=== PATIENT | male | born 1960 | race African-American/Black ===

== ENCOUNTER 2019-09-13 09:21 | Observation (INO) | payer OTHER ==
[2019-09-13] MEDS ORDERED: ASPIRIN 81 MG CHEWABLE TABLET ONE (11:00)
[2019-09-13 11:07] LABS: Absolute Lymphocytes (CBC) 1.9 K/uL (0.7-4.9); Basophils % 1.2 % (0-1.3); Hematocrit 37.6 % (39.6-49.0); Lymphocytes % 23.5 % (15.3-44.8); MPV 8.4 fL (7.6-11.3); RBC Red Blood Cell Count 4.11 M/uL (4.33-5.43)
--- NOTE | 2019-09-13 11:09 | RAD REPORT ---
EXAM DESCRIPTION: RAD - Chest Single View - 09/13/2019 10:58 am CLINICAL HISTORY: Chest pain;Dyspnea Chest pain. COMPARISON: Chest Single View dated 10/06/2017; CHEST SINGLE VIEW dated 07/09/2014; CHEST SINGLE VIEW d ated 07/08/2014; CHEST SINGLE VIEW dated 09/15/2012 FINDINGS: Portable technique limits examination quality. The lungs are grossly clear. The heart is normal in size. No displaced fractures. IMPRESSION: No acute intrathoracic process suspected.
[2019-09-13 11:15] LABS: Protime INR 1.11
[2019-09-13 11:24] LABS: ALT/SGPT 29 U/L (12-78); AST/SGOT 12 U/L (15-37); Albumin 3.2 g/dL (3.4-5.0); Alkaline Phosphatase 55 U/L (45-117); BUN Blood Urea Nitrogen 12 mg/dL (7-18); Bicarbonate 29 mmol/L (21-32); Bilirubin Direct < 0.1 mg/dL (0-0.2); Bilirubin Total 0.3 mg/dL (0.2-1.0); Glucose Level 138 mg/dL (74-106); Lipase 95 U/L (73-393); Magnesium 1.8 mg/dL (1.8-2.4); NT PRO-BNP 389 pg/mL (<125); Potassium 3.1 mmol/L (3.5-5.1); Protein, Total 7.4 g/dL (6.4-8.2); Sodium Level 142 mmol/L (136-145); Troponin (Emerg Dept Use Only) 0.02 ng/mL (0.0-0.045)
--- NOTE | 2019-09-13 11:24 | EDPHYS ---
Physician Documentation [facility] Name: Karson Giordano Age: 59 yrs Sex: Male : 1960 Arrival Date: 09/13/2019 Time: 09:22 Bed 20 Private MD: AXEL Physician Mo Luciano HPI: 09/13 10:30 This 59 yrs old Black Male presents to ER via Ambulatory with complaints of Breathing sathya Difficulty. 10:30 The patient has shortness of breath at rest, with light activity. Onset: The sathya symptoms/episode began/occurred this morning. Duration: The symptoms are continuous, but are steadily getting better. The patient's shortness of breath has no apparent modifying factors. Associated signs and symptoms: Pertinent positives: chest pain. Severity of symptoms: At their worst the symptoms were mild in the emergency department the symptoms have improved mildly. The patient has not experienced similar symptoms in the past. Historical: - Allergies: 09:45 No Known Allergies; iw - Home Meds: 09:45 lisinopril 10 mg Oral tab 1 tab once daily [Active]; iw - PMHx: 09:45 Crohn's; Kidney stones; iw - PSHx: 09:45 Colostomy; iw - Immunization history:: Adult Immunizations not up to date. - Social history:: Smoking status: Patient uses tobacco products, smokes one pack cigarettes per day. - Ebola Screening: : Patient negative for fever greater than or equal to 101.5 degrees Fahrenheit, and additional compatible Ebola Virus Disease symptoms Patient denies exposure to infectious person Patient denies travel to an Ebola-affected area in the 21 days before illness onset No symptoms or risks identified at this time. - Family history:: not pertinent. ROS: 10:30 Constitutional: Negative for fever, chills, and weight loss, Eyes: Negative for injury, sathya pain, redness, and discharge, ENT: Negative for injury, pain, and discharge, Neck: Negative for injury, pain, and swelling, Respiratory: Negative for shortness of breath, cough, wheezing, and pleuritic chest pain, Abdomen/GI: Negative for abdominal pain, nausea, vomiting, diarrhea, and constipation, Back: Negative for injury and pain, : Negative for injury, bleeding, discharge, and swelling, MS/Extremity: Negative for injury and deformity, Skin: Negative for injury, rash, and discoloration, Neuro: Negative for headache, weakness, numbness, tingling, and seizure, Psych: Negative for depression, anxiety, suicide ideation, homicidal ideation, and hallucinations, Allergy/Immunology: Negative for hives, rash, and allergies, Endocrine: Negative for neck swelling, polydipsia, polyuria, polyphagia, and marked weight changes, Hematologic/Lymphatic: Negative for swollen nodes, abnormal bleeding, and unusual bruising. 10:30 Cardiovascular: Positive for chest pain. 10:30 Respiratory: Positive for shortness of breath. Exam: 10:30 Constitutional: This is a well developed, well nourished patient who is awake, alert, sathya and in no acute distress. Head/Face: Normocephalic, atraumatic. Eyes: Pupils equal round and reactive to light, extra-ocular motions intact. Lids and lashes normal. Conjunctiva and sclera are non-icteric and not injected. Cornea within normal limits. Periorbital areas with no swelling, redness, or edema. ENT: Nares patent. No nasal discharge, no septal abnormalities noted. Tympanic membranes are normal and external auditory canals are clear. Oropharynx with no redness, swelling, or masses, exudates, or evidence of obstruction, uvula midline. Mucous membranes moist. Neck: Trachea midline, no thyromegaly or masses palpated, and no cervical lymphadenopathy. Supple, full range of motion without nuchal rigidity, or vertebral point tenderness. No Meningismus. Chest/axilla: Normal chest wall appearance and motion. Nontender with no deformity. No lesions are appreciated. Cardiovascular: Regular rate and rhythm with a normal S1 and S2. No gallops, murmurs, or rubs. Normal PMI, no JVD. No pulse deficits. Respiratory: Lungs have equal breath sounds bilaterally, clear to auscultation and percussion. No rales, rhonchi or wheezes noted. No increased work of breathing, no retractions or nasal flaring. Abdomen/GI: Soft, non-tender, with normal bowel sounds. No distension or tympany. No guarding or rebound. No evidence of tenderness throughout. Back: No spinal tenderness. No costovertebral tenderness. Full range of motion. Skin: Warm, dry with normal turgor. Normal color with no rashes, no lesions, and no evidence of cellulitis. MS/ Extremity: Pulses equal, no cyanosis. Neurovascular intact. Full, normal range of motion. Neuro: Awake and alert, GCS 15, oriented to person, place, time, and situation. Cranial nerves II-XII grossly intact. Motor strength 5/5 in all extremities. Sensory grossly intact. Cerebellar exam normal. Normal gait. Psych: Awake, alert, with orientation to person, place and time. Behavior, mood, and affect are within normal limits. 10:30 Musculoskeletal/extremity: Extremities: all appear grossly normal, with no appreciated pain with palpation, ROM: no acute changes, intact in all extremities, Circulation is intact in all extremities. Sensation intact. Compartment Syndrome exam of affected extremity: is normal. no pain, no numbness, no tingling, no sensation deficit, no palor, no weak pulses, DVT Exam: No signs of deep vein thrombosis. no pain, no swelling, no tenderness, negative Homans' sign noted on exam, no appreciated bluish discoloration, no erythema, no increased warmth. Vital Signs: 09:45 BP 174 / 99; Pulse 72; Resp 16; Temp 97.7; Pulse Ox 98% on R/A; Weight 85.28 kg; Height iw 5 ft. 10 in. (177.80 cm); Pain 8/10; 11:00 BP 169 / 102; Pulse 95; Resp 21 S; Pulse Ox 100% on R/A; ca1 11:49 BP 158 / 98; Pulse 65; Resp 18; Temp 97.9(O); Pulse Ox 99% on R/A; mh5 12:48 BP 146 / 73; Pulse 76; Resp 17 S; Pulse Ox 99% on R/A; ca1 13:49 BP 146 / 99; Pulse 66; Resp 19 S; Temp 98.2(O); Pulse Ox 100% on R/A; ca1 09:45 Body Mass Index 26.97 (85.28 kg, 177.80 cm) MDM: 10:11 Patient medically screened. [facility] 10:33 Data reviewed: vital signs, nurses notes, lab test result(s), EKG, radiologic studies, [facility] CT scan, plain films. 09/13 10:30 Order name: Basic Metabolic Panel; Complete Time: 11:38 [facility] 09/13 10:30 Order name: CBC with Diff; Complete Time: 11:20 [facility] 09/13 10:30 Order name: LFT's; Complete Time: 11:38 sathya 09/13 10:30 Order name: Magnesium; Complete Time: 11:38 [facility] 09/13 10:30 Order name: NT PRO-BNP; Complete Time: 11:38 sathya 09/13 10:30 Order name: PT-INR; Complete Time: 11:20 [facility] 09/13 10:30 Order name: Troponin (emerg Dept Use Only); Complete Time: 11:38 09/13 10:30 Order name: XRAY Chest (1 view); Complete Time: 11:20 [facility] 09/13 10:30 Order name: EKG; Complete Time: 10:30 [facility] 09/13 10:30 Order name: Lipase; Complete Time: 11:38 [facility] 09/13 10:30 Order name: Cardiac monitoring; Complete Time: 10:39 [facility] 09/13 10:30 Order name: EKG - Nurse/Tech; Complete Time: 10:39 [facility] 09/13 10:30 Order name: IV Saline Lock; Complete Time: 10:58 [facility] 09/13 10:30 Order name: Labs collected and sent; Complete Time: 10:58 [facility] 09/13 10:30 Order name: O2 Per Protocol; Complete Time: 10:39 [facility] 09/13 10:30 Order name: O2 Sat Monitoring; Complete Time: 10:39 [facility] Administered Medications: 10:58 Drug: Aspirin Chewable Tablet 324 mg Route: PO; ca1 11:39 Follow up: Response: No adverse reaction; Pain is decreased ca1 11:41 Drug: Lopressor (metoprolol TARTRATE) 50 mg Route: PO; ca1 12:15 Follow up: Response: No adverse reaction ca1 11:42 Drug: Potassium Effervescent Tablet 50 mEq Route: PO; ca1 12:15 Follow up: Response: No adverse reaction ca1 11:47 Drug: Lovenox 1 mg/kg Route: Sub-Q; Site: left lower abdomen; ca1 12:15 Follow up: Response: No adverse reaction ca1 Disposition: 09/13/19 11:23 Hospitalization ordered by Karli Leigh for Observation. Preliminary diagnosis are Chest pain, unspecified, Essential (primary) hypertension, Dyspnea, Hypokalemia. - Bed requested for Telemetry/MedSurg (observation). - Status is Observation. iw - Condition is Fair. - Problem is new. - Symptoms have improved. UTI on Admission? No Signatures: Dispatcher [employer] EDMS Mo Luciano MD MD cha Williams, Irene, KATELYN RN iw Lori Soto eb Savannah Katz RN RN ca1 Corrections: (The following items were deleted from the chart) 11:38 11:23 Hospitalization Ordered by Karli Leigh MD for Observation. Preliminary diagnosis sathya is Chest pain, unspecified; Essential (primary) hypertension; Dyspnea. Bed requested for Telemetry/MedSurg (observation). Status is Observation. Condition is Fair. Problem is new. Symptoms have improved. UTI on Admission? No. sathya 11:50 11:38 09/13/2019 11:23 Hospitalization Ordered by Karli Leigh MD for Observation. eb Preliminary diagnosis is Chest pain, unspecified; Essential (primary) hypertension; Dyspnea; Hypokalemia. Bed requested for Telemetry/MedSurg (observation). Status is Observation. Condition is Fair. Problem is new. Symptoms have improved. UTI on Admission? No. sathya 13:13 11:50 09/13/2019 11:23 Hospitalization Ordered by Karli Leigh MD for Observation. eb Preliminary diagnosis is Chest pain, unspecified; Essential (primary) hypertension; Dyspnea; Hypokalemia. Bed requested for Telemetry/MedSurg (observation). Status is Observation. Condition is Fair. Problem is new. Symptoms have improved. UTI on Admission? No. eb 14:18 13:13 09/13/2019 11:23 Hospitalization Ordered by Karli Leigh MD for Observation. iw Preliminary diagnosis is Chest pain, unspecified; Essential (primary) hypertension; Dyspnea; Hypokalemia. Bed requested for Telemetry/MedSurg (observation). Status is Observation. Condition is Fair. Problem is new. Symptoms have improved. UTI on Admission? No. eb
--- NOTE | 2019-09-13 11:24 | ER ---
Nurse's Notes [facility] Name: Karson Giordano Age: 59 yrs Sex: Male : 1960 Arrival Date: 09/13/2019 Time: 09:22 Bed 20 Private MD: Diagnosis: Chest pain, unspecified;Essential (primary) hypertension;Dyspnea;Hypokalemia Presentation: 09/13 09:42 Presenting complaint: Patient states: last night had a really bad toothache and was iw making his face hurt, and had nasal congestion and couldn't breathe, couldn't sleep, also both legs are weak. Transition of care: patient was not received from another setting of care. Onset of symptoms was September 13, 2019. Risk Assessment: Do you want to hurt yourself or someone else? Patient reports no desire to harm self or others. Initial Sepsis Screen: Does the patient meet any 2 criteria? No. Patient's initial sepsis screen is negative. Does the patient have a suspected source of infection? No. Patient's initial sepsis screen is negative. Care prior to arrival: None. 09:42 Method Of Arrival: Ambulatory iw 09:42 Acuity: AYESHA 3 iw Triage Assessment: 10:59 Respiratory: the patient reports symptoms have resolved. ca1 Historical: - Allergies: 09:45 No Known Allergies; iw - Home Meds: 09:45 lisinopril 10 mg Oral tab 1 tab once daily [Active]; iw - PMHx: 09:45 Crohn's; Kidney stones; iw - PSHx: 09:45 Colostomy; iw - Immunization history:: Adult Immunizations not up to date. - Social history:: Smoking status: Patient uses tobacco products, smokes one pack cigarettes per day. - Ebola Screening: : Patient negative for fever greater than or equal to 101.5 degrees Fahrenheit, and additional compatible Ebola Virus Disease symptoms Patient denies exposure to infectious person Patient denies travel to an Ebola-affected area in the 21 days before illness onset No symptoms or risks identified at this time. - Family history:: not pertinent. Screenin:15 Abuse screen: Denies threats or abuse. Denies injuries from another. Nutritional ca1 screening: No deficits noted. Tuberculosis screening: No symptoms or risk factors identified. Fall Risk IV access (20 points). Assessment: 10:15 General: Appears in no apparent distress. comfortable, Behavior is calm, cooperative, ca1 appropriate for age. General: Reports feeling ill for > 3 days. Pain: Complains of pain in mid-sternal area Pain does not radiate. Pain currently is 6 out of 10 on a pain scale. Quality of pain is described as tightness Pain began 0230 early this morning Is continuous, Also complains of shortness of breath. Neuro: Level of Consciousness is awake, alert, obeys commands, Oriented to person, place, time, situation, Appropriate for age. Cardiovascular: Heart tones S1 S2 present Capillary refill < 3 seconds Patient's skin is warm and dry. Rhythm is sinus rhythm. Respiratory: Reports shortness of breath since just today cough that is since 2-3 weeks Airway is patent Respiratory effort is even, unlabored, Respiratory pattern is regular, symmetrical, Breath sounds are clear bilaterally. GI: Abdomen is flat, non-distended, Colostomy site is clean and dry. Ostomy appliance is intact. Bowel sounds present X 4 quads. Abd is soft and non tender X 4 quads. : No signs and/or symptoms were reported regarding the genitourinary system. EENT: Reports nasal congestion since a week ago. Derm: Skin is intact, is healthy with good turgor, Skin is pink, warm \T\ dry. Musculoskeletal: Circulation, motion, and sensation intact. Capillary refill < 3 seconds, Range of motion: intact in all extremities. 11:00 Reassessment: Patient appears in no apparent distress at this time. Patient and/or ca1 family updated on plan of care and expected duration. Pain level reassessed. Patient is alert, oriented x 3, equal unlabored respirations, skin warm/dry/pink. 11:48 Reassessment: Patient appears in no apparent distress at this time. Patient and/or ca1 family updated on plan of care and expected duration. Pain level reassessed. Patient is alert, oriented x 3, equal unlabored respirations, skin warm/dry/pink. 12:48 Reassessment: Patient appears in no apparent distress at this time. Patient is alert, ca1 oriented x 3, equal unlabored respirations, skin warm/dry/pink. Patient is alert/active/playful, equal unlabored respirations, skin warm/dry/pink. Pending Room Assignment. 13:19 Reassessment: Called for report. Nurse on lunch break. Will call once back from lunch. ca1 13:49 Reassessment: Patient appears in no apparent distress at this time. Patient is alert, ca1 oriented x 3, equal unlabored respirations, skin warm/dry/pink. Vital Signs: 09:45 BP 174 / 99; Pulse 72; Resp 16; Temp 97.7; Pulse Ox 98% on R/A; Weight 85.28 kg; Height iw 5 ft. 10 in. (177.80 cm); Pain 8/10; 11:00 BP 169 / 102; Pulse 95; Resp 21 S; Pulse Ox 100% on R/A; ca1 11:49 BP 158 / 98; Pulse 65; Resp 18; Temp 97.9(O); Pulse Ox 99% on R/A; mh5 12:48 BP 146 / 73; Pulse 76; Resp 17 S; Pulse Ox 99% on R/A; ca1 13:49 BP 146 / 99; Pulse 66; Resp 19 S; Temp 98.2(O); Pulse Ox 100% on R/A; ca1 09:45 Body Mass Index 26.97 (85.28 kg, 177.80 cm) iw ED Course: 09:22 Patient arrived in ED. am2 09:44 Triage completed. iw 09:45 Arm band placed on. iw 10:11 Mo Luciano MD is Attending Physician. sathya 10:15 Patient has correct armband on for positive identification. Placed in gown. Bed in low ca1 position. Call light in reach. Side rails up X 1. monitoring and evaluation advisor on. Pulse ox on. NIBP on. Warm blanket given. 10:15 No provider procedures requiring assistance completed. ca1 10:35 Savannah Katz, RN is Primary Nurse. ca1 10:48 Missed attempt(s): 22 gauge in right antecubital area. Bleeding controlled, band aid ca1 applied, catheter tip intact. 10:53 Initial lab(s) drawn, by me, sent to lab. Inserted saline lock: 22 gauge in left ca1 antecubital area, using aseptic technique. Blood collected. 10:58 XRAY Chest (1 view) In Process Unspecified. EDMS 11:04 EKG done, by ED staff, reviewed by Mo Luciano MD. tc 11:21 Karli Leigh MD is Hospitalizing Provider. sathya 13:50 Patient admitted, IV remains in place. ca1 Administered Medications: 10:58 Drug: Aspirin Chewable Tablet 324 mg Route: PO; ca1 11:39 Follow up: Response: No adverse reaction; Pain is decreased ca1 11:41 Drug: Lopressor (metoprolol TARTRATE) 50 mg Route: PO; ca1 12:15 Follow up: Response: No adverse reaction ca1 11:42 Drug: Potassium Effervescent Tablet 50 mEq Route: PO; ca1 12:15 Follow up: Response: No adverse reaction ca1 11:47 Drug: Lovenox 1 mg/kg Route: Sub-Q; Site: left lower abdomen; ca1 12:15 Follow up: Response: No adverse reaction ca1 Outcome: 11:23 Decision to Hospitalize by Provider. sathya 13:50 Admitted to Med/surg accompanied by tech, via wheelchair, room 211, with chart, Report ca1 called to KATELYN Davila 13:50 Condition: stable 13:50 Instructed on the need for admit. 14:18 Patient left the ED. iw Signatures: Dispatcher [employer] EDMS Mo Luciano MD MD cha Williams, Irene, RN RN Gloria Molina, front desk officer EKG Scarlett Jacome 5 Nancy Abbott am2 Savannah Katz RN RN ca1 Corrections: (The following items were deleted from the chart) 09:45 09:42 Acuity: AYESHA 4 [facility]
[2019-09-13] MEDS ORDERED: ENOXAPARIN 80 MG/0.8 ML SQ ONE (11:43)
[2019-09-13] MEDS ORDERED: POTASSIUM 25 MEQ EFFERV TAB ONE (11:43)
[2019-09-13] MEDS ORDERED: METOPROLOL TAR 50 MG TAB ONE (11:43)
--- NOTE | 2019-09-13 13:22 | EKG ---
Test Date: 2019-09-13 Test Time: 10:31:30 Solar Installation Manager: ABY MEASUREMENT RESULTS: Intervals: Rate: 61 ME: 182 QRSD: 98 QT: 398 QTc: 400 Randall: P: 55 ME: 182 QRS: 45 T: 19 INTERPRETIVE STATEMENTS: Normal sinus rhythm Minimal voltage criteria for LVH, may be normal variant Nonspecific T wave abnormality Abnormal ECG Compared to ECG 10/06/2017 10:36:32 T-wave abnormality now present Electronically Signed On 09-13-19 13:20:51 [employer] by Akbar Sullivan
[2019-09-13] MEDS ORDERED: ACETAMINOPHEN 500 MG TAB PO PRN (14:10)
[2019-09-13] MEDS ORDERED: NITROGLYCERIN 0.4 MG/TAB SL PRN (14:10)
[2019-09-13] MEDS: ENOXAPARIN 40 MG/0.4 ML SQ SCH (15:00)
[2019-09-13] MEDS ORDERED: HYDRALAZINE HCL 20 MG/ML VIAL IV PRN (16:41)
[2019-09-13] MEDS ORDERED: INFLUENZA VACCINE (for 3y+) 0.5 ML DOSE IMVAC ONE (17:00)
[2019-09-13 17:57] VITALS: BMI 26.8
[2019-09-13] MEDS: MORPHINE 2 MG/ML SYR IV PRN (18:32)
[2019-09-13 20:10] LABS: Troponin I < 0.02 ng/mL (0.0-0.045)
[2019-09-13 20:29] LABS: Potassium 3.6 mmol/L (3.5-5.1)
[2019-09-13] MEDS ORDERED: ATORVASTATIN 40 MG TAB PO SCH (21:00)
[2019-09-13] MEDS: METOPROLOL TAR 25 MG TAB PO SCH (21:20)
[2019-09-14] MEDS ORDERED: KCL 20 MEQ/100 mL IVPB 20 MEQ/100 ML BAG IV SCH ×2 (01:00→07:30)
[2019-09-14] MEDS ORDERED: NA CHLORIDE 0.9% 250 ML ONE (01:13)
[2019-09-14] MEDS: MORPHINE 2 MG/ML SYR IV PRN (01:24)
--- NOTE | 2019-09-14 02:28 | HP ---
Date of Admission: 09/13/2019 Consultants: Dr. Sullivan with Cardiology. Chief Complaint: Chest pain. History Of Present Illness: Patient is a 59-year-old male with past medical history of Crohn disease status post colostomy, hypertension, mild coronary artery disease with cardiac catheterization in , comes in with chest pain that started last night, woke him up. Being awake, also reports some to oth pain. Patient did become short of breath. His symptoms are constant, moderate, progressive. Th e pain was nonradiating. No alleviating factors or aggravating factors. The patient came into the E R for further evaluation. His blood pressure was not well controlled, it was 169/102. Cardiac enzym es were negative. His EKG was nonspecific, showed LVH changes. He was found to have a low potassium , which was replaced. Patient was then admitted for further evaluation. Past Medical History: Crohn disease, status post colostomy, hypertension, coronary artery disease. Surgical History: Scope to bilateral knees, meniscus, ACL, colostomy. Allergies: NO KNOWN DRUG ALLERGIES. Medications: Lisinopril 10 mg daily. The patient no longer taking any aspirin, Plavix, or statin me dications. Social History: Patient smokes half a pack per day, has been smoking for the past 15 years. No illi cit drug use. Drinks alcohol rarely. Family History: Mother had diabetes. Review of Systems: Ten-point system reviewed, negative except as per HPI. Physical Examination: Vital Signs: Temperature 97.7, heart rate 72, blood pressure 174/99, respirations 16, O2 98% on room air. General: Awake, alert, and oriented x3, not in any acute distress. HEENT: Normocephalic, atraumatic. PERRLA. EOMI. Moist mucous membranes. Oropharynx is clear. Po or dentition. Conjunctivae are anicteric. Neck: Supple. No JVD. Trachea midline. CV: S1, S2. Regular rate and rhythm. Peripheral pulses present. Respiratory: Moving air well bilaterally. No wheezing or stridor. No use of accessory muscles. Gastrointestinal: Abdomen is soft, nontender, nondistended. Positive bowel sounds. No guarding or rigidity. Extremities: No clubbing, cyanosis, or edema. No calf tenderness. Neuro: Cranial nerves 2 through 12 intact grossly. No focal neurological deficit. Speech is normal . Skin: No rashes. Normal skin turgor. Psych: Mood is okay. Affect is full. Insight and judgment are good. Laboratory Data: Sodium 142, potassium 3.1, chloride 106, CO2 of 29, BUN 12, creatinine 1.17, glucos e 138, calcium 8.5, magnesium 1.8, troponin 0.02, BNP 389. WBC 8, H and H 12.5 and 37.6, platelets 2 49. INR 1.11. Chest x-ray shows no acute intrathoracic process, personally reviewed. Assessment: A 59-year-old male with, 1.Unstable angina. The patient has history of coronary artery disease with catheterization back in 2013, was on medical management, however, currently not taking any aspirin and Plavix, has history of hypertension as well and smokes. Spoke with Dr. Sullivan, who recommends stress test in a.m. We nate l start on chest pain guidelines. We will obtain serial cardiac enzymes. 2.Hypertensive emergency. Patient has blood pressure 170s/100s with chest pain. We will add IV hyd ralazine. Continue home medications. 3.Hypertensive heart disease. We will obtain echocardiogram. 4.Crohn disease, status post colostomy. 5.Coronary artery disease [place] artery and [place] heart with angina. Continue with aspirin. 6.Deep vein thrombosis prophylaxis with Lovenox. Plan: Admit patient to Med-Surg, place as observation. ANDREEA Voice ID: [id number]
[2019-09-14 04:58] LABS: Potassium 3.7 mmol/L (3.5-5.1)
[2019-09-14 05:09] LABS: Absolute Lymphocytes (CBC) 2.6 K/uL (0.7-4.9); Basophils % 0.7 % (0-1.3); Hematocrit 37.4 % (39.6-49.0); Lymphocytes % 28.9 % (15.3-44.8); MPV 8.5 fL (7.6-11.3); RBC Red Blood Cell Count 4.06 M/uL (4.33-5.43)
[2019-09-14] MEDS ORDERED: REGADENOSON 0.4 MG/5 ML SYR IV ONE (08:07)
[2019-09-14] MEDS: ENOXAPARIN 40 MG/0.4 ML SQ SCH (08:21)
[2019-09-14] MEDS: METOPROLOL TAR 25 MG TAB PO SCH (09:00)
[2019-09-14] MEDS ORDERED: lisinopriL 10 MG TAB PO SCH (09:00)
--- NOTE | 2019-09-14 10:00 | ECHO ---
HEIGHT: 5 ft 10 in WEIGHT: 186 lb 12.8 oz DATE OF STUDY: 09/14/[address]: Karli Leigh MD 2-DIMENSIONAL: YES M.MODE: YES DOPPLER: YES COLOR FLOW: YES TDS: NO PORTABLE: NO DEFINITY: NO BUBBLE STUDY: NO DIAGNOSIS: CHEST PAIN CARDIAC HISTORY: CATHERIZATION: YES SURGERY: NO PROSTHETIC VALVE: NO PACEMAKER: NO MEASUREMENTS (cm) DIASTOLIC (NORMALS) SYSTOLIC (NORMALS) IVSd 0.9 (0.6-1.2) LA Diam 3.1 (1.9-4.0) LVEF 53% LVIDd 5.6 (3.5-5.7) LVIDs 4.0 (2.0-3.5) %FS 28% LVPWd 1.0 (0.6-1.2) Ao Diam 2.9 (2.0-3.7) 2 DIMENSIONAL ASSESSMENT: RIGHT ATRIUM: NORMAL LEFT ATRIUM: NORMAL RIGHT VENTRICLE: NORMAL LEFT VENTRICLE: NORMAL TRICUSPID VALVE: NORMAL MITRAL VALVE: NORMAL PULMONIC VALVE: NORMAL AORTIC VALVE: NORMAL PERICARDIAL EFFUSION: NONE AORTIC ROOT: NORMAL LEFT VENTRICULAR WALL MOTION: NORMAL DOPPLER/COLOR FLOW: IMPAIRED LEFT VENTRICULAR RELAXATION. COMMENTS: NORMAL 2D ECHOCARDIOGRAM. IMPAIRED LEFT VENTRICULAR RELAXATION OTHERWISE NORMAL CARDIAC DOPPLER. TECHNOLOGIST: Forrest CHISHOLM
--- NOTE | 2019-09-14 12:37 | RAD REPORT ---
EXAM DESCRIPTION: NM - Rest Stress Cardiac Imaging - 09/14/2019 12:30 pm CLINICAL HISTORY: Chest pain COMPARISON: None. TECHNIQUE: The patient was administered 10.3 mCi of Tc 99m Sestamibi prior to resting SPECT imaging of the heart. The patient was then administered 30.7 mCi of Tc 99m Sestamibi following exercise or ph armacologic stress. Multiplanar SPECT images were reviewed. FINDINGS: The end diastolic volume is 137 ml, the end systolic volume is 75 ml, and the ejection fra ction is 45 %. No stress-induced ischemic changes are identified. Minimal areas of diminished activity along the mid portion of the anterior wall and the proximal portion of the inferior wall do not change between rest and stress imaging. IMPRESSION: No stress-induced ischemic change identifiable. Diminished activity along the inferior wall is believed to be attenuation artifact. Minimal anterior wall diminished activity could be a minute focus of scarring. End-diastolic volume is enlarged at 137 milliliters with a below normal 45% EF.
--- NOTE | 2019-09-14 13:45 | PN ---
History Of Present Illness: Mr. Giordano has a history of cardiac cath in 2013 that showed 50% LAD lesion. Since then, no interventions have been required. He has underlying hypertension and came to the hospital with some chest pain. Since he has been here, SC was ruled out with cardiac enzymes and EKGs. Allergies: HE HAS NO ALLERGIES. Social History: He uses no tobacco. Does not have diabetes. Medications: His only outpatient medication is lisinopril. Physical Examination: Vital signs: 5 feet 10, 186 pounds. General: Alert, oriented, pleasant, not in distress. Lungs: Clear. Cardiac: Normal. Abdomen: Soft. Extremities: Within normal limits. If his nuclear stress test is okay, he can be discharged. We can repeat a cardiac cath if there is a suggestion of significant ischemia. HEATHER/SABINE Voice ID: [id number] Report ID: [id number] ANGELA
--- NOTE | 2019-09-14 13:53 | TREADPHA ---
DX: UNSTABLE ANGINA Date of Study: 09/14/2019 Ht: 5 10 Wt: 186 lb 12.8 oz Consulting Physician: JONI MEDICATIONS: TYLENOL, LOPRESSOR, PRINIVIL, APRESOLINE HISTORY: 59 YEAR OLD MALE WITH COMPLAINTS OF CHEST PAIN. HISTORY OF CROHNS, KIDNEY STONES, HYPERTENSION, OCCASIONAL DRINKER AND SMOKER OF ONE PACK DAILY. PHYSICIAL EXAMINATION: RESTING B.P.: 154/104 RESTING H.R.: 81 RESTING EKG: SINUS, LEFT VENTRICULAR HYPERTROPHY, NON SPECIFIC T ABNORMALITY. PROTOCOL: LEXISCAN EXERCISE TIME: 3:30 B.P. AT PEAK STRESS: 163/101 IMPRESSION: LEXISCAN INJECTED, FOLLOWED BY CARDIOLITE PER PROTOCOL. SEE NUCLEAR MEDICINE REPORT. NO SUPRAVENTRICULAR TACHYCARDIA, VENTRICULAR TACHYCARDIA, PREMATURE VENTRICULAR COMPLEXES OR PREMATURE ATRIAL COMPLEXES NOTED. PATIENT REPORTED NO CHEST PAIN. NON DIAGNOSTIC EKG WITH LEXISCAN STRESS TEST.
[2019-09-14 16:45] VITALS: O2SAT 98
[2019-09-14 17:01] VITALS: BP 174/92; TEMP 98.7
--- NOTE | 2019-09-15 02:41 | DS ---
Date of Discharge: 09/14/2019 Consultants: Dr. Black with Cardiology. Procedures: Cardiac stress test on 09/14/2019. No stress-induced ischemia. Discharge Diagnoses: 1.Unstable angina, acute coronary syndrome ruled out. 2.Hypertensive emergency, blood pressure improved. 3.Hypertensive heart disease. 4.Crohn disease status post colostomy, stable. 5.Coronary artery disease [place] artery and [place] heart with angina. Hospital Course: Patient is a 59-year-old male with past history of hypertension, Crohn disease, no coronary artery disease, comes in with chest pain. He was admitted to the hospital. Patient was giv en medications to control his blood pressure. His cardiac enzymes were negative. He was started on chest pain guidelines. Echocardiogram showed normal ejection fraction 53%. His blood pressure impro marielena significantly. He was then counseled regarding continuing aspirin and statin due to history of p revious mild coronary artery disease. He was then cleared for discharge from Cardiology standpoint. He was sent home in a stable condition. Activity: As tolerated. Medications: As per medication reconciliation list. Followup: Follow up with primary care physician in 2-3 days. Follow up with senior health educator, Dr. Ching huerta in 2 weeks. Return to ER for worsening condition. Diet: Heart healthy. Physical Examination: General: Awake, alert, and oriented x3, in no acute distress. CV: S1, S2. No murmurs. Respiratory: Moving air well bilaterally. Abdomen: Abdomen is soft, nontender, nondistended. Positive bowel sounds. Extremities: No clubbing, cyanosis, or edema. Neurologic: Nonfocal. SA/MODL Voice ID: [id number] Report ID: [id number]
== END 2019-09-14 17:02 | disposition home or self-care (01) ==
LOC: ER 09:21 → ERHOLD 12:05 → 2ND 13:52
PROVIDERS: ADMIT Family Medicine; ATTEND Family Medicine
DX: I25.110 Atherosclerotic heart disease of native coronary artery with unstable angina pectoris (principal); I16.1 Hypertensive emergency; I11.9 Hypertensive heart disease without heart failure; K50.90 Crohn's disease, unspecified, without complications; Z93.3 Colostomy status; F17.210 Nicotine dependence, cigarettes, uncomplicated; Z23 Encounter for immunization
CPT/HCPCS: 93005; 93017; 93306; 85025 ×2; 80048 ×2; 36415; 83735; 84132; 85610; 80061; 80076; 84484 ×3; 83690; 83880; 71045; 90471; 78452; 96372; 99285; Q2035; J1650 ×2; J2270 ×2; J2785; J7030; A9500; G0378 ×3

== ENCOUNTER 2022-03-14 17:26 | Inpatient (IN) | payer OTHER ==
[2022-03-14] MEDS ORDERED: NA CHLORIDE 0.9% 1,000 ML ONE (18:10)
[2022-03-14] MEDS ORDERED: ONDANSETRON 4 MG/2 ML VIAL ONE (18:10)
[2022-03-14 18:19] LABS: Absolute Lymphocytes (CBC) 1.5 K/uL (0.7-4.9); Hematocrit 42.8 % (39.6-49.0); MCV 90.9 fL (80-100); MPV 8.2 fL (7.6-11.3); RBC Red Blood Cell Count 4.71 M/uL (4.33-5.43)
[2022-03-14 18:40] LABS: Albumin 3.8 g/dL (3.4-5.0); Bilirubin Total 0.4 mg/dL (0.2-1.0); Potassium 3.8 mmol/L (3.5-5.1); Protein, Total 8.6 g/dL (6.4-8.2); Troponin High Sensitivity 35.1 pg/mL (<58.9)
--- NOTE | 2022-03-14 18:44 | RAD REPORT ---
EXAM DESCRIPTION: RAD - Chest Single View - 03/14/2022 6:32 pm CLINICAL HISTORY: abd pain, chest pain Chest pain. COMPARISON: Chest Single View dated 09/13/2019; Chest Single View dated 10/06/2017; CHEST SINGLE VIEW da vitaly 07/09/2014; CHEST SINGLE VIEW dated 07/08/2014 FINDINGS: Portable technique limits examination quality. The lungs are grossly clear. The heart is normal in size. No displaced fractures. IMPRESSION: No acute intrathoracic process suspected.
--- NOTE | 2022-03-14 19:11 | RAD REPORT ---
EXAM DESCRIPTION: CT - Abdomen Pelvis Wo Contrast - 03/14/2022 6:58 pm CLINICAL HISTORY: Abdominal pain. Abdominal pain, acute, nonlocalized COMPARISON: CT ABD PELVIS W CONTRAST dated 03/11/2014; Rest Stress Cardiac Imaging dated 09/14/2019 TECHNIQUE: CT imaging of the abdomen and pelvis was performed without contrast. Solid organ, bowel a nd vascular assessment is limited due to lack of IV and oral contrast. All CT scans are performed using dose optimization technique as appropriate and may include automated exposure control or mA/KV adjustment according to patient size. FINDINGS: The lower lung malhotra are clear. The liver, spleen, pancreas, adrenal glands and kidneys are within normal limits for a limited non-co ntrast examination.Benign bilateral renal cysts. Small fat containing umbilical hernia. Right lower q uadrant ostomy noted. No bowel obstruction, free air, free fluid or abscess. Absent appendix. The osseous structures are within normal limits. IMPRESSION: No acute intra-abdominal or pelvic findings. A limited non-contrast examination was performed as detailed.
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
--- NOTE | 2022-03-14 19:15 | EDPHYS ---
Physician Documentation [facility] Name: Karson Giordano Age: 62 yrs Sex: Male : 1960 Arrival Date: 03/14/2022 Time: 17:30 Bed 14 Private MD: ED Physician Vincent Green HPI: 03/14 17:52 This 62 yrs old Black Male presents to ER via EMS with complaints of Abdominal Pain, rn Chest Pain. 17:52 Onset: The symptoms/episode began/occurred 2 day(s) ago. The symptoms do not radiate. rn Associated signs and symptoms: Pertinent positives: nausea and vomiting, Pertinent negatives: blood in stools, fever, hematuria, vomiting blood. 17:54 The patient presents with abdominal pain in the lower abdomen, right lower quadrant. rn The symptoms are described as achy, crampy, sharp. Modifying factors: The symptoms are alleviated by nothing, the symptoms are aggravated by touching the area. Severity of pain: At its worst the pain was moderate in the emergency department the pain has improved. The patient has experienced similar episodes in the past. The patient has not recently seen a physician. Pt reports lower abd pain, right sided abd pain, assoc with nausea/vomiting. + chills and malaise. EMS reported low blood pressure at scene, but much better here. NO blood in stool or vomit. Reports in ambulance pain radiated to chest and shoulders, but blames in on being moved and uncomfortable. NO current chest pain/sob/abd pain/back pain/shoulder pain. NO known sick contacts. . Historical: - Allergies: 17:49 No Known Allergies; tp1 - Home Meds: 17:49 Lisinopril Oral [Active]; tp1 - PMHx: 17:49 Crohn's disease; HTN; tp1 - PSHx: 17:49 Colostomy; tp1 - Immunization history:: Client reports receiving the 2nd dose of the Covid vaccine. - Social history:: Smoking status: Patient reports the use of cigarette tobacco products, smokes one-half pack cigarettes per day. - Family history:: not pertinent. - Hospitalizations: : No recent hospitalization is reported. ROS: 17:54 Constitutional: Negative for fever, and weight loss, Eyes: Negative for injury, pain, rn redness, and discharge, Neck: Negative for injury, pain, and swelling, Cardiovascular: Negative for palpitations, and edema, Respiratory: Negative for shortness of breath, cough, wheezing, and pleuritic chest pain, Abdomen/GI: Negative for diarrhea, and constipation, Back: Negative for injury and pain, : Negative for injury, bleeding, discharge, and swelling, MS/Extremity: Negative for injury and deformity, Skin: Negative for injury, rash, and discoloration, Neuro: Negative for headache, numbness, tingling, and seizure. Exam: 17:54 Constitutional: This is a well developed, well nourished patient who is awake, alert, rn and in no acute distress. Head/Face: Normocephalic, atraumatic. Eyes: Periorbital areas with no swelling, redness, or edema. ENT: dry MM Cardiovascular: Regular rate and rhythm. No pulse deficits. Respiratory: No increased work of breathing, no retractions or nasal flaring. Abdomen/GI: Soft, non-tender, + colostomy bag RLQ Skin: Warm, dry MS/ Extremity: Pulses equal, no cyanosis. Neuro: Awake and alert, GCS 15, oriented to person, place, time, and situation. Cranial nerves II-XII grossly intact. Motor strength 4/5 in all extremities. Sensory grossly intact. Vital Signs: 17:44 BP 104 / 69; Pulse 70; Resp 17; Temp 97.7; Pulse Ox 97% on R/A; Weight 85.73 kg; Height tp1 5 ft. 10 in. (177.80 cm); Pain 7/10; 18:47 BP 104 / 68; Pulse 66; Resp 20; Pulse Ox 100% on R/A; Pain 0/10; tp1 21:59 BP 136 / 89; Pulse 64; Resp 17; Pulse Ox 98% on R/A; vc1 17:44 Body Mass Index 27.12 (85.73 kg, 177.80 cm) tp1 MDM: 17:33 Patient medically screened. kb 19:12 Differential diagnosis: appendicitis, bowel obstruction, diverticulitis, non-specific rn abd pain, pancreatitis, Peptic Ulcer Disease, Ureterolithiasis. Data reviewed: vital signs, nurses notes, lab test result(s), radiologic studies, CT scan, and as a result, I will admit patient. Counseling: I had a detailed discussion with the patient and/or guardian regarding: the historical points, exam findings, and any diagnostic results supporting the discharge/admit diagnosis, lab results, radiology results, the need for further work-up and treatment in the hospital. Response to treatment: the patient's symptoms have mildly improved after treatment, and as a result, I will admit patient. 03/14 17:45 Order name: CBC with Diff; Complete Time: 18:28 rn 03/14 17:45 Order name: CMP 03/14 17:45 Order name: Lipase rn 03/14 17:46 Order name: SARS-COV-2 RT PCR (Document "Date of Onset" if Symptomatic); Complete Time: rn 19:08 03/14 17:46 Order name: Troponin High Sensitivity 03/14 17:47 Order name: XRAY Chest (1 view); Complete Time: 18:48 03/14 18:55 Order name: Abdomen ; Complete Time: 19:12 [facility] 03/14 19:40 Order name: Urine Microscopic Only la1 03/14 20:08 Order name: Creatine Phosphokinase [facility] 03/14 22:14 Order name: Urine Dipstick-Ancillary [facility] 03/14 17:45 Order name: IV Start; Complete Time: 18:16 rn 03/14 17:45 Order name: Labs collected and sent; Complete Time: 18:15 rn 03/14 17:45 Order name: Urine Dipstick-Ancillary (obtain specimen); Complete Time: 22:51 03/14 17:46 Order name: EKG; Complete Time: 17:47 03/14 17:46 Order name: EKG - Nurse/Tech; Complete Time: 18:15 rn Administered Medications: 18:09 Drug: NS 0.9% 1000 ml Route: IV; Rate: 1 bolus; Site: left forearm; tp1 19:10 Follow up: IV Status: Completed infusion; IV Intake: 1000ml vc1 18:13 Drug: Zofran (Ondansetron) 4 mg Route: IVP; Site: left forearm; tp1 22:24 Drug: Pepcid (famotidine) 20 mg Route: IVP; Site: left antecubital; vc1 Disposition Summary: 03/14/22 19:14 Hospitalization Ordered Hospitalization Status: Inpatient Admission rn Provider: José Henao rn Location: Telemetry/MedSurg (Inpatient) rn Condition: Stable rn Problem: new rn Symptoms: have improved rn Bed/Room Type: Standard rn Room Assignment: 222(03/14/22 21:53) Diagnosis - Acute kidney failure, unspecified rn - Dehydration rn Forms: - Medication Reconciliation Form rn - SBAR form rn Signatures: Dispatcher [employer] EDMS Yudith Giordano, TELETYPE MECHANIC-C TELETYPE MECHANIC-Vincent Lazar MD MD rn Garcia, Cindy RN RN Gloria Infante [facility] Sarah Egan RN RN [facility] Bianca Emmanuel RN RN [facility] Corrections: (The following items were deleted from the chart) 17:36 17:36 Allergies: No Known Allergies; [place] [address] 17:38 17:36 Allergies: NKDA; [place] [address] 17:38 17:36 Home Meds: lisinopril 10 mg Oral tab 1 tab once daily; [place] [address] 17:38 17:36 PMHx: Crohn's; [place] [address] 17:38 17:36 PMHx: Kidney stones; [place] [address] 17:38 17:36 Immunization history: Adult Immunizations up to date, [place] [address] 17:38 17:36 Social history: Smoking status: Patient denies any tobacco usage or history of. [place] [address] 17:52 17:49 PMHx: colostomy; [place] [id number] 18:55 17:50 Abdomen Pelvis W Con+CT.RAD.BRZ ordered. EDTN EDMS 20:08 19:41 CREATINE PHOSPHOKINASE+C.LAB.BRZ ordered. EDTN EDMS 21:02 19:14 rn 21:53 21:02 [address] [facility]
--- NOTE | 2022-03-14 20:04 | P.HP ---
Certification for Inpatient Patient admitted to: Inpatient With expected LOS: >2 Midnights Patient will require the following post-hospital care: None Practitioner: I am a practitioner with admitting privileges, knowledge of patient current condition, hospital course, and medical plan of care. Services: Services provided to patient in accordance with Admission requirements found in Title 42 Section 412.3 of the Code of Federal Regulations Patient History Date of Service: 03/14/22 Reason for admission: Acute renal failure History of Present Illness: 62-year-old male with history of Crohn's, hypertension presents the emergency department for nausea and vomiting, he reports feeling unwell over the course of the last few days has been unable to tolerate anything by mouth for the last 2 to 3 days, denies any abdominal pain or chest pain at this time he has a history of a colostomy from previous laparotomy approximately 8 to 9 years ago. He was evaluated in the emergency department his labs demonstrated that he was in acute renal failure his white blood cell count was within normal limits no fever chills were noted his CT scan of the abdomen pelvis was negative for any acute findings, patient was mildly hypotensive per EMS with a systolic in the 80s, this is since significant improved the patient does appear to be dehydrated, he denies use of any NSAIDs recently he reports that he was taking acetaminophen at home for pain, he is on lisinopril denies any recent contrast exposure or antibiotics. He had a similar episode back in 2018 which resolved with IV fluids his baseline GFR appears to be around 1. He will be admitted for acute renal failure. Allergies No Known Allergies Allergy (Verified 07/09/14 01:52) Home Medications: Aspirin [Aspirin EC 81 MG] 81 mg PO DAILY #30 tablet. 09/14/19 Atorvastatin Calcium [Lipitor] 40 mg PO BEDTIME #30 tab 09/14/19 lisinopriL [Lisinopril] 20 mg PO DAILY #30 tablet 09/14/19 - Past Medical/Surgical History Diabetic: No -: Chron's -: HTN -: Scope to bilat knees Meniscus/ACL -: Colostomy Psychosocial/ Personal History: Patient is retired, lives at home with his - Family History Mother -: Diabetes, Cancer - Social History Smoking Status: Current every day smoker Counseled patient to stop smoking for: less than 10 minutes Smoking therapy provided: Yes Alcohol use: No CD- Drugs: No Caffeine use: No Place of Residence: Home Review of Systems 10-point ROS is otherwise unremarkable Gastrointestinal: Nausea, Vomiting Physical Examination - Physical Exam General: Alert, In no apparent distress, Oriented x3 HEENT: Atraumatic, PERRLA, Other (Mucous membranes dry), EOMI, Sclerae nonicteric Neck: Supple, 2+ carotid pulse no bruit, No LAD, Without JVD or thyroid abnormality Respiratory: Clear to auscultation bilaterally, Normal air movement Cardiovascular: Regular rate/rhythm, Normal S1 S2 Capillary refill: <2 Seconds Gastrointestinal: Normal bowel sounds, No tenderness, Other (Colostomy in place right lower quadrant) Musculoskeletal: No tenderness Integumentary: No rashes Neurological: Normal speech, Normal strength at 5/5 x4 extr, Normal tone, Normal affect - Studies Laboratory Data (last 24 hrs) 03/14/22 18:05: Sodium 139, Potassium 3.8, BUN 33 H, Creatinine 4.22 H, Glucose 118 H, Total Bilirubin 0.4, AST 11 L, ALT 23, Alkaline Phosphatase 76, Lipase 99 03/14/22 18:05: WBC 9.6, Hgb 14.1, Hct 42.8, Plt Count 296 Assessment and Plan - Plan Assessment: Acute renal failure Hypertension Crohn's S/P colostomy Plan: Acute renal failure: I suspect this is prerenal we will continue with IV fluids overnight patient does not appear to be volume overloaded denies recent use of NSAIDs, antibiotics or recent contrast exposure. Nephrology has been consulted renal ultrasound has been ordered. Patient does take lisinopril this medication. Hypertension: Blood pressure initially hypotensive with EMS currently around 105 110 systolic, will hold antihypertensive agents at this time would likely benefit switching to a different antihypertensive prior to discharge. Crohn's S/P colostomy: Stable. CT negative for acute findings. DVT PPX: Heparin Code status: Full Discharge Plan: Home Plan to discharge in: 72 Hours - Advance Directives Does patient have a Living Will: No Does patient have a Durable POA for Healthcare: No - Code Status/Comfort Care Code Status Assessed: Yes (Full code) Critical Care: No Time Spent Managing Pts Care (In Minutes): 70
[2022-03-14 22:14] LABS: Urine Blood Trace-lysed (Negative); Urine Glucose Negative (Negative); Urine Protein 1+ (Negative); Urine Specific Gravity >=1.030 (1.005-1.030)
[2022-03-14] MEDS ORDERED: FAMOTIDINE 20 MG/2 ML VIAL IV ONE (22:25)
[2022-03-14 23:48] LABS: Urine Bacteria <20 /HPF (NONE SEEN); Urine RBC <5 /HPF (NONE SEEN)
[2022-03-15 00:08] VITALS: BMI 25.3
[2022-03-15] MEDS ORDERED: ONDANSETRON 4 MG/2 ML VIAL IV PRN (00:22)
[2022-03-15] MEDS ORDERED: ACETAMINOPHEN 500 MG TAB PO PRN (00:22)
[2022-03-15] MEDS: NA CHLORIDE 0.9% 1,000 ML IV SCH ×3 (01:58→20:45)
[2022-03-15] MEDS: HEPARIN 5000 UNIT/ML 1 ML VIAL SQ SCH ×3 (01:58→20:48)
[2022-03-15 05:48] LABS: Absolute Lymphocytes (CBC) 1.4 K/uL (0.7-4.9); Hematocrit 40.8 % (39.6-49.0); Lymphocytes % 14.1 % (15.3-44.8); MCV 91.6 fL (80-100); MPV 7.8 fL (7.6-11.3); RBC Red Blood Cell Count 4.46 M/uL (4.33-5.43)
[2022-03-15 06:22] LABS: Albumin 3.4 g/dL (3.4-5.0); Bilirubin Total 0.5 mg/dL (0.2-1.0); Potassium 3.7 mmol/L (3.5-5.1); Thyroid Stimulating Hormone 0.537 uIU/mL (0.360-3.740)
--- NOTE | 2022-03-15 08:14 | RAD REPORT ---
EXAM DESCRIPTION: US - Renal Ultrasound-Complete - 03/15/2022 5:15 am CLINICAL HISTORY: arf Flank pain COMPARISON: Renal Ultrasound-Complete dated 10/06/2017 FINDINGS: Mild increased echogenicity involving both kidneys. The right kidney measures 13.4 x 6.8 x 5.4 cm. No hydronephrosis, focal mass or perinephric fluid. 4. 8 x 4.0 cm cyst is present, benign in appearance. The left kidney measures 11.6 x 5.4 x 4.3 cm. No hydronephrosis, focal mass or perinephric fluid. The urinary bladder is incompletely distended without gross abnormality seen. IMPRESSION: Mildly echogenic kidneys suggests underlying medical renal disease. 4 cm right renal cyst, likely benign
--- NOTE | 2022-03-15 09:00 | P.PN ---
Subjective Date of Service: 03/15/22 Chief Complaint: Acute renal failure Subjective: Improving (Patient is improving denies any other complaints) Review of Systems General: Unremarkable Physical Examination - Vital Signs Temperature: 97.9 F Blood Pressure: 104/58 Pulse: 76 Respirations: 17 Pulse Ox (%): 91 - Physical Exam General: Alert, In no apparent distress, Oriented x3 Respiratory: Clear to auscultation bilaterally, Friction rub Cardiovascular: Regular rate/rhythm, Normal S1 S2 - Studies Laboratory Data (last 24 hrs) 03/14/22 18:05: Sodium 139, Potassium 3.8, BUN 33 H, Creatinine 4.22 H, Glucose 118 H, Total Bilirubin 0.4, AST 11 L, ALT 23, Alkaline Phosphatase 76, Lipase 99 03/14/22 18:05: WBC 9.6, Hgb 14.1, Hct 42.8, Plt Count 296 Assessment And Plan - Current Problems (Diagnosis) (1) DELMI (acute kidney injury) Onset Date: 10/07/17 Current Visit: No Status: Acute Plan: Patient admitted with acute renal failure most likely prerenal kidney function has improved significantly urine very concentrated he was out in the heat CBC is normal continue with IV fluids history of hypertension on FERNIE inhibitor history of Crohn's disease renal ultrasound ordered possible discharge tomorrow
[2022-03-15 11:34] LABS: UR PROTEIN 57.4 mg/dL (<11.9); Urine Protein/Creatinine Ratio 0.16 ratio (<0.15)
--- NOTE | 2022-03-15 13:46 | EKG ---
Test Date: 2022-03-14 Test Time: 22:17:25 Law Enforcement Officer: MEASUREMENT RESULTS: Intervals: Rate: 69 [place]: 164 QRSD: 94 QT: 416 QTc: 445 [place]: P: 50 [place]: 164 QRS: 58 T: -72 INTERPRETIVE STATEMENTS: Sinus rhythm with occasional premature ventricular complexes Voltage criteria for left ventricular hypertrophy T wave abnormality, consider inferolateral ischemia Abnormal ECG Compared to ECG 03/14/2022 18:09:41 Ventricular premature complex(es) now present T-wave abnormality now present Possible ischemia now present Early repolarization no longer present Electronically Signed On 03-15-22 13:45:14 CDT by Josef Bales
--- NOTE | 2022-03-15 13:47 | EKG ---
Test Date: 2022-03-14 Test Time: 18:09:41 Cloud Software Engineer: BRI MEASUREMENT RESULTS: Intervals: Rate: 68 [place]: 150 QRSD: 96 QT: 406 QTc: 431 [place]: P: 51 [place]: 150 QRS: 55 T: 248 INTERPRETIVE STATEMENTS: Normal sinus rhythm Left ventricular hypertrophy with repolarization abnormality Abnormal ECG Compared to ECG 09/13/2019 10:31:30 Early repolarization now present T-wave abnormality no longer present Electronically Signed On 03-15-22 13:45:40 CDT by Josef Bales
[2022-03-15] MEDS: FAMOTIDINE 20 MG/2 ML VIAL IV SCH (21:46)
--- NOTE | 2022-03-16 00:26 | CON ---
Date of Consultation: 03/15/2022 Chief Complaint: Acute kidney injury. History Of Present Illness: The patient is a 62-year-old man with history of hypertension and Crohn disease. He presented to the hospital Emergency Department because of nausea and vomiting. He was n ot feeling well for at least few days prior to the admission. He had diminished p.o. intake and he d enied abdominal pain or chest pain. He has history of colostomy and previous laparotomy approximatel y 8-9 years ago. He was evaluated in the emergency room and he was found to have elevated BUN and cr eatinine and elevated white count. He was complaining of some weakness, but he did not have fever or chills. CT scan was done to rule out abdominal pathology and the CT scan of the abdomen and pelvis was negative for acute finding. On presentation to the hospital, the patient was mildly hypotensive. He was brought to the emergency room by EMS and his systolic blood pressure was in the 80s. The pa tient received IV fluids for volume resuscitation and hypotension resolved. The patient denies histo ry of nonsteroidal anti-inflammatory medication. Denies antibiotics or recent IV contrast exposure. He had similar episodes back in 2018 with acute kidney injury and at this time, he was volume deplet ed and he had acute kidney injury with severe hyperazotemia and he responded to IV fluids and did not require dialysis. Past Medical History: Crohn disease, hypertension, colostomy, acute kidney injury. Family History: Mother with diabetes mellitus and cancer. Social History: Current everyday smoker. Denies alcohol. Review of Systems: General: Denies fever or chills. Eyes: Denies vision changes. Ears, Nose and Throat: Denies sore throat or earache. Respiratory: Denies PND or orthopnea. Cardiovascular: Denies chest pain or palpitations. GI: Has diarrhea. Denies nausea, vomiting, melena, or hematemesis. : Denies dysuria, hematuria, or renal colic. All other systems reviewed and all are negative. Physical Examination: General: The patient is oriented x3. Eyes: Anicteric sclerae. EOMI. Ears, Nose, and Throat: Oral mucosa moist. No pallor. Neck: Supple. No JVD. No bruits. Lungs: Clear to auscultation bilaterally. Heart: S1, S2. No pericardial friction or rub. Abdomen: Benign, nontender. No rebound. No guarding. Extremities: No edema. Laboratory Data: Sodium 139, potassium 3.8, BUN 33, creatinine 4.22, glucose 118, total bilirubin 0. 4, lipase 99, ALT 23, AST 11. WBC 9.6, hemoglobin 14.1, platelet count 296,000. Impression: 1.Acute kidney injury, nonoliguric. Renal function is somewhat improved since yesterday although th e patient has severe hyperazotemia, he does not have uremic symptomatology. Plan is to continue IV f luids for hydration. The patient developed severe prerenal azotemia with acute tubular necrosis. Th e patient denies nonsteroidal anti-inflammatory medication. 2.The patient presented with hypotension. Monitor blood pressure closely. Continue normal saline f or hydration. 3.Crohn disease status post colostomy and CT scan was done. The patient will follow up with GI and management by Primary Team. 4.Generalized weakness. Advanced hydration with IV fluids. 5.Renal ultrasound did not show hydronephrosis. Urinalysis is negative for active urinary sediment. Re-evaluate urine and screen for proteinuria. EB/MODL Voice ID: [id number] Report ID: [id number]
[2022-03-16 03:48] LABS: Absolute Lymphocytes (CBC) 1.9 K/uL (0.7-4.9); Hematocrit 38.4 % (39.6-49.0); Lymphocytes % 26.6 % (15.3-44.8); MCV 89.9 fL (80-100); MPV 7.9 fL (7.6-11.3); RBC Red Blood Cell Count 4.27 M/uL (4.33-5.43)
[2022-03-16 04:02] LABS: Albumin 3.1 g/dL (3.4-5.0); Bilirubin Total 0.5 mg/dL (0.2-1.0); Potassium 3.6 mmol/L (3.5-5.1); Protein, Total 7.5 g/dL (6.4-8.2)
[2022-03-16] MEDS: NA CHLORIDE 0.9% 1,000 ML IV SCH ×3 (06:56→18:24)
[2022-03-16] MEDS: HEPARIN 5000 UNIT/ML 1 ML VIAL SQ SCH ×2 (09:43→21:17)
[2022-03-16] MEDS ORDERED: POTASSIUM CL 40 MEQ in NA CHLORIDE 0.9% 500 ML IV SCH (14:00)
--- NOTE | 2022-03-16 17:19 | PN ---
Date of Progress Note: 03/16/2022 Subjective: The patient was admitted with acute kidney injury secondary to prerenal. The patient was started on aggressive hydration. Kidney function started being improving. Physical Examination: Vital Signs: Blood pressure 126/76, pulse of 67, afebrile. The patient had good urine output. Chest: Clear to auscultation. Heart: S1, S2. Regular. Abdomen: Soft. Colostomy. Extremities: No edema. Neurologic: Alert. No focality. Laboratory Data: Sodium 139, potassium 3.6, bicarb 19, BUN 29, creatinine down to 1.6, GFR of 45, calcium 8.2, albumin 3.1. Current Medications: The patient on include heparin, Tylenol, Pepcid, normal saline. Assessment And Plan: 1. Acute kidney injury secondary to prerenal, on the recovery phase. I am going to continue hydration. 2. Renal cyst, simple. We will monitor. 3. Gastroenteritis. The patient is going to be advanced diet if tolerated. We will discontinue IV fluid. 4. Acidosis secondary to gastrointestinal loss. I am going to start the patient on sodium bicarb. 5. Hypokalemia. We will supplement. Time spent examining the patient [id number], reviewing the data, placing order, discussing with by bedside, discussing with staff member including charge nurse and nursing and hospitalist 45 minutes. MILAN Voice ID: [id number] Report ID: [id number] ANGELA
--- NOTE | 2022-03-16 18:45 | P.PN ---
Subjective Date of Service: 03/16/22 Chief Complaint: Acute renal failure Patient states he feels better today. He tolerated diet advancement. Serum creatinine continues to trend down. Physical Examination - Vital Signs Temperature: 97.8 F Blood Pressure: 121/77 Pulse: 82 Respirations: 16 Pulse Ox (%): 82 - Physical Exam General: Alert, Oriented x3 HEENT: Mucous membr. moist/pink Neck: Supple, JVD not distended Respiratory: Clear to auscultation bilaterally, Normal air movement Cardiovascular: No edema, Normal S1 S2, Irregular heart rate/rhythm Gastrointestinal: Normal bowel sounds, Soft and benign, Non-distended, No tenderness Musculoskeletal: No swelling, No tenderness Integumentary: No rashes, No erythema Neurological: Normal speech, Normal strength at 5/5 x4 extr Assessment And Plan - Current Problems (Diagnosis) (1) DELMI (acute kidney injury) Onset Date: 10/07/17 Current Visit: No Status: Acute (2) Crohns disease Onset Date: 07/09/14 Current Visit: No Status: Acute (3) Atrial fibrillation Current Visit: Yes Status: Acute - Plan Serum creatinine is trending down. Nephrology input appreciated. Patient is now tolerating solid diet. No nausea or vomiting. Renal function is recovering. Discontinue IV fluid. Monitor renal function. Nephrology started patient on bicarb replacement for metabolic acidosis. Diet as tolerated Possible discharge in a.m.
[2022-03-16] MEDS: SODIUM BICARB 325 MG TAB PO SCH (21:18)
[2022-03-17 02:58] VITALS: O2SAT 99
[2022-03-17 03:52] LABS: Absolute Lymphocytes (CBC) 1.9 K/uL (0.7-4.9); Hematocrit 36.2 % (39.6-49.0); Lymphocytes % 27.1 % (15.3-44.8); MCV 90.6 fL (80-100); RBC Red Blood Cell Count 3.99 M/uL (4.33-5.43)
[2022-03-17 03:59] LABS: Bilirubin Total 0.3 mg/dL (0.2-1.0); Potassium 4.1 mmol/L (3.5-5.1); Protein, Total 6.9 g/dL (6.4-8.2)
[2022-03-17] MEDS: FAMOTIDINE 20 MG/2 ML VIAL IV SCH (10:25)
[2022-03-17] MEDS: SODIUM BICARB 325 MG TAB PO SCH (10:25)
[2022-03-17] MEDS: HEPARIN 5000 UNIT/ML 1 ML VIAL SQ SCH (10:25)
[2022-03-17 10:40] VITALS: BP 160/95; TEMP 97.3
--- NOTE | 2022-03-17 13:11 | P.DS ---
Admission Date: 03/14/22 Discharge Date: 03/17/22 Disposition: ROUTINE DISCHARGE Discharge Condition: FAIR Reason for Admission: Acute renal failure - Problems (1) DELMI (acute kidney injury) Onset Date: 10/07/17 Status: Acute (2) Crohns disease Onset Date: 07/09/14 Status: Acute (3) Atrial fibrillation Status: Acute Brief History of Present Illness: 62-year-old male with history of Crohn's, hypertension presented to the emergency department for nausea and vomiting. He reported feeling unwell over the course of a few days, had been unable to tolerate anything by mouth for 2 to 3 days, denied any abdominal pain or chest pain. He has a history of a colostomy from previous laparotomy approximately 8 to 9 years ago. His labs in the ED demonstrated that he was in acute renal failure. CT scan of the abdomen pelvis was negative for any acute findings. Patient was mildly hypotensive per EMS with a systolic in the 80s. Patient denied use of any NSAIDs. He is on lisinopril for hypertension. He had a similar episode back in 2018 which resolved with IV fluids. His baseline creatinine appears to be around 1. He was admitted for further management of acute renal failure. Hospital Course: Patient admitted to the medical floor and hydrated with IV fluids. He was seen in consultation by nephrology who assisted with management. He was experiencing nausea and vomiting which improved during the hospital stay. His serum creatinine trended down with IV fluid. Serum creatinine is trending down. Nephrology input appreciated. Nephrology started patient on bicarb replacement for metabolic acidosis. His diet was advanced to solid diet which he tolerated. Patient is currently asymptomatic, renal function has improved and deemed stable for discharge. He is looking forward to a colostomy reversal in order to follow-up with his GI Dr. Garland to discuss that. Vital Signs/Physical Exam: Temp Pulse Resp BP Pulse Ox 97.3 F 67 12 160/95 H 99 03/17/22 08:00 03/17/22 08:00 03/17/22 08:00 03/17/22 08:00 03/17/22 08:00 General: Alert, In no apparent distress, Oriented x3 HEENT: Mucous membr. moist/pink Neck: JVD not distended Respiratory: Clear to auscultation bilaterally, Normal air movement Cardiovascular: No edema, Regular rate/rhythm, Normal S1 S2 Gastrointestinal: Soft and benign, Non-distended, Other (Colostomy) Musculoskeletal: No swelling Integumentary: No rashes Neurological: Normal strength at 5/5 x4 extr Laboratory Data at Discharge: WBC 6.9 K/uL (4.3-10.9) 03/17/22 03:20 Hgb 12.0 g/dL (13.6-17.9) L 03/17/22 03:20 Hct 36.2 % (39.6-49.0) L 03/17/22 03:20 Plt Count 203 K/uL (152-406) 03/17/22 03:20 Sodium 142 mmol/L (136-145) 03/17/22 03:20 Potassium 4.1 mmol/L (3.5-5.1) 03/17/22 03:20 BUN 21 mg/dL (7-18) H 03/17/22 03:20 Creatinine 1.44 mg/dL (0.55-1.3) H 03/17/22 03:20 Glucose 95 mg/dL (74-106) 03/17/22 03:20 Total Bilirubin 0.3 mg/dL (0.2-1.0) 03/17/22 03:20 AST 15 U/L (15-37) 03/17/22 03:20 ALT 20 U/L (12-78) 03/17/22 03:20 Alkaline Phosphatase 63 U/L (45-117) 03/17/22 03:20 Lipase 99 U/L (73-393) 03/14/22 18:05 Home Medications: Aspirin [Aspirin EC 81 MG] 81 mg PO DAILY #30 tablet. 09/14/19 Atorvastatin Calcium [Lipitor] 40 mg PO BEDTIME #30 tab 09/14/19 lisinopriL [Lisinopril] 20 mg PO DAILY #30 tablet 09/14/19 Sodium Bicarbonate 650 mg PO BID #60 tablet 03/17/22 New Medications: Sodium Bicarbonate 650 mg PO BID #60 tablet Diet: Renal Activity: Ad luís Followup: Praveen Norwood MD [Primary Care Provider] - 1 Week (call to schedule an appointment ) Time spent managing pt's care (in minutes): 37
[2022-03-18 21:28] LABS: HIV AG/AB 4TH GEN Non-reactive (Non-reactive)
[2022-03-23 07:44] LABS: Beta Globulin 24 HR Urine 23 %; Gamma Globulin, 24hr Urine 33 %; Interpretation: REPORT; Protein/Crea Ratio in g 153 mg/g creat (<=114); Protein/Crea Ratio in mg 0.153 (<=0.114); Urine Alpha-2-Globulins, 24 Hr 24 %; Urine PEP Abn Protein Band1 REPORT; Urine Total Volume 24 Hours 625 mL
--- OUTSIDE RECORDS SUMMARY | 2022-03-24 21:48 | XMS REPORT | Continuity of Care Document ---
:1960 Author Organization [facility] t Address [address] [place] [address] Care Team Providers Name Role Phone Emre Norwood MD Primary Care Physician [phone] CEFERINO NORWOOD Attending Clinician Unavailable Ceferino Norwood MD Attending Clinician Doctor Unassigned, Name Attending Clinician Unavailable Payers Payer Name Policy Type Policy Number Effective Date Expiration Date S ource MEDICARE PART A [id number] 2013 \T\ B 00:00:00 Problems Condition Condition Condition Status Onset Resolution Last Treating Co mments Source Name Details Category Date Date Treatment Clinician Date Crohn's Crohn's Disease Active 2018-09 Univers disease of disease of 10-14 it y of colon [place] Me dical on on Branch Essential Essential Disease Active 2018-09 Uni vers hypertensi hypertensi 10-14 it y of on on 00:00: [place] [address] Medical Branch Allergies, Adverse Reactions, Alerts Allergy Allergy Status Severity Reaction(s) Onset Inactive Treating Comm ents Source Name Type Date Date Clinician NO KNOWN Drug Active Univers ALLERGIE Class ity of S [facility] Social History Social Habit Start Date Stop Date Quantity Comments Source History of tobacco Cigarette Smoker University of use [place] [facility] History SDOH University o f Alcohol Std Drinks [place] [facility] History [facility] University o f Alcohol Binge [place] [facility] History SDKS University o f Alcohol Comment [place] [facility] ical Branch Cigarettes smoked 2019-08-13 2019-08-13 Univers ity of current (pack per 00:00:00 00:00:00 [facility] ) - Reported Branch Tobacco use and 2019-08-13 2019-08-13 Smokeless Universit y of exposure 00:00:00 00:00:00 tobacco non-user [facility] dical Branch Alcohol intake 2019-08-13 2019-08-13 Lifetime University of 00:00:00 00:00:00 non-drinker [place] [facility] (finding) Branch History SDOH 2019-08-13 2019-08-13 1 University o f Alcohol Frequency 00:00:00 00:00:00 [facility] edical Branch Sex [birth year] Universit y of 00:00:00 00:00:00 [facility] Branch Smoking Status Start Date Stop Date Source Smokes tobacco daily 2019-08-13 00:00:00 Univers ity of [place] [facility] Medications Ordered Filled Start Stop Current Ordering Indication Dosage Frequency Signature Comments Components Source Medication Medication Date Date Medication? Clinician (SIG) Name Name lisinopriL 0 Yes [id number] 10mg Take 1 U nivers 10 mg 7-13 tablet by ity of tablet 00:00: mouth in [place] 00 the Medical morning. Branch lisinopriL 0 Yes [id number] 10mg Take 1 U nivers 10 mg 1-05 tablet by ity of tablet 00:00: mouth [place] 00 daily. Medical Branch lisinopriL 0 Yes [id number] 10mg Take 1 U nivers 10 mg 1-05 tablet by ity of tablet 00:00: mouth [place] 00 daily. Medical Branch lisinopriL 2020-0 Yes [id number] 10mg Take 1 U nivers 10 mg 1-05 tablet by ity of tablet 00:00: mouth [place] 00 daily. Medical Branch lisinopriL 0 Yes [id number] 10mg Take 1 U nivers 10 mg 1-05 tablet by ity of tablet 00:00: mouth [place] 00 daily. Medical Branch lisinopriL 0 Yes [id number] 10mg Take 1 U nivers 10 mg 1-05 tablet by ity of tablet 00:00: mouth [place] 00 daily. Medical Branch lisinopriL 0 2- No [id number] 10mg Take 1 Univers 10 mg 1-05 07-13 tablet by ity of tablet 00:00: 00:00 mouth [place] 00 :00 daily. Medical Branch Immunizations Ordered Filled Immunization Date Status Comments Sour e Immunization Name Name SARS-COV-2 COVID-19 2020-11-22 Completed Unive rsity of PFIZER VACCINE 00:00:00 [facility] Branch SARS-COV-2 COVID-19 2020-11-22 Completed Unive rsity of PFIZER VACCINE 00:00:00 [facility] Branch SARS-COV-2 COVID-19 2020-11-22 Completed Unive rsity of PFIZER VACCINE 00:00:00 [facility] Branch SARS-COV-2 COVID-19 2020-11-22 Completed Unive rsity of PFIZER VACCINE 00:00:00 [facility] Branch SARS-COV-2 COVID-19 2020-11-22 Completed Unive rsity of PFIZER VACCINE 00:00:00 [facility] Branch SARS-COV-2 COVID-19 2020-11-22 Completed Unive rsity of PFIZER VACCINE 00:00:00 [facility] Branch SARS-COV-2 COVID-19 2020-11-01 Completed Unive rsity of PFIZER VACCINE 00:00:00 [facility] SARS-COV-2 COVID-19 2020-11-01 Completed Unive rsity of PFIZER VACCINE 00:00:00 [facility] Branch SARS-COV-2 COVID-19 2020-11-01 Completed Unive rsity of PFIZER VACCINE 00:00:00 [facility] SARS-COV-2 COVID-19 2020-11-01 Completed Unive rsity of PFIZER VACCINE 00:00:00 [facility] SARS-COV-2 COVID-19 2020-11-01 Completed Unive rsity of PFIZER VACCINE 00:00:00 [facility] SARS-COV-2 COVID-19 2020-11-01 Completed Unive rsity of PFIZER VACCINE 00:00:00 [facility] Procedures Procedure Date / Time Performing Clinician Source Performed INSURANCE CORRESPONDENCE 2021-12-03 05:01:00 Doctor Unassigned, [facility] [place] Medical [facility] DME/SUPPLY JUSTIFICATION 2021-10-26 06:01:00 Doctor Unassigned, [facility] [place] Medical Branch Encounters Start End Encounter Admission Attending Care Care Encounter Source Date/Time Date/Time Type Type Clinicians Facility Department ID 2022-04-06 2022-04-06 Outpatient [facility] [id number] Univers 14:30:00 14:30:00 EMRE [id number] [facility] 2022-03-17 2022-03-17 [facility] [id number] Univers 00:00:00 00:00:00 [facility] [id number] it y of [place] [id number] Ángel as NETTIE?BLEA [id number] [address] MEDICAL OFFICE [facility] 2022-02-24 2022-02-24 Outpatient R [facility] [id number] Univers 11:00:00 11:00:00 EMRE [id number] [facility] 2022-02-24 2022-02-24 Outpatient [facility] [id number] Univers 11:00:00 11:00:00 [facility] 2022-02-18 2022-02-18 [facility] [id number] Univers 00:00:00 00:00:00 [facility] [id number] it y of [place] [id number] Ángel as NETTIE?BLEA [id number] [address] MEDICAL OFFICE [facility] 2022-02-12 2022-02-12 [facility] [id number] Univers 00:00:00 00:00:00 [facility] HEALTH [id number] it y of [place] [id number] Ángel as NETTIE?BLEA [id number] [address] MEDICAL OFFICE [facility] 2021-12-03 2021-12-03 Orders Doctor OCTAVIA 1.2.840.114 [id number] Univers 00:00:00 00:00:00 Only Unassigned, [facility] [id number] ity of [place] [facility] [id number] Ángel as [id number] [address] 2021-10-26 2021-10-26 [facility] [id number] Univers 00:00:00 00:00:00 [facility] [id number] it y of Ceferino [place] [id number] Ángel as NETTIE?BLEA [id number] Va tushar [address] MEDICAL OFFICE BUILDING 2021-10-26 2021-10-26 Orders Doctor OCTAVIA 1.2.840.114 [id number] Univers 00:00:00 00:00:00 Only Unassigned, CHANTAL [id number] ity of [place] [facility] [id number] Ángel as [id number] [address] 2020-11-22 2020-11-22 Outpatient [facility] [id number] Univers 14:50:00 14:50:00 [facility] 2020-11-01 2020-11-01 Outpatient [facility] [id number] Univers 15:05:00 15:05:00 [facility] 2020-09-09 2020-09-09 [facility] [id number] Univers 15:30:00 15:30:00 EMRE [id number] [facility] 2020-09-09 2020-09-09 [facility] [id number] Univers 15:30:00 15:30:00 EMRE [facility] Results This patient has no known results.
== END 2022-03-17 11:15 | disposition home or self-care (01) | DRG 683 ==
LOC: ER 17:26 → ERHOLD 20:16 → 2ND 22:02
PROVIDERS: ADMIT Internal Medicine Sleep Medicine; ATTEND Internal Medicine Sleep Medicine
DX: N17.9 Acute kidney failure, unspecified (principal); K50.90 Crohn's disease, unspecified, without complications; E87.2 Acidosis; I10 Essential (primary) hypertension; I48.91 Unspecified atrial fibrillation; N28.1 Cyst of kidney, acquired; E87.6 Hypokalemia; K52.9 Noninfective gastroenteritis and colitis, unspecified; I95.9 Hypotension, unspecified; F17.210 Nicotine dependence, cigarettes, uncomplicated; Z93.3 Colostomy status; Z20.822 Contact with and (suspected) exposure to COVID-19
CPT/HCPCS: 36415; 71045; 74176; 76770; 80053; 81003; 81015; 82550; 82570; 83690; 83935; 84132; 84156; 84166; 84300; 84439; 84443; 84484; 85025; 86334; 87389; 93005; 99285; J1644; J2405; J3480; J3490; J7030; J7040; U0003

== ENCOUNTER 2023-01-30 13:07 | Inpatient (IN) | payer OTHER ==
--- OUTSIDE RECORDS SUMMARY | 2023-01-30 13:10 | XMS REPORT | Continuity of Care Document ---
:1960 Author Organization [facility] t Address [address] [place] [address] [address] [place] [address] Care Team Providers Name Role Phone EMRE NORWOOD Primary Care Physician Unavailable EMRE NORWOOD Attending Clinician Unavailable Emre Norwood MD Attending Clinician Doctor Unassigned, [place] Attending Clinician Unavailable Lab, Ang - Db Attending Clinician Unavailable Payers Payer Name Policy Type Policy Number Effective Date Expiration Date S [facility] [id number] 2022 [facility] 00:00:00 MEDICARE PART A [id number] 2013 \T\ B 00:00:00 Problems Condition Condition Condition Status Onset Resolution Last Treating Co mments Source Name Details Category Date Date Treatment Clinician Date Crohn's Crohn's Disease Active 2018-09 Univers disease of disease of -09 it y of colon with colon [place] Me dical on on Branch Essential Essential Disease Active 2018-09 Uni vers hypertensi hypertensi 2-09 it y of on on 00:00: [place] [address] Medical Branch Allergies, Adverse Reactions, Alerts Allergy Allergy Status Severity Reaction(s) Onset Inactive Treating Comm ents Source Name Type Date Date Clinician NO KNOWN Drug Active Univers ALLERGIE Class ity of S [facility] Social History Social Habit Start Date Stop Date Quantity Comments Source History of tobacco Cigarette Smoker University of use [place] [facility] History SDHI University o f Alcohol Std Drinks [place] [facility] History [facility] University o f Alcohol Binge [place] Medic al Branch History [facility] University o f Alcohol Comment [place] Med ical Branch Exposure to 2022-12-03 2022-12-13 Not sure University of SARS-CoV-2 (event) 00:00:00 15:14:00 [facility] Alcohol intake 2022-12-13 2022-12-13 Lifetime University of 00:00:00 00:00:00 non-drinker [facility] (finding) Branch Cigarettes smoked 2022-11-09 2022-11-09 [facility] ity of current (pack per 00:00:00 00:00:00 [facility] ) - Reported Branch Tobacco use and 2022-11-09 2022-11-09 Smokeless Universit y of exposure 00:00:00 00:00:00 tobacco non-user [facility] dical Branch History SDOH 2019-08-13 2019-08-13 1 University o f Alcohol Frequency 00:00:00 00:00:00 [facility] Sex Assigned At [birth year] Universit y of 00:00:00 00:00:00 [facility] Smoking Status Start Date Stop Date Source Smokes tobacco daily 2022-11-09 00:00:00 Univers ity of [facility] Medications Ordered Filled Start Stop Current Ordering Indication Dosage Frequency Signature Comments Components Source Medication Medication Date Date Medication? Clinician (SIG) Name Name albuterol Yes [id number] 2{puff} Inhale 2 Univers 90 3-07 Puffs ity of mcg/actuati 00:00: every 6 Ángel as on inhaler 00 (six) Medical hours as Branch needed for Wheezing or Shortness of Breath. lisinopriL Yes [id number] 10mg Take 1 U nivers 10 mg 3-07 tablet by ity of tablet 00:00: mouth in [place] 00 the Medical morning. Branch albuterol Yes [id number] 2{puff} Inhale 2 Univers 90 3-07 Puffs ity of mcg/actuati 00:00: every 6 Ángel as on inhaler 00 (six) Medical hours as Branch needed for Wheezing or Shortness of Breath. lisinopriL Yes [id number] 10mg Take 1 U nivers 10 mg 3-07 tablet by ity of tablet 00:00: mouth in [place] 00 the Medical morning. Branch albuterol Yes [id number] 2{puff} Inhale 2 Univers 90 3-07 Puffs ity of mcg/actuati 00:00: every 6 Ángel as on inhaler 00 (six) Medical hours as Branch needed for Wheezing or Shortness of Breath. lisinopriL 2022-0 Yes [id number] 10mg Take 1 U nivers 10 mg 3-07 tablet by ity of tablet 00:00: mouth in [place] 00 the Medical morning. Branch albuterol 2022-0 Yes [id number] 2{puff} Inhale 2 Univers 90 3-07 Puffs ity of mcg/actuati 00:00: every 6 Ángel as on inhaler 00 (six) Medical hours as Branch needed for Wheezing or Shortness of Breath. lisinopriL 2022-0 Yes [id number] 10mg Take 1 U nivers 10 mg 3-07 tablet by ity of tablet 00:00: mouth in [place] 00 the Medical morning. Branch lisinopriL 2021-0 Yes [id number] 10mg Take 1 U nivers 10 mg 7-13 tablet by ity of tablet 00:00: mouth in [place] 00 the Medical morning. Branch lisinopriL 2021-0 Yes [id number] 10mg Take 1 U nivers 10 mg 7-13 tablet by ity of tablet 00:00: mouth in [place] 00 the Medical morning. Branch lisinopriL 2021-0 Yes [id number] 10mg Take 1 U nivers 10 mg 7-13 tablet by ity of tablet 00:00: mouth in [place] 00 the Medical morning. Branch lisinopriL 2021-0 Yes [id number] 10mg Take 1 U nivers 10 mg 7-13 tablet by ity of tablet 00:00: mouth in [place] 00 the Medical morning. Branch lisinopriL 2021-0 Yes [id number] 10mg Take 1 U nivers 10 mg 7-13 tablet by ity of tablet 00:00: mouth in [place] 00 the Medical morning. Branch lisinopriL 2021-0 Yes [id number] 10mg Take 1 U nivers 10 mg 7-13 tablet by ity of tablet 00:00: mouth in [place] 00 the Medical morning. Branch lisinopriL 2-0 3- No [id number] 10mg Take 1 Univers 10 mg 7-13 03-07 tablet by ity of tablet 00:00: 00:00 mouth in [place] 00 :00 the Medical morning. Branch lisinopriL 2022-0 3- No [id number] 10mg Take 1 Univers 10 mg 03-17 tablet by ity of tablet 00:00: 00:00 mouth in [place] 00 :00 the Medical morning. Branch Immunizations Ordered Filled Immunization Date Status Comments [facility] e Immunization Name Name SARS-COV-2 COVID-19 2020-11-22 Completed Unive rsity of PFIZER VACCINE 00:00:00 [facility] SARS-COV-2 COVID-19 2020-11-22 Completed Unive rsity of PFIZER VACCINE 00:00:00 [facility] SARS-COV-2 COVID-19 2020-11-22 Completed Unive rsity of PFIZER VACCINE 00:00:00 [facility] SARS-COV-2 COVID-19 2020-11-22 Completed Unive rsity of PFIZER VACCINE 00:00:00 [facility] SARS-COV-2 COVID-19 2020-11-22 Completed Unive rsity of PFIZER VACCINE 00:00:00 [facility] SARS-COV-2 COVID-19 2020-11-22 Completed Unive rsity of PFIZER VACCINE 00:00:00 [facility] SARS-COV-2 COVID-19 2020-11-22 Completed Unive rsity of PFIZER VACCINE 00:00:00 [facility] SARS-COV-2 COVID-19 2020-11-22 Completed Unive rsity of PFIZER VACCINE 00:00:00 [facility] SARS-COV-2 COVID-19 2020-11-22 Completed Unive rsity of PFIZER VACCINE 00:00:00 [facility] SARS-COV-2 COVID-19 2020-11-22 Completed Unive rsity of PFIZER VACCINE 00:00:00 [facility] SARS-COV-2 COVID-19 2020-11-01 Completed Unive rsity of PFIZER VACCINE 00:00:00 [facility] SARS-COV-2 COVID-19 2020-11-01 Completed Unive rsity of PFIZER VACCINE 00:00:00 [facility] SARS-COV-2 COVID-19 2020-11-01 Completed Unive rsity of PFIZER VACCINE 00:00:00 [facility] SARS-COV-2 COVID-19 2020-11-01 Completed Unive rsity of PFIZER VACCINE 00:00:00 [facility] SARS-COV-2 COVID-19 2020-11-01 Completed Unive rsity of PFIZER VACCINE 00:00:00 [facility] SARS-COV-2 COVID-19 2020-11-01 Completed Unive rsity of PFIZER VACCINE 00:00:00 [facility] SARS-COV-2 COVID-19 2020-11-01 Completed Unive rsity of PFIZER VACCINE 00:00:00 [facility] SARS-COV-2 COVID-19 2020-11-01 Completed Unive rsity of PFIZER VACCINE 00:00:00 [facility] SARS-COV-2 COVID-19 2020-11-01 Completed Unive rsity of PFIZER VACCINE 00:00:00 [facility] SARS-COV-2 COVID-19 2020-11-01 Completed Unive rsity of PFIZER VACCINE 00:00:00 [facility] Vital Signs Vital Name Observation Time Observation Value Comments Source Systolic blood 2022-12-13 20:28:00 141 mm[Hg] Univer sity of pressure [facility] Diastolic blood 2022-12-13 20:28:00 93 mm[Hg] Unive rsity of pressure [facility] Heart rate 2022-12-13 20:23:00 83 /min Universi ty [facility] Body height 2022-12-13 20:23:00 177[facility]8 [facility] Body weight 2022-12-13 20:23:00 81.194 kg [facility] BMI 2022-12-13 20:23:00 25.68 kg/m2 Universi ty [facility] Systolic blood 2022-11-09 22:05:00 159 mm[Hg] Univer sity of pressure [facility] Diastolic blood 2022-11-09 22:05:00 102 mm[Hg] Unive rsity of pressure [facility] Heart rate 2022-11-09 22:04:00 89 /min [facility] Body temperature 2022-11-09 22:04:00 37.11 Kassi Univ ersity of [facility] Body height 2022-11-09 22:04:00 177.8 cm Universi ty [facility] Body weight 2022-11-09 22:04:00 81.647 kg [facility] BMI 2022-11-09 22:04:00 25.83 kg/m2 [facility] Oxygen saturation in 2022-11-09 22:04:00 98 /min [facility] Arterial blood by [facility] Pulse oximetry [place] Systolic blood 2022-04-06 19:39:00 154 mm[Hg] Univer sity of pressure [facility] Diastolic blood 2022-04-06 19:39:00 92 mm[Hg] Unive rsity of [facility] Heart rate 2022-04-06 19:38:00 84 /min [facility] Body height 2022-04-06 19:38:00 177.8 cm [facility] Body weight 2022-04-06 19:38:00 83.915 kg [facility] BMI 2022-04-06 19:38:00 26.54 kg/m2 [facility] Procedures Procedure Date / Time Performing Clinician Source Performed CONSENT/REFUSAL FOR 2022-11-09 21:53:53 Doctor Unassigned, No [facility] DIAGNOSIS AND TREATMENT [facility] DME/SUPPLY JUSTIFICATION 2022-08-11 06:01:00 Doctor Unassigned, No [facility] Encounters Start End Encounter Admission Attending Care Care Encounter Source Date/Time Date/Time Type Type Clinicians Facility Department ID 2023-06-14 2023-06-14 [facility] [id number] Univers 16:00:00 16:00:00 EMRE casanova [facility] 2022-12-13 2022-12-13 Office [facility] 1.2.840.114 [id number] Univers 15:30:00 15:45:00 Visit [facility] [id number] it y of [place]efer[place] 4.2.7.2.686 Ángel as NETTIE?BLEA [id number] Id tushar [address] MEDICAL OFFICE BUILDING 2022-12-13 2022-12-[address] [facility] [id number] Univers 15:30:00 15:30:00 EMRE casanova [facility] 2022-11-09 2022-11-09 Office [facility] 1.2.840.114 [id number] Univers 15:45:00 16:00:00 Visit [facility] [id number] it y of [place] [id number] Ángel as NETTIE?BLEA [id number] [address] MEDICAL OFFICE [facility] 2022-11-09 2022-11-09 [facility] [id number] Univers 15:45:00 15:45:00 EMRE [facility] 2022-11-09 2022-11-09 Orders Doctor OCTAVIA 1.2.840.114 [id number] Univers 00:00:00 00:00:00 Only Unassigned, CHANTAL [id number] ity of [place] [facility] [id number] Ángel as [id number] [address] 2022-11-08 2022-11-08 [facility] 1.2.840.114 [id number] Univers 00:00:00 00:00:00 [facility] [id number] it y of [place] [id number] Ángel as NETTIE?BLEA [id number] [address] MEDICAL OFFICE [facility] 2022-08-11 2022-08-11 Orders Doctor OCTAVIA 1.2.840.114 [id number] Univers 00:00:00 00:00:00 Only Unassigned, CHANTAL 350.1.13.10 ity of [place] [facility] [id number] Ángel as [id number] [address] 2022-05-11 2022-05-[address] [facility] [id number] Univers 09:45:00 09:45:00 EMRE pat [facility] 2022-04-26 2022-04-26 [facility] [id number] Univers 16:30:00 16:30:00 EMRE pat [facility] 2022-04-20 2022-04-20 [facility] [id number] Univers 16:00:00 16:00:00 EMRE pat [facility] 2022-04-06 2022-04-06 [employer] [facility] [employer] [facility], Ang - Db [facility] 1.2.840.1 [id number] Univers 15:00:00 15:15:00 Visit Emre Norwood [facility] 350.1.13 .10 ity [facility] [id number] Ángel as NTETIE?BLEA [id number] Id tushar MCKEON [address] [facility] OFFICE [facility] 2022-04-06 2022-04-06 Outpatient [facility] [id number] Univers 15:00:00 15:00:00 [facility] 2022-04-06 2022-04-06 Office [facility] 1.2.840.114 [id number] Univers 14:30:00 15:00:00 Visit [place] [id number] it y of [place] [facility] [id number] Ángel as NETTIE?BLEA [id number] [address] OFFICE [facility] 2022-04-06 2022-04-06 Outpatient [facility] [id number] Univers 14:30:00 14:30:00 [facility] 2022-03-17 2022-03-17 [facility] 1.2.840.114 [id number] Univers 00:00:00 00:00:00 [place] [id number] it y of [place] [facility] [id number] Ángel as NETTIE?BLEA [id number] [address] OFFICE [facility] 2022-02-24 2022-02-24 Outpatient [facility] [id number] Univers 11:00:00 11:00:00 [facility] 2022-02-18 2022-02-18 [facility] 1.2.840.114 [id number] Univers 00:00:00 00:00:00 [place] [id number] it y of [place] [id number] Ángel as NETTIE?BLEA [id number] [address] OFFICE [facility] 2022-02-12 2022-02-12 [facility] 1.2.840.114 [id number] Univers 00:00:00 00:00:00 Emre HEALTH 350.1.13.10 it y of [place] [id number] Ángel as NETTIE?BLEA [id number] [address] OFFICE [facility] 2021-12-03 2021-12-03 Orders Doctor OCTAVIA 1.2.840.114 [id number] Univers 00:00:00 00:00:00 Only Unassigned, CHANTAL [id number] ity of [place] [facility] [id number] Ángel as [id number] [address] 2021-10-26 2021-10-26 [facility] 1.2.840.114 [id number] Univers 00:00:00 00:00:00 Emre HEALTH [id number] it y of [place] [id number] Ángel as NETTIE?BLEA [id number] [address] 2021-10-26 2021-10-26 Orders Doctor OCTAVIA 1.2.840.114 [id number] Univers 00:00:00 00:00:00 Only Unassigned, [place] [id number] ity of [place] [facility] [id number] Ángel as [id number] [address] 2020-11-22 2020-11-[address] [facility] [id number] Univers 14:50:00 14:50:00 ity [facility] 2020-11-01 2020-11-[address] [facility] [id number] Univers 15:05:00 15:05:00 ity [facility] 2020-09-09 2020-09-09 [facility] [id number] Univers 15:30:00 15:30:00 EMRE [facility] Results This patient has no known results.
--- NOTE | 2023-01-30 14:05 | RAD REPORT ---
EXAM DESCRIPTION: RAD - Chest Single View - 01/30/2023 1:49 pm CLINICAL HISTORY: SOB COMPARISON: Chest Single View dated 03/14/2022; Chest Single View dated 09/13/2019; Chest Single View d ated 10/06/2017; CHEST SINGLE VIEW dated 07/09/2014; Abdomen Pelvis Wo Contrast dated 03/14/2022 FINDINGS: Lines: None. Lungs: Left basilar opacities associated with the effusion. Pleural: Small left pleural effusion which is new. Cardiac: The heart size is within normal limits. Mediastinum: Within normal limits. Bones: No acute fractures. Other: None IMPRESSION: Left pleural effusion with underlying atelectasis and/or consolidation.
[2023-01-30 14:51] LABS: Absolute Lymphocytes (CBC) 0.9 K/uL (0.7-4.9); Hematocrit 36.8 % (39.6-49.0); Lymphocytes % 15.5 % (15.3-44.8); MCV 91.1 fL (80-100); MPV 8.2 fL (7.6-11.3); RBC Red Blood Cell Count 4.04 M/uL (4.33-5.43)
[2023-01-30 14:54] LABS: Protime INR 1.24
[2023-01-30 15:27] LABS: Albumin 3.5 g/dL (3.4-5.0); Bilirubin Direct 0.1 mg/dL (0-0.2); Bilirubin Indirect, Calculated 0.3 mg/dL (0.2-0.8); Bilirubin Total 0.4 mg/dL (0.2-1.0); Potassium 3.6 mEq/L (3.5-5.1); Protein, Total 7.4 g/dL (6.4-8.2)
--- NOTE | 2023-01-30 18:20 | RAD REPORT ---
EXAM DESCRIPTION: CT - Chest For Pe Angio - 01/30/2023 6:01 pm CLINICAL HISTORY: Chest pain;SOB COMPARISON: Chest Single View dated 01/30/2023; Abdomen Pelvis Wo Contrast dated 03/14/2022 TECHNIQUE: Dynamically enhanced axial 3 mm thick images of the chest were obtained during administra tion of <100> mL Isovue 370 IV contrast. Coronal and oblique reconstruction images were generated and reviewed. Exam utilizes a protocol for optimal evaluation of pulmonary arterial tree. Maximum intensity projections 3D imaging was utilized All CT scans are performed using dose optimization technique as appropriate and may include automated exposure control or mA/KV adjustment according to patient size. FINDINGS: Chest Wall: No suspicious thyroid nodules or pathologic lymphadenopathy. Lungs: No acute abnormality. Pleura: Moderate left and small right pleural effusion. Mediastinum/mitzy: No pathologic lymphadenopathy. Pulmonary arteries/Aorta: Thin linear filling defect in the right distal pulmonary artery. This is no t resolve new significant narrowing of the pulmonary artery. Subsegmental defects are present in the lower lobes bilaterally. No other filling defects identified. No aortic aneurysm. Heart: No significant pericardial effusion. Cardiomegaly. Upper abdomen: Reflux of contrast into the hepatic veins. Too small to characterize and/or benign omar earing renal lesions are noted.Hepatic steatosis. Bones: No acute abnormality. IMPRESSION: 1. Positive for pulmonary embolism though the findings may be either chronic or acute on chronic. A thin linear defect in the right main pulmonary artery has the appearance of a web which i s typical of a chronic embolus. The defects in the lower lobes are age indeterminate but could be acu te. The overall clot burden is small. 2. Right heart dysfunction suspected. Pleural effusions, left greater than right. Conveyed to C Page by Dr. Hagen via secure chat on 01/30/23 at 614 pm.
[2023-01-30] MEDS ORDERED: ENOXAPARIN 80 MG/0.8 ML SQ ONE (19:00)
[2023-01-30] MEDS ORDERED: ASPIRIN 81 MG CHEWABLE TABLET ONE (19:00)
--- NOTE | 2023-01-30 19:06 | ER ---
Nurse's Notes [facility] Name: Karson Giordano Age: 62 yrs Sex: Male : 1960 Arrival Date: 01/30/2023 Time: 13:07 Bed 4 Private MD: Diagnosis: Other pulmonary embolism with acute cor pulmonale;Pleural effusion in other conditions classified elsewhere Presentation: 01/30 13:14 Chief complaint: Patient states: Chest pain and shortness of breath for 3 weeks, not nj1 getting better. CO dry cough. Denies fever/nausea. Coronavirus screen: Vaccine status: Patient reports receiving the 2nd dose of the covid vaccine. Ebola Screen: Patient denies travel to an Ebola-affected area in the 21 days before illness onset. Initial Sepsis Screen: Does the patient meet any 2 criteria? No. Patient's initial sepsis screen is negative. Does the patient have a suspected source of infection? No. Patient's initial sepsis screen is negative. Risk Assessment: Do you want to hurt yourself or someone else? Patient reports no desire to harm self or others. Onset of symptoms was January 09, 2023. 13:14 Method Of Arrival: Ambulatory [facility] 13:14 Acuity: AYESHA 3 nj1 Triage Assessment: 16:00 General: Appears in no apparent distress. comfortable, Behavior is calm, cooperative. db Pain: Denies pain. Neuro: Level of Consciousness is awake, alert, obeys commands, Oriented to person, place, time, situation. Historical: - Allergies: 13:17 No Known Allergies; nj1 - PMHx: 13:17 HTN; Crohn's Disease; nj1 - PSHx: 13:17 Colostomy; Stented artery; nj1 - Immunization history:: Client reports receiving the 2nd dose of the Covid vaccine. - Social history:: Smoking status: Patient reports the use of cigarette tobacco products, smokes one-half pack cigarettes per day. Screenin:45 [facility] ED Fall Risk Assessment (Adult) History of falling in the last 3 months, db including since admission No falls in past 3 months (0 pts) Confusion or Disorientation No (0 pts) Intoxicated or Sedated No (0 pts) Impaired Gait No (0 pts) Mobility Assist Device Used No (0 pt) Altered Elimination No (0 pt) Score/Fall Risk Level 0 - 2 = Low Risk Oriented to surroundings, Maintained a safe environment. Abuse screen: Denies threats or abuse. Denies injuries from another. Nutritional screening: No deficits noted. Tuberculosis screening: No symptoms or risk factors identified. Assessment: 14:45 Reassessment: Patient appears in no apparent distress at this time. Patient and/or db family updated on plan of care and expected duration. Pain level reassessed. Patient is alert, oriented x 3, equal unlabored respirations, skin warm/dry/pink. chest pain with SOB for a couple of days. General: Appears in no apparent distress. comfortable, Behavior is calm, cooperative. Pain: Pain does not radiate. Pain began gradually. Cardiovascular: Reports shortness of breath. 16:30 Reassessment: Patient appears in no apparent distress at this time. Patient and/or db family updated on plan of care and expected duration. Pain level reassessed. Patient is alert, oriented x 3, equal unlabored respirations, skin warm/dry/pink. 17:30 Reassessment: Patient appears in no apparent distress at this time. Patient and/or db family updated on plan of care and expected duration. Pain level reassessed. Patient is alert, oriented x 3, equal unlabored respirations, skin warm/dry/pink. 18:42 Reassessment: Patient appears in no apparent distress at this time. Patient and/or db family updated on plan of care and expected duration. Pain level reassessed. Patient is alert, oriented x 3, equal unlabored respirations, skin warm/dry/pink. General: Appears in no apparent distress. comfortable, Behavior is calm, cooperative. Neuro: Level of Consciousness is awake, alert, obeys commands, Oriented to person, place, time, situation, Speech is normal. Respiratory: Airway is patent Respiratory effort is even, unlabored, Respiratory pattern is regular, symmetrical. 18:46 Reassessment: Mg Page at patient bedside. db 19:12 Reassessment: patient ambulatory to restroom. db 22:00 Reassessment: Patient appears in no apparent distress at this time. Patient and/or jb4 family updated on plan of care and expected duration. Pain level reassessed. Patient is alert, oriented x 3, equal unlabored respirations, skin warm/dry/pink. 23:00 Reassessment: Patient appears in no apparent distress at this time. Patient and/or jb4 family updated on plan of care and expected duration. Pain level reassessed. Patient is alert, oriented x 3, equal unlabored respirations, skin warm/dry/pink. Pt reports wanting to go home due to his current room making him feel depressed and anxios. Admitting provider and charge nurse notified, provider ordered Xanax, Charge nurse instructed this nurse to move pt to Room 4. 01/31 00:00 Reassessment: Patient appears in no apparent distress at this time. Patient and/or jb4 family updated on plan of care and expected duration. Pain level reassessed. Patient is alert, oriented x 3, equal unlabored respirations, skin warm/dry/pink. Vital Signs: 01/30 13:14 BP 132 / 100; Pulse 86; Resp 20; Temp 97.8(O); Pulse Ox 97% ; Weight 81.65 kg; Height 5 nj1 ft. 10 in. ; Pain 4/10; 16:00 BP 147 / 113; Pulse 87; Resp 20; Pulse Ox 96% on R/A; db 17:00 BP 133 / 95; Pulse 82; Resp 16; Pulse Ox 96% on R/A; db 18:33 BP 145 / 108; Pulse 88; Resp 16; Pulse Ox 95% on R/A; db 20:00 BP 137 / 100; Pulse 89; Resp 16; Pulse Ox 98% on R/A; jb4 21:00 BP 142 / 107; Pulse 83; Resp 16; Pulse Ox 97% on R/A; jb4 22:00 BP 122 / 85; Pulse 89; Resp 16; Pulse Ox 98% on R/A; jb4 23:30 BP 149 / 109; Pulse 91; Resp 16; Pulse Ox 98% on R/A; jb4 13:14 Body Mass Index 25.83 (81.65 kg, 177.8 cm) nj1 13:14 Pain Scale: Adult nj1 ED Course: 13:09 Patient arrived in ED. ts1 13:17 Triage completed. nj1 13:18 Arm band placed on right wrist. nj1 13:19 Mo Salinas PA is PHCP. cp 13:19 Mo Luciano MD is Attending Physician. cp 13:51 XRAY Chest (1 view) In Process Unspecified. EDMS 14:29 Rosita Zhang, RN is Primary Nurse. db 14:39 Inserted saline lock: 20 gauge in right antecubital area, using aseptic technique. db Blood collected. Patient maintains SpO2 saturation greater than 95% on room air. 17:10 Missed attempt(s): 20 gauge in left antecubital area. Bleeding controlled, band aid db applied, catheter tip intact. 17:36 Inserted saline lock: 20 gauge in left wrist, using aseptic technique. db 17:42 Patient has correct armband on for positive identification. Bed in low position. Call db light in reach. Side rails up X2. Client placed on continuous cardiac and pulse oximetry monitoring. NIBP monitoring applied. 18:03 CT Chest For PE Angio In Process Unspecified. EDCO 18:33 No provider procedures requiring assistance completed. db 19:00 Antolin Green MD is Hospitalizing Provider. 01/31 00:14 Patient admitted, IV remains in place. as6 Administered Medications: 01/30 18:57 Drug: Aspirin PO Chewable Tablet 324 mg Route: PO; 01/31 00:17 Follow up: Response: No adverse reaction as6 01/30 18:57 Drug: Enoxaparin Sub-Q 80 mg Route: Sub-Q; Site: left lower abdomen; 01/31 00:17 Follow up: Response: No adverse reaction as6 01/30 19:43 Drug: Furosemide IVP 40 mg Route: IVP; Site: left hand; [facility] 01/31 00:16 Follow up: Response: No adverse reaction as6 01/30 23:38 Drug: ALPRAZolam PO Tablet 0.5 mg Route: PO; [facility] 01/31 00:16 Follow up: Response: No adverse reaction as6 Medication: 01/30 18:33 VIS not applicable for this client. db Outcome: 19:06 Decision to Hospitalize by Provider. 01/31 00:14 Admitted to ER Hold. Please see [facility] for further documentation. as6 Condition: stable Instructed on the need for admit. 10:48 Patient left the ED. ph Signatures: Dispatcher [employer] EDShahana Otero RN RN Mo Newman PA PA cp Bryson, James, RN RN jb4 Zan Calderon RN RN as6 Rosita Zhang RN RN db Jennifer Tesfaye RN RN nj1 Olinda Ramirez PAS PAS ts1
--- NOTE | 2023-01-30 19:07 | EDPHYS ---
Physician Documentation [facility] Name: Karson Giordano Age: 62 yrs Sex: Male : 1960 Arrival Date: 01/30/2023 Time: 13:07 Bed 4 Private MD: ED Physician Mo Luciano HPI: 01/30 13:45 This 62 yrs old Black Male presents to ER via Ambulatory with complaints of Chest Pain, cp Shortness Of Breath. 13:45 The patient has shortness of breath at rest. cp 13:45 Onset: The symptoms/episode began/occurred gradually, 3 week(s) ago. Duration: The cp symptoms are continuous, and are steadily getting worse. Associated signs and symptoms: Pertinent positives: chest pain, Pertinent negatives: productive cough, dizziness, fever. Severity of symptoms: in the emergency department the symptoms are unchanged despite home interventions. Historical: - Allergies: 13:17 No Known Allergies; nj1 - PMHx: 13:17 HTN; Crohn's Disease; nj1 - PSHx: 13:17 Colostomy; Stented artery; nj1 - Immunization history:: Client reports receiving the 2nd dose of the Covid vaccine. - Social history:: Smoking status: Patient reports the use of cigarette tobacco products, smokes one-half pack cigarettes per day. ROS: 13:50 Eyes: Negative for injury, pain, redness, and discharge. cp 13:50 Constitutional: Negative for body aches, chills, fever, poor PO intake. 13:50 ENT: Negative for drainage from ear(s), ear pain, sore throat, difficulty swallowing, difficulty handling secretions. 13:50 Cardiovascular: Positive for chest pain, Negative for edema, palpitations. 13:50 Respiratory: Positive for shortness of breath, at rest. Negative for cough, wheezing. 13:50 Abdomen/GI: Negative for abdominal pain, nausea, vomiting, and diarrhea. 13:50 Back: Negative for pain at rest, pain with movement. 13:50 Neuro: Negative for altered mental status, headache, weakness. 13:50 All other systems are negative. cp Exam: 13:55 Constitutional: The patient appears in no acute distress, alert, awake, cp non-diaphoretic, non-toxic, well developed, well nourished, uncomfortable. 13:55 Head/Face: Normocephalic, atraumatic. cp 13:55 Eyes: Periorbital structures: appear normal, Conjunctiva: normal, no exudate, no injection, Sclera: no appreciated abnormality, Lids and lashes: appear normal, bilaterally. 13:55 ENT: External ear(s): are unremarkable, Nose: is normal, Mouth: Lips: moist, Oral mucosa: pink and intact, moist, Posterior pharynx: is normal, airway is patent, no erythema, no exudate. 13:55 Neck: ROM/movement: is normal, is supple, without pain, no range of motions limitations, no meningismus. 13:55 Chest/axilla: Inspection: normal. 13:55 Cardiovascular: Rate: normal, Rhythm: regular, Edema: is not appreciated, JVD: is not appreciated. 13:55 Respiratory: the patient does not display signs of respiratory distress, Respirations: shallow respirations, that is mild, Breath sounds: decreased breath sounds, that are mild, are heard in the left posterior lower lobe and right posterior lower lobe, stridor, is not appreciated, wheezing: is not appreciated. 13:55 Abdomen/GI: Inspection: abdomen appears normal, Bowel sounds: normal, in all quadrants, Palpation: abdomen is soft and non-tender, in all quadrants. 13:55 Back: CVA tenderness, is absent. 13:55 Skin: no rash present. 13:55 Neuro: Orientation: to person, place \T\ time. Mentation: is normal, Motor: moves all fours, strength is normal, Sensation: is normal. Vital Signs: 13:14 BP 132 / 100; Pulse 86; Resp 20; Temp 97.8(O); Pulse Ox 97% ; Weight 81.65 kg; Height 5 nj1 ft. 10 in. ; Pain 4/10; 16:00 BP 147 / 113; Pulse 87; Resp 20; Pulse Ox 96% on R/A; db 17:00 BP 133 / 95; Pulse 82; Resp 16; Pulse Ox 96% on R/A; db 18:33 BP 145 / 108; Pulse 88; Resp 16; Pulse Ox 95% on R/A; db 20:00 BP 137 / 100; Pulse 89; Resp 16; Pulse Ox 98% on R/A; jb4 21:00 BP 142 / 107; Pulse 83; Resp 16; Pulse Ox 97% on R/A; jb4 22:00 BP 122 / 85; Pulse 89; Resp 16; Pulse Ox 98% on R/A; jb4 23:30 BP 149 / 109; Pulse 91; Resp 16; Pulse Ox 98% on R/A; jb4 13:14 Body Mass Index 25.83 (81.65 kg, 177.8 cm) nj1 13:14 Pain Scale: Adult nj1 MDM: 13:22 Patient medically screened. 14:00 Differential diagnosis: CHF exacerbation, Chronic Obstructive Pulmonary Disease cp Myocardial Infarction pneumonia, Pneumothorax pulmonary edema, Pulmonary Embolism Sepsis Unstable Angina. 19:00 Data reviewed: vital signs, nurses notes, lab test result(s), EKG, radiologic studies, cp CT scan, plain films. 19:00 Management of patient was discussed with the following: [employer]: DR Henao who cp wants Lovenox started and will consult. Care significantly affected by the following chronic conditions: Hypertension, Crohns' disease. Counseling: I had a detailed discussion with the patient and/or guardian regarding: the historical points, exam findings, and any diagnostic results supporting the discharge/admit diagnosis, lab results, radiology results, the need for further work-up and treatment in the hospital. Response to treatment: the patient's symptoms have mildly improved after treatment. 01/30 13:34 Order name: Basic Metabolic Panel; Complete Time: 15:39 01/30 15:39 Interpretation: CL 116; GFR 67; Reviewed. 01/30 13:34 Order name: CBC with Diff; Complete Time: 14:55 01/30 14:55 Interpretation: Normal except: RBC 4.04; HGB 12.1; HCT 36.8; RDW 15.8. 01/30 13:34 Order name: LFT's; Complete Time: 15:39 cp 01/30 13:34 Order name: Magnesium; Complete Time: 15:39 cp 01/30 13:34 Order name: NT PRO-BNP; Complete Time: 15:39 cp 01/30 15:39 Interpretation: Abnormal: NT PRO-BNP 5865. 01/30 13:34 Order name: PT-INR; Complete Time: 16:29 cp 01/30 14:55 Interpretation: Abnormal: PT 13.6. 01/30 13:34 Order name: Troponin HS; Complete Time: 15:39 cp 01/30 18:36 Interpretation: Troponin HS 92.0; Reviewed. 01/30 15:40 Order name: LAB Add On 01/30 16:10 Order name: D-Dimer; Complete Time: 16:29 EDMS 01/30 16:29 Interpretation: Abnormal: D-DIMER 4291. 01/31 04:45 Order name: Basic Metabolic Panel EDMS 01/31 05:06 Order name: Troponin High Sensitivity EDID 01/31 05:16 Order name: CBC with Automated Diff EDID 01/30 13:34 Order name: XRAY Chest (1 view); Complete Time: 14:23 cp 01/30 14:23 Interpretation: Report review. 01/30 16:30 Order name: CT Chest For PE Angio; Complete Time: 18:22 cp 01/30 18:22 Order name: US Extremity Venous W Compression [facility] 01/30 19:23 Order name: US; Complete Time: 19:24 EDMS 01/30 13:34 Order name: EKG; Complete Time: 13:35 01/30 13:34 Order name: Cardiac monitoring; Complete Time: 14:46 01/30 13:34 Order name: EKG - Nurse/Tech; Complete Time: 16:15 01/30 13:34 Order name: IV Saline Lock; Complete Time: 14:46 01/30 13:34 Order name: Labs collected and sent; Complete Time: 14:46 01/30 13:34 Order name: O2 Per Protocol; Complete Time: 14:46 01/30 13:34 Order name: O2 Sat Monitoring; Complete Time: 14:46 cp Administered Medications: 18:57 Drug: Aspirin PO Chewable Tablet 324 mg Route: PO; db 01/31 00:17 Follow up: Response: No adverse reaction as01/30 18:57 Drug: Enoxaparin Sub-Q 80 mg Route: Sub-Q; Site: left lower abdomen; 01/31 00:17 Follow up: Response: No adverse reaction 01/30 19:43 Drug: Furosemide IVP 40 mg Route: IVP; Site: left hand; 4 01/31 00:16 Follow up: Response: No adverse reaction as01/30 23:38 Drug: ALPRAZolam PO Tablet 0.5 mg Route: PO; 4 01/31 00:16 Follow up: Response: No adverse reaction as6 Disposition Summary: 01/30/23 19:06 Hospitalization Ordered Hospitalization Status: Inpatient Admission cp Provider: Antolin Green cp Condition: Stable cp Problem: new cp Symptoms: have improved cp Bed/Room Type: Standard cp Location: Telemetry/MedSurg (Inpatient)(01/31/23 10:18) bd Room Assignment: 230(01/31/23 10:18) bd Diagnosis - Other pulmonary embolism with acute cor pulmonale cp - Pleural effusion in other conditions classified elsewhere cp Forms: - Medication Reconciliation Form cp - SBAR form cp Signatures: Dispatcher [employer] EDMS Bianca Jarrett Corey, MD MD cha Attema, Lee, RN MOBILE-C RN MOBILE-Cla1 Mo Salinas PA PA cp Garcia, Cindy RN RN cg Praveen Hall RN RN jb4 Rosita Zhang RN RN db Jennifer Tesfaye RN RN nj1 Zan Calderon RN as6 Corrections: (The following items were deleted from the chart) 01/30 19:09 19:06 Telemetry/MedSurg (Inpatient) cp cg 19: 19:06 cp cg 01/31 10:18 01/30 19:09 [facility] ER HOLD cg bd 01/31 10:18 01/30 19:09 ERHOLD- cg bd 02/01 03:53 01/31 13:50 Constitutional: Negative for body aches, chills, fever, poor PO intake, cp cp 02/01 03:53 01/31 13:50 Cardiovascular: Positive for chest pain, Negative for edema, palpitations, cp cp 02/01 03:53 01/31 13:50 Respiratory: Positive for shortness of breath, at rest. Negative for cough, cp wheezing, cp 02/01 03:53 01/31 13:50 Abdomen/GI: Negative for abdominal pain, nausea, vomiting, and diarrhea, cp cp 02/01 03:53 01/31 13:50 Eyes: Negative for injury, pain, redness, and discharge, cp cp 02/01 03:53 01/31 13:50 ENT: Negative for drainage from ear(s), ear pain, sore throat, difficulty cp swallowing, difficulty handling secretions, cp 02/01 03:53 01/31 13:50 Back: Negative for pain at rest, pain with movement, cp cp 02/01 03:53 01/31 13:50 Neuro: Negative for altered mental status, headache, weakness, cp cp 02/01 03:53 01/31 13:50 All other systems are negative, cp cp 02/01 03:56 01/30 13:50 Constitutional: Negative for body aches, chills, fever, poor PO intake, cp cp 02/01 03:01/30 13:28 Eyes: Negative for injury, pain, redness, and discharge, cp cp 02/01 03:01/30 13:28 ENT: Negative for drainage from ear(s), ear pain, sore throat, difficulty cp swallowing, difficulty handling secretions, cp 02/01 03:01/30 13:28 Cardiovascular: Positive for chest pain, Negative for edema, palpitations, cp cp 02/01 03:01/30 13:28 Respiratory: Positive for shortness of breath, at rest. Negative for cough, cp wheezing, cp 02/01 03:01/30 13:28 Abdomen/GI: Negative for abdominal pain, nausea, vomiting, and diarrhea, cp cp 02/01 03:01/30 13:28 Back: Negative for pain at rest, pain with movement, cp cp 02/01 03:01/30 13:28 Neuro: Negative for altered mental status, headache, weakness, cp cp
--- NOTE | 2023-01-30 19:11 | P.HP ---
Certification for Inpatient Patient admitted to: Inpatient With expected LOS: >2 Midnights Patient will require the following post-hospital care: None Practitioner: I am a practitioner with admitting privileges, knowledge of patient current condition, hospital course, and medical plan of care. Services: Services provided to patient in accordance with Admission requirements found in Title 42 Section 412.3 of the Code of Federal Regulations Patient History Date of Service: 01/30/23 Reason for admission: PE History of Present Illness: 62-year-old male with history of hypertension, Crohn's with colostomy in place presents emergency department chief complaint of chest pain, shortness of breath, orthopnea that increased over the course of the last 3 to 4 days especially worse today. He was evaluated in the emergency department his labs were significant for high-sensitivity troponin 92 BNP 5865 D-dimer 4291 CTA of the chest was performed which revealed pulmonary embolism with overall small clot burden, right heart dysfunction suspected. Pleural effusions left greater than right. ED provider discussed case with pulmonology who recommends admi ssion, Lovenox. He is currently on room air mildly hypertensive, heart rate in the 90s. Will give dose of Lasix as well given pleural effusions. Patient is a smoker, no personal or family history of blood clots he is not on any hormone therapy. No recent travel. Allergies No Known Allergies Allergy (Verified 07/09/14 01:52) Home Medications: Aspirin [Aspirin EC 81 MG] 81 mg PO DAILY #30 tablet. 09/14/19 Atorvastatin Calcium [Lipitor] 40 mg PO BEDTIME #30 tab 09/14/19 lisinopriL [Lisinopril] 20 mg PO DAILY #30 tablet 09/14/19 Sodium Bicarbonate 650 mg PO BID #60 tablet 03/17/22 - Past Medical/Surgical History Diabetic: No -: Chron's -: HTN -: Pulmonary embolism -: Scope to bilat knees Meniscus/ACL -: Colostomy Psychosocial/ Personal History: Patient is retired, lives at home with his - Family History Mother -: Diabetes, Cancer - Social History Smoking Status: Current every day smoker Alcohol use: No CD- Drugs: No Caffeine use: No Place of Residence: Home Review of Systems 10-point ROS is otherwise unremarkable Respiratory: Shortness of Breath Cardiovascular: Chest Pain, Orthopnea Physical Examination - Physical Exam General: Alert, In no apparent distress, Oriented x3 HEENT: Atraumatic, PERRLA, Mucous membr. moist/pink, EOMI, Sclerae nonicteric Neck: Supple, 2+ carotid pulse no bruit, No LAD, Without JVD or thyroid abnormality Respiratory: Clear to auscultation bilaterally, Normal air movement Cardiovascular: No edema, Regular rate/rhythm, Normal S1 S2 Capillary refill: <2 Seconds Gastrointestinal: Normal bowel sounds, No tenderness Musculoskeletal: No tenderness Integumentary: No rashes Neurological: Normal speech, Normal strength at 5/5 x4 extr, Normal tone, Normal affect - Studies Laboratory Data (last 24 hrs) 01/30/23 14:39: PT 13.6 H, INR 1.24 01/30/23 14:39: WBC 6.00, Hgb 12.1 L, Hct 36.8 L, Plt Count 246 01/30/23 14:39: Sodium 142, Potassium 3.6, BUN 15, Creatinine 1.21, Glucose 102, Magnesium 2.0, Total Bilirubin 0.4, AST 16, ALT 31, Alkaline Phosphatase 68 Assessment and Plan - Plan Assessment: Pulmonary embolism Pleural effusions, elevated BNP, elevated troponin suspect CHF/heart strain from PEunknown EF Hypertension Crohn's with colostomy in place Plan: Pulmonary embolism Case was discussed with pulmonology recommendations for therapeutic Lovenox. Counseled on need for smoking cessation, denies use of hormone therapy no p ersonal or family history of blood clots. Currently mildly hypertensive heart rate in the 90s no hypoxia. Pleural effusions, elevated BNP, elevated troponin suspect CHF/heart strain from PEunknown EF CT shows overall small clot burden although proBNP significantly elevated, pleural effusions present, mild elevation in high-sensitivity troponin. Given aspirin, Lovenox in ED. Echocardiogram ordered. Unclear if there is some underlying congestive heart failure taking place. I have given him 40 mg of IV Lasix now, we will continue gentle diuresis. Appreciate further per from cardiology. Hypertension Obtain and continue home medications Crohn's with colostomy in place Stable, no abdominal pain. DVT PPX: Therapeutic Lovenox Code status: Full Discharge Plan: Home Plan to discharge in: 48 Hours - Advance Directives Does patient have a Living Will: No Does patient have a Durable POA for Healthcare: No - Code Status/Comfort Care Code Status Assessed: Yes (Full code) Critical Care: No Time Spent Managing Pts Care (In Minutes): 70
--- NOTE | 2023-01-30 19:21 | RAD REPORT ---
EXAM DESCRIPTION: US - Extrem Venous W Compress Jordan - 01/30/2023 7:09 pm CLINICAL HISTORY: Pain;Swelling COMPARISON: No comparisons TECHNIQUE: Real-time sonographic evaluation of the lower extremity deep venous systems was performed using color Doppler, grayscale, and compression. FINDINGS: Bilateral lower extremities. Normal compressibility, flow augmentation, phasic flow and spontaneous flow is identified in both the left and right lower extremity deep venous systems. No intraluminal filling defects seen. IMPRESSION: No DVT in either lower extremity.
[2023-01-30] MEDS ORDERED: FUROSEMIDE 40 MG/4 ML VIAL ONE (19:24)
[2023-01-30 23:39] VITALS: BMI 25.7
[2023-01-30] MEDS ORDERED: ALPRAZOLAM 0.5 MG TABLET ONE (23:41)
[2023-01-30] MEDS ORDERED: ATORVASTATIN 40 MG TAB PO SCH (23:52)
[2023-01-30] MEDS ORDERED: ONDANSETRON 4 MG/2 ML VIAL IV PRN (23:52)
[2023-01-30] MEDS ORDERED: HYDROCODONE/APAP 5/325 MG TAB PO PRN (23:52)
[2023-01-31 04:20] LABS: Absolute Lymphocytes (CBC) 1.6 K/uL (0.7-4.9); Hematocrit 35.4 % (39.6-49.0); MCV 90.9 fL (80-100); MPV 8.2 fL (7.6-11.3)
[2023-01-31 04:44] LABS: Potassium 3.4 mEq/L (3.5-5.1)
[2023-01-31] MEDS ORDERED: KCL 20 MEQ/100 mL IVPB 20 MEQ/100 ML BAG IV SCH (07:00)
--- NOTE | 2023-01-31 07:34 | P.PN ---
Date of Service: 01/31/23 Subjective: Doing alright today breathing feels better no chest pain, mild cough this morning ROS: 10 point ROS as noted above, otherwise negative Physical Exam: GEN: Alert, oriented, NAD HEENT: Normal conjunctiva, sclera anicteric CV: Regular rate and rhythm, trace b/l pedal edema Pulm: Nonlabored respirations on room air at rest, diminished at bases, L crackles ABD: Soft, nontender, nondistended, colostomy Neuro: Normal speech, normal affect colostomy in place vitals reviewed Problem List: Pulmonary embolism Pleural effusions, elevated BNP, elevated troponin suspect CHF/heart strain from PEunknown EF h/o CAD, s/p stent Hypertension Crohn's with colostomy in place Nicotine dependence Pulmonary embolism CXR(01/30): Left pleural effusion with underlying atelectasis and/or consolidation. CT chest (01/30): Positive for pulmonary embolism though the findings may be either chronic or acute on chronic. A thin linear defect in the right main pulmonary artery has the appearance of a web which is typical of a chronic embolus. Right heart dysfunction suspected. Pleural effusions, left greater than right venous doppler (01/30): no DVT pulmonology consulted intially given therapeutic Lovenox, switched to eliquis (01/31) Currently mildly hypertensive heart rate in the 90s no hypoxia. PRN pain medication echo ordered unprovoked Pleural effusions, elevated BNP, elevated troponin suspect CHF/heart strain from PEunknown EF Unclear if there is some underlying congestive heart failure taking place. CT shows overall small clot burden proBNP significantly elevated, pleural effusions present, troponin elevated x3 h/o CAD s/p stent in past high risk Cardiology consulted continue gentle diuresis Echocardiogram ordered. last echo in 2019 showed EF:53% Hypertension Obtain and continue home medications Crohn's with colostomy in place Stable, no abdominal pain. Nicotine dependence Counseled on need for smoking cessation VTE: Eliquis Code: Full Dispo: home ~1 day
[2023-01-31] MEDS ORDERED: ASPIRIN EC 81 MG TAB PO SCH (09:00)
[2023-01-31] MEDS ORDERED: FUROSEMIDE 20 MG/ 2ML VIAL IV SCH (09:00)
[2023-01-31] MEDS ORDERED: ENOXAPARIN 80 MG/0.8 ML SQ SCH (09:00)
[2023-01-31] MEDS ORDERED: HYDROCODONE/APAP 5/325 MG TAB ONE (09:01)
[2023-01-31] MEDS ORDERED: ASPIRIN 81 MG CHEWABLE TABLET ONE (09:01)
[2023-01-31] MEDS ORDERED: ENOXAPARIN 80 MG/0.8 ML SQ ONE (09:01)
[2023-01-31] MEDS ORDERED: NA CHLORIDE 0.9% 500 ML ONE (09:01)
[2023-01-31] MEDS ORDERED: FUROSEMIDE 20 MG/ 2ML VIAL ONE (09:02)
[2023-01-31] MEDS ORDERED: KCL 20 MEQ/100 mL IVPB 100 ML IV ONE (09:02)
--- NOTE | 2023-01-31 09:47 | P.CNS ---
Date of Consult: 01/31/23 Reason for Consult: Embolism with left-sided pleural effusion Chief Complaint: Shortness of breath History of Present Illness: Patient is 62 years of age admitted with acute onset of shortness of breath preceding 3 days prior to admission denies any cough sputum has any chest pain no fever or chills patient is an active smoker of 5 cigarettes a day no prior history of coronary artery disease no prior history of thromboembolism and is currently retired has a history of hypertension doing well breathing has improved Allergies No Known Allergies Allergy (Verified 07/09/14 01:52) Home Medications: Aspirin [Aspirin EC 81 MG] 81 mg PO DAILY #30 tablet. 09/14/19 Atorvastatin Calcium [Lipitor] 40 mg PO BEDTIME #30 tab 09/14/19 lisinopriL [Lisinopril] 20 mg PO DAILY #30 tablet 09/14/19 Sodium Bicarbonate 650 mg PO BID #60 tablet 03/17/22 Apixaban [Eliquis] 5 mg PO BID 30 Days #60 tablet 01/31/23 Apixaban [Eliquis] 10 mg PO BID 7 Days #14 tablet 01/31/23 - Past Medical/Surgical History Diabetic: No -: Chron's -: HTN -: Pulmonary embolism -: Scope to bilat knees Meniscus/ACL -: Colostomy Psychosocial/ Personal History: Patient is retired, lives at home with his - Family History Mother Medical History: Diabetes, Cancer - Social History Smoking Status: Current every day smoker Alcohol use: No CD- Drugs: No Caffeine use: No Place of Residence: Home Review of Systems 10-point ROS is otherwise unremarkable Physical Examination Temp Pulse Resp BP Pulse Ox 97.4 F 86 18 152/100 H 97 01/31/23 08:00 01/31/23 09:00 01/31/23 09:31 01/31/23 09:00 01/31/23 09:31 General: Alert, Oriented x3 HEENT: Atraumatic Neck: Supple Respiratory: Clear to auscultation bilaterally Cardiovascular: No edema, Regular rate/rhythm, Normal S1 S2 Gastrointestinal: Normal bowel sounds, Soft and benign, Other (Colostomy in place) Laboratory Data (last 24 hrs) 01/30/23 14:39: PT 13.6 H, INR 1.24 01/30/23 14:39: WBC 6.00, Hgb 12.1 L, Hct 36.8 L, Plt Count 246 01/30/23 14:39: Sodium 142, Potassium 3.6, BUN 15, Creatinine 1.21, Glucose 102, Magnesium 2.0, Total Bilirubin 0.4, AST 16, ALT 31, Alkaline Phosphatase 68 - Problems (1) Pulmonary embolism Current Visit: Yes Status: Acute Plan: Patient is 62 years of age admitted with acute shortness of breath he appears to have pulmonary embolism more prominent in the right pulmonary artery and a left-sided pleural effusion prior history of thromboembolic disease no other risk factors his blood pressure is little elevated x-ray shows some mild cardiomegaly labs reviewed mild chronic renal failure troponins are elevated I suspect is from the pulmonary embolism hemodynamically stable oxygenation satisfactory patient can be discharged home on Eliquis 10 mg twice a day for a week then 5 mg twice a day follow-up with me in a month echocardiogram is not he lpful is not a candidate for thrombolytic therapy since has does not meet the criteria still not to smoke denies any baseline dyspnea Qualifiers: Acute cor pulmonale presence: unspecified
[2023-01-31] MEDS: lisinopriL 20 MG TAB PO SCH (11:01)
[2023-01-31] MEDS ORDERED: ATORVASTATIN 40 MG TAB PO SCH (21:00)
[2023-01-31] MEDS: APIXABAN 5 MG TABLET PO SCH (21:33)
[2023-02-01 04:02] LABS: Absolute Lymphocytes (CBC) 1.8 K/uL (0.7-4.9); Hematocrit 35.8 % (39.6-49.0); Lymphocytes % 28.8 % (15.3-44.8); MCV 90.3 fL (80-100); RBC Red Blood Cell Count 3.96 M/uL (4.33-5.43)
[2023-02-01 04:42] LABS: Potassium 3.5 mEq/L (3.5-5.1)
[2023-02-01] MEDS ORDERED: POTASSIUM CL SA 10 MEQ TAB PO ONE (09:00)
[2023-02-01] MEDS ORDERED: ASPIRIN EC 81 MG TAB PO SCH (09:00)
[2023-02-01] MEDS: APIXABAN 5 MG TABLET PO SCH (09:23)
[2023-02-01] MEDS: lisinopriL 20 MG TAB PO SCH (09:23)
[2023-02-01 11:37] VITALS: O2SAT 98
[2023-02-01 12:16] VITALS: BP 145/93; TEMP 98.1
--- NOTE | 2023-02-01 13:13 | P.DS ---
Admission Date: 01/30/23 Discharge Date: 02/01/23 Disposition: ROUTINE DISCHARGE Discharge Condition: FAIR Reason for Admission: Shortness of breath Brief History of Present Illness: 62-year-old male with history of hypertension, Crohn's with colostomy in place presents emergency department chief complaint of chest pain, shortness of breath, orthopnea that increased over the course of the last 3 to 4 days especially worse today. He was evaluated in the emergency department his labs were significant for high-sensitivity troponin 92 BNP 5865 D-dimer 4291. CTA of the chest was performed which revealed pulmonary embolism with overall small clot burden, right heart dysfunction suspected. Pleural effusions left greater than right. ED provider discussed case with pulmonology who recommended admission and to start full dose Lovenox. He was stable on room air. Patient is a smoker, no personal or family history of blood clots and he is not on any hormone therapy. No recent travel. Patient was hospitalized for further management. Hospital Course: Diagnosis Pulmonary embolism Pleural effusions, elevated BNP, elevated troponin suspect CHF/heart strain from PEunknown EF h/o CAD, s/p stent Hypertension Crohn's with colostomy in place Nicotine dependence Pulmonary embolism CXR(01/30): Left pleural effusion with underlying atelectasis and/or consolidation. CT chest (01/30): Positive for pulmonary embolism though the findings may be either chronic or acute on chronic. A thin linear defect in the right main pulmonary artery has the appearance of a web which is typical of a chronic embolus. Right heart dysfunction suspected. Pleural effusions, left greater than right venous doppler (01/30): no DVT pulmonology consulted intially given therapeutic Lovenox, switched to eliquis (01/31) echo done. Patient has been stable on room air with stable vitals. He is deemed stable for discharge. Pleural effusions, elevated BNP, elevated troponin suspect CHF/heart strain from PEunknown EF CT shows overall small clot burden proBNP significantly elevated, pleural effusions present, troponin elevated x3 h/o CAD s/p stent in past Elevated troponin likely secondary to pulm embolism. Echocardiogram done. Hypertension Continued home medications Crohn's with colostomy in place Stable, no abdominal pain. Nicotine dependence Patient counseled on need for smoking cessation. Vital Signs/Physical Exam: Temp Pulse Resp BP Pulse Ox 98.1 F 86 14 145/93 H 98 02/01/23 12:00 02/01/23 12:00 02/01/23 12:00 02/01/23 12:00 02/01/23 12:00 General: Alert, In no apparent distress, Oriented x3 HEENT: Mucous membr. moist/pink Neck: JVD not distended Respiratory: Clear to auscultation bilaterally, Normal air movement Cardiovascular: No edema, Regular rate/rhythm, Normal S1 S2 Gastrointestinal: Normal bowel sounds, Soft and benign, Non-distended, No tenderness Musculoskeletal: No swelling Integumentary: No rashes, No cyanosis Neurological: Normal strength at 5/5 x4 extr Laboratory Data at Discharge: WBC 6.20 thou/uL (4.3-10.9) 02/01/23 03:49 Hgb 11.9 g/dL (13.6-17.9) L 02/01/23 03:49 Hct 35.8 % (39.6-49.0) L 02/01/23 03:49 Plt Count 255 thou/uL (152-406) 02/01/23 03:49 PT 13.6 SECONDS (9.5-12.5) H 01/30/23 14:39 INR 1.24 01/30/23 14:39 Sodium 138 mEq/L (136-145) 02/01/23 03:49 Potassium 3.5 mEq/L (3.5-5.1) 02/01/23 03:49 BUN 19 mg/dL (7-18) H 02/01/23 03:49 Creatinine 1.30 mg/dL (0.70-1.30) 02/01/23 03:49 Glucose 99 mg/dL (74-106) 02/01/23 03:49 Magnesium 2.0 mg/dL (1.6-2.4) 01/30/23 14:39 Total Bilirubin 0.4 mg/dL (0.2-1.0) 01/30/23 14:39 AST 16 U/L (15-37) 01/30/23 14:39 ALT 31 U/L (16-61) 01/30/23 14:39 Alkaline Phosphatase 68 U/L (45-117) 01/30/23 14:39 Home Medications: Aspirin [Aspirin EC 81 MG] 81 mg PO DAILY #30 tablet. 09/14/19 Atorvastatin Calcium [Lipitor] 40 mg PO BEDTIME #30 tab 09/14/19 lisinopriL [Lisinopril] 20 mg PO DAILY #30 tablet 09/14/19 Sodium Bicarbonate 650 mg PO BID #60 tablet 03/17/22 Apixaban [Eliquis] 5 mg PO BID 30 Days #60 tablet 01/31/23 Apixaban [Eliquis] 10 mg PO BID 7 Days #14 tablet 01/31/23 New Medications: Apixaban [Eliquis] 10 mg PO BID 7 Days #14 tablet Apixaban [Eliquis] 5 mg PO BID 30 Days #60 tablet Diet: AHA Activity: Ad lusí Followup: José Henao MD [ACTIVE - CAN ADMIT] - 1-2 Weeks (Call to make an appointment.) Akbar Sullivan MD [ACTIVE - CAN ADMIT] - Time spent managing pt's care (in minutes): 35
--- NOTE | 2023-02-02 07:14 | EKG ---
Test Date: 2023-01-30 Test Time: 16:02:46 Twine Winder: SIMÓN MEASUREMENT RESULTS: Intervals: Rate: 84 MS: 178 QRSD: 98 QT: 390 QTc: 460 [place]: P: 61 MS: 178 QRS: 41 T: 46 INTERPRETIVE STATEMENTS: Normal sinus rhythm Left ventricular hypertrophy Nonspecific T wave abnormality Prolonged QT Abnormal ECG Compared to ECG 03/14/2022 22:17:25 Prolonged QT interval now present Ventricular premature complex(es) no longer present Possible ischemia no longer present T-wave abnormality still present Electronically Signed On 02-02-23 07:07:32 CDT by Akbar Sullivan
--- NOTE | 2023-02-02 08:35 | ECHO ---
HEIGHT: 5 ft 10 in WEIGHT: 180 lb 0 oz DATE OF STUDY: 02/01/[address]: Luis Felipe Hammond NP 2-DIMENSIONAL: YES M.MODE: YES DOPPLER: YES COLOR FLOW: YES TDS: PORTABLE: YES DEFINITY: BUBBLE STUDY: DIAGNOSIS: PULMONARY EMBOLISM, HEART STRAIN, ELEVATED TROPONIN CARDIAC HISTORY: CATHERIZATION: NO SURGERY: NO PROSTHETIC VALVE: NO PACEMAKER: NO MEASUREMENTS (cm) DIASTOLIC (NORMALS) SYSTOLIC (NORMALS) IVSd 1.0 (0.6-1.2) LA Diam 3.9 (1.9-4.0) LVEF 20% LVIDd 5.8 (3.5-5.7) LVIDs 5.3 (2.0-3.5) %FS 9% LVPWd 1.1 (0.6-1.2) Ao Diam 2.7 (2.0-3.7) 2 DIMENSIONAL ASSESSMENT: RIGHT ATRIUM: NORMAL LEFT ATRIUM: NORMAL RIGHT VENTRICLE: NORMAL LEFT VENTRICLE: DILATED TRICUSPID VALVE: NORMAL MITRAL VALVE: NORMAL PULMONIC VALVE: NORMAL AORTIC VALVE: NORMAL PERICARDIAL EFFUSION: NONE AORTIC ROOT: NORMAL LEFT VENTRICULAR WALL MOTION: SEVERE GLOBAL HYPOKINESIS DOPPLER/COLOR FLOW: MODERATE MITRAL REGURGITATION, AORTIC REGURGITATION, TRICUSPID REGURGITATION. NORMAL RIGHT VENTRICULAR SYSTOLIC PRESSURE. COMMENTS: 1. MODERATE MITRAL REGURGITATION, AORTIC REGURGITATION, TRICUSPID REGURGITATION. 2. SEVERE GLOBAL HYPOKINESIS 3. EJECTION FRACTION 20% TECHNOLOGIST: BURT BRUCE
--- NOTE | 2023-02-02 11:55 | CON ---
Date of Consultation: 01/31/2023 Reason For Consultation: Pulmonary embolus. History Of Present Illness: Mr. Giordano is 62. Has a history of Crohn disease, coronary artery dise ase. He is status post stenting, came in with a pulmonary embolus. D-dimer was 4200. Troponin was 107. His chest x-ray showed left pleural effusion. CT angiogram showed pulmonary embolus. He is no w on aspirin, Lipitor, Lovenox, and Lasix and he is fairly asymptomatic. Denied any cardiac symptoms . Past Medical History: As stated earlier. Allergies: NONE. Medications: At home include aspirin, Lipitor, lisinopril. Review of Systems: Negative. Social History: Negative. Family History: Negative. Physical Examination: Vital Signs: Stable, afebrile. HEENT: Negative. Neck: Supple with no bruit. Chest: Clear. Cardiac: Revealed a regular rhythm and rate. No murmurs, gallops, or rubs. Abdomen: Benign. Extremities: Revealed no clubbing, cyanosis, or edema. Diagnostic Data: As stated earlier. Impression And Plan: 1.Elevated troponin secondary to pulmonary embolus and demand ischemia. 2.Elevated D-dimer secondary to pulmonary embolus. 3.History of Crohn disease. 4.History of coronary artery disease, status post stent. 5.Left pleural effusion. I agree with his present regimen including aspirin, Lipitor, Lovenox, and Lasix. Echocardiogram is pending. We will continue to follow. ANGELES/SABINE Voice ID: [id number] Report ID: [id number]
--- NOTE | 2023-02-02 15:25 | PN ---
Date of Progress Note: 02/01/2023 Mr. Giordano came in with a pulmonary embolus. Has a history of Crohn, CAD, and PCI. He is on aspiri n, Lipitor, Lovenox, and Lasix and actually feeling well. He does have some shortness of breath, luanne e left pleural effusion, and has pulmonary embolus. I was surprised to see that his echocardiogram s howed an ejection fraction about 20% with significant MR, AR, and TR. I will discuss the case furthe r with Dr. Green, but the patient needs to be on a low-dose beta-romero, he needs to be on Lasix, he needs to be on lisinopril. We should consider Entresto down the road. We will keep watching him fo r now. ANGELES/SABINE Voice ID: [id number] Report ID: [id number]
[2023-02-07] MEDS ORDERED: APIXABAN 5 MG TABLET PO SCH (21:00)
== END 2023-02-01 13:54 | disposition home or self-care (01) | DRG 176 ==
LOC: ER 13:07 → ERHOLD 19:00 → 2ND 01-31 10:40
PROVIDERS: ADMIT Hospitalist; ATTEND Internal Medicine
DX: I26.99 Other pulmonary embolism without acute cor pulmonale (principal); K50.90 Crohn's disease, unspecified, without complications; I24.8 Other forms of acute ischemic heart disease; I11.0 Hypertensive heart disease with heart failure; I50.9 Heart failure, unspecified; I25.10 Atherosclerotic heart disease of native coronary artery without angina pectoris; F17.210 Nicotine dependence, cigarettes, uncomplicated; R77.8 Other specified abnormalities of plasma proteins; Z93.3 Colostomy status; Z71.6 Tobacco abuse counseling; Z95.5 Presence of coronary angioplasty implant and graft; Z79.01 Long term (current) use of anticoagulants; Z79.82 Long term (current) use of aspirin; Z79.899 Other long term (current) drug therapy
CPT/HCPCS: 36415; 71045; 71275; 80048; 80076; 83735; 83880; 84484; 85025; 85379; 85610; 93005; 93306; 93970; 96372; 96374; 99285; J1940; J3480; J7040; Q9967

== ENCOUNTER 2023-02-10 09:37 | Emergency (ER) | payer OTHER ==
--- OUTSIDE RECORDS SUMMARY | 2023-02-10 09:41 | XMS REPORT | Continuity of Care Document ---
:1960 Author Organization [facility] t Address [address] [facility] [address] [place] [address] Care Team Providers Name Role Phone Cuco NICHOLAS, Emre De La Vega Primary Care Physician [phone] EMRE NORWOOD Attending Clinician Unavailable Emre Norwood MD Attending Clinician JULIA MARR Attending Clinician Unavailable Doctor Unassigned, [place] Attending Clinician Unavailable Lab, Ang - Ced Attending Clinician Unavailable Payers Payer Name Policy Type Policy Number Effective Date Expiration Date S wilmer [facility] [id number] 2022 [facility] 00:00:00 MEDICARE PART A [id number] 2013 \T\ B 00:00:00 Problems Condition Condition Condition Status Onset Resolution Last Treating Co mments Source Name Details Category Date Date Treatment Clinician Date Crohn's Crohn's Disease Active 2018-09 Univers disease of disease of 2- it y of colon [place] 00 Me dical on on Branch Essential Essential Disease Active 2018-09 Uni vers hypertensi hypertensi 2-09 it y of on on 00:00: [place] [address] Medical Branch Allergies, Adverse Reactions, Alerts Allergy Allergy Status Severity Reaction(s) Onset Inactive Treating Comm ents Source Name Type Date Date Clinician NO KNOWN Drug Active Univers ALLERGIE Class ity of [facility] Social History Social Habit Start Date Stop Date Quantity Comments Source History of tobacco Cigarette Smoker University of use [facility] History [facility] o f Alcohol Std Drinks [place] [facility] History [facility] o f Alcohol Binge [facility] al Branch History [facility] o f Alcohol Comment [place] [facility] Alcohol intake 2023-02-09 2023-02-09 Lifetime University of 00:00:00 00:00:00 non-drinker [facility] (finding) Branch Exposure to 2022-12-03 2022-12-13 Not sure University SARS-CoV-2 (event) 00:00:00 15:14:00 [facility] Branch Cigarettes smoked 2022-11-09 2022-11-09 [facility] ity of current (pack per 00:00:00 00:00:00 [facility] ) - Reported Branch Tobacco use and 2022-11-09 2022-11-09 Smokeless Universit y of exposure 00:00:00 00:00:00 tobacco non-user [facility] dical Branch History SDOH 2019-08-13 2019-08-13 1 [place] o f Alcohol Frequency 00:00:00 00:00:00 [facility] Sex Ass[birth year] At [birth year] Universit y of 00:00:00 00:00:00 [facility] Smoking Status Start Date Stop Date Source Smokes tobacco daily 2022-11-09 00:00:00 [facility] ity of [facility] Medications Ordered Filled Start Stop Current Ordering Indication Dosage Frequency Signature Comments Components Source Medication Medication Date Date Medication? Clinician (SIG) Name Name apixaban Yes 5522 5mg Take 1 Univers (ELIQUIS) 5 6-07 tablet by ity of mg tablet 00:00: mouth in [facility] 00 the Medical morning Branch and 1 tablet in the evening. Indication s: history of pulmonary embolism apixaban Yes [id number] 5mg Take 1 Univers (ELIQUIS) 5 6-07 tablet by ity of mg tablet 00:00: mouth in [facility] s 00 the Medical morning Branch and 1 tablet in the evening. Indication s: history of pulmonary embolism ELIQUIS 5 2022- No 5mg Take 1 Unive rs mg tablet 01-31 tablet by ity of 00:00: 00:00 mouth in [place] 00 :00 the Medical morning Branch and 1 tablet in the evening. ELIQUIS 5 2022- No 5mg Take 1 Unive rs mg tablet 01-31 tablet by ity of 00:00: 00:00 mouth in [place] 00 :00 the Medical morning Branch and 1 tablet in the evening. albuterol 2022-0 Yes [id number] 2{puff} Inhale 2 Univers 90 3-07 Puffs ity of mcg/actuati 00:00: every 6 Ángel as on inhaler 00 (six) Medical hours as Branch needed for Wheezing or Shortness of Breath. lisinopriL 2022-0 Yes [id number] 10mg Take 1 U nivers 10 mg 3-07 tablet by ity of tablet 00:00: mouth in [place] 00 the Medical morning. Branch albuterol 2022-0 Yes [id number] 2{puff} Inhale 2 Univers 90 3-07 Puffs ity of mcg/actuati 00:00: every 6 Ángel as on inhaler 00 (six) Medical hours as Branch needed for Wheezing or Shortness of Breath. lisinopriL 2022-0 Yes [id number] 10mg Take 1 U nivers 10 mg 3-07 tablet by ity of tablet 00:00: mouth in [place] 00 the Medical morning. Branch albuterol 2022-0 Yes [id number] 2{puff} Inhale 2 Univers 90 3-07 Puffs ity of mcg/actuati 00:00: every 6 Ángel as on inhaler 00 (six) Medical hours as Branch needed for Wheezing or Shortness of Breath. lisinopriL 2022-0 Yes [id number] 10mg Take 1 U nivers 10 mg 3-07 tablet by ity of tablet 00:00: mouth in [place] 00 the Medical morning. Branch albuterol 2022-0 Yes [id number] 2{puff} Inhale 2 Univers 90 3-07 Puffs ity of mcg/actuati 00:00: every 6 Ángel as on inhaler 00 (six) Medical hours as Branch needed for Wheezing or Shortness of Breath. lisinopriL 3-0 Yes [id number] 10mg Take 1 U nivers 10 mg 3-07 tablet by ity of tablet 00:00: mouth in [place] 00 the Medical morning. Branch albuterol 2022-0 Yes [id number] 2{puff} Inhale 2 Univers 90 3-07 Puffs ity of mcg/actuati 00:00: every 6 Ángel as on inhaler 00 (six) Medical hours as Branch needed for Wheezing or Shortness of Breath. lisinopriL 2023-0 Yes [id number] 10mg Take 1 U nivers 10 mg 3-07 tablet by ity of tablet 00:00: mouth in [place] 00 the Medical morning. Branch albuterol 2022-0 Yes [id number] 2{puff} Inhale 2 Univers 90 3-07 Puffs ity of mcg/actuati 00:00: every 6 Ángel as on inhaler 00 (six) Medical hours as Branch needed for Wheezing or Shortness of Breath. lisinopriL 2022-0 Yes [id number] 10mg Take 1 U nivers 10 mg 3-07 tablet by ity of tablet 00:00: mouth in [place] 00 the Medical morning. Branch lisinopriL 2021-0 Yes [id number] 10mg Take 1 U nivers 10 mg 7-13 tablet by ity of tablet 00:00: mouth in [place] 00 the Medical morning. Branch lisinopriL 2021-0 Yes [id number] 10mg Take 1 U nivers 10 mg 7-13 tablet by ity of tablet 00:00: mouth in [place] 00 the Medical morning. Branch lisinopriL 2021-0 Yes [id number] 10mg Take 1 U nivers 10 mg 7-13 tablet by ity of tablet 00:00: mouth in [place] 00 the Medical morning. Branch lisinopriL 2021-0 Yes [id number] 10mg Take 1 U nivers 10 mg 7-13 tablet by ity of tablet 00:00: mouth in [place] 00 the Medical morning. Branch lisinopriL 2021-0 Yes [id number] 10mg Take 1 U nivers 10 mg 7-13 tablet by ity of tablet 00:00: mouth in [place] 00 the Medical morning. Branch lisinopriL 2021-0 Yes [id number] 10mg Take 1 U nivers 10 mg 7-13 tablet by ity of tablet 00:00: mouth in [place] 00 the Medical morning. Branch lisinopriL 2-0 3- No [id number] 10mg Take 1 Univers 10 mg 7-13 03-07 tablet by ity of tablet 00:00: 00:00 mouth in [place] 00 :00 the Medical morning. Branch lisinopriL 2-0 3- No [id number] 10mg Take 1 Univers 10 mg 7-13 03-07 tablet by ity of tablet 00:00: 00:00 mouth in [place] 00 :00 the Medical morning. Branch Immunizations Ordered Filled Immunization Date Status Comments [facility] Immunization Name Name SARS-COV-2 COVID-19 2020-11-22 Completed Unive rsity of PFIZER VACCINE 00:00:00 [facility] SARS-COV-2 COVID-19 2020-11-22 Completed Unive rsity of PFIZER VACCINE 00:00:00 [facility] SARS-COV-2 COVID-19 2020-11-22 Completed Unive rsity of PFIZER VACCINE 00:00:00 [facility] SARS-COV-2 COVID-19 2020-11-22 Completed Unive rsity of PFIZER VACCINE 00:00:00 [facility] SARS-COV-2 COVID-19 2020-11-22 Completed Unive rsity of PFIZER VACCINE 00:00:00 [facility] SARS-COV-2 COVID-19 2020-11-22 Completed Unive rsity of PFIZER VACCINE 00:00:00 [facility] SARS-COV-2 COVID-19 2020-11-22 Completed Unive rsity of PFIZER VACCINE 00:00:00 [facility] SARS-COV-2 COVID-19 2020-11-22 Completed Unive rsity of PFIZER VACCINE 00:00:00 [facility] SARS-COV-2 COVID-19 2020-11-22 Completed Unive rsity of PFIZER VACCINE 00:00:00 [facility] SARS-COV-2 COVID-19 2020-11-22 Completed Unive rsity of PFIZER VACCINE 00:00:00 [facility] SARS-COV-2 COVID-19 2020-11-22 Completed Unive rsity of PFIZER VACCINE 00:00:00 [facility] SARS-COV-2 COVID-19 2020-11-22 Completed Unive rsity of PFIZER VACCINE 00:00:00 [facility] SARS-COV-2 COVID-19 2020-11-01 Completed Unive rsity of PFIZER VACCINE 00:00:00 [facility] SARS-COV-2 COVID-19 2020-11-01 Completed Unive rsity of PFIZER VACCINE 00:00:00 [facility] SARS-COV-2 COVID-19 2020-11-01 Completed Unive rsity of PFIZER VACCINE 00:00:00 [facility] SARS-COV-2 COVID-19 2020-11-01 Completed Unive rsity of PFIZER VACCINE 00:00:00 [facility] SARS-COV-2 COVID-19 2020-11-01 Completed Unive rsity of PFIZER VACCINE 00:00:00 [facility] SARS-COV-2 COVID-19 2020-11-01 Completed Unive rsity of PFIZER VACCINE 00:00:00 [facility] SARS-COV-2 COVID-19 2020-11-01 Completed Unive rsity of PFIZER VACCINE 00:00:00 [facility] SARS-COV-2 COVID-19 2020-11-01 Completed Unive rsity of PFIZER VACCINE 00:00:00 [facility] SARS-COV-2 COVID-19 2020-11-01 Completed Unive rsity of PFIZER VACCINE 00:00:00 [facility] SARS-COV-2 COVID-19 2020-11-01 Completed Unive rsity of PFIZER VACCINE 00:00:00 [facility] SARS-COV-2 COVID-19 2020-11-01 Completed Unive rsity of PFIZER VACCINE 00:00:00 [facility] SARS-COV-2 COVID-19 2020-11-01 Completed Unive rsity of PFIZER VACCINE 00:00:00 [facility] Vital Signs Vital Name Observation Time Observation Value Comments Source Systolic blood 2023-02-09 13:56:00 160 mm[Hg] Univer sity of pressure [facility] Diastolic blood 2023-02-09 13:56:00 109 mm[Hg] Unive rsity of pressure [facility] Heart rate 2023-02-09 13:55:00 95 /min [facility] Body temperature 2023-02-09 13:55:00 [facility]89 [facility] height 2023-02-09 13:55:00 177.8 cm [facility] Body weight 2023-02-09 13:55:00 81.194 kg [facility] BMI 2023-02-09 13:55:00 25.68 kg/m2 [facility] Oxygen saturation in 2023-02-09 13:55:00 98 /min [facility] Arterial blood by [facility] Pulse oximetry Branch Systolic blood 2022-12-13 20:28:00 141 mm[Hg] Univer sity of pressure [place] [facility] Diastolic blood 2022-12-13 20:28:00 93 mm[Hg] Unive rsity of pressure [facility] Heart rate 2022-12-13 20:23:00 83 /min Universi ty of [facility] Body height 2022-12-13 20:23:00 177.8 cm Universi ty of [place] [facility] Body weight 2022-12-13 20:23:00 81.194 kg Universi ty of [place] [facility] BMI 2022-12-13 20:23:00 25.68 kg/m2 Universi ty of [facility] Branch Systolic blood 2022-11-09 22:05:00 159 mm[Hg] Univer sity of pressure [facility] Branch Diastolic blood 2022-11-09 22:05:00 102 mm[Hg] Unive rsity of pressure [facility] Heart rate 2022-11-09 22:04:00 89 /min Universi ty of [facility] Body temperature 2022-11-09 22:04:00 37.11 Kassi Univ ersity of [facility] Branch Body height 2022-11-09 22:04:00 177.8 cm Universi ty of [place] [facility] [place] Body weight 2022-11-09 22:04:00 81.647 kg Universi ty of [facility] BMI 2022-11-09 22:04:00 25.83 kg/m2 Universi ty of [facility] Oxygen saturation in 2022-11-09 22:04:00 98 /min University Arterial blood by [facility] Pulse oximetry Branch Systolic blood 2022-04-06 19:39:00 154 mm[Hg] Univer sity of pressure [facility] Branch Diastolic blood 2022-04-06 19:39:00 92 mm[Hg] Unive rsity of pressure [facility] Heart rate 2022-04-06 19:38:00 84 /min Universi ty of [facility] Body height 2022-04-06 19:38:00 177.8 cm Universi ty of [facility] Body weight 2022-04-06 19:38:00 83.915 kg Universi ty of [facility] BMI 2022-04-06 19:38:00 26.54 kg/m2 Universi ty of [facility] Procedures Procedure Date / Time Performing Clinician Source Performed CONSENT/REFUSAL FOR 2022-11-09 21:53:53 Doctor Unassigned, No Un [facility] DIAGNOSIS AND TREATMENT [facility] DME/SUPPLY JUSTIFICATION 2022-08-11 06:01:00 Doctor Unassigned, No [facility] Encounters Start End Encounter Admission Attending Care Care Encounter Source Date/Time Date/Time Type Type Clinicians Facility Department ID 2023-06-14 2023-06-14 Outpatient [facility] [id number] Univers 16:00:00 16:00:00 [facility] 2023-02-09 2023-02-09 Office [facility] 1.2.840.114 [id number] Univers 11:00:00 11:30:00 [place] [id number] it y of [place] [id number] Ángel as NETTIE?BLEA [id number] [address] MEDICAL OFFICE [facility] 2023-02-09 2023-02-09 Outpatient [facility] [id number] Univers 11:00:00 11:00:00 [facility] 2022-12-13 2022-12-13 Office [facility] 1.2.840.114 [id number] Univers 15:30:00 15:45:00 Visit [place] [id number] it y of [place] 4.2.7.2.686 Ángel as NETTIE?BLEA [id number] [address] MEDICAL OFFICE [facility] 2022-12-13 2022-12-13 Outpatient [facility] [id number] Univers 15:30:00 15:30:00 [facility] 2022-11-09 2022-11-09 [facility] [id number] Univers 15:45:00 16:00:00 Visit [place] [id number] it y of [place] 4.2.7.2.686 Ángel as NETTIE?BLEA [id number] Me dical KNEY [address] [facility] 2022-11-09 2022-11-09 Outpatient Devin NORWOOD [facility] [id number] Univers 15:45:00 15:45:00 EMRE casanova [facility] 2022-11-09 2022-11-09 Orders Doctor [place] 1.2.840.114 [id number] Univers 00:00:00 00:00:00 Only Unassigned, CHANTAL [id number] ity of [place] [facility] 4.2.7.2.686 Ángel as [id number] [address] 2022-11-08 2022-11-08 [facility] 1.2.840.114 [id number] Univers 00:00:00 00:00:00 [facility] [id number] it y of Ceferino [place] 4.2.7.2.686 Ángel as NETTIE?BLEA [id number] Ct tushar [address] 2022-08-11 2022-08-11 Orders Doctor [place] 1.2.840.114 [id number] Univers 00:00:00 00:00:00 Only Unassigned, CHANTAL [id number] ity of [place] [facility] 4.2.7.2.686 Ángel as [id number] [address] 2022-05-11 2022-05-11 Outpatient Devin NORWOOD [facility] [id number] Univers 09:45:00 09:45:00 EMRE acsanova [facility] 2022-04-26 2022-04-26 Outpatient Devin NORWOOD [facility] [id number] Univers 16:30:00 16:30:00 EMRE pat [facility] 2022-04-20 2022-04-20 Outpatient Devin NORWOOD [facility] [id number] Univers 16:00:00 16:00:00 EMRE pat [facility] 2022-04-06 2022-04-06 Housing Installer Lab, Ang - [facility] 1.2.840.1 [id number] Univers 15:00:00 15:15:00 Visit Emre Norwood cady [facility] [id number] .[address] [facility] 4.2.7.2.686 Ángel as NETTIE?BLEA [id number] Ct tushar [address]ART[address] [place] MEDICAL OFFICE [facility] 2022-04-06 2022-04-06 [facility] [id number] Univers 15:00:00 15:00:00 [facility] 2022-04-06 2022-04-06 Office [facility] 1.2.840.114 [id number] Univers 14:30:00 15:00:00 Visit [facility] [id number] it y of [place] 4.2.7.2.686 Ángel as NETTIE?BLEA [id number] Ct tushar MARTINEZ [address] [place] MEDICAL OFFICE [facility] 2022-04-06 2022-04-06 [facility] [id number] Univers 14:30:00 14:30:00 [facility] 2022-03-17 2022-03-17 [facility] 1.2.840.114 [id number] Univers 00:00:00 00:00:00 [facility] [id number] it y of [place] 4.2.7.2.686 Ángel as NETTIE?BLEA [id number] Ct tushar MARTINEZ 044 [facility] OFFICE [facility] 2022-02-24 2022-02-24 [facility] [id number] Univers 11:00:00 11:00:00 [facility] 2022-02-18 2022-02-18 [facility] 1.2.840.114 [id number] Univers 00:00:00 00:00:00 [facility] [id number] it y of [place] 4.2.7.2.686 Ángel as NETTIE?BLEA [id number] Ct tushar MARTINEZ 044 [facility] OFFICE [facility] 2022-02-12 2022-02-12 [facility] 1.2.840.114 [id number] Univers 00:00:00 00:00:00 [facility] [id number] it y of [place] 4.2.7.2.686 Ángel as NETTIE?BLEA [id number] [address] MEDICAL OFFICE BUILDING 2021-12-03 2021-12-03 Orders Doctor OCTAVIA 1.2.840.114 [id number] Univers 00:00:00 00:00:00 Only Unassigned, CHANTAL [id number] ity of [place] [facility] 4.2.7.2.686 Ángel as [id number] [address] 2021-10-26 2021-10-26 [facility] 1.2.840.114 [id number] Univers 00:00:00 00:00:00 [facility] [id number] it y [facility] 4.2.7.2.686 Ángel as NETTIE?BLEA [id number] [address] MEDICAL OFFICE [facility] 2021-10-26 2021-10-26 Orders Doctor OCTAVIA 1.2.840.114 [id number] Univers 00:00:00 00:00:00 Only Unassigned, CHANTAL [id number] ity of [place] [facility] 4.2.7.2.686 Ángel as [id number] [address] 2020-11-22 2020-11-22 Outpatient [facility] [id number] Univers 14:50:00 14:50:00 ity [facility] 2020-11-01 2020-11-01 Outpatient [facility] [id number] Univers 15:05:00 15:05:00 ity [facility] 2020-09-09 2020-09-09 [facility] [id number] Univers 15:30:00 15:30:00 EMRE [facility] Results This patient has no known results.
[2023-02-10 10:44] LABS: Hematocrit 35.1 % (39.6-49.0); Lymphocytes % 23.5 % (15.3-44.8); MCV 89.8 fL (80-100); RBC Red Blood Cell Count 3.91 M/uL (4.33-5.43)
[2023-02-10 10:51] LABS: Potassium 3.4 mEq/L (3.5-5.1); Troponin High Sensitivity 53.7 pg/mL (<58.9)
--- NOTE | 2023-02-10 11:11 | RAD REPORT ---
EXAM DESCRIPTION: Blut Single View02/10/2023 10:34 am CLINICAL HISTORY: SOB COMPARISON: Chest Single View dated 01/30/2023; Chest Single View dated 03/14/2022; Chest Single View dated 09/13/2019; Chest Single View dated 10/06/2017 TECHNIQUE: Portable AP view of the chest. FINDINGS: Retrocardiac opacity obscuring the left hemidiaphragm margin, stable. Suspected layering c omponent of left pleural effusion. Hazy right basal airspace opacification may be new since the prior exam. No pneumothorax or right effusion. The cardiomediastinal contours are unchanged with stable u pper limit of normal size of the heart. IMPRESSION: Possible new hazy right basal airspace opacity. Persistent retrocardiac consolidation an d probable effusion. Worsening pneumonia should be considered.
[2023-02-10] MEDS ORDERED: ONDANSETRON 4 MG/2 ML VIAL ONE (12:02)
[2023-02-10] MEDS ORDERED: MORPHINE 4 MG/ML SYR ONE (12:02)
--- NOTE | 2023-02-10 12:45 | ER ---
Nurse's Notes [facility] Name: Karson Giordano Age: 62 yrs Sex: Male : 1960 Arrival Date: 02/10/2023 Time: 09:37 Bed 20 Private MD: Diagnosis: Pneumonia;Coronavirus Presentation: 02/10 10:00 Chief complaint: Patient states: SOB, cough, nausea, cant sleep well since Tuesday. No ll1 fever. Just released from our hospital last Tuesday. Coronavirus screen: Vaccine status: Patient reports receiving the 2nd dose of the covid vaccine. Client denies travel out of the [place] in the last 14 days. cough unrelated to allergies, difficulty breathing, fatigue, nausea, shortness of breath, Client presents with at least one sign or symptom that may indicate coronavirus-19. Standard/surgical mask placed on the client. Ebola Screen: Patient denies travel to an Ebola-affected area in the 21 days before illness onset. Initial Sepsis Screen: Does the patient meet any 2 criteria? HR > 90 bpm. No. Patient's initial sepsis screen is negative. Does the patient have a suspected source of infection? Yes: Productive cough/pneumonia. Risk Assessment: Do you want to hurt yourself or someone else? Patient reports no desire to harm self or others. Onset of symptoms was February 05, 2023. 10:00 Method Of Arrival: Ambulatory ll1 10:00 Acuity: AYESHA 3 ll1 Triage Assessment: 10:03 General: Appears uncomfortable, Behavior is calm, cooperative, appropriate for age. ll1 Pain: Denies pain. Respiratory: Reports shortness of breath cough that is Onset: The symptoms/episode began/occurred Tuesday, the patient has moderate shortness of breath. Historical: - Allergies: 09:52 No Known Allergies; iw - Home Meds: 13:14 lisinopril Oral [Active]; eh3 - PMHx: 09:52 Crohn's Disease; HTN; iw - PSHx: 09:52 Colostomy; Stented artery; iw - Immunization history:: Adult Immunizations up to date, Client reports receiving the 2nd dose of the Covid vaccine. - Social history:: Smoking status: Patient/guardian denies using tobacco, Stopped _ months ago .25. Screenin:00 [facility] ED Fall Risk Assessment (Adult) Score/Fall Risk Level 0 - 2 = Low Risk. Abuse eh3 screen: Denies threats or abuse. Denies injuries from another. Nutritional screening: No deficits noted. Tuberculosis screening: No symptoms or risk factors identified. Assessment: 10:00 General: Appears distressed, uncomfortable, Behavior is cooperative, appropriate for eh3 age, anxious. Pain: Complains of pain in chest. Neuro: Level of Consciousness is awake, alert, obeys commands, Oriented to person, place, time, situation. Cardiovascular: Capillary refill < 3 seconds Patient's skin is warm and dry. Rhythm is sinus rhythm. Respiratory: Reports shortness of breath at rest Airway is patent Respiratory effort is even, unlabored, Respiratory pattern is regular, symmetrical, Breath sounds are clear bilaterally. GI: Abdomen is round non-distended. : No signs and/or symptoms were reported regarding the genitourinary system. EENT: No signs and/or symptoms were reported regarding the EENT system. Derm: Skin is pink, warm \T\ dry. Musculoskeletal: Circulation, motion, and sensation intact. 11:00 Reassessment: Patient appears in no apparent distress at this time. Patient and/or 3 family updated on plan of care and expected duration. Pain level reassessed. Patient is alert, oriented x 3, equal unlabored respirations, skin warm/dry/pink. 12:00 Reassessment: Patient appears in no apparent distress at this time. Patient and/or 3 family updated on plan of care and expected duration. Pain level reassessed. Patient is alert, oriented x 3, equal unlabored respirations, skin warm/dry/pink. 13:00 Reassessment: Patient appears in no apparent distress at this time. Patient and/or 3 family updated on plan of care and expected duration. Pain level reassessed. Patient is alert, oriented x 3, equal unlabored respirations, skin warm/dry/pink. Vital Signs: 10:00 BP 146 / 114; Pulse 94; Resp 20; Temp 97.7(O); Pulse Ox 99% on R/A; Weight 81.19 kg; ll1 Height 5 ft. 10 in. ; 11:00 BP 149 / 114; Pulse 90; Resp 20; Pulse Ox 100% on 2 lpm NC; eh3 12:00 BP 134 / 107; Pulse 90; Resp 20; Pulse Ox 98% on R/A; eh3 13:00 BP 146 / 103; Pulse 90; Resp 18; Pulse Ox 98% on R/A; eh3 10:00 Body Mass Index 25.68 (81.19 kg, 177.8 cm) ll1 ED Course: 09:39 Patient arrived in ED. mr 09:41 Edouard Valladares PA is PHCP. jmm 09:41 Doug Isidro DO is Attending Physician. jmm 09:52 Arm band placed on Patient placed in an exam room, on a stretcher. iw 09:55 Ele Thompson, KATELYN is Primary Nurse. eh3 10:00 Patient has correct armband on for positive identification. Bed in low position. Call eh3 light in reach. Side rails up X2. Adult w/ patient. Client placed on continuous cardiac and pulse oximetry monitoring. NIBP monitoring applied. Door closed. Noise minimized. Lights dimmed. 10:03 Triage completed. ll1 10:20 Inserted saline lock: 22 gauge in left antecubital area, using aseptic technique. Blood eh3 collected. 10:36 XRAY Chest (1 view) In Process Unspecified. EDMS 13:13 No provider procedures requiring assistance completed. IV discontinued, intact, eh3 bleeding controlled, No redness/swelling at site. Pressure dressing applied. Administered Medications: 12:00 Drug: morphine IVP or IV 4 mg Route: IVP; Infused Over: 4 mins; Site: left antecubital; eh3 13:00 Follow up: Response: No adverse reaction eh3 12:00 Drug: Ondansetron IVP 4 mg Route: IVP; Site: left antecubital; eh3 13:00 Follow up: Response: No adverse reaction eh3 12:45 Drug: Rocephin IV 1 grams Route: IV; Rate: calculated rate; Site: left antecubital; eh3 13:13 Follow up: Response: No adverse reaction; IV Status: Completed infusion; IV Intake: [id number] 12:45 Drug: AZITHromycin PO 500 mg Route: PO; eh3 13:13 Follow up: Response: No adverse reaction eh3 Medication: 13:13 VIS not applicable for this client. eh3 Intake: 13:13 IV: 50ml; Total: 50ml. eh3 Outcome: 12:45 Discharge ordered by . jmm 13:14 Discharged to home ambulatory, with significant other. eh3 13:14 Condition: stable 13:14 Discharge instructions given to patient, family, Instructed on discharge instructions, follow up and referral plans. medication usage, Demonstrated understanding of instructions, follow-up care, medications, Prescriptions given X 3. 13:14 Patient left the ED. eh3 Signatures: Dispatcher [employer] EDMS Edouard Valladares PA PA jmm Galo, Alana mr Jaycee Lanza, RN RN Scott Verdugo RN RN 1 Ele Thompson, KATELYN RN eh3 Corrections: (The following items were deleted from the chart) 10: 10:26 SARS-COV-2 RT PCR+MOL.LAB.BRZ drawn and sent. [facility] 10: 10:26 Influenza Screen (A \T\ B)+BA.LAB.BRZ drawn and sent. [facility] 10: 10:20 Inserted saline lock: 22 gauge in left antecubital area, using aseptic technique. Blood collected.
--- NOTE | 2023-02-10 12:45 | EDPHYS ---
Physician Documentation [facility] Name: Karson Giordano Age: 62 yrs Sex: Male : 1960 Arrival Date: 02/10/2023 Time: 09:37 Bed 20 Private MD: ED Physician Doug Isidro HPI: 02/10 09:44 This 62 yrs old Black Male presents to ER via Ambulatory with complaints of Breathing jmm Difficulty. 09:44 The patient has shortness of breath at rest. Onset: The symptoms/episode began/occurred jmm gradually. Is a 62-year-old male with history of Crohn's disease, hypertension the presents emerged department with complaints of shortness of breath beginning upon discharge this past Tuesday. Patient was hospitalized on 30 January for pulmonary embolism. Patient is currently taking Eliquis.. Historical: - Allergies: 09:52 No Known Allergies; iw - Home Meds: 13:14 lisinopril Oral [Active]; eh3 - PMHx: 09:52 Crohn's Disease; HTN; iw - PSHx: 09:52 Colostomy; Stented artery; iw - Immunization history:: Adult Immunizations up to date, Client reports receiving the 2nd dose of the Covid vaccine. - Social history:: Smoking status: Patient/guardian denies using tobacco, Stopped _ months ago .25. ROS: 09:44 Constitutional: Negative for fever, chills, and weight loss, Cardiovascular: Negative jmm for chest pain, palpitations, and edema. 09:44 Respiratory: Positive for cough, shortness of breath. 09:44 All other systems are negative. Exam: 09:44 Constitutional: This is a well developed, well nourished patient who is awake, alert, jmm and in no acute distress. Head/Face: atraumatic. Eyes: EOMI, no conjunctival erythema appreciated ENT: Moist Mucus Membranes Neck: Trachea midline, Supple Chest/axilla: Normal chest wall appearance and motion. Cardiovascular: Regular rate and rhythm. No edema appreciated 09:44 Abdomen/GI: Non distended Back: Normal ROM Skin: General appearance color normal MS/ Extremity: Moves all extremities, no obvious deformities appreciated, no edema noted to the lower extremities Neuro: Awake and alert Psych: Behavior is normal, Mood is normal, Patient is cooperative and pleasant 09:44 Respiratory: the patient does not display signs of respiratory distress, Respirations: normal, Breath sounds: decreased breath sounds, that are moderate, are heard in the right posterior middle lobe. Vital Signs: 10:00 BP 146 / 114; Pulse 94; Resp 20; Temp 97.7(O); Pulse Ox 99% on R/A; Weight 81.19 kg; ll1 Height 5 ft. 10 in. ; 11:00 BP 149 / 114; Pulse 90; Resp 20; Pulse Ox 100% on 2 lpm NC; eh3 12:00 BP 134 / 107; Pulse 90; Resp 20; Pulse Ox 98% on R/A; eh3 13:00 BP 146 / 103; Pulse 90; Resp 18; Pulse Ox 98% on R/A; eh3 10:00 Body Mass Index 25.68 (81.19 kg, 177.8 cm) ll1 MDM: 09:44 Patient medically screened. [facility] 12:43 Differential diagnosis: Pneumonia, pulmonary embolism, pneumothorax. Data reviewed: [facility] vital signs, nurses notes. Counseling: I had a detailed discussion with the patient and/or guardian regarding: the historical points, exam findings, and any diagnostic results supporting the discharge/admit diagnosis, lab results, radiology results, the need for outpatient follow up, to return to the emergency department if symptoms worsen or persist or if there are any questions or concerns that arise at home. 12:43 ED course: Patient is alert nontoxic in appearance in the ED. No hypoxia appreciated. [facility] Patient advised to return to the ED. If symptoms worsen.. 02/10 09:48 Order name: Basic Metabolic Panel; Complete Time: 11:12 [facility] 02/10 09:48 Order name: CBC with Diff; Complete Time: 11:12 [facility] 02/10 09:48 Order name: Troponin HS; Complete Time: 11:12 [facility] 02/10 09:48 Order name: Influenza Screen (a \T\ B); Complete Time: 11:12 [facility] 02/10 09:48 Order name: SARS-COV-2 RT PCR; Complete Time: 11:48 [facility] 02/10 11:15 Order name: Lactate w/ 2H reflex if indic.; Complete Time: 12:21 [facility] 02/10 11:15 Order name: Blood Culture Adult (2) [facility] 02/10 09:48 Order name: XRAY Chest (1 view); Complete Time: 11:12 [facility] 02/10 09:48 Order name: EKG; Complete Time: 09:49 [facility] 02/10 09:48 Order name: Cardiac monitoring; Complete Time: 10: [facility] 02/10 09:48 Order name: EKG - Nurse/Tech; Complete Time: 10: [facility] 02/10 09:48 Order name: IV Saline Lock; Complete Time: 10: [facility] 02/10 09:48 Order name: Labs collected and sent; Complete Time: 10: [facility] 02/10 09:48 Order name: O2 Per Protocol; Complete Time: 10: [facility] 02/10 09:48 Order name: O2 Sat Monitoring; Complete Time: : [facility] 02/10 11:54 Order name: Labs - recollect needed: Please recollect blood cultures; Complete Time: em1 13:12 Administered Medications: 12:00 Drug: morphine IVP or IV 4 mg Route: IVP; Infused Over: 4 mins; Site: left antecubital; 3 13:00 Follow up: Response: No adverse reaction eh3 12:00 Drug: Ondansetron IVP 4 mg Route: IVP; Site: left antecubital; eh3 13:00 Follow up: Response: No adverse reaction eh3 12:45 Drug: Rocephin IV 1 grams Route: IV; Rate: calculated rate; Site: left antecubital; eh3 13:13 Follow up: Response: No adverse reaction; IV Status: Completed infusion; IV Intake: [id number] 12:45 Drug: AZITHromycin PO 500 mg Route: PO; eh3 13:13 Follow up: Response: No adverse reaction 3 Disposition: 16:21 Co-signature as Attending Physician, Doug JIMENEZ was immediately available on-site ms3 in the Emergency Department for consultation in the care of the patient. Disposition Summary: 02/10/23 12:45 Discharge Ordered Location: Home [facility] Condition: Stable [facility] Diagnosis - Pneumonia [place] - Coronavirus [facility] Followup: jojo - With: Private Physician - When: 2 - 3 days - Reason: Recheck today's complaints, Continuance of care, Re-evaluation by your physician Discharge Instructions: - Discharge Summary Sheet [place] - Community-Acquired Pneumonia, Adult [place] Forms: - Medication Reconciliation Form [place] - Thank You Letter jmm - Antibiotic Education jm - Prescription Opioid Use [facility] Prescriptions: - cefdinir 300 mg Oral capsule - take 1 capsule by ORAL route every 12 hours for 10 days; 20 capsule; Refills: jm 0, Product Selection Permitted - promethazine-codeine 6.25-10 mg/5 mL Oral syrup - administer 5 milliliter by ORAL route every 4 hours As needed; 120 milliliter; jmm Refills: 0, Product Selection Permitted - Zithromax Z-Harvinder 250 mg Oral Tablet - take 1 tablet by ORAL route as directed for 5 days Day 1 - take two (2) tablets [facility] one time. Day 2, 3, 4 , 5 take one (1) tablet once daily.; 6 tablet; Refills: 0, Product Selection Permitted Signatures: Dispatcher [employer] Edouard Adams PA PA [facility] Jaycee Lanza, RN RN iw [address] em1 Scott Verdugo RN RN ll1 Doug Isidro DO DO ms3 Ele Thompson RN RN 3
[2023-02-10] MEDS ORDERED: AZITHROMYCIN 250 MG TAB ONE (12:54)
[2023-02-10] MEDS ORDERED: NA CHLORIDE 0.9% 50 ML ONE (12:54)
[2023-02-10] MEDS ORDERED: CEFTRIAXONE 1000 MG/VIAL ONE (12:54)
--- NOTE | 2023-02-10 13:25 | EKG ---
Test Date: 2023-02-10 Test Time: 10:11:47 Master Control Operator: URMILA MEASUREMENT RESULTS: Intervals: Rate: 87 OH: 178 QRSD: 102 QT: 396 QTc: 476 [place]: P: 53 OH: 178 QRS: 18 T: 234 INTERPRETIVE STATEMENTS: Normal sinus rhythm Possible Left atrial enlargement Nonspecific T wave abnormality Prolonged QT Abnormal ECG Compared to ECG 01/30/2023 16:02:46 Left ventricular hypertrophy no longer present T-wave abnormality still present Electronically Signed On 02-10-23 13:24:49 CDT by Josef Bales
[2023-02-10 13:58] VITALS: TEMP 97.7
[2023-02-10 14:00] VITALS: O2SAT 98
[2023-02-10 14:01] VITALS: BP 146/103
== END 2023-02-10 13:14 | disposition home or self-care (01) ==
LOC: ER 09:37
DX: U07.1 COVID-19 (principal); J12.82 Pneumonia due to coronavirus disease 2019; I10 Essential (primary) hypertension; Z79.01 Long term (current) use of anticoagulants
CPT/HCPCS: 96365; 93005; 87040 ×2; 85025; 80048; 36415; 83605; 84484; 87635; 87804 ×2; 71045; 96375; 99284; J2405; J0696

== ENCOUNTER 2023-02-11 05:45 | Observation (INO) | payer OTHER ==
--- OUTSIDE RECORDS SUMMARY | 2023-02-11 05:48 | XMS REPORT | Continuity of Care Document ---
:1960 Author Organization [facility] t Address [address] [facility] [address] [place] [address] Care Team Providers Name Role Phone Cuco NICHOLAS, Emre De La Vega Primary Care Physician [phone] EMRE NORWOOD Attending Clinician Unavailable Emre Norwood MD Attending Clinician JULIA MARR Attending Clinician Unavailable Doctor Unassigned, [place] Attending Clinician Unavailable Lab, Ang - Ced Attending Clinician Unavailable Payers Payer Name Policy Type Policy Number Effective Date Expiration Date S wilmer BHARDWAJ [facility] [id number] 2022 [facility] 00:00:00 MEDICARE PART A [id number] 2013 \T\ B 00:00:00 Problems Condition Condition [...] 2-09 it y of on on 00:00: [place] [id number] Medical Branch Allergies, Adverse Reactions, Alerts Allergy Allergy Status Severity Reaction(s) Onset Inactive Treating Comm ents Source Name Type Date Date Clinician NO KNOWN Drug Active Univers ALLERGIE Class ity of S [facility] Social History Social Habit Start Date Stop Date Quantity Comments Source History of tobacco Cigarette Smoker University of use [facility] History [facility] o f Alcohol Std Drinks [place] [facility] History [facility] o f Alcohol Binge [facility] Branch History [facility] o f Alcohol Comment [place] [facility] ical Branch Alcohol intake 2023-02-09 2023-02-09 Lifetime University of 00:00:00 00:00:00 non-drinker [facility] (finding) Branch Exposure to 2022-12-03 2022-12-13 Not sure University SARS-CoV-2 (event) 00:00:00 15:14:00 [facility] Branch Cigarettes smoked 2022-11-09 2022-11-09 [facility] ity of current (pack per 00:00:00 00:00:00 [facility] ) - Reported Branch Tobacco use and 2022-11-09 2022-11-09 Smokeless Universit y of exposure 00:00:00 00:00:00 tobacco non-user [facility] dical Branch History SDOH 2019-08-13 2019-08-13 1 [place] o f Alcohol Frequency 00:00:00 00:00:00 [facility] Sex Ass[birth year] At [birth year] Universit y of 00:00:00 00:00:00 [facility] Smoking Status Start Date Stop Date Source Smokes tobacco daily 2022-11-09 00:00:00 [facility] ity of [facility] Medications Ordered Filled Start Stop Current Ordering Indication Dosage Frequency Signature Comments Components Source Medication Medication Date Date Medication? Clinician (SIG) Name Name apixaban Yes 5522 5mg Take 1 Univers (ELIQUIS) 5 6-07 tablet by ity [facility] mg tablet [facility] and 1 tablet in the evening. Indication s: history of pulmonary embolism apixaban Yes [id number] 5mg Take 1 Univers (ELIQUIS) 5 6-07 tablet by ity of mg tablet 00:00: [facility] and 1 tablet in the evening. Indication s: history of pulmonary embolism ELIQUIS 5 2022- No 5mg Take 1 Unive rs mg tablet 01-31 tablet by ity of 00:00: 00:00 mouth in [place] 00 :00 the Medical morning Branch and 1 tablet in the evening. ELIQUIS 5 2022- No 5mg Take 1 Unive rs mg tablet 01-31 tablet by ity of 00:00: 00:00 mouth in [place] 00 :00 the Medical morning Branch and 1 tablet in the evening. albuterol 2022-0 Yes [id number] 2{puff} Inhale 2 Univers 90 3-07 Puffs ity of mcg/actuati 00:00: every 6 Ángel as on inhaler 00 (six) Medical hours as Branch needed for Wheezing or Shortness of Breath. lisinopriL 2022-0 Yes [id number] 10mg Take 1 U nivers 10 mg 3-07 tablet by ity of tablet 00:00: mouth in [place] 00 the Medical morning. Branch albuterol 2022-0 Yes [id number] 2{puff} Inhale 2 Univers 90 3-07 Puffs ity of mcg/actuati 00:00: every 6 Ángel as on inhaler 00 (six) Medical hours as Branch needed for Wheezing or Shortness of Breath. lisinopriL 2022-0 Yes [id number] 10mg Take 1 U nivers 10 mg 3-07 tablet by ity of tablet 00:00: mouth in [place] 00 the Medical morning. Branch albuterol 2022-0 Yes [id number] 2{puff} Inhale 2 Univers 90 3-07 Puffs ity of mcg/actuati 00:00: every 6 Ángel as on inhaler 00 (six) Medical hours as Branch needed for Wheezing or Shortness of Breath. lisinopriL 2022-0 Yes [id number] 10mg Take 1 U nivers 10 mg 3-07 tablet by ity of tablet 00:00: mouth in [place] 00 the Medical morning. Branch albuterol 2022-0 Yes [id number] 2{puff} Inhale 2 Univers 90 3-07 Puffs ity of mcg/actuati 00:00: every 6 Ángel as on inhaler 00 (six) Medical hours as Branch needed for Wheezing or Shortness of Breath. lisinopriL 3-0 Yes [id number] 10mg Take 1 U nivers 10 mg 3-07 tablet by ity of tablet 00:00: mouth in [place] 00 the Medical morning. Branch albuterol 2022-0 Yes [id number] 2{puff} Inhale 2 Univers 90 3-07 Puffs ity of mcg/actuati 00:00: every 6 Ángel as on inhaler 00 (six) Medical hours as Branch needed for Wheezing or Shortness of Breath. lisinopriL 2023-0 Yes [id number] 10mg Take 1 U nivers 10 mg 3-07 tablet by ity of tablet 00:00: mouth in [place] 00 the Medical morning. Branch albuterol 2022-0 Yes [id number] 2{puff} Inhale 2 Univers 90 3-07 Puffs ity of mcg/actuati 00:00: every 6 Ángel as on inhaler 00 (six) Medical hours as Branch needed for Wheezing or Shortness of Breath. lisinopriL 2022-0 Yes [id number] 10mg Take 1 U nivers 10 mg 3-07 tablet by ity of tablet 00:00: mouth in [place] 00 the Medical morning. Branch lisinopriL 2021-0 Yes [id number] 10mg Take 1 U nivers 10 mg 7-13 tablet by ity of tablet 00:00: mouth in [place] 00 the Medical morning. Branch lisinopriL 2021-0 Yes [id number] 10mg Take 1 U nivers 10 mg 7-13 tablet by ity of tablet 00:00: mouth in [place] 00 the Medical morning. Branch lisinopriL 2021-0 Yes [id number] 10mg Take 1 U nivers 10 mg 7-13 tablet by ity of tablet 00:00: mouth in [place] 00 the Medical morning. Branch lisinopriL 2021-0 Yes [id number] 10mg Take 1 U nivers 10 mg 7-13 tablet by ity of tablet 00:00: mouth in [place] 00 the Medical morning. Branch lisinopriL 2021-0 Yes [id number] 10mg Take 1 U nivers 10 mg 7-13 tablet by ity of tablet 00:00: mouth in [place] 00 the Medical morning. Branch lisinopriL 2021-0 Yes [id number] 10mg Take 1 U nivers 10 mg 7-13 tablet by ity of tablet 00:00: mouth in [place] 00 the Medical morning. Branch lisinopriL 2-0 3- No [id number] 10mg Take 1 Univers 10 mg 7-13 03-07 tablet by ity of tablet 00:00: 00:00 mouth in [place] 00 :00 the Medical morning. Branch lisinopriL 2-0 3- No [id number] 10mg Take 1 Univers 10 mg 7-13 03-07 tablet by ity of tablet 00:00: 00:00 mouth in [place] 00 :00 the Medical morning. Branch Immunizations Ordered Filled Immunization Date Status Comments [facility] e Immunization Name Name SARS-COV-2 COVID-19 2020-11-22 Completed Unive rsity of PFIZER VACCINE 00:00:00 [facility] SARS-COV-2 COVID-19 2020-11-22 Completed Unive rsity of PFIZER VACCINE 00:00:00 [facility] SARS-COV-2 COVID-19 2020-11-22 Completed Unive rsity of PFIZER VACCINE 00:00:00 [facility] SARS-COV-2 COVID-19 2020-11-22 Completed Unive rsity of PFIZER VACCINE 00:00:00 [facility] SARS-COV-2 COVID-19 2020-11-22 Completed Unive rsity of PFIZER VACCINE 00:00:00 [facility] SARS-COV-2 COVID-19 2020-11-22 Completed Unive rsity of PFIZER VACCINE 00:00:00 [facility] SARS-COV-2 COVID-19 2020-11-22 Completed Unive rsity of PFIZER VACCINE 00:00:00 [facility] SARS-COV-2 COVID-19 2020-11-22 Completed Unive rsity of PFIZER VACCINE 00:00:00 [facility] SARS-COV-2 COVID-19 2020-11-22 Completed Unive rsity of PFIZER VACCINE 00:00:00 [facility] SARS-COV-2 COVID-19 2020-11-22 Completed Unive rsity of PFIZER VACCINE 00:00:00 [facility] SARS-COV-2 COVID-19 2020-11-22 Completed Unive rsity of PFIZER VACCINE 00:00:00 [facility] SARS-COV-2 COVID-19 2020-11-22 Completed Unive rsity of PFIZER VACCINE 00:00:00 [facility] SARS-COV-2 COVID-19 2020-11-01 Completed Unive rsity of PFIZER VACCINE 00:00:00 [facility] SARS-COV-2 COVID-19 2020-11-01 Completed Unive rsity of PFIZER VACCINE 00:00:00 [facility] SARS-COV-2 COVID-19 2020-11-01 Completed Unive rsity of PFIZER VACCINE 00:00:00 [facility] SARS-COV-2 COVID-19 2020-11-01 Completed Unive rsity of PFIZER VACCINE 00:00:00 [facility] SARS-COV-2 COVID-19 2020-11-01 Completed Unive rsity of PFIZER VACCINE 00:00:00 [facility] SARS-COV-2 COVID-19 2020-11-01 Completed Unive rsity of PFIZER VACCINE 00:00:00 [facility] SARS-COV-2 COVID-19 2020-11-01 Completed Unive rsity of PFIZER VACCINE 00:00:00 [facility] SARS-COV-2 COVID-19 2020-11-01 Completed Unive rsity of PFIZER VACCINE 00:00:00 [facility] SARS-COV-2 COVID-19 2020-11-01 Completed Unive rsity of PFIZER VACCINE 00:00:00 [facility] SARS-COV-2 COVID-19 2020-11-01 Completed Unive rsity of PFIZER VACCINE 00:00:00 [facility] SARS-COV-2 COVID-19 2020-11-01 Completed Unive rsity of PFIZER VACCINE 00:00:00 [facility] SARS-COV-2 COVID-19 2020-11-01 Completed Unive rsity of PFIZER VACCINE 00:00:00 [facility] Vital Signs Vital Name Observation Time Observation Value Comments Source Systolic blood 2023-02-09 13:56:00 160 mm[Hg] Univer sity of pressure [facility] Diastolic blood 2023-02-09 13:56:00 109 mm[Hg] Unive rsity of pressure [facility] Heart rate 2023-02-09 13:55:00 95 /min [facility] Body temperature 2023-02-09 13:55:00 36.89 [facility] height 2023-02-09 13:55:00 177.8 cm [facility] Body weight 2023-02-09 13:55:00 81.194 kg [facility] BMI 2023-02-09 13:55:00 25.68 kg/m2 [facility] Oxygen saturation in 2023-02-09 13:55:00 98 /min [facility] Arterial blood by [facility] Pulse oximetry Branch Systolic blood 2022-12-13 20:28:00 141 mm[Hg] Univer sity of pressure [place] [facility] Diastolic blood 2022-12-13 20:28:00 93 mm[Hg] Unive rsity of pressure [facility] Heart rate 2022-12-13 20:23:00 83 /min Universi ty of [facility] Body height 2022-12-13 20:23:00 177.8 cm Universi ty of [place] [facility] Body weight 2022-12-13 20:23:00 81.194 kg Universi ty of [place] [facility] BMI 2022-12-13 20:23:00 25.68 kg/m2 Universi ty of [facility] Branch Systolic blood 2022-11-09 22:05:00 159 mm[Hg] Univer sity of pressure [facility] Branch Diastolic blood 2022-11-09 22:05:00 102 mm[Hg] Unive rsity of pressure [facility] Heart rate 2022-11-09 22:04:00 89 /min Universi ty of [facility] Body temperature 2022-11-09 22:04:00 37.11 Kassi Univ ersity of [facility] Branch Body height 2022-11-09 22:04:00 177.8 cm Universi ty of [place] [facility] [place] Body weight 2022-11-09 22:04:00 81.647 kg Universi ty of [facility] BMI 2022-11-09 22:04:00 25.83 kg/m2 Universi ty of [facility] Oxygen saturation in 2022-11-09 22:04:00 98 /min University Arterial blood by [facility] Pulse oximetry Branch Systolic blood 2022-04-06 19:39:00 154 mm[Hg] Univer sity of pressure [facility] Branch Diastolic blood 2022-04-06 19:39:00 92 mm[Hg] Unive rsity of pressure [facility] Heart rate 2022-04-06 19:38:00 84 /min Universi ty of [facility] Body height 2022-04-06 19:38:00 177.8 cm Universi ty of [facility] Body weight 2022-04-06 19:38:00 83.915 kg Universi ty of [facility] BMI 2022-04-06 19:38:00 26.54 kg/m2 Universi ty of [facility] Procedures Procedure Date / Time Performing Clinician Source Performed CONSENT/REFUSAL FOR 2022-11-09 21:53:53 Doctor Unassigned, No Un [facility] DIAGNOSIS AND TREATMENT [facility] DME/SUPPLY JUSTIFICATION 2022-08-11 06:01:00 Doctor Unassigned, No [facility] Encounters Start End Encounter Admission Attending Care Care Encounter Source Date/Time Date/Time Type Type Clinicians Facility Department ID 2023-06-14 2023-06-14 Outpatient [facility] [id number] Univers 16:00:00 16:00:00 [facility] 2023-02-09 2023-02-09 Office [facility] 1.2.840.114 [id number] Univers 11:00:00 11:30:00 Visit [place] [id number] it y of [place] 4.2.7.2.686 Ángel as NETTIE?BLEA [id number] [address] MEDICAL OFFICE [facility] 2023-02-09 2023-02-09 Outpatient [facility] [id number] Univers 11:00:00 11:00:00 [facility] 2022-12-13 2022-12-13 Office [facility] 1.2.840.114 [id number] Univers 15:30:00 15:45:00 Visit [place] [id number] it y of [place] 4.2.7.2.686 Ángel as NETTIE?BLEA [id number] [address] MEDICAL OFFICE [facility] 2022-12-13 2022-12-13 Outpatient [facility] [id number] Univers 15:30:00 15:30:00 [facility] 2022-11-09 2022-11-09 [facility] 1.2.840.114 [id number] Univers 15:45:00 16:00:00 Visit [place] [id number] it y of [place] 4.2.7.2.686 Ángel as NETTIE?BLEA [id number] Me dical KNEY 044 [facility] 2022-11-09 2022-11-09 Outpatient Devin NORWOOD [facility] [id number] Univers 15:45:00 15:45:00 EMRE casanova [facility] 2022-11-09 2022-11-09 Orders Doctor [place] 1.2.840.114 [id number] Univers 00:00:00 00:00:00 Only Unassigned, CHANTAL [id number] ity of [place] [facility] 4.2.7.2.686 Ángel as [id number] [address] 2022-11-08 2022-11-08 [facility] 1.2.840.114 [id number] Univers 00:00:00 00:00:00 [facility] [id number] it y of Ceferino [place] 4.2.7.2.686 Ángel as NETTIE?BLEA [id number] Ga tushar [address] 2022-08-11 2022-08-11 Orders Doctor [place] 1.2.840.114 [id number] Univers 00:00:00 00:00:00 Only Unassigned, CHANTAL [id number] ity of [place] [facility] 4.2.7.2.686 Ángel as [id number] [address] 2022-05-11 2022-05-11 Outpatient Devin NORWOOD [facility] [id number] Univers 09:45:00 09:45:00 EMRE casanova [facility] 2022-04-26 2022-04-26 Outpatient Devin NORWOOD [facility] [id number] Univers 16:30:00 16:30:00 EMRE pat [facility] 2022-04-20 2022-04-20 Outpatient Devin NORWOOD [facility] [id number] Univers 16:00:00 16:00:00 EMRE pat [facility] 2022-04-06 2022-04-06 [employer] [facility], Ang - [facility] 1.2.840.1 [id number] Univers 15:00:00 15:15:00 Visit Emre Norwood [facility] 350.1.13 .10 [facility] 4.2.7.2.686 Ángel as NETTIE?BLEA [id number] Ga tushar MARTINEZ [address] MEDICAL OFFICE [facility] 2022-04-06 2022-04-06 [facility] [id number] Univers 15:00:00 15:00:00 [facility] 2022-04-06 2022-04-06 Office [facility] 1.2.840.114 [id number] Univers 14:30:00 15:00:00 Visit [facility] [id number] it y of [place] 4.2.7.2.686 Ángel as NETTIE?BLEA [id number] Ga tushar MARTINEZ [address] MEDICAL OFFICE [facility] 2022-04-06 2022-04-06 [facility] [id number] Univers 14:30:00 14:30:00 [facility] 2022-03-17 2022-03-17 [facility] 1.2.840.114 [id number] Univers 00:00:00 00:00:00 [facility] [id number] it y of [place] 4.2.7.2.686 Ángel as NETTIE?BLEA [id number] Ga tushar MARTINEZ 044 [facility] OFFICE [facility] 2022-02-24 2022-02-24 [facility] [id number] Univers 11:00:00 11:00:00 [facility] 2022-02-18 2022-02-18 [facility] 1.2.840.114 [id number] Univers 00:00:00 00:00:00 [facility] [id number] it y of [place] 4.2.7.2.686 Ángel as NETTIE?BLEA [id number] Ga tushar MARTINEZ 044 [facility] OFFICE [facility] 2022-02-12 2022-02-12 [facility] 1.2.840.114 [id number] Univers 00:00:00 00:00:00 [facility] [id number] it y of [place] 4.2.7.2.686 Ángel as NETTIE?BLEA [id number] [address] MEDICAL OFFICE BUILDING 2021-12-03 2021-12-03 Orders Doctor OCTAVIA 1.2.840.114 [id number] Univers 00:00:00 00:00:00 Only Unassigned, CHANTAL 350.1.13.10 ity of [place] [facility] 4.2.7.2.686 Ángel as [id number] [address] 2021-10-26 2021-10-26 [facility] 1.2.840.114 [id number] Univers 00:00:00 00:00:00 [facility] [id number] it y of Ceferino [facility] 4.2.7.2.686 Ángel as NETTIE?BLEA [id number] [address] MEDICAL OFFICE [facility] 2021-10-26 2021-10-26 Orders Doctor [place]AVIA 1.2.840.114 [id number] Univers 00:00:00 00:00:00 Only Unassigned, CHANTAL 350.1.13.10 ity of [place] [facility] 4.2.7.2.686 Ángel as [id number] [address] 2020-11-22 2020-11-22 Outpatient [facility] [id number] Univers 14:50:00 14:50:00 ity [facility] 2020-11-01 2020-11-01 Outpatient [facility] [id number] Univers 15:05:00 15:05:00 ity [facility] 2020-09-09 2020-09-09 Outpatient [facility] [id number] Univers 15:30:00 15:30:00 EMRE [facility] Results This patient has no known results.
[2023-02-11 06:03] LABS: Absolute Lymphocytes (CBC) 1.2 K/uL (0.7-4.9); Hematocrit 35.8 % (39.6-49.0); Lymphocytes % 21.7 % (15.3-44.8); MCV 90.2 fL (80-100); RBC Red Blood Cell Count 3.97 M/uL (4.33-5.43)
[2023-02-11 06:14] LABS: Protime INR 1.88
[2023-02-11 06:25] LABS: Albumin 3.2 g/dL (3.4-5.0); Bilirubin Direct 0.2 mg/dL (0-0.2); Bilirubin Indirect, Calculated 0.4 mg/dL (0.2-0.8); Bilirubin Total 0.6 mg/dL (0.2-1.0); Magnesium 1.9 mg/dL (1.6-2.4); Potassium 3.5 mEq/L (3.5-5.1); Protein, Total 7.3 g/dL (6.4-8.2); Troponin High Sensitivity 52.1 pg/mL (<58.9)
[2023-02-11 06:37] LABS: Blood Gas Oxyhemoglobin 47.5 % (94-97); Blood O2 Saturation 48.6 % (92-98.5)
--- NOTE | 2023-02-11 07:09 | RAD REPORT ---
EXAM DESCRIPTION: RAD - Chest Single View - 02/11/2023 6:37 am CLINICAL HISTORY: COUGH Chest pain. COMPARISON: Chest Single View dated 02/10/2023; Chest Single View dated 01/30/2023; Chest Single View d ated 03/14/2022; Chest Single View dated 09/13/2019; Chest For Pe Angio dated 01/30/2023 FINDINGS: Portable technique limits examination quality. Mild patchy opacity left lung base with small left pleural effusion probably represents infiltrate or chronic atelectasis. The heart is mildly enlarged in size. No displaced fractures. IMPRESSION: Overall, appearance of the chest is unchanged since 02/10/2023.
[2023-02-11] MEDS ORDERED: LORazepam 2 MG/ML VIAL ONE (07:52)
--- NOTE | 2023-02-11 08:28 | RAD REPORT ---
EXAM DESCRIPTION: CT - Chest For Pe Angio - 02/11/2023 7:13 am CLINICAL HISTORY: Chest pain. DYSPNEA COMPARISON: Chest For Pe Angio dated 01/30/2023 TECHNIQUE: CT angiogram of the pulmonary arteries was performed with MIP. All CT scans are performed using dose optimization technique as appropriate and may include automated exposure control or mA/KV adjustment according to patient size. FINDINGS: There is linear filling defect noted in the posterior right lower lobe pulmonary arterial tree. This is likely attributable to old thrombus. No acute pulmonary embolism suspected. Aortic assessment is inherently limited by lack contrast opacification. Ground-glass opacity is present bilaterally greatest in the lung bases with small opacities also seen right upper lobe anteriorly. Findings would favor pulmonary edema. Bilateral pleural effusions are present, slightly larger on the left. Moderate cardiomegaly. No concerning bony finding. IMPRESSION: No evidence of acute pulmonary thromboembolism. Moderate CHF/ volume overload pattern.
--- NOTE | 2023-02-11 08:42 | EDPHYS ---
Physician Documentation [facility] Name: Karson Giordano Age: 62 yrs Sex: Male : 1960 Arrival Date: 02/11/2023 Time: 05:45 Bed 13 Private MD: ED Physician Leroy Echeverria HPI: 02/11 05:59 This 62 yrs old Black Male presents to ER via Unassigned with complaints of shortness sp3 of breath. 05:59 62-year-old male with a history of recent pulmonary embolism and COVID-pneumonia, sp3 hypertension, Crohn's disease now presents to the ED for chief complaint dyspnea. Patient is on Eliquis and antiplatelet agent and communicates no change in medication regimen. Patient's etiology behind PE is unknown. He has no cancer history and no history of prolonged immobilization. He is seeing hematology. He also endorses chest pain bilaterally. Denies fever, cough, abdominal pain, back pain, nausea, vomiting, diarrhea or any other signs or symptoms on ROS at this time. Approximately 4 hours prior to arrival he started having worsening shortness of breath and activated EMS. He is now improved with oxygen alone.. Historical: - Allergies: 06:10 No Known Allergies; pf1 - Home Meds: 06:09 lisinopril Oral [Active]; Eliquis oral [Active]; pf1 - PMHx: 06:09 Crohn's Disease; HTN; pf1 - PSHx: 06:09 Colostomy; Stented artery; pf1 - Immunization history:: Adult Immunizations up to date, Last tetanus immunization: < 10 years ago Flu vaccine is not up to date. - Social history:: Smoking status: Patient/guardian denies using tobacco, Stopped _ months ago 1 Patient/guardian denies using alcohol, street drugs. ROS: 06:00 Constitutional: Negative for fever, chills, and weight loss, Eyes: Negative for injury, sp3 pain, redness, and discharge, ENT: Negative for injury, pain, and discharge, Neck: Negative for injury, pain, and swelling, Cardiovascular: Negative for chest pain, palpitations, and edema, Abdomen/GI: Negative for abdominal pain, nausea, vomiting, diarrhea, and constipation, Back: Negative for injury and pain, MS/Extremity: Negative for injury and deformity, Skin: Negative for injury, rash, and discoloration, Neuro: Negative for headache, weakness, numbness, tingling, and seizure, Psych: Negative for depression, anxiety, suicide ideation, homicidal ideation, and hallucinations, Allergy/Immunology: Negative for hives, rash, and allergies, Endocrine: Negative for neck swelling, polydipsia, polyuria, polyphagia, and marked weight changes, Hematologic/Lymphatic: Negative for swollen nodes, abnormal bleeding, and unusual bruising. 06:00 All other systems are negative. Exam: 06:01 Constitutional: This is a well developed, well nourished patient who is awake, alert, sp3 and in no acute distress. Head/Face: Normocephalic, atraumatic. Eyes: Pupils equal round and reactive to light, extra-ocular motions intact. Lids and lashes normal. Conjunctiva and sclera are non-icteric and not injected. Cornea within normal limits. Periorbital areas with no swelling, redness, or edema. ENT: Nares patent. No nasal discharge, no septal abnormalities noted. External auditory canals are clear. Oropharynx with no redness, swelling, or masses, exudates, or evidence of obstruction, uvula midline. Mucous membranes moist. Neck: Trachea midline, no thyromegaly or masses palpated, and no cervical lymphadenopathy. Supple, full range of motion without nuchal rigidity, or vertebral point tenderness. No Meningismus. Chest/axilla: Normal chest wall appearance and motion. Nontender with no deformity. No lesions are appreciated. Cardiovascular: Regular rate and rhythm with a normal S1 and S2. No gallops, murmurs, or rubs. Normal PMI, no JVD. No pulse deficits. Abdomen/GI: Soft, non-tender, with normal bowel sounds. No distension or tympany. No guarding or rebound. No evidence of tenderness throughout. Back: No spinal tenderness. No costovertebral tenderness. Full range of motion. Skin: Warm, dry with normal turgor. Normal color with no rashes, no lesions, and no evidence of cellulitis. MS/ Extremity: Pulses equal, no cyanosis. Neurovascular intact. Full, normal range of motion. Neuro: Awake and alert, GCS 15, oriented to person, place, time, and situation. Cranial nerves II-XII grossly intact. Motor strength 5/5 in all extremities. Sensory grossly intact. Cerebellar exam normal. Normal gait. Psych: Awake, alert, with orientation to person, place and time. Behavior, mood, and affect are within normal limits. 06:01 Respiratory: Coarse breath sounds bilaterally with mild Rales. Narrowing pulse pressure on blood pressure communicated by EMS and also replicated here in the ED. Blood pressure is 156/122. Patient is currently resting comfortably no acute distress with 9 9% pulse oxygenation on 10 L nonrebreather. This has been now changed to nasal cannula at 2 L and we will titrate as needed. Patient is not tachycardic and in no acute distress. Respiratory rate is approximately 16 to 18/min. No accessory muscle usage noted.. 06:17 ECG was reviewed by the Attending Physician. EKG demonstrates normal sinus rhythm at 89 sp3 bpm with normal intervals, normal QRS, normal axis, nonspecific ST/T changes without evidence of acute ischemia. Vital Signs: 05:57 BP 156 / 122; Pulse 93; Resp 20; Temp 98.7; Pulse Ox 98% on 2 lpm NC; Weight 81.5 kg; pf1 Height 5 ft. 10 in. ; 07:30 BP 151 / 114; Pulse 87; Resp 20; Pulse Ox 96% ; cm10 08:00 BP 147 / 113; Pulse 88; Resp 22; Pulse Ox 94% on 2 lpm NC; cm10 09:00 BP 158 / 124; Pulse 94; Resp 18; Pulse Ox 97% on 2 lpm NC; cm10 10:00 BP 152 / 114; Pulse 92; Resp 18; Pulse Ox 100% on 2 lpm NC; cm10 05:57 Body Mass Index 25.78 (81.50 kg, 177.8 cm) pf1 MDM: 06:02 Data reviewed: vital signs, nurses notes, EMS record, old medical records, lab test sp3 result(s), EKG, radiologic studies. ED course: 62-year-old male with recent PE and COVID-pneumonia now presents with worsening shortness of breath somewhat resolved and chest pain. Differential diagnosis is broad and includes worsening pulmonary embolism, worsening pneumonia, acute coronary syndrome, aortic pathology including aneurysm and/or dissection, GI reflux, musculoskeletal pain, among others. We will repeat CT scan of the chest on PE protocol, EKG and laboratory values. Currently no immediate intervention is indicated and we will reevaluate once work-up is complete and patient is further observed. Patient will likely be transitioned to daytime physician for final disposition.. 07:03 Patient medically screened. rt 08:42 Differential diagnosis: pneumonia, Pneumothorax pulmonary edema, Pulmonary Embolism. rt Consideration of Admission/Observation Patient was admitted/placed on observation. Management of patient was discussed with the following: Hospitalist: Agrees to admit. I considered the following discharge prescriptions or medication management in the emergency department Medications were administered in the Emergency Department. See MAR. Independent interpretation of the following test(s) in the Emergency Department CT Scan: My interpretation is Edema seen on interpretation of the CT scan images. External Records Reviewed: Inpatient record: Reviewed inpatient record including echo report. Care significantly affected by the following chronic conditions: Coronary artery disease. Counseling: I had a detailed discussion with the patient and/or guardian regarding: the historical points, exam findings, and any diagnostic results supporting the discharge/admit diagnosis, lab results, radiology results, the need for further work-up and treatment in the hospital. 02/11 05:49 Order name: Basic Metabolic Panel; Complete Time: 06:52 sp3 02/11 05:49 Order name: CBC with Diff; Complete Time: 06:52 sp3 02/11 05:49 Order name: LFT's; Complete Time: 06:52 sp3 02/11 05:49 Order name: Magnesium; Complete Time: 06:52 sp3 02/11 05:49 Order name: NT PRO-BNP; Complete Time: 06:52 sp3 02/11 05:49 Order name: PT-INR; Complete Time: 06:52 sp3 02/11 05:49 Order name: Troponin HS; Complete Time: 06:52 sp3 02/11 05:49 Order name: ABG: VBG Please!!!; Complete Time: 06:52 sp3 02/11 09:33 Order name: Basic Metabolic Panel EDMS 02/11 09:33 Order name: Basic Metabolic Panel EDMS 02/11 09:33 Order name: CBC with Automated Diff EDMS 02/11 09:33 Order name: CBC with Automated Diff EDMS 02/11 09:33 Order name: NT PRO-BNP EDMS 02/11 09:33 Order name: NT PRO-BNP EDMS 02/11 05:49 Order name: XRAY Chest (1 view); Complete Time: 07:10 sp3 02/11 05:49 Order name: CT Chest For PE Angio; Complete Time: 08:30 sp3 02/11 05:49 Order name: EKG; Complete Time: 05:50 sp3 02/11 05:49 Order name: Cardiac monitoring; Complete Time: 06:01 sp3 02/11 05:49 Order name: EKG - Nurse/Tech; Complete Time: 06:14 sp3 02/11 05:49 Order name: IV Saline Lock; Complete Time: 06:01 sp3 02/11 05:49 Order name: Labs collected and sent; Complete Time: 06:01 sp3 02/11 05:49 Order name: O2 Per Protocol; Complete Time: 06:00 sp3 02/11 05:49 Order name: O2 Sat Monitoring; Complete Time: 06:00 sp3 Administered Medications: 07:49 Drug: Ativan IVP 1 mg Route: IVP; Site: right forearm; cm10 08:38 Follow up: Response: No adverse reaction cm10 08:52 Drug: Nitroglycerin Transdermal Ointment 2 % 1 inches Route: Transdermal; Site: cm10 anterior chest wall; 09:22 Follow up: Response: No adverse reaction; Pain is decreased cm10 08:52 Drug: Furosemide IVP 40 mg Route: IVP; Site: right forearm; cm10 09:39 Follow up: Response: No adverse reaction cm10 Disposition Summary: 02/11/23 08:42 Hospitalization Ordered Hospitalization Status: Observation rt Provider: José Henao rt Condition: Stable rt Problem: new rt Symptoms: have improved rt Bed/Room Type: Standard rt Location: Telemetry/MedSurg (observation)(02/11/23 16:57) Room Assignment: 214(02/11/23 16:59) Diagnosis - Pulmonary edema rt Discharge Instructions: - Discharge Summary Sheet ph Forms: - SBAR form ph - Medication Reconciliation Form rt Signatures: Dispatcher [employer] EDMS Valencia Wetzel RN RN ss Lori Soto Setul, MD MD sp3 Leroy Echeverria MD MD rt Vangie Mojica RN RN pf1 Monie Lane RN RN cm10 Corrections: (The following items were deleted from the chart) 06:18 05:59 62-year-old male with a history of recent pulmonary embolism and COVID-pneumonia sp3 presents to the ED for chief complaint dyspnea. Patient is on Eliquis and antiplatelet agent and communicates no change in medication regimen. Patient's etiology behind PE is unknown. He has no cancer history and no history of prolonged immobilization. He is seeing hematology. He also endorses chest pain bilaterally. Denies fever, cough, abdominal pain, back pain, nausea, vomiting, diarrhea or any other signs or symptoms on ROS at this time. Approximately 4 hours prior to arrival he started having worsening shortness of breath and activated EMS. He is now improved with oxygen alone.. sp3 09:38 08:42 Telemetry/MedSurg (observation) rt eb 09:38 08:42 rt eb 16:57 09:38 [facility] ER HOLD eb ss 16:57 09:38 ERHOLD- eb ss 16:57 16:57 ss ss 16:59 16:57 219 ss ss
--- NOTE | 2023-02-11 08:42 | ER ---
Nurse's Notes [facility] Name: Karson Giordano Age: 62 yrs Sex: Male : 1960 Arrival Date: 02/11/2023 Time: 05:45 Bed 13 Private MD: Diagnosis: Pulmonary edema Presentation: 02/11 05:57 Chief complaint: Patient states: yellow productive cough for 1 week with SOB,onset pf1 worse tonight. Patient stated was diagnosed with Covid pneumonia yesterday and PE 1 week ago. Coronavirus screen: Vaccine status: Patient reports receiving the 2nd dose of the covid vaccine. 3 doses of pfizer Client denies travel out of the [place] in the last 14 days. Client presents with at least one sign or symptom that may indicate coronavirus-19. Standard/surgical mask placed on the client. Ebola Screen: Patient negative for fever greater than or equal to 101.5 degrees Fahrenheit, and additional compatible Ebola Virus Disease symptoms. Initial Sepsis Screen: Does the patient meet any 2 criteria? No. Patient's initial sepsis screen is negative. Does the patient have a suspected source of infection? No. Patient's initial sepsis screen is negative. Risk Assessment: Do you want to hurt yourself or someone else? Patient reports no desire to harm self or others. 05:57 Method Of Arrival: EMS: [facility] pf1 05:57 Acuity: AYESHA 3 pf1 10:29 Onset of symptoms was February 04, 2023. cm10 Historical: - Allergies: 06:10 No Known Allergies; pf1 - Home Meds: 06:09 lisinopril Oral [Active]; Eliquis oral [Active]; pf1 - PMHx: 06:09 Crohn's Disease; HTN; pf1 - PSHx: 06:09 Colostomy; Stented artery; pf1 - Immunization history:: Adult Immunizations up to date, Last tetanus immunization: < 10 years ago Flu vaccine is not up to date. - Social history:: Smoking status: Patient/guardian denies using tobacco, Stopped _ months ago 1 Patient/guardian denies using alcohol, street drugs. Screenin:02 [facility] ED Fall Risk Assessment (Adult) History of falling in the last 3 months, pf1 including since admission No falls in past 3 months (0 pts) Confusion or Disorientation No (0 pts) Intoxicated or Sedated No (0 pts) Impaired Gait No (0 pts) Mobility Assist Device Used No (0 pt) Altered Elimination No (0 pt) Score/Fall Risk Level 0 - 2 = Low Risk Oriented to surroundings, Maintained a safe environment, Educated pt \T\ family on fall prevention, incl call for assistance when getting out of bed, Assessed \T\ reinforced patient's understanding of fall precautions, Provided non-skid footwear, Hourly rounding (assess needs \T\ fall precautionary measures) done, Used ambulatory aids as needed (educated on \T\ assisted with), Used gait belt as appropriate. Abuse screen: Denies threats or abuse. Nutritional screening: No deficits noted. Tuberculosis screening: No symptoms or risk factors identified. Assessment: 05:50 General: Appears in no apparent distress. comfortable, well groomed, well developed, pf1 Behavior is calm, cooperative, appropriate for age, quiet. 05:50 Pain: Complains of pain in left lower ribcage Pain currently is 5 out of 10 on a pain pf1 scale. Neuro: No deficits noted. Level of Consciousness is awake, alert, obeys commands, Oriented to person, place, time, situation. Cardiovascular: No deficits noted. Capillary refill < 3 seconds Patient's skin is warm and dry. Respiratory: Reports shortness of breath at rest cough that is Airway is patent Respiratory effort is even, unlabored, Respiratory pattern is regular, symmetrical, Breath sounds are coarse bilaterally. Breath sounds with rales bilaterally. GI: colostomy. : No deficits noted. No signs and/or symptoms were reported regarding the genitourinary system. EENT: No deficits noted. No signs and/or symptoms were reported regarding the EENT system. Derm: No deficits noted. No signs and/or symptoms reported regarding the dermatologic system. 06:50 Reassessment: Patient appears in no apparent distress at this time. No changes from pf1 previously documented assessment. Patient and/or family updated on plan of care and expected duration. Pain level reassessed. 07:31 General: Appears in no apparent distress. comfortable, Behavior is cooperative, cm10 appropriate for age, anxious. Neuro: No deficits noted. Level of Consciousness is awake, alert, obeys commands, Oriented to person, place, time, situation. Respiratory: No deficits noted. Reports Airway is patent Respiratory effort is even, unlabored, Respiratory pattern is regular, symmetrical. 07:32 Reassessment: provider made aware that patient is having anxiety and is requesting cm10 medication. Family at bedside. Pt in no apparent distress. . 08:53 Pain: Complains of pain in chest Pain does not radiate. Pain currently is 5 out of 10 cm10 on a pain scale. Quality of pain is described as crampy, Also complains of shortness of breath, Current management is with nitro. Vital Signs: 05:57 BP 156 / 122; Pulse 93; Resp 20; Temp 98.7; Pulse Ox 98% on 2 lpm NC; Weight 81.5 kg; pf1 Height 5 ft. 10 in. ; 07:30 BP 151 / 114; Pulse 87; Resp 20; Pulse Ox 96% ; cm10 08:00 BP 147 / 113; Pulse 88; Resp 22; Pulse Ox 94% on 2 lpm NC; cm10 09:00 BP 158 / 124; Pulse 94; Resp 18; Pulse Ox 97% on 2 lpm NC; cm10 10:00 BP 152 / 114; Pulse 92; Resp 18; Pulse Ox 100% on 2 lpm NC; cm10 05:57 Body Mass Index 25.78 (81.50 kg, 177.8 cm) pf1 ED Course: 05:46 Patient arrived in ED. la1 05:48 Lisa Hwang MD is Attending Physician. sp3 05:50 No provider procedures requiring assistance completed. Inserted saline lock: 20 gauge pf1 in right forearm, using aseptic technique. Blood collected. 06:00 Triage completed. pf1 06:01 Arm band placed on. pf1 06:39 XRAY Chest (1 view) In Process Unspecified. EDMS 07:03 Attending Physician role handed off by Lisa Hwang MD rt 07:03 Leroy Echeverria MD is Attending Physician. rt 07:06 Scott Verdugo, RN is Primary Nurse. ll1 07:07 Primary Nurse role handed off by Scott Verdugo, RN cm10 07:[address], KATELYN is Primary Nurse. cm10 07:15 CT Chest For PE Angio In Process Unspecified. EDMS 08:41 José Henao MD is Hospitalizing Provider. rt 10:30 Patient has correct armband on for positive identification. Bed in low position. Side cm10 rails up X2. Client placed on continuous cardiac and pulse oximetry monitoring. NIBP monitoring applied. awake overnight monitor on. 10:30 Patient admitted, IV remains in place. cm10 Administered Medications: 07:49 Drug: Ativan IVP 1 mg Route: IVP; Site: right forearm; cm10 08:38 Follow up: Response: No adverse reaction cm10 08:52 Drug: Nitroglycerin Transdermal Ointment 2 % 1 inches Route: Transdermal; Site: cm10 anterior chest wall; 09:22 Follow up: Response: No adverse reaction; Pain is decreased cm10 08:52 Drug: Furosemide IVP 40 mg Route: IVP; Site: right forearm; cm10 09:39 Follow up: Response: No adverse reaction cm10 Medication: 10:30 VIS not applicable for this client. cm10 Outcome: 08:42 Decision to Hospitalize by Provider. rt 10:29 Admitted to ER Hold. Please see [facility] for further documentation. cm10 10:29 Condition: stable 10:29 Instructed on the need for admit, See [facility] 18:42 Patient left the ED. ko1 Signatures: Dispatcher [employer] EDMS Luis Felipe Hammond, PRESS PULLER-C PRESS PULLER-Cla1 Scott Verdugo, RN RN ll1 Lisa Hwang MD MD sp3 Deysi Hannah RN RN ko1 Leroy Echeverria MD MD rt Vangie Mojica RN RN pf1 Monie Lane RN RN cm10
[2023-02-11] MEDS ORDERED: NITROGLYCERIN 1 GM PKT TD ONE (08:48)
[2023-02-11] MEDS ORDERED: FUROSEMIDE 40 MG/4 ML VIAL ONE (08:48)
[2023-02-11] MEDS ORDERED: ALBUTEROL 2.5 MG/3 ML NEB SOL NEB PRN ×2 (09:30→16:00)
[2023-02-11] MEDS ORDERED: lisinopriL 20 MG TAB PO SCH (10:00)
[2023-02-11 10:19] VITALS: BMI 25.1
[2023-02-11] MEDS: SPIRONOLACTONE 25 MG TABLET PO SCH ×2 (12:15→21:25)
--- NOTE | 2023-02-11 12:15 | P.HP ---
Certification for Inpatient Patient admitted to: Observation With expected LOS: <2 Midnights Patient will require the following post-hospital care: None Practitioner: I am a practitioner with admitting privileges, knowledge of patient current condition, hospital course, and medical plan of care. Services: Services provided to patient in accordance with Admission requirements found in Title 42 Section 412.3 of the Code of Federal Regulations Patient History Date of Service: 02/11/23 Reason for admission: Shortness of breath History of Present Illness: Patient is 62 years of age history of signs of severe congestive heart failure into the emergency room was discharged came back again he is got worse over the past 3 days worsening shortness of breath orthopnea lower extremity edema and it appeared in the emergency room denies any fever or chills no cough Allergies No Known Allergies Allergy (Verified 07/09/14 01:52) Home Medications: Aspirin [Aspirin EC 81 MG] 81 mg PO DAILY #30 tablet. 09/14/19 Atorvastatin Calcium [Lipitor] 40 mg PO BEDTIME #30 tab 09/14/19 lisinopriL [Lisinopril] 20 mg PO DAILY #30 tablet 09/14/19 Sodium Bicarbonate 650 mg PO BID #60 tablet 03/17/22 Apixaban [Eliquis] 5 mg PO BID 30 Days #60 tablet 01/31/23 Apixaban [Eliquis] 10 mg PO BID 7 Days #14 tablet 01/31/23 - Past Medical/Surgical History Has patient received pneumonia vaccine in the past: No Diabetic: No -: Chron's -: HTN -: Pulmonary embolism -: History of COVID infection -: Scope to bilat knees Meniscus/ACL -: Colostomy -: Stents coronary artery Psychosocial/ Personal History: Patient is retired, lives at home with his - Family History Mother -: Diabetes, Cancer - Social History Smoking Status: Former smoker Alcohol use: No CD- Drugs: No Caffeine use: Yes Review of Systems 10-point ROS is otherwise unremarkable General: Weakness Respiratory: Shortness of Breath Physical Examination - Vital Signs Temperature: 98.7 F Blood Pressure: 142/122 Pulse: 88 Respirations: 18 Pulse Ox (%): 93 - Physical Exam General: Alert, Mild distress Respiratory: Clear to auscultation bilaterally Cardiovascular: No edema, Regular rate/rhythm, Normal S1 S2 Gastrointestinal: Normal bowel sounds, Soft and benign Musculoskeletal: No clubbing, No swelling Integumentary: No rashes, No breakdown Neurological: Normal gait, Normal speech, Normal strength at 5/5 x4 extr - Studies Laboratory Data (last 24 hrs) 02/11/23 06:00: PT 20.7 H, INR 1.88 02/11/23 05:55: WBC 5.70, Hgb 11.7 L, Hct 35.8 L, Plt Count 227 02/11/23 05:55: Sodium 136, Potassium 3.5, BUN 17, Creatinine 1.13, Glucose 109 H, Magnesium 1.9, Total Bilirubin 0.6, AST 30, ALT 77 H, Alkaline Phosphatase 57 Assessment and Plan - Problems (Diagnosis) (1) CHF (congestive heart failure) Current Visit: Yes Status: Acute Plan: Patient is 62 years of age pulm medical problems coronary artery disease hypertension and recent PE. With worsening dyspnea patient's BNP is over 6000 admit patient is on anticoagulants evidence of acute pulmonary embolism he does have bilateral pleural effusions cardiomegaly labs reviewed patient's blood pressure was also elevated add spironolactone Qualifiers: Heart failure type: systolic Heart failure chronicity: acute on chronic Qualified Code(s): I50.23 - Acute on chronic systolic (congestive) heart failure (2) Hypertension Current Visit: Yes Status: Acute Plan: Severe hypertension we will add spironolactone continue with Lasix resume lisinopril renal function is normal Qualifiers: Hypertension type: primary hypertension Qualified Code(s): I10 - Essential (primary) hypertension - Advance Directives Does patient have a Living Will: No Does patient have a Durable POA for Healthcare: No
[2023-02-11] MEDS: FUROSEMIDE 40 MG/4 ML VIAL IV SCH ×2 (13:38→17:00)
--- NOTE | 2023-02-11 14:45 | EKG ---
Test Date: 2023-02-11 Test Time: 06:14:44 Lead Clinical Research Coordinator: VIANNEY MEASUREMENT RESULTS: Intervals: Rate: 89 PA: 184 QRSD: 98 QT: 388 QTc: 472 Ewing: P: 50 PA: 184 QRS: 29 T: 46 INTERPRETIVE STATEMENTS: Normal sinus rhythm Nonspecific T wave abnormality Prolonged QT Abnormal ECG Compared to ECG 02/10/2023 10:11:47 No significant changes Electronically Signed On 02-11-23 14:44:11 CDT by Akbar Sullivan
[2023-02-11] MEDS: ATORVASTATIN 40 MG TAB PO SCH (21:25)
[2023-02-11] MEDS: APIXABAN 5 MG TABLET PO SCH (21:25)
[2023-02-11] MEDS ORDERED: MELATONIN 5 MG TABLET PO PRN (21:59)
[2023-02-12 03:16] LABS: Absolute Lymphocytes (CBC) 1.5 K/uL (0.7-4.9); Hematocrit 35.4 % (39.6-49.0); Lymphocytes % 23.3 % (15.3-44.8); MCV 90.7 fL (80-100); MPV 8.5 fL (7.6-11.3)
[2023-02-12 03:46] LABS: Potassium 3.5 mEq/L (3.5-5.1)
[2023-02-12] MEDS: FUROSEMIDE 40 MG/4 ML VIAL IV SCH ×4 (08:26→20:48)
[2023-02-12] MEDS: APIXABAN 5 MG TABLET PO SCH ×2 (08:27→20:48)
[2023-02-12] MEDS: ASPIRIN EC 81 MG TAB PO SCH (08:27)
[2023-02-12] MEDS: ACETAMINOPHEN 500 MG TAB PO PRN ×2 (08:27→21:30)
[2023-02-12] MEDS ORDERED: lisinopriL 20 MG TAB PO SCH (09:00)
--- NOTE | 2023-02-12 10:56 | CON ---
Date of Consultation: 02/12/2023 Reason For Consultation: Congestive heart failure. History Of Present Illness: Mr. Giordano is 62. Has had a history of Crohn disease, coronary artery disease status post stent. Was recently in the hospital for bilateral pulmonary emboli. He has a hi story of hypertension. When he was in the hospital, he had an echocardiogram that showed moderate AR , moderate MR with an ejection fraction of 20% consistent with acute systolic congestive heart failur e. He comes back with congestive heart failure symptoms, PND, orthopnea, pedal edema. Complained of shortness of breath. No chest pain. No palpitation. No syncope. No fever and chills. BNP was 60 00. Creatinine is gone up to 1.46, hypertensive, blood pressure 149/110. Allergies: NONE. Review of Systems: Negative. Social History: Negative. Family History: Negative. Medications: At home include Eliquis, aspirin, Lipitor, and lisinopril. Physical Examination: Vital Signs: Blood pressure 149/110. The patient is anxious, agitated, but no acute distress. Stil l complaining of shortness of breath. Vital signs otherwise stable, afebrile, sinus rhythm. HEENT: Negative. Neck: Supple with no bruit. Chest: Reveals rales both bases. Cardiac: Revealed MR, AR, sinus rhythm, no gallops, no rubs. Abdomen: Benign. Extremities: Revealed no clubbing, cyanosis, or edema. Diagnostic Data: As stated earlier. Impression And Plan: Acute on chronic systolic congestive heart failure. The patient should be on E ntresto. He should be on carvedilol. He should be on Lasix. He is now on Aldactone. He is also on aspirin, Eliquis as well as Lipitor and I agree with that regimen. I think we should have Nephrolog y see him. We should aim for better blood pressure control. I think the Coreg and Entresto will hel p with that. I think we need to repeat his echo sometime in the next 2-3 months and follow him as an outpatient. If his ejection fraction stays low, we need to consider a biventricular pacemaker, AICD placement in the very near future. Case was discussed with the patient. I will discuss that raulito r with Dr. Carroll. ANGELES/SABINE Voice ID: [id number] Report ID: [id number]
[2023-02-12] MEDS ORDERED: KCL 20 MEQ/100 mL IVPB 20 MEQ/100 ML BAG IV ONE (14:00)
[2023-02-12] MEDS ORDERED: ALPRAZOLAM 0.25 MG TABLET PO ONE (14:00)
--- NOTE | 2023-02-12 14:05 | CON ---
Date of Consultation: 02/12/2023 Reason For Consultation: Elevated BUN and creatinine, fluid management. History Of Present Illness: This is a pleasant 62-year-old gentleman with significant past medical h istory of CAD status post PTCA, PE bilateral, congestive heart failure with ejection fraction of 20%, with moderate MR and AR, the patient came to the hospital complaining from shortness of breath for t he last couple of weeks. No nausea. No vomiting. The patient found to be over volume. The patient found to have elevation in BUN and creatinine. Creatinine was up to 1.4. For that reason, we have been consulted. Reviewing the record, apparently the patient in the workup of over volume. The bita ent had CT with angio yesterday. Past Medical History: Includes; 1.CAD complicated with congestive heart failure, ejection fraction of 20%. 2.PE. 3.Crohn disease. Family History: Positive for hypertension. Allergies: NO KNOWN DRUG ALLERGIES. Home Medications: Include atorvastatin, aspirin, lisinopril, sodium bicarb, Eliquis. Social History: Ex-smoker, denied alcohol, denied drug abuse. Review of Systems: Head and Neck: No red eye. No ear pain. GI: No nausea. No vomiting. : No polyuria. No dysuria. No hematuria. Rope Tier: Not applicable. Respiratory: Has shortness of breath. Cardiovascular: Has orthopnea. Neuro: Has weakness. Musculoskeletal: Generalized fatigue. Physical Examination: General: When I saw the patient; the patient sitting. Vital Signs: Blood pressure 153/109, pulse of 92, afebrile. Chest: Crackles bilateral. Heart: S1, S2. Systolic murmur. Abdomen: Soft, nontender. Extremity: Trace edema. Neurologic: Alert. No focality. Laboratory Data: Chest PE protocol was negative. Sodium 139, potassium 3.5, bicarb 28, BUN 20, crea tinine 1.4, GFR 53, calcium 8.3. BNP 9131, hemoglobin 11.7. Current Medications: The patient on include aspirin, albuterol, Eliquis, spironolactone, Tylenol, La six 40. Assessment And Plan: 1.Acute kidney injury, multifactorial, secondary to cardiorenal, superimposed with FERNIE inhibitor and contrast use, nephropathy, over volume. I am going to go ahead and increase the Lasix to 40 t.i.d. I agree with holding the spironolactone and lisinopril for the time being and I am going to go ahead and get renal ultrasound and we will follow up the patient closely. If kidney function continued to decline, I am going to go ahead and send for full serology to rule out any pulmonary renal given the history of from Crohn disease and PE before. 2.Hypertension, not controlled with the presence of over volume. I am going to utilize blood pressu re for more diuresis. We will increase the Lasix. I am going to place the patient on nitroglycerin and we will follow up. With the presence of acute kidney injury, I am going to hold FERNIE inhibitor an d spironolactone. 3.Hypokalemia. We will supplement. 4.Acidosis secondary to poor perfusion, lactic acidosis. No need for bicarb. We will follow up. Thank you, Dr. Henao for allowing us to participate in the care of your patient. Time spent examining the patient [id number], reviewing data, lab and radiology, placing order, disc ussing the case with the patient, discussing the case with the pricing/signage team member including hospitalist and nursing staff more than 75 minutes . MILAN Voice ID: [id number] Report ID: [id number]
[2023-02-12] MEDS ORDERED: NA CHLORIDE 0.9% 250 ML ONE (14:34)
--- NOTE | 2023-02-12 14:36 | P.PN ---
Subjective Date of Service: 02/12/23 Chief Complaint: Shortness of breath No acute events overnight. He reports that his shortness of breath is improved compared to yesterday. He denies any chest pain, palpitations, abdominal pain, nausea, or vomiting. Review of Systems 10-point ROS is otherwise unremarkable Respiratory: Shortness of Breath Cardiovascular: Edema Physical Examination - Vital Signs Temperature: 98.1 F Blood Pressure: 153/109 Pulse: 92 Respirations: 16 Pulse Ox (%): 98 - Physical Exam General: Alert, In no apparent distress, Oriented x3 HEENT: Atraumatic, Mucous membr. moist/pink, Sclerae nonicteric Neck: JVD distended Respiratory: Diminished, Crackles/rales (bibasilar) Cardiovascular: Regular rate/rhythm, Normal S1 S2, Edema (2+ BLE), Systolic murmur Gastrointestinal: Normal bowel sounds, Soft and benign, Non-distended, No tenderness, No rebound, No guarding, Other (s/p colostomy) Musculoskeletal: No clubbing Integumentary: No rashes Neurological: Normal gait, Normal affect Assessment And Plan - Plan # Acute on Chronic Decompensated Systolic Congestive Heart Failure with Reduced Ejection Fraction # Moderate Mitral Regurgitation # Moderate Aortic Regurgitation # Moderate Tricuspid Regurgitation - Evaluation thus far: - NT-Pro BNP = 6663 -> 9131 - Transthoracic echocardiogram (02/01/2023) = "1. moderate mitral regurgitation, aortic regurgitation, tricuspid regurgitation. 2. severe global hypokinesis 3. ejection fraction 20%" - Chest x-ray = "overall, appearance of the chest is unchanged since 02/10/2023" - Management plan: - Consult Cardiology and spoke with Dr. Sullivan - recommendations appreciated - Diuresis with IV furosemide - Held lisinopril, spironolactone due to DELMI - Consider beta-romero once improved from CHF exacerbation - Daily weights - Strict I/O - Cardiac diet, 1.5 L fluid restriction, 2 g Na restriction # KDIGO Stage I Acute Kidney Injury - Nephrology consulted - recommendations appreciated - Creatinine = 1.13 -> 1.46 - Urinalysis = pending - IV diuretics as mentioned above - Hold lisinopril, spironolactone - Monitor creatinine and urine output - If worsening, obtain renal ultrasound - Renally dose medications # COVID-19 Infection - Evaluation thus far: - Chest x-ray = "overall, appearance of the chest is unchanged since 02/10/2023"- - CT chest angiogram = "no evidence of acute pulmonary thromboembolism. Moderate CHF/ volume overload pattern." - Management plan: - Pulmonary Medicine consulted - recommendations appreciated - Consulted Respiratory Therapy - Supplemental oxygen to maintain SpO2 > 92% - Encouraged incentive spirometry - Isolation precautions # History of Pulmonary Embolism - CT chest angiogram = "no evidence of acute pulmonary thromboembolism. Moderate CHF/ volume overload pattern." - Continue home apixaban # Coronary Artery Disease s/p PCI # Hypertension - Continue home aspirin, atorvastatin - Consider beta-romero once improved from CHF exacerbation - Held lisinopril due to DELMI # Tobacco Use Disorder - Tobacco cessation counseling # Crohn's Disease s/p Colostomy - Stable Renny Carroll M.D.
--- NOTE | 2023-02-12 17:57 | RAD REPORT ---
EXAM DESCRIPTION: US - Renal Ultrasound-Complete - 02/12/2023 5:29 pm CLINICAL HISTORY: DELMI COMPARISON: Renal Ultrasound-Complete dated 03/15/2022; Chest For Pe Angio dated 02/11/2023 FINDINGS: Increased echogenicity of the kidneys bilaterally. The right kidney measures 11.2 cm. Right lower pole renal cyst measuring 4.5 cm . No hydronephrosis . The left kidney measures 10.6 cm. Possible solid left interpolar renal lesion. There is a contour abn ormality. No hydronephrosis . The urinary bladder is incompletely distended without gross abnormality seen. IMPRESSION: Increased echogenicity of the kidneys bilaterally consistent with medical renal disease. Possible solid left renal lesion. Recommend nonemergent renal protocol CT or MRI.
[2023-02-12] MEDS: ATORVASTATIN 40 MG TAB PO SCH (20:48)
[2023-02-12] MEDS: DIPHENHYDRAMINE 25 MG TAB/CAP PO PRN (21:30)
[2023-02-12 21:31] LABS: Specific Gravity 1.012 (1.005-1.030); Urine Bacteria None Seen /HPF (<20); Urine Bilirubin NEGATIVE (Negative); Urine Blood Negative (Negative); Urine Clarity Clear (Clear); Urine Color Light-Yellow (Yellow); Urine Glucose NEGATIVE (Negative); Urine Protein NEGATIVE (Negative); Urine Urobilinogen Normal (Normal)
[2023-02-12 21:36] LABS: UR PROTEIN 13.6 mg/dL (<11.9); Urine Protein/Creatinine Ratio 0.12 ratio (<0.15)
[2023-02-13 03:36] LABS: Albumin 3.3 g/dL (3.4-5.0); Magnesium 1.9 mg/dL (1.6-2.4); Phosphorus 3.4 mg/dL (2.5-4.9); Potassium 3.1 mEq/L (3.5-5.1); Thyroid Stimulating Hormone 1.82 uIU/mL (0.358-3.740)
[2023-02-13] MEDS: NITROGLYCERIN 0.2 MG/HR (5 MG) PATCH TD SCH (09:42)
[2023-02-13] MEDS: ASPIRIN EC 81 MG TAB PO SCH (09:42)
[2023-02-13] MEDS: FUROSEMIDE 40 MG/4 ML VIAL IV SCH (09:42)
[2023-02-13] MEDS: APIXABAN 5 MG TABLET PO SCH ×2 (09:44→21:52)
--- NOTE | 2023-02-13 14:31 | PN ---
Date of Progress Note: 02/13/2023 Subjective: The patient was admitted with acute kidney injury secondary to cardiorenal. The patient has been diuresed, responding very well. The patient on room air. Physical Examination: Vital Signs: Blood pressure 123/81, pulse of 76, afebrile. Chest: Clear to auscultation. Heart: S1, S2. Regular. Systolic murmur. Abdomen: Soft, nontender. Extremity: Trace edema. Neurologic: Alert. No focality. Laboratory Data: Hemoglobin 11.7. Sodium 141, potassium 3.1, bicarb 26, BUN 15, creatinine 1.3, GFR of 61, calcium 8.6, phosphorus 3.2, magnesium 1.9, albumin 3.3, corrected calcium is 9. Current Medications: The patient on include aspirin, diphenhydramine, lisinopril 20 mg, nitroglyceri n, spironolactone 25 b.i.d., Lasix 40 t.i.d., KCl. Assessment And Plan: 1.Acute kidney injury, multifactorial, secondary to cardiorenal/contrast induced nephropathy, on the recovery phase, looked to me close to be normal volume. I am going to go ahead and change Lasix to oral and we will follow up the patient. 2.Hypertension, was started back on spironolactone and lisinopril. We will follow up. 3.Hypokalemia. The patient was started on spironolactone. We will monitor. I am going to go ahead and send for magnesium. Mostly, it was secondary to diuresis. 4.Congestive heart failure with exacerbation, stable, currently normal volume. We will follow up [facility] primary. GROVER/SABINE Voice ID: [id number] Report ID: [id number]
--- NOTE | 2023-02-13 17:14 | P.PN ---
Subjective Date of Service: 02/13/23 Chief Complaint: Shortness of breath No acute events overnight. He reports that his shortness of breath is gradually improving. His edema has also improved. He denies any chest pain, palpitations, abdominal pain, nausea, or vomiting. Review of Systems 10-point ROS is otherwise unremarkable Respiratory: Shortness of Breath Cardiovascular: Edema Physical Examination - Vital Signs Temperature: 97.9 F Blood Pressure: 125/83 Pulse: 83 Respirations: 16 Pulse Ox (%): 95 Assessment And Plan - Plan - Physical Exam General: Alert, In no apparent distress, Oriented x3 HEENT: Atraumatic, Mucous membr. moist/pink, Sclerae nonicteric Neck: JVD not distended Respiratory: Diminished, Crackles/rales (faint bibasilar) Cardiovascular: Regular rate/rhythm, Normal S1 S2, Edema (1-2+ BLE), Systolic murmur Gastrointestinal: Soft, Non-distended, No tenderness, Other (s/p colostomy) Musculoskeletal: No clubbing Integumentary: No rashes Neurological: Normal gait, Normal affect # Acute on Chronic Decompensated Systolic Congestive Heart Failure with Reduced Ejection Fraction # Moderate Mitral Regurgitation # Moderate Aortic Regurgitation # Moderate Tricuspid Regurgitation - Evaluation thus far: - NT-Pro BNP = 6663 -> 9131 - Transthoracic echocardiogram (02/01/2023) = "1. moderate mitral regurgitation, aortic regurgitation, tricuspid regurgitation. 2. severe global hypokinesis 3. ejection fraction 20%" - Chest x-ray = "overall, appearance of the chest is unchanged since 02/10/2023" - Management plan: - Consult Cardiology and spoke with Dr. Sullivan - recommendations appreciated - Transition from IV to PO furosemide - Held lisinopril, spironolactone due to DELMI - Consider beta-romero once improved from CHF exacerbation - Daily weights - Strict I/O - Cardiac diet, 1.5 L fluid restriction, 2 g Na restriction # KDIGO Stage I Acute Kidney Injury # Microscopic Hematuria - Nephrology consulted - recommendations appreciated - Creatinine = 1.13 -> 1.46 -> 1.30 - Urinalysis = 5-10 RBCs - Diuretics as mentioned above - Hold lisinopril, spironolactone - Monitor creatinine and urine output - If worsening, obtain renal ultrasound - Renally dose medications # COVID-19 Infection - Evaluation thus far: - Chest x-ray = "overall, appearance of the chest is unchanged since 02/10/2023"- - CT chest angiogram = "no evidence of acute pulmonary thromboembolism. Moderate CHF/ volume overload pattern." - Management plan: - Pulmonary Medicine consulted - recommendations appreciated - Consulted Respiratory Therapy - Supplemental oxygen to maintain SpO2 > 92% - Encouraged incentive spirometry - Isolation precautions # History of Pulmonary Embolism - CT chest angiogram = "no evidence of acute pulmonary thromboembolism. Moderate CHF/ volume overload pattern." - Continue home apixaban # Coronary Artery Disease s/p PCI # Hypertension - Continue home aspirin, atorvastatin - Consider beta-romero once improved from CHF exacerbation - Held lisinopril due to DELMI # Tobacco Use Disorder - Tobacco cessation counseling # Crohn's Disease s/p Colostomy - Stable Renny Carroll M.D.
[2023-02-13] MEDS: FUROSEMIDE 40 MG TABLET PO SCH (17:42)
[2023-02-13] MEDS: DIPHENHYDRAMINE 25 MG TAB/CAP PO PRN (21:52)
[2023-02-13] MEDS: ACETAMINOPHEN 500 MG TAB PO PRN (21:53)
[2023-02-13] MEDS: ATORVASTATIN 40 MG TAB PO SCH (21:53)
[2023-02-14 03:54] LABS: Albumin 3.1 g/dL (3.4-5.0); Phosphorus 4.3 mg/dL (2.5-4.9); Potassium 3.5 mEq/L (3.5-5.1)
[2023-02-14 05:45] VITALS: O2SAT 96
[2023-02-14] MEDS: FUROSEMIDE 40 MG TABLET PO SCH (08:01)
[2023-02-14] MEDS: APIXABAN 5 MG TABLET PO SCH (08:01)
[2023-02-14] MEDS: ASPIRIN EC 81 MG TAB PO SCH (08:02)
[2023-02-14] MEDS: NITROGLYCERIN 0.2 MG/HR (5 MG) PATCH TD SCH (08:02)
[2023-02-14 08:03] VITALS: BP 116/84
[2023-02-14 09:44] VITALS: TEMP 97.4
--- NOTE | 2023-02-14 12:07 | EKG ---
Test Date: 2023-02-12 Test Time: 12:32:14 Decorator Hand: JOSEPH MEASUREMENT RESULTS: Intervals: Rate: 88 [place]: 184 QRSD: 96 QT: 376 QTc: 454 [place]: P: 49 [place]: 184 QRS: 20 T: 75 INTERPRETIVE STATEMENTS: Normal sinus rhythm Voltage criteria for left ventricular hypertrophy T wave abnormality, consider lateral ischemia Abnormal ECG Compared to ECG 02/11/2023 06:14:44 Left ventricular hypertrophy now present Possible ischemia now present Prolonged QT interval no longer present T-wave abnormality still present Electronically Signed On 02-14-23 12:01:09 CDT by Akbar Sullivan
--- NOTE | 2023-02-14 23:17 | PN ---
Date of Progress Note: 02/14/2023 Chief Complaint: Abnormal renal function test. Subjective: The patient is a 62-year-old man with multiple medical problems including history of cor onary artery disease status post PTCA, bilateral PE, and congestive heart failure with ejection fract ion of 20%. The patient presented to the hospital because of shortness of breath. He denied nausea or vomiting. He was found to have some fluid overload and Nephrology was consulted for volume contro l and management of prerenal azotemia. Review of Systems: Denies fever or chills. Physical Examination: Lungs: Clear to auscultation bilaterally. Heart: S1, S2. Abdomen: Soft. Extremities: Slight edema. Neurologic: Alert and denies complaints. Laboratory Data: Sodium 139, potassium 3.5, bicarbonate 28, BUN 20, and creatinine 1.4. Chest PE pr otocol was negative for PE. Impression And Plan: 1.Acute kidney injury, multifactorial secondary to cardiorenal syndrome with underlying history of b enign nephrosclerosis. The patient was taking FERNIE inhibitor and this was likely culprit of acute kid charo injury. The patient was taken off FERNIE inhibitor. 2.The patient has fluid overload. He will continue Lasix 40 mg 3 times per day. 3.Hypertension. Blood pressure is fluctuating. Increase Lasix as needed for volume control. 4.Hypokalemia. Continue potassium supplementation. 5.Lactic acidosis secondary to poor perfusion. Monitor ABG. EB/MODL Voice ID: [id number] Report ID: [id number]
== END 2023-02-14 11:30 | disposition left against medical advice (07) ==
LOC: ER 05:45 → ERHOLD 09:31 → 2ND 18:24
PROVIDERS: ADMIT Internal Medicine; ATTEND Hospitalist
DX: I50.23 Acute on chronic systolic (congestive) heart failure (principal); N17.9 Acute kidney failure, unspecified; I08.3 Combined rheumatic disorders of mitral, aortic and tricuspid valves; I10 Essential (primary) hypertension; U07.1 COVID-19; I25.10 Atherosclerotic heart disease of native coronary artery without angina pectoris; F17.210 Nicotine dependence, cigarettes, uncomplicated; K50.90 Crohn's disease, unspecified, without complications; E87.6 Hypokalemia; E87.20 Acidosis, unspecified; E87.70 Fluid overload, unspecified; Z93.3 Colostomy status
CPT/HCPCS: 93005 ×2; 85025 ×2; 81001; 80048 ×2; 36415 ×2; 83735 ×3; 85610; 80076; 80069 ×2; 84443; 82570; 84484; 83880 ×2; 84156; 71275; 71045; 76770; 82805; 94760 ×2; 96375; 96374; 99285; Q9967; J3480; J1940 ×4; J7050; G0378

== ENCOUNTER 2023-03-02 14:16 | Inpatient (IN) | payer OTHER ==
--- OUTSIDE RECORDS SUMMARY | 2023-03-02 14:20 | XMS REPORT | Continuity of Care Document ---
:1960 Author Organization [facility] t Address [address] [facility] [address] [place] [address] Care Team Providers Name Role Phone Burak NICHOLAS, Emre De La Vega Primary Care Physician [phone] EMRE NORWOOD Attending Clinician Unavailable Emre Norwood MD Attending Clinician JULIA MARR Attending Clinician Unavailable Doctor Unassigned, Magna Attending Clinician Unavailable Lab, Ang - Ced Attending Clinician Unavailable Payers Payer Name Policy Type Policy Number Effective Date Expiration Date S wilmer BHARDWAJ [facility] [id number] 2022 [facility] 00:00:00 MEDICARE PART A [id number] 2013 \T\ B 00:00:00 Problems Condition Condition [...] 2-09 it y of on on 00:00: [place] [address] Medical Branch Allergies, Adverse Reactions, Alerts Allergy Allergy Status Severity Reaction(s) Onset Inactive Treating Comm ents Source Name Type Date Date Clinician NO KNOWN Drug Active Univers ALLERGIE Class ity of S [facility] Social History Social Habit Start Date Stop Date Quantity Comments Source History of tobacco Cigarette Smoker University of use [facility] History [facility] o f Alcohol Std Drinks [place] [facility] History [facility] o f Alcohol Binge [facility] al Branch History [facility] o f Alcohol Comment [place] Med ical Branch Alcohol intake 2023-02-09 2023-02-09 Lifetime University of 00:00:00 00:00:00 non-drinker [facility] (finding) Branch Exposure to 2022-12-03 2022-12-13 Not sure University of SARS-CoV-2 (event) 00:00:00 15:14:00 [facility] Cigarettes smoked 2022-11-09 2022-11-09 Univers ity of current (pack per 00:00:00 00:00:00 [facility] ) - Reported Branch Tobacco use and 2022-11-09 2022-11-09 Smokeless Universit y of exposure 00:00:00 00:00:00 tobacco non-user [facility] dical Branch History SDOH 2019-08-13 2019-08-13 1 University o f Alcohol Frequency 00:00:00 00:00:00 [facility] Sex Ass[birth year] At [birth year] Universit y of 00:00:00 00:00:00 [facility] Smoking Status Start Date Stop Date Source Smokes tobacco daily 2022-11-09 00:00:00 Univers ity of [facility] Medications Ordered Filled Start Stop Current Ordering Indication Dosage Frequency Signature Comments Components Source Medication Medication Date Date Medication? Clinician (SIG) Name Name apixaban Yes 5522 5mg Take 1 Univers (ELIQUIS) 5 6-07 tablet by ity of mg [place] Branch and 1 tablet in the evening. Indication s: history of pulmonary embolism apixaban Yes 5522 5mg Take 1 Univers (ELIQUIS) 5 6-07 tablet by ity of mg tablet [place] the [place] Branch and 1 tablet in the evening. Indication s: history of pulmonary embolism apixaban 2022-0 Yes 5522 5mg Take 1 Univers (ELIQUIS) 5 6-07 tablet by ity of mg tablet [place] the [place] Branch and 1 tablet in the evening. Indication s: history of pulmonary embolism apixaban 2022- Yes 5522 5mg Take 1 Univers (ELIQUIS) 5 6-07 tablet by ity of mg [place] the [place] Branch and 1 tablet in the evening. Indication s: history of pulmonary embolism ELIQUIS 5 2022-0 202- No 5mg Take 1 Unive rs mg tablet 01-31 tablet by ity of 00:00: 00:00 mouth in [place] 00 :00 the Medical morning Branch and 1 tablet in the evening. ELIQUIS 5 2022-0 2022- No 5mg Take 1 Unive rs mg tablet 01-31 tablet by ity of 00:00: 00:00 mouth in [place] 00 :00 the Medical morning Branch and 1 tablet in the evening. albuterol 2022- Yes [id number] 2{puff} Inhale 2 Univers 90 3-07 Puffs ity of mcg/actuati 00:00: every 6 Ángel as on inhaler 00 (six) Medical hours as Branch needed for Wheezing or Shortness of Breath. lisinopriL 2022-0 Yes [id number] 10mg Take 1 U nivers 10 mg 3-07 tablet by ity of tablet 00:00: mouth in [place] 00 the Medical morning. Branch albuterol 2022-0 Yes [id number] 2{puff} Inhale 2 Univers 90 3-07 Puffs ity of mcg/actuati 00:00: every 6 Ángel as on inhaler 00 (six) Medical hours as Branch needed for Wheezing or Shortness of Breath. lisinopriL 2022-0 Yes [id number] 10mg Take 1 U nivers 10 mg 3-07 tablet by ity of tablet 00:00: mouth in [place] 00 the Medical morning. Branch albuterol 2022-0 Yes [id number] 2{puff} Inhale 2 Univers 90 3-07 Puffs ity of mcg/actuati 00:00: every 6 Ángel as on inhaler 00 (six) Medical hours as Branch needed for Wheezing or Shortness of Breath. lisinopriL 2022-0 Yes [id number] 10mg Take 1 U nivers 10 mg 3-07 tablet by ity of tablet 00:00: mouth in [place] 00 the Medical morning. Branch albuterol 2022-0 Yes [id number] 2{puff} Inhale 2 Univers 90 3-07 Puffs ity of mcg/actuati 00:00: every 6 Ángel as on inhaler 00 (six) Medical hours as Branch needed for Wheezing or Shortness of Breath. lisinopriL 3-0 Yes [id number] 10mg Take 1 U nivers 10 mg 3-07 tablet by ity of tablet 00:00: mouth in [place] 00 the Medical morning. Branch albuterol 2022-0 Yes [id number] 2{puff} Inhale 2 Univers 90 3-07 Puffs ity of mcg/actuati 00:00: every 6 Ángel as on inhaler 00 (six) Medical hours as Branch needed for Wheezing or Shortness of Breath. lisinopriL 2022-0 Yes [id number] 10mg Take 1 U nivers 10 mg 3-07 tablet by ity of tablet 00:00: mouth in [place] 00 the Medical morning. Branch albuterol 2022-0 Yes [id number] 2{puff} Inhale 2 Univers 90 3-07 Puffs ity of mcg/actuati 00:00: every 6 Ángel as on inhaler 00 (six) Medical hours as Branch needed for Wheezing or Shortness of Breath. lisinopriL 2022-0 Yes [id number] 10mg Take 1 U nivers 10 mg 3-07 tablet by ity of tablet 00:00: mouth in [place] 00 the Medical morning. Branch albuterol 2022-0 Yes [id number] 2{puff} Inhale 2 Univers 90 3-07 Puffs ity of mcg/actuati 00:00: every 6 Ángel as on inhaler 00 (six) Medical hours as Branch needed for Wheezing or Shortness of Breath. lisinopriL 2022-0 Yes [id number] 10mg Take 1 U nivers 10 mg 3-07 tablet by ity of tablet 00:00: mouth in [place] 00 the Medical morning. Branch albuterol 2022-0 Yes [id number] 2{puff} Inhale 2 Univers 90 3-07 Puffs ity of mcg/actuati 00:00: every 6 Ángel as on inhaler 00 (six) Medical hours as Branch needed for Wheezing or Shortness of Breath. lisinopriL 3-0 Yes [id number] 10mg Take 1 U nivers 10 mg 3-07 tablet by ity of tablet 00:00: mouth in [place] 00 the Medical morning. Branch lisinopriL 2021-0 Yes [id number] 10mg Take 1 U nivers 10 mg 7-13 tablet by ity of tablet 00:00: mouth in [place] 00 the Medical morning. Branch lisinopriL 2-0 Yes [id number] 10mg Take 1 U nivers 10 mg 7-13 tablet by ity of tablet 00:00: mouth in [place] 00 the Medical morning. Branch lisinopriL 2021-0 Yes [id number] 10mg Take 1 U nivers 10 mg 7-13 tablet by ity of tablet 00:00: mouth in [place] 00 the Medical morning. Branch lisinopriL 2-0 Yes [id number] 10mg Take 1 U nivers 10 mg 7-13 tablet by ity of tablet 00:00: mouth in [place] 00 the Medical morning. Branch lisinopriL 2-0 Yes [id number] 10mg Take 1 U nivers 10 mg 7-13 tablet by ity of tablet 00:00: mouth in [place] 00 the Medical morning. Branch lisinopriL 2021-0 Yes [id number] 10mg Take 1 U nivers 10 mg 7-13 tablet by ity of tablet 00:00: mouth in [place] 00 the Medical morning. Branch lisinopriL 2-0 3- No [id number] 10mg Take 1 Univers 10 mg 7-13 03-07 tablet by ity of tablet 00:00: 00:00 mouth in [place] 00 :00 the Medical morning. Branch lisinopriL 2-0 3- No [id number] 10mg Take 1 Univers 10 mg 7-13 03-07 tablet by ity of tablet 00:00: 00:00 mouth in [place] 00 :00 the Medical morning. [place] Immunizations Ordered Filled Immunization Date Status Comments [facility] Immunization Name Name SARS-COV-2 COVID-19 2020-11-22 Completed Unive rsity of PFIZER VACCINE 00:00:00 [facility] [place] SARS-COV-2 COVID-19 2020-11-22 Completed Unive rsity of PFIZER VACCINE 00:00:00 [facility] [place] SARS-COV-2 COVID-19 2020-11-22 Completed Unive rsity of PFIZER VACCINE 00:00:00 [facility] [place] SARS-COV-2 COVID-19 2020-11-22 Completed Unive rsity of PFIZER VACCINE 00:00:00 [facility] [place] SARS-COV-2 COVID-19 2020-11-22 Completed Unive rsity of PFIZER VACCINE 00:00:00 [place] [facility] SARS-COV-2 COVID-19 2020-11-22 Completed Unive rsity of PFIZER VACCINE 00:00:00 [facility] Branch SARS-COV-2 COVID-19 2020-11-22 Completed Unive rsity of PFIZER VACCINE 00:00:00 [facility] Branch SARS-COV-2 COVID-19 2020-11-22 Completed Unive rsity of PFIZER VACCINE 00:00:00 [facility] Branch SARS-COV-2 COVID-19 2020-11-22 Completed Unive rsity of PFIZER VACCINE 00:00:00 [facility] Branch SARS-COV-2 COVID-19 2020-11-22 Completed Unive rsity of PFIZER VACCINE 00:00:00 [facility] Branch SARS-COV-2 COVID-19 2020-11-22 Completed Unive rsity of PFIZER VACCINE 00:00:00 [facility] Branch SARS-COV-2 COVID-19 2020-11-22 Completed Unive rsity of PFIZER VACCINE 00:00:00 [facility] Branch SARS-COV-2 COVID-19 2020-11-22 Completed Unive rsity of PFIZER VACCINE 00:00:00 [facility] Branch SARS-COV-2 COVID-19 2020-11-22 Completed Unive rsity of PFIZER VACCINE 00:00:00 [facility] Branch SARS-COV-2 COVID-19 2020-11-01 Completed Unive rsity of PFIZER VACCINE 00:00:00 [facility] Branch SARS-COV-2 COVID-19 2020-11-01 Completed Unive rsity of PFIZER VACCINE 00:00:00 [facility] Branch SARS-COV-2 COVID-19 2020-11-01 Completed Unive rsity of PFIZER VACCINE 00:00:00 [facility] Branch SARS-COV-2 COVID-19 2020-11-01 Completed Unive rsity of PFIZER VACCINE 00:00:00 [facility] Branch SARS-COV-2 COVID-19 2020-11-01 Completed Unive rsity of PFIZER VACCINE 00:00:00 [facility] [place] SARS-COV-2 COVID-19 2020-11-01 Completed Unive rsity of PFIZER VACCINE 00:00:00 [facility] Branch SARS-COV-2 COVID-19 2020-11-01 Completed Unive rsity of PFIZER VACCINE 00:00:00 [facility] [place] SARS-COV-2 COVID-19 2020-11-01 Completed Unive rsity of PFIZER VACCINE 00:00:00 [facility] [place] SARS-COV-2 COVID-19 2020-11-01 Completed Unive rsity of PFIZER VACCINE 00:00:00 [facility] [place] SARS-COV-2 COVID-19 2020-11-01 Completed Unive rsity of PFIZER VACCINE 00:00:00 [facility] [place] SARS-COV-2 COVID-19 2020-11-01 Completed Unive rsity of PFIZER VACCINE 00:00:00 [facility] [place] SARS-COV-2 COVID-19 2020-11-01 Completed Unive rsity of PFIZER VACCINE 00:00:00 [facility] [place] SARS-COV-2 COVID-19 2020-11-01 Completed Unive rsity of PFIZER VACCINE 00:00:00 [facility] [place] SARS-COV-2 COVID-19 2020-11-01 Completed Unive rsity of PFIZER VACCINE 00:00:00 [facility] [place] Vital Signs Vital Name Observation Time Observation Value Comments Source Systolic blood 2023-02-09 13:56:00 160 mm[Hg] Univer sity of pressure [facility] Diastolic blood 2023-02-09 13:56:00 109 mm[Hg] Unive rsity of pressure [facility] Heart rate 2023-02-09 13:55:00 95 /min [facility] Body temperature 2023-02-09 13:55:00 [facility].89 [facility] height 2023-02-09 13:55:00 177.8 cm [facility] Body weight 2023-02-09 13:55:00 81.194 kg [facility] BMI 2023-02-09 13:55:00 25.68 kg/m2 [facility] Oxygen saturation in 2023-02-09 13:55:00 98 /min [facility] Arterial blood by [facility] Pulse oximetry Branch Systolic blood 2022-12-13 20:28:00 141 mm[Hg] Univer sity of pressure [facility] Diastolic blood 2022-12-13 20:28:00 93 mm[Hg] Unive rsity of pressure [facility] Heart rate 2022-12-13 20:23:00 83 /min Universi ty of [facility] Body height 2022-12-13 20:23:00 177.8 cm Universi ty of [facility] Body weight 2022-12-13 20:23:00 81.194 kg Universi ty of [facility] BMI 2022-12-13 20:23:00 25.68 kg/m2 Universi ty of [facility] Systolic blood 2022-11-09 22:05:00 159 mm[Hg] Univer sity of pressure [facility] Branch Diastolic blood 2022-11-09 22:05:00 102 mm[Hg] Unive rsity of pressure [facility] Heart rate 2022-11-09 22:04:00 89 /min Universi ty of [facility] Body temperature 2022-11-09 22:04:00 37.11 Kassi Univ ersity of [facility] Body height 2022-11-09 22:04:00 177.8 cm Universi ty of [facility] Body weight 2022-11-09 22:04:00 81.647 kg Universi ty of [place] [facility] BMI 2022-11-09 22:04:00 25.83 kg/m2 Universi ty of [facility] Oxygen saturation in 2022-11-09 22:04:00 98 /min [facility] Arterial blood by [facility] Pulse oximetry Branch Systolic blood 2022-04-06 19:39:00 154 mm[Hg] Univer sity of [facility] Diastolic blood 2022-04-06 19:39:00 92 mm[Hg] Unive rsity of pressure [facility] Heart rate 2022-04-06 19:38:00 84 /min Universi ty of [facility] Body height 2022-04-06 19:38:00 177.8 cm Universi ty of [facility] Body weight 2022-04-06 19:38:00 83.915 kg Universi ty of [facility] BMI 2022-04-06 19:38:00 26.54 kg/m2 Universi ty of [facility] Procedures Procedure Date / Time Performing Clinician Source Performed CONSENT/REFUSAL FOR 2022-11-09 21:53:53 Doctor Unassigned, No Un [facility] DIAGNOSIS AND TREATMENT Name Medical Branch DME/SUPPLY JUSTIFICATION 2022-08-11 06:01:00 Doctor Unassigned, No [facility] Encounters Start End Encounter Admission Attending Care Care Encounter Source Date/Time Date/Time Type Type Clinicians Facility Department ID 2023-06-14 2023-06-14 Outpatient Devin [facility] [id number] Univers 16:00:00 16:00:00 EMRE [facility] 2023-02-16 2023-02-16 Telephone [facility] [id number] [facility] [place] [facility] 00:00:00 00:00:00 [facility] [id number] it y of [place] 4.2.7.2.686 Ángel as NETTIE?BLEA [id number] [address] MEDICAL OFFICE [facility] 2023-02-16 2023-02-16 Telephone [facility] 1.2.840.114 [id number] Univers 00:00:00 00:00:00 [facility] [id number] it y of [place] 4.2.7.2.686 Ángel as NETTIE?BLEA [id number] [address] MEDICAL OFFICE [facility] 2023-02-09 2023-02-09 Office [facility] [id number] Univers 11:00:00 11:30:00 Visit [facility] [id number] it y of [place] 4.2.7.2.686 Ángel as NETTIE?BLEA [id number] [address] MEDICAL OFFICE BUILDING 2023-02-09 2023-02-09 Outpatient [facility] [id number] Univers 11:00:00 11:00:00 [facility] 2022-12-13 2022-12-13 Office [facility] 1.2.840.114 [id number] Univers 15:30:00 15:45:00 Visit [place] [id number] it y of [place] 4.2.7.2.686 Ángel as NETTIE?BLEA [id number] [address] MEDICAL OFFICE BUILDING 2022-12-13 2022-12-13 Outpatient [facility] [id number] Univers 15:30:00 15:30:00 EMRE casanova [facility] 2022-11-09 2022-11-09 Office [facility] 1.2.840.114 [id number] Univers 15:45:00 16:00:00 Visit [facility] [id number] it y of [place] 4.2.7.2.686 Ángel as NETTIE?BLEA [id number] [address] OFFICE [facility] 2022-11-09 2022-11-09 [facility] [id number] Univers 15:45:00 15:45:00 EMRE casanova [facility] 2022-11-09 2022-11-09 Orders Doctor OCT[place] 1.2.840.114 [id number] Univers 00:00:00 00:00:00 Only Unassigned, CHANTAL [id number] ity of [facility] 4.2.7.2.686 Ángel as [id number] [address] 2022-11-08 2022-11-08 Telephone [facility] 1.2.840.114 [id number] Univers 00:00:00 00:00:00 Emre HEALTH [id number] it y of [place] 4.2.7.2.686 Ángel as NETTIE?BLEA [id number] [address] 2022-08-11 2022-08-11 Orders Doctor OCTAVIA 1.2.840.114 [id number] Univers 00:00:00 00:00:00 Only Unassigned, CHANTAL [id number] ity of [facility] 4.2.7.2.686 Ángel as [id number] [address] 2022-05-11 2022-05-11 [facility] [id number] Univers 09:45:00 09:45:00 EMRE casanova [facility] 2022-04-26 2022-04-26 [facility] [id number] Univers 16:30:00 16:30:00 EMRE [facility] 2022-04-20 2022-04-20 Outpatient Devin NORWOOD [facility] [id number] Univers 16:00:00 16:00:00 EMRE [facility] 2022-04-06 2022-04-06 [employer] [facility], Ang - Db [facility] 1.2.840.1 [id number] Univers 15:00:00 15:15:00 Visit Maria IneskelvinEmre Barix [facility] 350.1.13 .10 ity of [place] 4.2.7.2.686 Ángel as NETTIE?BLEA [id number] Sc tushar MARTINEZ [address] MEDICAL OFFICE [facility] 2022-04-06 2022-04-06 Outpatient Devin NORWOOD [facility] [id number] Univers 15:00:00 15:00:00 EMRE [facility] 2022-04-06 2022-04-06 Office [facility] 1.2.840.114 [id number] Univers 14:30:00 15:00:00 Visit [facility] [id number] it y of Ceferino [place] 4.2.7.2.686 Ángel as NETTIE?BLEA [id number] [facility]44 [facility] OFFICE [facility] 2022-04-06 2022-04-06 Outpatient Devin BURAK [facility] [id number] Univers 14:30:00 14:30:00 [facility] 2022-03-17 2022-03-17 [facility] 1.2.840.114 [id number] Univers 00:00:00 00:00:00 [place] [id number] it y of Ceferino [place] 4.2.7.2.686 Ángel as NETTIE?BLEA [id number] Sc tushar [address] OFFICE [facility] 2022-02-24 2022-02-24 [facility] [id number] Univers 11:00:00 11:00:00 [facility] 2022-02-18 2022-02-18 [facility] 1.2.840.114 [id number] Univers 00:00:00 00:00:00 Emre HEALTH 350.1.13.10 it y of [place] 4.2.7.2.686 Ángel as NETTIE?BLEA [id number] [address] MEDICAL OFFICE [facility] 2022-02-12 2022-02-12 [facility] 1.2.840.114 [id number] Univers 00:00:00 00:00:00 Emre HEALTH 350.1.13.10 it y of [place] 4.2.7.2.686 Ángel as NETTIE?BLEA [id number] [address] MEDICAL OFFICE [facility] 2021-12-03 2021-12-03 Orders Doctor [place] 1.2.840.114 [id number] Univers 00:00:00 00:00:00 Only Unassigned, CHANTAL 350.1.13.10 ity of [facility] 4.2.7.2.686 Ángel as [id number] [address] 2021-10-26 2021-10-26 [facility] 1.2.840.114 [id number] Univers 00:00:00 00:00:00 Emre HEALTH 350.1.13.10 it y of [place] 4.2.7.2.686 Ángel as NETTIE?BLEA [id number] [address] OFFICE [facility] 2021-10-26 2021-10-26 Orders Doctor [place]IA 1.2.840.114 [id number] Univers 00:00:00 00:00:00 Only Unassigned, CHANTAL [id number] ity of [facility] 4.2.7.2.686 Ángel as [id number] [address] 2020-11-22 2020-11-22 Outpatient [facility] [id number] Univers 14:50:00 14:50:00 ity of [facility] 2020-11-01 2020-11-01 Outpatient [facility] [id number] Univers 15:05:00 15:05:00 ity of [facility] 2020-09-09 2020-09-09 Outpatient [facility] [id number] Univers 15:30:00 15:30:00 EMRE ity [facility] Results This patient has no known results.
[2023-03-02 14:57] LABS: MCV 91.8 fL (80-100); MPV 8.4 fL (7.6-11.3); RBC Red Blood Cell Count 3.92 M/uL (4.33-5.43)
--- NOTE | 2023-03-02 15:05 | RAD REPORT ---
EXAM DESCRIPTION: RAD - Chest Single View - 03/02/2023 2:55 pm CLINICAL HISTORY: DYSPNEA Chest pain. COMPARISON: Chest Single View dated 02/11/2023; Chest Single View dated 02/10/2023; Chest Single View da vitaly 01/30/2023; Chest Single View dated 03/14/2022; Chest For Pe Angio dated 02/11/2023 FINDINGS: Portable technique limits examination quality. Small left pleural effusion. Mild interstitial pulmonary edema. The heart is mildly enlarged. No disp laced fractures. IMPRESSION: Mild CHF. Small left pleural effusion with left base infiltrate/pneumonia possible.
[2023-03-02 15:33] LABS: ALT/SGPT 23 U/L (16-61); AST/SGOT 11 U/L (15-37); Albumin 3.3 g/dL (3.4-5.0); Alkaline Phosphatase 58 U/L (45-117); BUN Blood Urea Nitrogen 16 mg/dL (7-18); Bicarbonate 18 mEq/L (21-32); Bilirubin Total 0.4 mg/dL (0.2-1.0); Glomerular Filtration Rate 57 ml/min (=/>90); Glucose Level 123 mg/dL (74-106); Magnesium 2.1 mg/dL (1.6-2.4); NT PRO-BNP 7676 pg/mL (<125); Potassium 3.5 mEq/L (3.5-5.1); Protein, Total 7.2 g/dL (6.4-8.2); Sodium Level 141 mEq/L (136-145); Troponin High Sensitivity 29.5 pg/mL (<58.9)
[2023-03-02 15:43] LABS: Bilirubin Direct < 0.1 mg/dL (0-0.2); Bilirubin Indirect, Calculated ND mg/dL (0.2-0.8)
--- NOTE | 2023-03-02 16:34 | ER ---
Nurse's Notes [facility] Name: Karson Giordano Age: 63 yrs Sex: Male : 1960 Arrival Date: 03/02/2023 Time: 14:16 Bed 5 Private MD: Diagnosis: Systolic (congestive) heart failure;Pneumonia, unspecified organism Presentation: 03/02 14:25 Coronavirus screen: Vaccine status: Patient reports receiving the 2nd dose of the covid mb9 vaccine. Ebola Screen: No symptoms or risks identified at this time. Initial Sepsis Screen: Does the patient meet any 2 criteria? No. Patient's initial sepsis screen is negative. Does the patient have a suspected source of infection? No. Patient's initial sepsis screen is negative. Risk Assessment: Do you want to hurt yourself or someone else? Patient reports no desire to harm self or others. Onset of symptoms was 2022. 14:25 Method Of Arrival: Wheelchair mb9 14:25 Acuity: AYESHA 3 mb9 14:27 Chief complaint: Patient states: "SOB, chest pressure, \\T\\ stomach pain x 3 days, dry mb9 cough for 2-3 weeks. Nothing makes SOB better or worse". Triage Assessment: 14:28 General: Appears uncomfortable, Behavior is anxious. Pain: Complains of pain in chest mb9 and abdomen Pain radiates to right shoulder. Neuro: Lam Agitation-Sedation Scale (RASS): 0 - Alert and Calm Level of Consciousness is awake, alert, obeys commands, Oriented to person, place, time, situation, Appropriate for age. Cardiovascular: Reports nausea, shortness of breath. Respiratory: Reports shortness of breath cough that is Airway is patent Respiratory effort is even, unlabored, Respiratory pattern is regular, symmetrical. GI: Reports lower abdominal pain, nausea. Derm: Skin is pink, warm \\T\\ dry. Musculoskeletal: Range of motion: intact in all extremities. Historical: - Allergies: 14:23 No Known Allergies; bp - Home Meds: 14:23 Eliquis oral [Active]; lisinopril Oral [Active]; bp - PMHx: 14:23 Crohn's Disease; HTN; bp - PSHx: 14:23 Colostomy; Stented artery; bp - Immunization history:: Adult Immunizations up to date. - Social history:: Smoking status: Patient/guardian denies using tobacco. - Family history:: not pertinent. Screenin:00 [facility] ED Fall Risk Assessment (Adult) History of falling in the last 3 months, bp including since admission No falls in past 3 months (0 pts). Abuse screen: Denies threats or abuse. Denies injuries from another. Nutritional screening: No deficits noted. Tuberculosis screening: No symptoms or risk factors identified. Assessment: 14:30 General: SEE TRIAGE NOTE. bp 16:00 Reassessment: No changes from previously documented assessment. Patient is alert, bp oriented x 3, equal unlabored respirations, skin warm/dry/pink. 17:00 Reassessment: ADMIT INITIATED. bp 18:00 Reassessment: Patient appears in no apparent distress at this time. Patient is alert, bp oriented x 3, equal unlabored respirations, skin warm/dry/pink. Vital Signs: 14:25 BP 149 / 108; Pulse 90; Resp 16; Temp 97.7; Pulse Ox 100% on R/A; mb9 14:25 Weight 79.38 kg; Height 5 ft. 10 in. ; mb9 16:00 BP 133 / 98; Pulse 86; Resp 20; Pulse Ox 97% ; bp 17:00 BP 147 / 101; Pulse 88; Resp 22; Pulse Ox 98% ; bp 18:00 BP 136 / 103; Pulse 92; Resp 26; Pulse Ox 98% ; bp 14:25 Body Mass Index 25.11 (79.38 kg, 177.8 cm) mb9 ED Course: 14:18 Patient arrived in ED. am2 14:21 Leroy Echeverria MD is Attending Physician. rt 14:22 Perico Rubi, KATELYN is Primary Nurse. bp 14:25 Arm band placed on. mb9 14:27 Triage completed. mb9 14:29 Placed in gown. Bed in low position. Call light in reach. Side rails up X 1. Client mb9 placed on continuous cardiac and pulse oximetry monitoring. NIBP monitoring applied. residential monitor on. 14:47 Inserted saline lock: 20 gauge in left forearm, using aseptic technique. Blood bp collected. 14:57 XRAY Chest (1 view) In Process Unspecified. EDMS 16:33 Antolin Green MD is Hospitalizing Provider. rt 18:02 No provider procedures requiring assistance completed. Patient admitted, IV remains in bp place. Administered Medications: 17:09 Drug: Furosemide IVP 40 mg Route: IVP; Site: left forearm; bp 18:16 Follow up: Response: No adverse reaction bp 17:10 Drug: Rocephin - Rocephin (cefTRIAXone) IVPB 2 grams Route: IVPB; Infused Over: 30 bp mins; Site: left forearm; 18:16 Follow up: IV Status: Completed infusion; IV Intake: 100ml bp 17:10 Drug: AZITHromycin IVPB 500 mg Route: IVPB; Infused Over: 1 hrs; Site: left forearm; bp 18:16 Follow up: IV Status: Completed infusion; IV Intake: 250ml bp Medication: 18:03 VIS not applicable for this client. bp Intake: 18:16 IV: 250ml; Total: 250ml. bp 18:16 IV: 100ml; Total: 350ml. bp Outcome: 16:34 Decision to Hospitalize by Provider. rt 18:02 Condition: stable bp 18:02 Instructed on the need for admit. 18:15 Admitted to Med/surg accompanied by tech, via wheelchair, room 430, with chart, Report bp called to TELMA ZEPEDA 18:37 Patient left the ED. iw Signatures: Dispatcher [employer] EDMS Jaycee Lanza, RN KATELYN iw Nancy Abbott am2 Perico Rubi RN RN bp Alana Calvo, RN RN mb9 Leroy Echeverria MD MD rt
--- NOTE | 2023-03-02 16:34 | EDPHYS ---
Physician Documentation [facility] Name: Karson Giordano Age: 63 yrs Sex: Male : 1960 Arrival Date: 03/02/2023 Time: 14:16 Bed 5 Private MD: ED Physician Leroy Echeverria HPI: 03/02 17:03 This 63 yrs old Black Male presents to ER via Wheelchair with complaints of Shortness rt of breath. 17:03 Patient presents to the ED with shortness of breath for about the past 3 days. Is worse rt with lying down flat and exertion. Patient states that when he falls asleep, he feels that he stops breathing and wakes up very dyspneic. The patient denies lower extremity edema, denies other acute complaints at this time. Symptoms are moderate severity, no other aggravating alleviating factors.. Historical: - Allergies: 14:23 No Known Allergies; bp - Home Meds: 14:23 Eliquis oral [Active]; lisinopril Oral [Active]; bp - PMHx: 14:23 Crohn's Disease; HTN; bp - PSHx: 14:23 Colostomy; Stented artery; bp - Immunization history:: Adult Immunizations up to date. - Social history:: Smoking status: Patient/guardian denies using tobacco. - Family history:: not pertinent. ROS: 17:03 Constitutional: Negative for fever, chills, and weight loss, Cardiovascular: Negative rt for chest pain, palpitations, and edema, Abdomen/GI: Negative for abdominal pain, nausea, vomiting, diarrhea, and constipation, MS/Extremity: Negative for injury and deformity, Skin: Negative for injury, rash, and discoloration, Neuro: Negative for headache, weakness, numbness, tingling, and seizure, Psych: Negative for depression, anxiety, suicide ideation, homicidal ideation, and hallucinations. 17:03 Respiratory: Positive for cough, shortness of breath. Exam: 17:03 Constitutional: This is a well developed, well nourished patient who is awake, alert, rt and in no acute distress. Head/Face: Normocephalic, atraumatic. Chest/axilla: Normal chest wall appearance and motion. Nontender with no deformity. No lesions are appreciated. Cardiovascular: Regular rate and rhythm with a normal S1 and S2. No gallops, murmurs, or rubs. Normal PMI, no JVD. No pulse deficits. Skin: Warm, dry with normal turgor. Normal color with no rashes, no lesions, and no evidence of cellulitis. MS/ Extremity: Pulses equal, no cyanosis. Neurovascular intact. Full, normal range of motion. Neuro: Awake and alert, GCS 15, oriented to person, place, time, and situation. Cranial nerves II-XII grossly intact. Motor strength 5/5 in all extremities. Sensory grossly intact. Cerebellar exam normal. Normal gait. Psych: Awake, alert, with orientation to person, place and time. Behavior, mood, and affect are within normal limits. 17:03 Respiratory: Bibasilar crackles, diminished breath sounds on the left compared to the right. 17:03 Abdomen/GI: Colostomy in place, no abdominal tenderness. 17:06 ECG was reviewed by the Attending Physician. rt Vital Signs: 14:25 BP 149 / 108; Pulse 90; Resp 16; Temp 97.7; Pulse Ox 100% on R/A; mb9 14:25 Weight 79.38 kg; Height 5 ft. 10 in. ; mb9 16:00 BP 133 / 98; Pulse 86; Resp 20; Pulse Ox 97% ; bp 17:00 BP 147 / 101; Pulse 88; Resp 22; Pulse Ox 98% ; bp 18:00 BP 136 / 103; Pulse 92; Resp 26; Pulse Ox 98% ; bp 14:25 Body Mass Index 25.11 (79.38 kg, 177.8 cm) mb9 MDM: 14:26 Patient medically screened. rt 17:03 Differential diagnosis: CHF, pneumonia, pneumothorax, acute coronary syndrome. rt Antibiotic administration: Data reviewed: vital signs, nurses notes, lab test result(s), EKG, radiologic studies. Consideration of Admission/Observation Patient was admitted/placed on observation. Management of patient was discussed with the following: Hospitalist: Agrees to admit. I considered the following discharge prescriptions or medication management in the emergency department Medications were administered in the Emergency Department. See MAR. Test considered but Not performed: CT: Low suspicion for pulmonary embolism, CT angiogram not indicated. Care significantly affected by the following chronic conditions: Congestive Heart Failure. Counseling: I had a detailed discussion with the patient and/or guardian regarding: the historical points, exam findings, and any diagnostic results supporting the discharge/admit diagnosis, lab results, radiology results, the need for further work-up and treatment in the hospital. 03/02 14:32 Order name: Basic Metabolic Panel; Complete Time: 15:45 rt 03/02 14:32 Order name: CBC with Diff; Complete Time: 15:12 rt 03/02 14:32 Order name: LFT's; Complete Time: 15:45 rt 03/02 14:32 Order name: Magnesium; Complete Time: 15:45 rt 03/02 14:32 Order name: NT PRO-BNP; Complete Time: 15:45 rt 03/02 14:32 Order name: Troponin HS; Complete Time: 15:45 rt 03/02 17:19 Order name: Magnesium EDMS 03/02 17:19 Order name: Phosphorus EDMS 03/02 17:19 Order name: Urinalysis w/ reflexes EDMS 03/02 17:19 Order name: Basic Metabolic Panel EDMS 03/02 17:19 Order name: Basic Metabolic Panel EDMS 03/02 17:19 Order name: CBC with Automated Diff EDMS 03/02 17:19 Order name: CBC with Automated Diff EDMS 03/02 17:19 Order name: NT PRO-BNP EDMS 03/02 17:19 Order name: NT PRO-BNP EDMS 03/02 14:32 Order name: XRAY Chest (1 view); Complete Time: 15:12 rt 03/02 17:13 Order name: Thorax Wo Con EDMS 03/02 14:32 Order name: EKG; Complete Time: 14:33 rt 03/02 17:19 Order name: Heart Healthy EDMS 03/02 14:32 Order name: Cardiac monitoring; Complete Time: 14:47 rt 03/02 14:32 Order name: EKG - Nurse/Tech; Complete Time: 15:08 rt 03/02 14:32 Order name: IV Saline Lock; Complete Time: 14:47 rt 03/02 14:32 Order name: Labs collected and sent; Complete Time: 14:47 rt 03/02 14:32 Order name: O2 Per Protocol; Complete Time: 14:47 rt 03/02 14:32 Order name: O2 Sat Monitoring; Complete Time: 14:47 rt EC:06 Rate is 86 beats/min. Rhythm is regular, Normal Sinus Rhythm with No ectopy, lvh. QRS rt [place] is Normal. NE interval is normal. QRS interval is normal. QT interval is normal. No Q waves. Clinical impression: NSR w/ Non-specific ST/T Changes. Administered Medications: 17:09 Drug: Furosemide IVP 40 mg Route: IVP; Site: left forearm; bp 18:16 Follow up: Response: No adverse reaction bp 17:10 Drug: Rocephin - Rocephin (cefTRIAXone) IVPB 2 grams Route: IVPB; Infused Over: 30 bp mins; Site: left forearm; 18:16 Follow up: IV Status: Completed infusion; IV Intake: 100ml bp 17:10 Drug: AZITHromycin IVPB 500 mg Route: IVPB; Infused Over: 1 hrs; Site: left forearm; bp 18:16 Follow up: IV Status: Completed infusion; IV Intake: 250ml bp Disposition Summary: 03/02/23 16:34 Hospitalization Ordered Hospitalization Status: Observation rt Provider: Antolin Green rt Location: Telemetry/MedSurg (observation) rt Condition: Stable rt Problem: an acute exacerbation rt Symptoms: have improved rt Bed/Room Type: Standard rt Room Assignment: 430(03/02/23 17:44) dw Diagnosis - Systolic (congestive) heart failure rt - Pneumonia, unspecified organism rt Forms: - Medication Reconciliation Form rt - SBAR form rt Signatures: Dispatcher [employer] Renetta Corrales RN RN Perico Martinez RN RN Alana Rousseau RN RN mb9 Leroy Echeverria MD MD rt Corrections: (The following items were deleted from the chart) 17:44 16:34 rt dw
[2023-03-02] MEDS ORDERED: CEFTRIAXONE 2000 MG/VIAL ONE (17:02)
[2023-03-02] MEDS ORDERED: AZITHROMYCIN 500 MG INJ IVPB ONE (17:02)
[2023-03-02] MEDS ORDERED: FUROSEMIDE 40 MG/4 ML VIAL ONE (17:02)
[2023-03-02] MEDS ORDERED: NA CHLORIDE 0.9% 250 ML ONE (17:02)
[2023-03-02] MEDS ORDERED: ACETAMINOPHEN 325 MG TABLET PO PRN (17:13)
[2023-03-02] MEDS ORDERED: TRAMADOL HCL 50 MG TAB PO PRN (17:13)
[2023-03-02] MEDS ORDERED: ONDANSETRON 4 MG/2 ML VIAL IV PRN (17:16)
--- NOTE | 2023-03-02 17:20 | P.HP ---
Certification for Inpatient Patient admitted to: Inpatient With expected LOS: >2 Midnights Patient will require the following post-hospital care: None Practitioner: I am a practitioner with admitting privileges, knowledge of patient current condition, hospital course, and medical plan of care. Services: Services provided to patient in accordance with Admission requirements found in Title 42 Section 412.3 of the Code of Federal Regulations Patient History Date of Service: 03/02/23 Reason for admission: SOB History of Present Illness: Patient is a 63-year-old male with a past medical history significant for hypertension, CAD, PE, CHF, Crohn's disease who presents with complaint of shortness of breath that has been ongoing for the past 3 days. Patient reported associated signs and symptoms of cough, chest tightness and left lower quadrant pain. Patient rated pain as 6/10 in severity and described pain as sharp in quality. Patient denies any other signs and symptoms. Symptoms are aggravated or relieved by nothing. Patient decided to present to the hospital due to worsening Allergies No Known Allergies Allergy (Verified 07/09/14 01:52) Home Medications: Aspirin [Aspirin EC 81 MG] 81 mg PO DAILY #30 tablet.dr 09/14/19 Atorvastatin Calcium [Lipitor] 40 mg PO BEDTIME #30 tab 09/14/19 lisinopriL [Lisinopril] 20 mg PO DAILY #30 tablet 09/14/19 Sodium Bicarbonate 650 mg PO BID #60 tablet 03/17/22 Apixaban [Eliquis] 5 mg PO BID 30 Days #60 tablet 01/31/23 Apixaban [Eliquis] 10 mg PO BID 7 Days #14 tablet 01/31/23 - Past Medical/Surgical History Diabetic: No -: Chron's -: HTN -: Pulmonary embolism -: History of COVID infection -: Scope to bilat knees Meniscus/ACL -: Colostomy -: Stents coronary artery Psychosocial/ Personal History: Patient is retired, lives at home with his - Family History Mother -: Diabetes, Cancer - Social History Smoking Status: Never smoker Alcohol use: No CD- Drugs: No Caffeine use: Yes Place of Residence: Home Review of Systems General: Unremarkable Eyes: Unremarkable ENT: Unremarkable Respiratory: Cough, Shortness of Breath, Other (Chest tightness) Cardiovascular: Unremarkable Gastrointestinal: Abdominal Pain Genitourinary: Unremarkable Musculoskeletal: Unremarkable Integumentary: Unremarkable Neurological: Unremarkable Lymphatics: Unremarkable Physical Examination - Physical Exam General: Alert, In no apparent distress, Oriented x3, Cooperative HEENT: Atraumatic, PERRLA, Mucous membr. moist/pink, EOMI, Sclerae nonicteric Neck: Supple, 2+ carotid pulse no bruit, No LAD, Without JVD or thyroid abnormality Respiratory: Diminished Cardiovascular: No edema, Regular rate/rhythm, Normal S1 S2 Capillary refill: <2 Seconds Gastrointestinal: Normal bowel sounds, Non-distended, No tenderness Musculoskeletal: No clubbing, No swelling, No tenderness Integumentary: No rashes, No significant lesion, No tenderness/swelling Neurological: Normal speech, Normal strength at 5/5 x4 extr, Normal tone, Normal affect Lymphatics: No axilla or inguinal lymphadenopathy - Studies Laboratory Data (last 24 hrs) 03/02/23 14:45: WBC 5.30, Hgb 11.6 L, Hct 36.0 L, Plt Count 238 03/02/23 14:45: Sodium 141, Potassium 3.5, BUN 16, Creatinine 1.37 H, Glucose 123 H, Magnesium 2.1, Total Bilirubin 0.4, AST 11 L, ALT 23, Alkaline Phosphatase 58 Assessment and Plan - Plan --Acute on chronic systolic CHF exacerbation. Continue diuresis with Lasix. Daily weight and strict I/O. Cardiology consulted. Will await further recommendations. -- Suspected pneumonia. Noted on chest x-ray. CT chest pending for further evaluation. Continue antibiotics and neb treatment with albuterol\Atrovent. Continue O2 therapy. ---History of PE. Continue Eliquis. --History of CAD. Continue aspirin, Eliquis and statin. --Crohn's disease with colostomy in place. Patient complains of abdominal pain. We will manage pain with current pain medication regimen. --Hypertension. Poorly controlled. Continue home medications and hydralazine as needed. --Hyperlipidemia. Continue statin. --Anemia of chronic disease. H&H stable. We will continue to monitor hemoglobin and transfuse if less than 7.0 -- DVT prophylaxis with Eliquis. Discharge Plan: Home Plan to discharge in: Greater than 2 days - Advance Directives Does patient have a Living Will: No Does patient have a Durable POA for Healthcare: No - Code Status/Comfort Care Code Status Assessed: Yes Physician Review: Patient Assessed, Agree with Above Assessment and Plan Critical Care: No
[2023-03-02] MEDS ORDERED: HYDRALAZINE HCL 20 MG/ML VIAL IV PRN (17:53)
[2023-03-02 18:24] LABS: Phosphorus 3.6 mg/dL (2.5-4.9)
--- NOTE | 2023-03-02 19:36 | RAD REPORT ---
EXAM DESCRIPTION: CT - Thorax Wo Con CLINICAL HISTORY: Chest pain R O PNA COMPARISON: <Comparisons> FINDINGS: Small to moderate left pleural effusion with atelectasis or infiltrate/pneumonia in the le ft lung base. Small right pleural effusion. No pneumothorax. No axillary, mediastinal or hilar adenopathy. No concerning bony finding. No gross upper abdominal finding. All CT scans are performed using dose optimization technique as appropriate and may include automated exposure control or mA/KV adjustment according to patient size. IMPRESSION: Airspace opacity in the left lung base with small to moderate left pleural effusion may represent atelectasis or pneumonia.This appears moderately improved since the 02/11/2023 prior study.
--- NOTE | 2023-03-02 19:52 | CON ---
Date of Consultation: 03/02/2023 Reason For Consultation: Heart failure. History Of Present Illness: A -[id number]-jvk male with history of congestive heart failure, hyp ertension, pulmonary embolism, very low ejection fraction in the 20s range, presented with worsening shortness of breath, orthopnea. No edema of lower extremity. Denies having any chest pain. No naus ea, vomiting, diarrhea, or diaphoresis. Past Medical History: As outlined above. Medications: Refer to reconciliation sheet for detailed list. Allergies: NO KNOWN DRUG ALLERGIES. Family History: No premature coronary artery disease or cancer. Social History: He does not smoke or drink. Does not use any drugs. Review of Systems: All systems reviewed and they were negative except what mentioned in HPI. Physical Examination: Vital Signs: Reviewed. Head and Neck: Pupils are equal, reactive to light. Intact eye movements. No cervical lymphadenopa thy. Positive JVD. Lungs: Faint crackles in bases. No accessory muscle use or muscle retraction. Heart: Irregular with S3 gallop. Abdomen: Soft, nontender. Bowel sounds positive. No organomegaly. No masses or hernia. No rigidi ty or rebound. Extremities: No edema, clubbing, or cyanosis. Intact pulses. Skin: No rash. Neurologic: Alert, awake, oriented x3. No acute focal deficits appreciated. Investigations: BUN 16, creatinine 1.37. NT-proBNP is 7676. Troponin is negative and hemoglobin is 11.6. Chest x-ray showed a mild CHF. Assessment And Recommendations: 1.Acute on chronic systolic heart failure exacerbation. Agree with Lasix at 40 mg IV q.12 hours. M onitor BUN, creatinine, electrolytes, and strict low-salt diet. No need to obtain an echo as it was done recently at my office. 2.History of pulmonary embolism. Continue the Eliquis 5 mg twice a day and he had a CTA of the lung s, await on the results. 3.Chronic systolic heart failure. I started him on Entresto. He is on the medium dose to resume it while he is in the hospital and also after diuresis to make sure that this patient is on beta-blocke r with Toprol-XL. I will follow the patient closely with you. Thank you for the consult. /SABINE Voice ID: [id number] Report ID: [id number]
[2023-03-02] MEDS: APIXABAN 5 MG TABLET PO SCH (20:35)
[2023-03-02] MEDS: FUROSEMIDE 40 MG/4 ML VIAL IV SCH (20:35)
[2023-03-02] MEDS: IPRATROPIUM BROM 0.5MG/2.5ML NEB SCH (20:55)
[2023-03-02] MEDS: ALBUTEROL 2.5 MG/3 ML NEB SOL NEB SCH (20:55)
[2023-03-02] MEDS ORDERED: SACUBITRIL/VALSARTAN 49/51 MG TAB PO SCH (21:00)
[2023-03-02 21:39] VITALS: BMI 25.1
[2023-03-03] MEDS: IPRATROPIUM BROM 0.5MG/2.5ML NEB SCH ×3 (02:00→14:40)
[2023-03-03] MEDS: ALBUTEROL 2.5 MG/3 ML NEB SOL NEB SCH ×3 (02:00→14:40)
[2023-03-03 07:04] LABS: Absolute Lymphocytes (CBC) 1.2 K/uL (0.7-4.9); Hematocrit 37.7 % (39.6-49.0); Lymphocytes % 20.6 % (15.3-44.8); MCV 91.5 fL (80-100); MPV 8.7 fL (7.6-11.3); RBC Red Blood Cell Count 4.12 M/uL (4.33-5.43)
--- NOTE | 2023-03-03 07:17 | P.PN ---
Date of Service: 03/03/23 Subjective: feeling better today; no chest pain feels SOB at times, worsened when laying flat on back, +cough yesterday no nausea/vomiting/diarrhea; no trouble urinating afebrile ROS: 10 point ROS as noted above, otherwise negative Physical Exam: GEN: Alert, oriented, NAD HEENT: Normal conjunctiva, sclera anicteric CV: Regular rate and rhythm, no edema Pulm: mild-labored respirations on room air, diminished at bases b/l ABD: Soft, nontender, nondistended MSK: No joint tenderness Integumentary: No rashes Neuro: Normal speech, normal affect vitals reviewed Problem List: Acute on chronic systolic CHF exacerbation Hx of PE Hx of CAD Crohn's disease with colostomy in place Hypertension Hyperlipidemia Anemia of chronic disease Acute on chronic systolic CHF exacerbation Patient states they do no take any CXR (03/02): Mild CHF; Small left pleural effusion with left base infiltrate/pneumonia possible CT chest (03/02): Airspace opacity in the left lung base with small to moderate left pleural effusion may represent atelectasis or pneumonia.This appears moderately improved since the 02/11/2023 likely fluid overload - patient remains afebrile, no leukocytosis, +patient states they do not take any diuretics at home Last echo (january 2023): 20%EF moderate MR, moderate AR, moderate TR, severe global hypokinesis Rocephin & azithromycin DCd(03/03) Cardiology consulted continue entresto tentative outpatient stress test planned for 03/[address] Bales Continue Lasix continue nebs with albuterol\Atrovent. Hx of PE Continue Eliquis Hx of CAD Continue aspirin, Eliquis and statin Crohn's disease with colostomy in place Patient complains of abdominal pain. PRN pain meds Hypertension Poorly controlled. Continue home medications and hydralazine as needed. Hyperlipidemia Continue statin. Anemia of chronic disease. H&H stable. transfuse if hgb < 7.0 VTE: Eliquis Code: Full Dispo: Home possible DC in afternoon tentative outpatient stress test planned for 03/[address] Bales
[2023-03-03] MEDS: FUROSEMIDE 40 MG/4 ML VIAL IV SCH (08:09)
[2023-03-03] MEDS ORDERED: AZITHROMYCIN IV 500 MG in NA CHLORIDE 0.9% 250 ML IVPB SCH (09:00)
[2023-03-03] MEDS ORDERED: CEFTRIAXONE 1,000 MG in NA CHLORIDE 0.9% 50 ML IVPB SCH (09:00)
[2023-03-03] MEDS ORDERED: ASPIRIN 81 MG CHEWABLE TABLET PO SCH (09:00)
[2023-03-03] MEDS: APIXABAN 5 MG TABLET PO SCH (09:15)
[2023-03-03 09:56] VITALS: O2SAT 96
[2023-03-03] MEDS ORDERED: SPIRONOLACTONE 25 MG TABLET PO SCH (12:00)
[2023-03-03] MEDS ORDERED: lisinopriL 10 MG TAB PO SCH (12:00)
--- NOTE | 2023-03-03 12:04 | CON ---
Date of Consultation: 03/03/2023 Reason For Consultation: Elevated BUN and creatinine, fluid management. History Of Present Illness: This is a 63-year-old gentleman, well known to me from previous admissio n with significant past medical history of chronic kidney disease stage 3 secondary to cardiorenal sy ndrome, hypertension nephrosclerosis, CAD status post PTCA, bilateral PE, congestive heart failure wi th ejection fraction of 20% with moderate MR and AR, the patient has recurrent admission to the [facility] with over volume status. The patient came this time complaining from shortness of breath and inc reased leg swelling, found to be over volume. The patient complaining from chest tightness. The pat ient apparently not taking his diuresis. Past Medical History: Includes; 1.CAD complicated with congestive heart failure with ejection fraction of 20%. 2.PE. 3.Crohn disease. Allergies: NO KNOWN DRUG ALLERGIES. Home Medications: Include; 1.Aspirin. 2.Atorvastatin. 3.Lisinopril 20. 4.Sodium bicarb. 5.Eliquis. Past Surgical History: Includes bilateral knee meniscus scope, cholecystostomy, PTCA. Family History: Positive for diabetes and hypertension. Social History: Denied smoking, denied drinking, denied drug abuse. Review of Systems: Head and Neck: No red eye. No ear pain. GI: No nausea. No vomiting. : No polyuria. No dysuria. No hematuria. Terminal Computer Operator: Not applicable. Respiratory: Has shortness of breath. Has orthopnea. Cardiovascular: Has orthopnea. Has leg swelling. Endocrine: No polydipsia. Skin: No rash. Neuro: Generalized weakness. Musculoskeletal: No joint pain. Physical Examination: General: When I saw the patient; the patient lying in bed on room air. Vital Signs: Blood pressure 144/93, pulse of 67, afebrile. Chest: Crackles bilateral. Heart: S1, S2. Systolic murmur. Abdomen: Soft, nontender. Extremity: Plus edema. Neurologic: Alert. No focality. Laboratory Data: WBC 5.7, H and H 12.3/37.7, platelet 236. Sodium 141, potassium 3, bicarb 23, BUN 15, creatinine 1.3, GFR of 57, calcium 8.7. Back in mid of February; creatinine 1.3, GFR of 59. Chest x -ray; cardiomegaly with congestion. Current Medications: The patient on include; 1.Aspirin. 2.Albuterol. 3.Eliquis. 4.Tylenol. 5.Lasix 40 b.i.d. 6.Zofran. 7.Tramadol. Assessment And Plan: 1.Chronic kidney disease, stage 3 secondary to cardiorenal syndrome, hypertension nephrosclerosis wi th over volume and acute kidney injury. I agree with diuresis. I am going to resume FERNIE inhibitor a nd we will monitor the patient. 2.Hypokalemia. I am going to supplement. I am going to start the patient on spironolactone and FERNIE inhibitor and we will follow up. 3.Hypertension with the presence of hypokalemia, advanced congestive heart failure, ejection fractio n of 20%. I am going to start spironolactone, add Lasix, and resume FERNIE inhibitor and we will follow up. 4.Acidosis, currently bicarb on the 23. I do not see the need for any bicarb. We will discontinue bicarb. 5.Congestive heart failure exacerbation. We will optimize fluid status with diuresis. Time spent examining the patient [id number], reviewing data, discussing the case with the patient, discussing the case with the member including hospitalist and nursing staff more than 75 minutes. MILAN Voice ID: [id number] Report ID: [id number]
--- NOTE | 2023-03-03 12:36 | EKG ---
Test Date: 2023-03-02 Test Time: 14:58:14 [place] Room Attendant: GABRIELLE MEASUREMENT RESULTS: Intervals: Rate: 86 FL: 186 QRSD: 104 QT: 398 QTc: 476 [facility]: P: 51 FL: 186 QRS: 12 T: 145 INTERPRETIVE STATEMENTS: Normal sinus rhythm Left ventricular hypertrophy Nonspecific T wave abnormality Prolonged QT Abnormal ECG Compared to ECG 02/12/2023 12:32:14 Prolonged QT interval now present Possible ischemia no longer present T-wave abnormality still present Electronically Signed On 03-03-23 12:34:47 CDT by Josef Bales
[2023-03-03] MEDS ORDERED: POTASSIUM CL SA 10 MEQ TAB PO ONE (15:11)
[2023-03-03 15:51] VITALS: BP 151/92; TEMP 97.9
[2023-03-03 16:22] LABS: Specific Gravity 1.005 (1.005-1.030); Urine Bilirubin NEGATIVE (Negative); Urine Blood Negative (Negative); Urine Clarity Clear (Clear); Urine Color Colorless (Yellow); Urine Glucose NEGATIVE (Negative); Urine Protein NEGATIVE (Negative); Urine Urobilinogen Normal (Normal)
--- NOTE | 2023-03-03 19:42 | PN ---
Date of Progress Note: 03/03/2023 Subjective: There is an improvement in his shortness of breath. No dysuria, polyuria, or urinary ur gency. No skin rash. All other systems reviewed and they were negative. Physical Examination: Vital Signs: Temperature is 98.3, pulse 86, breathing 16, blood pressure 106/68, saturating 94%. General: Pleasant middle-aged male, very well known to me. Does not have any distress. Head and Neck: Pupils are equal, reactive to light. Intact eye movements. No cervical lymphadenopa thy. JVD is improved. Lungs: Clear to auscultation bilaterally. No rhonchi, wheezing, or crackles. No accessory muscle u se. Heart: Irregular. No extra sounds. Abdomen: Soft, nontender. Bowel sounds positive. No organomegaly. No masses or hernia. No rigidi ty or rebound. Extremities: No edema, clubbing, or cyanosis. Intact pulses. Skin: No rash. Neurologic: Alert, awake. No acute focal deficits appreciated. Investigations: BUN 15, creatinine 1.37, and hemoglobin is 12.3. Assessment And Recommendations: 1.Acute on chronic systolic heart failure, appears to be doing well. If he can ambulate without hav ing significant oxygen desaturation or shortness of breath, then he can be released to follow up in t he office as scheduled. He has a stress test scheduled for tomorrow. 2.History of pulmonary embolism, on Eliquis to be continued. 3.Chronic systolic heart failure. Continue adjust on metoprolol. SR/MODL Voice ID: [id number] Report ID: [id number]
== END 2023-03-03 16:21 | disposition home or self-care (01) | DRG 291 ==
LOC: ER 14:16 → ERHOLD 17:12 → 4TH 18:34
PROVIDERS: ADMIT Hospitalist; ATTEND Hospitalist
DX: I13.0 Hypertensive heart and chronic kidney disease with heart failure and stage 1 through stage 4 chronic kidney disease, or unspecified chronic kidney disease (principal); I50.23 Acute on chronic systolic (congestive) heart failure; J18.9 Pneumonia, unspecified organism; K50.90 Crohn's disease, unspecified, without complications; E87.20 Acidosis, unspecified; N18.30 Chronic kidney disease, stage 3 unspecified; D63.1 Anemia in chronic kidney disease; E78.5 Hyperlipidemia, unspecified; E87.6 Hypokalemia; D63.8 Anemia in other chronic diseases classified elsewhere; I25.10 Atherosclerotic heart disease of native coronary artery without angina pectoris; Z93.3 Colostomy status; Z90.49 Acquired absence of other specified parts of digestive tract; Z79.82 Long term (current) use of aspirin; Z86.16 Personal history of COVID-19; Z79.01 Long term (current) use of anticoagulants; Z86.711 Personal history of pulmonary embolism; Z79.899 Other long term (current) drug therapy
CPT/HCPCS: 36415; 71045; 71250; 80048; 80076; 81003; 83735; 83880; 84100; 84484; 85025; 93005; 94640; 96365; 96368; 96375; 99285; J0696; J1940; J7050; J7613; J7644

== ENCOUNTER 2023-04-13 08:53 | Inpatient (IN) | payer OTHER ==
--- OUTSIDE RECORDS SUMMARY | 2023-04-13 08:57 | XMS REPORT | Continuity of Care Document ---
:1960 Author Organization [facility] t Address [address] [place] [address] Care Team Providers Name Role Phone Emre Norwood MD Primary Care Physician [phone] EMRE NORWOOD Attending Clinician Unavailable Emre Norwood MD Attending Clinician Doctor Unassigned, Dustin Attending Clinician Unavailable JULIA MARR Attending Clinician Unavailable Lab, Sorin Coughlin Attending Clinician Unavailable Payers Payer Name Policy Type Policy Number Effective Date Expiration Date S wilmer BHARDWAJ [facility] [id number] 2022 [facility] 00:00:00 MEDICARE PART A [id number] 2013 \T\ B 00:00:00 Problems Condition Condition [...] 2-09 it y of on on 00:00: [place] [address] Medical Branch Allergies, Adverse Reactions, Alerts Allergy Allergy Status Severity Reaction(s) Onset Inactive Treating Comm ents Source Name Type Date Date Clinician NO KNOWN Drug Active Univers ALLERGIE Class ity of [facility] Social History Social Habit Start Date Stop Date Quantity Comments Source History of tobacco Cigarette Smoker University of [facility] History SDOH University o f Alcohol Std Drinks [facility] Gender identity Universit [facility] Sexual orientation Univer [facility] History [facility] o f Alcohol Binge [place] [facility] History [facility] o f Alcohol Comment [place] [facility] ical [facility] Alcohol intake 2023-02-09 2023-02-09 Lifetime University of 00:00:00 00:00:00 non-drinker [place] [facility] (finding) Branch History of Social 2023-02-09 2023-02-09 Univers ity of function 00:00:00 00:00:00 [facility] Exposure to 2022-12-03 2022-12-13 Not sure University of SARS-CoV-2 (event) 00:00:00 15:14:00 [facility] Cigarettes smoked 2022-11-09 2022-11-09 Univers ity of current (pack per 00:00:00 00:00:00 [facility]) - Reported Branch Tobacco use and 2022-11-09 2022-11-09 Smokeless Universit y of exposure 00:00:00 00:00:00 tobacco non-user [facility] dical Branch History [facility] 2019-08-13 2019-08-13 1 University o f Alcohol Frequency 00:00:00 00:00:00 [facility] Sex Assigned At [birth year] Universit y of 00:00:00 00:00:00 [facility] Smoking Status Start Date Stop Date Source Smokes tobacco daily 2022-11-09 00:00:00 Univers ity of [facility] Medications Ordered Filled Start Stop Current Ordering [...] Indication s: history of pulmonary embolism apixaban 2023-0 Yes 5522 5mg Take 1 Univers (ELIQUIS) 5 6-07 tablet by ity of mg tablet [place] Medical [place] Branch and 1 tablet in the evening. Indication s: history of pulmonary embolism apixaban 3-0 Yes 5522 5mg Take 1 Univers (ELIQUIS) 5 6-07 tablet by ity of mg [place] the Medical [place] Branch and 1 tablet in the evening. Indication s: history of pulmonary embolism apixaban 3-0 Yes 5522 5mg Take 1 Univers (ELIQUIS) 5 6-07 tablet by ity of mg tablet 00:00: mouth in [facility] s 00 the Medical morning Branch and 1 tablet in the evening. Indication s: history of pulmonary embolism ELIQUIS 5 2022-0 2023- No 5mg Take 1 Unive rs mg tablet 01-31- tablet by ity of 00:00: 00:00 mouth in [place] 00 :00 the Medical morning Branch and 1 tablet in the evening. ELIQUIS 5 2022-0 2023- No 5mg Take 1 Unive rs mg tablet 01-31- tablet by ity of 00:00: 00:00 mouth in [place] 00 :00 the Medical morning Branch and 1 tablet in the evening. albuterol 2022-0 Yes [id number] 2{puff} Inhale 2 Univers 90 3-07 Puffs ity of mcg/actuati 00:00: every 6 Ángel as on inhaler 00 (six) Medical hours as Branch needed for Wheezing or Shortness of Breath. lisinopriL 3-0 Yes [id number] 10mg Take 1 U nivers 10 mg 3-07 tablet by ity of tablet 00:00: mouth in [place] 00 the Medical morning. Branch albuterol 2023-0 Yes [id number] 2{puff} Inhale 2 Univers 90 3-07 Puffs ity of mcg/actuati 00:00: every 6 Ángel as on inhaler 00 (six) Medical hours as Branch needed for Wheezing or Shortness of Breath. lisinopriL 2023-0 Yes [id number] 10mg Take 1 U nivers 10 mg 3-07 tablet by ity of tablet 00:00: mouth in [place] 00 the Medical morning. Branch albuterol 2022-0 Yes [id number] 2{puff} Inhale 2 Univers 90 3-07 Puffs ity of mcg/actuati 00:00: every 6 Ángel as on inhaler 00 (six) Medical hours as Branch needed for Wheezing or Shortness of Breath. lisinopriL 3-0 Yes [id number] 10mg Take 1 U nivers 10 mg 3-07 tablet by ity of tablet 00:00: mouth in [place] 00 the Medical morning. Branch albuterol 2022-0 Yes [id number] 2{puff} Inhale 2 Univers 90 3-07 Puffs ity of mcg/actuati 00:00: every 6 Ángel as on inhaler 00 (six) Medical hours as Branch needed for Wheezing or Shortness of Breath. lisinopriL 2022-0 Yes [id number] 10mg Take 1 U nivers 10 mg 3-07 tablet by ity of tablet 00:00: mouth in [place] 00 the Medical morning. Branch albuterol 2022-0 Yes [id number] 2{puff} Inhale 2 Univers 90 3-07 Puffs ity of mcg/actuati 00:00: every 6 Ángel as on inhaler 00 (six) Medical hours as Branch needed for Wheezing or Shortness of Breath. lisinopriL 2022-0 Yes [id number] 10mg Take 1 U nivers 10 mg 3-07 tablet by ity of tablet 00:00: mouth in [place] 00 the Medical morning. Branch albuterol 2022-0 Yes [id number] 2{puff} Inhale 2 Univers 90 3-07 Puffs ity of mcg/actuati 00:00: every 6 Ángel as on inhaler 00 (six) Medical hours as Branch needed for Wheezing or Shortness of Breath. lisinopriL 2023-0 Yes [id number] 10mg Take 1 U nivers 10 mg 3-07 tablet by ity of tablet 00:00: mouth in [place] 00 the Medical morning. Branch albuterol 2022-0 Yes [id number] 2{puff} Inhale 2 Univers 90 3-07 Puffs ity of mcg/actuati 00:00: every 6 Ángel as on inhaler 00 (six) Medical hours as Branch needed for Wheezing or Shortness of Breath. lisinopriL 2023-0 Yes [id number] 10mg Take 1 U nivers 10 mg 3-07 tablet by ity of tablet 00:00: mouth in [place] 00 the Medical morning. Branch albuterol 2022-0 Yes [id number] 2{puff} Inhale 2 Univers 90 3-07 Puffs ity of mcg/actuati 00:00: every 6 Ángel as on inhaler 00 (six) Medical hours as Branch needed for Wheezing or Shortness of Breath. lisinopriL 2022-0 Yes [id number] 10mg Take 1 U nivers 10 mg 3-07 tablet by ity of tablet 00:00: mouth in [place] 00 the Medical morning. Branch albuterol 2022-0 Yes [id number] 2{puff} Inhale 2 Univers 90 3-07 Puffs ity of mcg/actuati 00:00: every 6 Ángel as on inhaler 00 (six) Medical hours as Branch needed for Wheezing or Shortness of Breath. lisinopriL 2022-0 Yes [id number] 10mg Take 1 U nivers 10 mg 3-07 tablet by ity of tablet 00:00: mouth in [place] 00 the Medical morning. Branch albuterol 2022-0 Yes [id number] 2{puff} Inhale 2 Univers 90 3-07 Puffs ity of mcg/actuati 00:00: every 6 Ángel as on inhaler 00 (six) Medical hours as Branch needed for Wheezing or Shortness of Breath. lisinopriL 2022-0 Yes [id number] 10mg Take 1 U nivers 10 mg 3-07 tablet by ity of tablet 00:00: mouth in [place] 00 the Medical morning. Branch lisinopriL 2021-0 Yes [id number] 10mg Take 1 U nivers 10 mg 7-13 tablet by ity of tablet 00:00: mouth in [place] 00 the Medical morning. Branch lisinopriL 2021-0 Yes [id number] 10mg Take 1 U nivers 10 mg 7-13 tablet by ity of tablet 00:00: mouth in [place] 00 the Medical morning. Branch lisinopriL 2021-0 Yes [id number] 10mg Take 1 U nivers 10 mg 7-13 tablet by ity of tablet 00:00: mouth in [place] 00 the Medical morning. Branch lisinopriL 2021-0 Yes [id number] 10mg Take 1 U nivers 10 mg 7-13 tablet by ity of tablet 00:00: mouth in [place] 00 the Medical morning. Branch lisinopriL 2021-0 Yes [id number] 10mg Take 1 U nivers 10 mg 7-13 tablet by ity of tablet 00:00: mouth in [place] 00 the Medical morning. Branch lisinopriL 2021-0 Yes [id number] 10mg Take 1 U nivers 10 mg 7-13 tablet by ity of tablet 00:00: mouth in [place] 00 the Medical morning. Branch lisinopriL 2-0 3- No [id number] 10mg Take 1 Univers 10 mg 7-13 03-07 tablet by ity of tablet 00:00: 00:00 mouth in [place] 00 :00 the Medical morning. Branch lisinopriL 2021-0 3- No [id number] 10mg Take 1 Univers 10 mg 7-13 03-07 tablet by ity of tablet 00:00: 00:00 mouth in [place] 00 :00 the Medical morning. Branch Immunizations Ordered Filled Immunization Date Status Comments [facility] e Immunization Name Name SARS-COV-2 COVID-19 2020-11-22 Completed Unive rsity of PFIZER VACCINE 00:00:00 [facility] SARS-COV-2 COVID-19 2020-11-22 Completed Unive rsity of PFIZER VACCINE 00:00:00 [facility] SARS-COV-2 COVID-19 2020-11-22 Completed Unive rsity of PFIZER VACCINE 00:00:00 [facility] SARS-COV-2 COVID-19 2020-11-22 Completed Unive rsity of PFIZER VACCINE 00:00:00 [facility] SARS-COV-2 COVID-19 2020-11-22 Completed Unive rsity of PFIZER VACCINE 00:00:00 [facility] SARS-COV-2 COVID-19 2020-11-22 Completed Unive rsity of PFIZER VACCINE 00:00:00 [facility] SARS-COV-2 COVID-19 2020-11-22 Completed Unive rsity of PFIZER VACCINE 00:00:00 [facility] SARS-COV-2 COVID-19 2020-11-22 Completed Unive rsity of PFIZER VACCINE 00:00:00 [facility] SARS-COV-2 COVID-19 2020-11-22 Completed Unive rsity of PFIZER VACCINE 00:00:00 [facility] Branch SARS-COV-2 COVID-19 2020-11-22 Completed Unive rsity of PFIZER VACCINE 00:00:00 [facility] Branch SARS-COV-2 COVID-19 2020-11-22 Completed Unive rsity of PFIZER VACCINE 00:00:00 [facility] Branch SARS-COV-2 COVID-19 2020-11-22 Completed Unive rsity of PFIZER VACCINE 00:00:00 [facility] Branch SARS-COV-2 COVID-19 2020-11-22 Completed Unive rsity of PFIZER VACCINE 00:00:00 [facility] Branch SARS-COV-2 COVID-19 2020-11-22 Completed Unive rsity of PFIZER VACCINE 00:00:00 [facility] Branch SARS-COV-2 COVID-19 2020-11-22 Completed Unive rsity of PFIZER VACCINE 00:00:00 [facility] Branch SARS-COV-2 COVID-19 2020-11-22 Completed Unive rsity of PFIZER VACCINE 00:00:00 [facility] Branch SARS-COV-2 COVID-19 2020-11-01 Completed Unive rsity of PFIZER VACCINE 00:00:00 [facility] Branch SARS-COV-2 COVID-19 2020-11-01 Completed Unive rsity of PFIZER VACCINE 00:00:00 [facility] Branch SARS-COV-2 COVID-19 2020-11-01 Completed Unive rsity of PFIZER VACCINE 00:00:00 [facility] Branch SARS-COV-2 COVID-19 2020-11-01 Completed Unive rsity of PFIZER VACCINE 00:00:00 [facility] Branch SARS-COV-2 COVID-19 2020-11-01 Completed Unive rsity of PFIZER VACCINE 00:00:00 [facility] Branch SARS-COV-2 COVID-19 2020-11-01 Completed Unive rsity of PFIZER VACCINE 00:00:00 [facility] Branch SARS-COV-2 COVID-19 2020-11-01 Completed Unive rsity of PFIZER VACCINE 00:00:00 [facility] Branch SARS-COV-2 COVID-19 2020-11-01 Completed Unive rsity of PFIZER VACCINE 00:00:00 [facility] Branch SARS-COV-2 COVID-19 2020-11-01 Completed Unive rsity of PFIZER VACCINE 00:00:00 [facility] SARS-COV-2 COVID-19 2020-11-01 Completed Unive rsity of PFIZER VACCINE 00:00:00 [facility] SARS-COV-2 COVID-19 2020-11-01 Completed Unive rsity of PFIZER VACCINE 00:00:00 [facility] SARS-COV-2 COVID-19 2020-11-01 Completed Unive rsity of PFIZER VACCINE 00:00:00 [facility] SARS-COV-2 COVID-19 2020-11-01 Completed Unive rsity of PFIZER VACCINE 00:00:00 [facility] SARS-COV-2 COVID-19 2020-11-01 Completed Unive rsity of PFIZER VACCINE 00:00:00 [facility] SARS-COV-2 COVID-19 2020-11-01 Completed Unive rsity of PFIZER VACCINE 00:00:00 [facility] SARS-COV-2 COVID-19 2020-11-01 Completed Unive rsity of PFIZER VACCINE 00:00:00 [facility] Vital Signs Vital Name Observation Time Observation Value Comments Source Systolic blood 2023-02-09 13:56:00 160 mm[Hg] Univer sity of pressure [facility] Diastolic blood 2023-02-09 13:56:00 109 mm[Hg] Unive rsity of pressure [facility] Heart rate 2023-02-09 13:55:00 95 /min [facility] Body temperature 2023-02-09 13:55:00 36.89 [facility] height 2023-02-09 13:55:00 177.8 cm [facility] Body weight 2023-02-09 13:55:00 81.194 kg [facility] BMI 2023-02-09 13:55:00 25.68 kg/m2 [facility] Oxygen saturation in 2023-02-09 13:55:00 98 /min [facility] blood by [facility] Pulse oximetry Branch Systolic blood 2022-12-13 20:28:00 141 mm[Hg] Univer sity of pressure [facility] Diastolic blood 2022-12-13 20:28:00 93 mm[Hg] Unive rsity of pressure [facility] Heart rate 2022-12-13 20:23:00 83 /min Universi ty of [facility] Body height 2022-12-13 20:23:00 177.8 cm Universi ty of [place] [facility] [place] Body weight 2022-12-13 20:23:00 81.194 kg Universi ty of [facility] BMI 2022-12-13 20:23:00 25.68 kg/m2 Universi ty of [facility] Branch Systolic blood 2022-11-09 22:05:00 159 mm[Hg] Univer sity of pressure [facility] Diastolic blood 2022-11-09 22:05:00 102 mm[Hg] Unive rsity of pressure [facility] Heart rate 2022-11-09 22:04:00 89 /min Universi ty of [place] [facility] [place] Body temperature 2022-11-09 22:04:00 37.11 Kassi Univ ersity of [facility] Body height 2022-11-09 22:04:00 177.8 cm Universi ty of [facility] Body weight 2022-11-09 22:04:00 81.647 kg Universi ty of [place] [facility] BMI 2022-11-09 22:04:00 25.83 kg/m2 Universi ty of [facility] Oxygen saturation in 2022-11-09 22:04:00 98 /min University Arterial blood by [facility] Pulse oximetry Branch Systolic blood 2022-04-06 19:39:00 154 mm[Hg] Univer sity of [facility] Diastolic blood 2022-04-06 19:39:00 92 mm[Hg] Unive rsity of pressure [facility] Heart rate 2022-04-06 19:38:00 84 /min Universi ty of [facility] Body height 2022-04-06 19:38:00 177.8 cm Universi ty of [facility] Body weight 2022-04-06 19:38:00 83.915 kg Universi ty of [facility] BMI 2022-04-06 19:38:00 26.54 kg/m2 Universi ty of [facility] Procedures Procedure Date / Time Performing Clinician Source Performed EXTERNAL PROVIDER 2023-03-10 05:01:00 Doctor Unassigned, No [facility] Name Medical Branch CONSENT/REFUSAL FOR 2022-11-09 21:53:53 Doctor Unassigned, No Un [facility] DIAGNOSIS AND TREATMENT [facility] DME/SUPPLY JUSTIFICATION 2022-08-11 06:01:00 Doctor Unassigned, No [facility] Encounters Start End Encounter Admission Attending Care Care Encounter Source Date/Time Date/Time Type Type Clinicians Facility Department ID 2023-06-14 2023-06-14 Outpatient [facility] [id number] Univers 16:00:00 16:00:00 EMRE ity of [facility] 2023-03-16 2023-03-16 Telephone [facility] 1.2.840.114 [id number] Univers 00:00:00 00:00:00 [facility] [id number] it y of [place] [id number] Ángel as NETTIE?BLEA [id number] [address] MEDICAL OFFICE [facility] 2023-03-10 2023-03-10 Orders Doctor DUDLEY 1.2.840.114 [id number] Univers 00:00:00 00:00:00 Only Unassigned, CHANTAL [id number] ity of Dustin [facility] [id number] Ángel as [phone] [address] 2023-02-16 2023-02-16 Telephone [facility] 1.2.840.114 [id number] Univers 00:00:00 00:00:00 [facility] [id number] it y of Edward [place] [id number] Ángel as NETTIE?BLEA [id number] [address] MEDICAL OFFICE [facility] 2023-02-16 2023-02-16 Telephone [facility] 1.2.840.114 [id number] Univers 00:00:00 00:00:00 [facility] [id number] it y of [place] 4.2.7.2.686 Ángel as NETTIE?BLEA [id number] [address] MEDICAL OFFICE [facility] 2023-02-09 2023-02-09 Office [facility] 1.2.840.114 [id number] Univers 11:00:00 11:30:00 Visit [facility] [id number] it y of Edward [place] 4.2.7.2.686 Ángel as NETTIE?BLEA [id number] [address] MEDICAL OFFICE [facility] 2023-02-09 2023-02-09 Outpatient R [facility] [id number] Univers 11:00:00 11:00:00 EMRE [facility] 2022-12-13 2022-12-13 Office [facility] 1.2.840.114 [id number] Univers 15:30:00 15:45:00 Visit [facility] [id number] it y of [facility] [id number] Ángel as NETTIE?BLEA [id number] [address] OFFICE [facility] 2022-12-13 2022-12-13 Outpatient R [facility] [id number] Univers 15:30:00 15:30:00 [facility] 2022-11-09 2022-11-09 Office [facility] 1.2.840.114 [id number] Univers 15:45:00 16:00:00 Visit [facility] [id number] it y of [place] 4.2.7.2.686 Ángel as NETTIE?BLEA [id number] [address] OFFICE [facility] 2022-11-09 2022-11-09 Outpatient R [facility] [id number] Univers 15:45:00 15:45:00 [facility] 2022-11-09 2022-11-09 Orders Doctor OCTAVIA 1.2.840.114 [id number] Univers 00:00:00 00:00:00 Only Unassigned, CHANTAL [id number] ity of Dustin [facility] 4.2.7.2.686 Ángel as [id number] [address] 2022-11-08 2022-11-08 Telephone [facility] 1.2.840.114 [id number] Univers 00:00:00 00:00:00 [facility] [id number] it y of [place] 4.2.7.2.686 Ángel as NETTIE?BLEA [id number] Pr tushar MARTINEZ [address] [place] MEDICAL OFFICE [facility] 2022-08-11 2022-08-11 Orders Doctor OCTAVIA 1.2.840.114 [id number] Univers 00:00:00 00:00:00 Only Unassigned, CHANTAL [id number] ity of Dustin [facility] 4.2.7.2.686 Ángel as [id number] [address] 2022-05-11 2022-05-11 [facility] [id number] Univers 09:45:00 09:45:00 [facility] 2022-04-26 2022-04-26 [facility] [id number] Univers 16:30:00 16:30:00 [facility] 2022-04-20 2022-04-20 [facility] [id number] Univers 16:00:00 16:00:00 [facility] 2022-04-06 2022-04-06 Nurse Transition Lab, [facility] 1.2.840.1 [id number] Univers 15:00:00 15:15:00 Visit Cuco Emre [facility] 350.1.13 .10 ity of [facility] 4.2.7.2.686 Ángel as NETTIE?BLEA [id number] Pr tushar MCKEON [address] [place] MEDICAL OFFICE [facility] 2022-04-06 2022-04-06 [facility] [id number] Univers 15:00:00 15:00:00 [facility] 2022-04-06 2022-04-06 Office [facility] 1.2.840.114 [id number] Univers 14:30:00 15:00:00 Visit [facility] [id number] it y of [place] [facility] 4.2.7.2.686 Ángel as NETTIE?BLEA [id number] Pr tushar MCKEON[address] MEDICAL OFFICE [facility] 2022-04-06 2022-04-06 Outpatient R [facility] [id number] Univers 14:30:00 14:30:00 EMRE [facility] 2022-03-17 2022-03-17 [facility] 1.2.840.114 [id number] Univers 00:00:00 00:00:00 [facility] [id number] it y of Edward [place] 4.2.7.2.686 Ángel as NETTIE?BLEA [id number] [address] OFFICE [facility] 2022-02-24 2022-02-24 Outpatient R [facility] [id number] Univers 11:00:00 11:00:00 EMRE [facility] 2022-02-18 2022-02-18 [facility] 1.2.840.114 [id number] Univers 00:00:00 00:00:00 [facility] [id number] it y of [place] 4.2.7.2.686 Ángel as NETTIE?BLEA [id number] [address] OFFICE [facility] 2022-02-12 2022-02-12 [facility] 1.2.840.114 [id number] Univers 00:00:00 00:00:00 [facility] [id number] it y of [place] 4.2.7.2.686 Ángel as NETTIE?BLEA [id number] [address] OFFICE [facility] 2021-12-03 2021-12-03 Orders Doctor OCTAVIA 1.2.840.114 [id number] Univers 00:00:00 00:00:00 Only Unassigned, CHANTAL [id number] ity of Dustin HOSPITAL 4.2.7.2.686 Ángel as [id number] [address] 2021-10-26 2021-10-26 Telephone [facility] 1.2.840.114 [id number] Univers 00:00:00 00:00:00 [facility] [id number] it y of [place] 4.2.7.2.686 Ángel as NETTIE?BLEA [id number] Pr tushar MARTINEZ [address] [place] [address] MEDICAL OFFICE BUILDING 2021-10-26 2021-10-26 Orders Doctor OCTAVIA 1.2.840.114 [id number] Univers 00:00:00 00:00:00 Only Unassigned, CHANTAL 350.1.13.10 ity of Dustin [facility] 4.2.7.2.686 Ángel as [id number] [address] 2020-11-22 2020-11-22 Outpatient [facility] [id number] Univers 14:50:00 14:50:00 [facility] 2020-11-01 2020-11-01 Outpatient [facility] [id number] Univers 15:05:00 15:05:00 [facility] 2020-09-09 2020-09-09 Outpatient Devin NORWOOD, [facility] [id number] Univers 15:30:00 15:30:00 EMRE [facility] Results This patient has no known results.
[2023-04-13 09:22] LABS: Hematocrit 41.8 % (39.6-49.0); Lymphocytes % 28.8 % (15.3-44.8); MCV 90.6 fL (80-100); MPV 7.9 fL (7.6-11.3); Platelets 201 thou/uL (152-406); RBC Red Blood Cell Count 4.62 M/uL (4.33-5.43)
[2023-04-13 09:24] LABS: Protime INR 1.15
[2023-04-13 09:43] LABS: Potassium 3.9 mEq/L (3.5-5.1)
[2023-04-13 09:49] LABS: Troponin High Sensitivity 256.2 pg/mL (<58.9)
--- NOTE | 2023-04-13 10:12 | EDPHYS ---
Physician Documentation [facility] Name: Karson Giordano Age: 63 yrs Sex: Male : 1960 Arrival Date: 04/13/2023 Time: 08:53 Bed 4 Private MD: ED Physician Lisa Hwang HPI: 04/13 08:59 This 63 yrs old Black Male presents to ER via Unassigned with complaints of Chest pain, sp3 shortness of breath, back pain. 08:59 63-year-old male with history of Crohn's disease status post colectomy now with a sp3 colostomy bag, hypertension, pulmonary embolism currently on Eliquis now presents to the ED with chief complaint chest pain, shortness of breath, back pain. He had similar symptoms approximately 1 month ago. He currently denies any other associated symptoms including headache, neck pain, lower abdominal pain, lower back pain, nausea, vomiting, diarrhea, syncope, near syncope, fever, URI symptoms, known sick contacts, travel history, or any other signs or symptoms on ROS at this time.. Historical: - Allergies: 09:10 No Known Allergies; iw - Home Meds: 09:01 Eliquis oral [Active]; lisinopril Oral [Active]; iw - PMHx: 09:01 Crohn's Disease; HTN; PE; iw - PSHx: 09:01 Colostomy; Stented artery; iw - Immunization history:: Adult Immunizations unknown. - Social history:: Smoking status: Patient denies any tobacco usage or history of. ROS: 08:59 Constitutional: Negative for fever, chills, and weight loss, Eyes: Negative for injury, sp3 pain, redness, and discharge, ENT: Negative for injury, pain, and discharge, Neck: Negative for injury, pain, and swelling, Abdomen/GI: Negative for abdominal pain, nausea, vomiting, diarrhea, and constipation, MS/Extremity: Negative for injury and deformity, Skin: Negative for injury, rash, and discoloration, Neuro: Negative for headache, weakness, numbness, tingling, and seizure, Psych: Negative for depression, anxiety, suicide ideation, homicidal ideation, and hallucinations, Allergy/Immunology: Negative for hives, rash, and allergies, Endocrine: Negative for neck swelling, polydipsia, polyuria, polyphagia, and marked weight changes. 08:59 All other systems are negative. Exam: 09:00 Constitutional: This is a well developed, well nourished patient who is awake, alert, sp3 and in no acute distress. Head/Face: Normocephalic, atraumatic. Eyes: Pupils equal round and reactive to light, extra-ocular motions intact. Lids and lashes normal. Conjunctiva and sclera are non-icteric and not injected. Cornea within normal limits. Periorbital areas with no swelling, redness, or edema. ENT: Nares patent. No nasal discharge, no septal abnormalities noted. External auditory canals are clear. Oropharynx with no redness, swelling, or masses, exudates, or evidence of obstruction, uvula midline. Mucous membranes moist. Neck: Trachea midline, no thyromegaly or masses palpated, and no cervical lymphadenopathy. Supple, full range of motion without nuchal rigidity, or vertebral point tenderness. No Meningismus. Chest/axilla: Normal chest wall appearance and motion. Nontender with no deformity. No lesions are appreciated. Cardiovascular: Regular rate and rhythm with a normal S1 and S2. No gallops, murmurs, or rubs. Normal PMI, no JVD. No pulse deficits. Abdomen/GI: Soft, non-tender, with normal bowel sounds. No distension or tympany. No guarding or rebound. No evidence of tenderness throughout. Skin: Warm, dry with normal turgor. Normal color with no rashes, no lesions, and no evidence of cellulitis. MS/ Extremity: Pulses equal, no cyanosis. Neurovascular intact. Full, normal range of motion. Neuro: Awake and alert, GCS 15, oriented to person, place, time, and situation. Cranial nerves II-XII grossly intact. Motor strength 5/5 in all extremities. Sensory grossly intact. Cerebellar exam normal. Normal gait. Psych: Awake, alert, with orientation to person, place and time. Behavior, mood, and affect are within normal limits. 09:00 ECG was reviewed by the Attending Physician. EKG demonstrates normal sinus rhythm at 91 bpm with normal intervals, normal axis, poor R wave progression and diffuse nonspecific diffuse ST/T changes without evidence of acute ischemia. 09:00 Respiratory: Mild Rales bilaterally. Vital Signs: 09:10 BP 150 / 95; Pulse 85; Resp 22 S; Temp 97.6; Pulse Ox 100% on R/A; iw 09:30 BP 144 / 105; Pulse 88; Resp 16; Pulse Ox 100% ; ko1 10:00 BP 121 / 79; Pulse 92; Resp 16; Pulse Ox 100% ; ko1 12:00 BP 138 / 78; Pulse 88; Resp 16; Pulse Ox 100% on R/A; ss MDM: 08:55 Patient medically screened. sp3 09:01 Data reviewed: vital signs, nurses notes, old medical records, lab test result(s), EKG, sp3 radiologic studies. ED course: 63-year-old male with chest pain and shortness of breath with complex medical history. Differential diagnosis includes acute coronary syndrome, pulmonary embolism, vascular pathology including dissection or aneurysm, pneumonia, pleuritic chest pain, functional chest pain, musculoskeletal pain, gastritis, among others. Workup will include laboratory values, EKG, CT scan of the chest PE protocol and general observation. Disposition pending workup and patient course.. 10:08 ED course: Patient troponin is elevated greater than 250 with a creatinine of 1.4. His sp3 pain is improved just with time. BNP is also elevated at 5000. Chest x-ray demonstrates no significant pulmonary edema. Will admit patient and consult cardiology with serial troponins and Lasix to be started in the ED.. 10:15 ED course: CT scan of the chest PE protocol is still pending. I discussed this case sp3 with Dr. Austin who will be seeing patient at his first availability in the ED.. 11:00 ED course: CT scan of the chest demonstrates bilateral pulmonary emboli with sp3 right-sided pulmonary infarction. This likely caused patient's elevated troponin. I spoke to Dr. Henao pulmonology who states we will keep the patient here for now and obtain an echocardiogram. Patient's vital signs remained stable, he is not hypoxic, and not tachypneic.. 04/13 08:56 Order name: Basic Metabolic Panel; Complete Time: 10:04 sp3 04/13 08:56 Order name: CBC with Diff; Complete Time: 10: sp3 04/13 08:56 Order name: NT PRO-BNP; Complete Time: 10:04 sp3 04/13 08:56 Order name: PT-INR; Complete Time: 10: sp3 04/13 08:56 Order name: Troponin HS; Complete Time: 10:04 sp3 04/13 08:56 Order name: XRAY Chest (1 view) sp3 04/13 08:56 Order name: CT Chest For PE Angio sp3 04/13 08:56 Order name: EKG; Complete Time: 08:57 sp3 04/13 08:56 Order name: Cardiac monitoring; Complete Time: 09:13 sp3 04/13 08:56 Order name: EKG - Nurse/Tech; Complete Time: 09:13 sp3 04/13 08:56 Order name: IV Saline Lock; Complete Time: 09:13 sp3 04/13 08:56 Order name: Labs collected and sent; Complete Time: 09:13 sp3 04/13 08:56 Order name: O2 Per Protocol; Complete Time: 09:13 sp3 04/13 08:56 Order name: O2 Sat Monitoring; Complete Time: 09:14 sp3 Administered Medications: 10:18 Drug: Ondansetron IVP 4 mg Route: IVP; Site: left antecubital; ko1 10:20 Drug: morphine IVP or IV 4 mg Route: IVP; Infused Over: 4 mins; Site: left antecubital; ko1 10:27 Drug: Furosemide IVP 40 mg Route: IVP; Site: left antecubital; ko1 Disposition Summary: 04/13/23 10:11 Hospitalization Ordered Hospitalization Status: Inpatient Admission sp3 Provider: Jennifer Good Location: Telemetry/MedSur (Inpatient) sp3 Condition: Stable sp3 Problem: an acute exacerbation sp3 Symptoms: have worsened sp3 Bed/Room Type: Standard sp3 Room Assignment: 230(04/13/23 13:07) bd Diagnosis - CHF, NSTEMI, chest pain sp3 Forms: - Medication Reconciliation Form sp3 - SBAR form sp3 Signatures: Dispatcher [employer] EDBianca Horvath Irene, RN RN iw Patel, Setul, MD MD sp3 Deysi Hannah RN RN ko1 Rosita Zhang RN RN db Corrections: (The following items were deleted from the chart) 13:07 10:11 sp3 bd
--- NOTE | 2023-04-13 10:12 | ER ---
Nurse's Notes [facility] Name: Karson Giordano Age: 63 yrs Sex: Male : 1960 Arrival Date: 04/13/2023 Time: 08:53 Bed 4 Private MD: Diagnosis: CHF, NSTEMI, chest pain Presentation: 04/13 09:00 Chief complaint: Patient states: right sided chest pain since last night , feels sharp, iw hurts more when he takes a deep breath and when he lies back. Coronavirus screen: At this time, the client does not indicate any symptoms associated with coronavirus-19. Ebola Screen: Patient negative for fever greater than or equal to 101.5 degrees Fahrenheit, and additional compatible Ebola Virus Disease symptoms Patient denies exposure to infectious person. Patient denies travel to an Ebola-affected area in the 21 days before illness onset. No symptoms or risks identified at this time. Initial Sepsis Screen: Does the patient meet any 2 criteria? No. Patient's initial sepsis screen is negative. Does the patient have a suspected source of infection? No. Patient's initial sepsis screen is negative. Risk Assessment: Do you want to hurt yourself or someone else? Patient reports no desire to harm self or others. Onset of symptoms was April 12, 2023. 09:00 Method Of Arrival: Wheelchair iw 09:00 Acuity: AYESHA 2 iw Historical: - Allergies: 09:10 No Known Allergies; iw - Home Meds: 09:01 Eliquis oral [Active]; lisinopril Oral [Active]; iw - PMHx: 09:01 Crohn's Disease; HTN; PE; iw - PSHx: 09:01 Colostomy; Stented artery; iw - Immunization history:: Adult Immunizations unknown. - Social history:: Smoking status: Patient denies any tobacco usage or history of. Screenin:26 [facility] ED Fall Risk Assessment (Adult) History of falling in the last 3 months, db including since admission No falls in past 3 months (0 pts) Confusion or Disorientation No (0 pts) Intoxicated or Sedated No (0 pts) Impaired Gait No (0 pts) Mobility Assist Device Used No (0 pt) Altered Elimination No (0 pt) Score/Fall Risk Level 0 - 2 = Low Risk Oriented to surroundings, Maintained a safe environment. Abuse screen: Denies threats or abuse. Denies injuries from another. Nutritional screening: No deficits noted. Tuberculosis screening: No symptoms or risk factors identified. Assessment: 09:26 Reassessment: Patient appears in no apparent distress at this time. Patient and/or db family updated on plan of care and expected duration. Pain level reassessed. Patient is alert, oriented x 3, equal unlabored respirations, skin warm/dry/pink. General: Appears in no apparent distress. comfortable, Behavior is calm, cooperative. Pain: Complains of pain in chest Pain does not radiate. Pain began gradually, 1 day ago. Neuro: Level of Consciousness is awake, alert, obeys commands, Oriented to person, place, time, situation. Cardiovascular: Reports chest pain. Respiratory: Airway is patent Respiratory effort is even, unlabored, Respiratory pattern is regular, symmetrical. Vital Signs: 09:10 BP 150 / 95; Pulse 85; Resp 22 S; Temp 97.6; Pulse Ox 100% on R/A; iw 09:30 BP 144 / 105; Pulse 88; Resp 16; Pulse Ox 100% ; ko1 10:00 BP 121 / 79; Pulse 92; Resp 16; Pulse Ox 100% ; ko1 12:00 BP 138 / 78; Pulse 88; Resp 16; Pulse Ox 100% on R/A; ss ED Course: 08:54 Patient arrived in ED. bd 08:55 Lisa Hwang MD is Attending Physician. sp3 08:58 Rosita Zhang, RN is Primary Nurse. db 09:01 Triage completed. iw 09:02 Arm band placed on. iw 09:14 Basic Metabolic Panel Sent. bc6 09:14 CBC with Diff Sent. bc6 09:14 NT PRO-BNP Sent. bc6 09:14 PT-INR Sent. bc6 09:14 Troponin HS Sent. bc6 09:14 Inserted saline lock: 22 gauge in left forearm, using aseptic technique. Blood bc6 collected. 09:26 Patient has correct armband on for positive identification. Bed in low position. Call db light in reach. Side rails up X 1. Client placed on continuous cardiac and pulse oximetry monitoring. NIBP monitoring applied. 09:26 Patient maintains SpO2 saturation greater than 95% on room air. db 09:32 XRAY Chest (1 view) In Process Unspecified. EDMS 10:11 Jennifer Good MD is Hospitalizing Provider. sp3 10:22 Radiology exam delayed due to pt requesting pain meds prior to CT scan. ls3 10:48 CT Chest For PE Angio In Process Unspecified. EDMS 13:16 No provider procedures requiring assistance completed. Patient admitted, IV remains in mb9 place. 13:20 Provided Education on: admission. ss Administered Medications: 10:18 Drug: Ondansetron IVP 4 mg Route: IVP; Site: left antecubital; ko1 10:20 Drug: morphine IVP or IV 4 mg Route: IVP; Infused Over: 4 mins; Site: left antecubital; ko1 10:27 Drug: Furosemide IVP 40 mg Route: IVP; Site: left antecubital; ko1 Medication: 09:26 VIS not applicable for this client. db Outcome: 10:11 Decision to Hospitalize by Provider. sp3 13:16 Admitted to Med/surg via wheelchair, room 230, with chart, Report called to KATELYN Calloway9 13:16 Condition: stable 13:16 Instructed on the need for admit. 13:23 Patient left the ED. mb9 Signatures: Dispatcher [employer] EDMS Bianca Jarrett Irene, KATELYN ZEPEDA iw Valencia Wetzel RN RN ss Rashel Arvizu ls3 Lisa Hwang MD MD sp3 Deysi Hannah RN RN ko1 Rosita Zhang RN RN db Alana Calvo RN RN mb9 Meme Escamilla 6
[2023-04-13] MEDS ORDERED: MORPHINE 4 MG/ML SYR ONE (10:26)
[2023-04-13] MEDS ORDERED: ONDANSETRON 4 MG/2 ML VIAL ONE (10:27)
[2023-04-13] MEDS ORDERED: FUROSEMIDE 40 MG/4 ML VIAL ONE (10:27)
--- NOTE | 2023-04-13 10:58 | RAD REPORT ---
EXAM DESCRIPTION: RADChest Single View04/13/2023 9:30 am CLINICAL HISTORY: CHEST PAIN COMPARISON: Chest Single View dated 03/02/2023; Chest Single View dated 02/11/2023; Chest Single View d ated 02/10/2023; Chest Single View dated 01/30/2023 TECHNIQUE: Portable AP view of the chest. FINDINGS: Improving patchy left basilar airspace opacities. No new consolidative opacity. No pneumot horax or effusion. The cardiomediastinal contours are unremarkable. IMPRESSION: Improving patchy left basilar airspace opacity.
--- NOTE | 2023-04-13 11:04 | RAD REPORT ---
EXAM DESCRIPTION: CT - Chest For Pe Angio - 04/13/2023 10:46 am CLINICAL HISTORY: CHEST PAIN COMPARISON: Thorax Wo Con dated 03/02/2023; Chest For Pe Angio dated 02/11/2023; Chest For Pe Angio gio ed 01/30/2023; Chest Single View dated 04/13/2023 TECHNIQUE: Thin axial CT images of the chest were obtained following administration of 100 mL Isovue 370 IV contrast. Multiplanar reconstructions, and maximum intensity projection reconstructions were generated and reviewed. Exam utilizes a protocol for optimal evaluation of pulmonary arterial tree. All CT scans are performed using dose optimization technique as appropriate and may include automated exposure control or mA/KV adjustment according to patient size. FINDINGS: Large burden of right pulmonary artery emboli, with occlusive emboli along the branches to the medial right basal lower lobe. Smaller burden of emboli on the left starting at the first order branches. Otherwise subocclusive emboli are noted throughout branches to the right lung lobes and lef t upper more than lower lobes. Peripheral right middle lobe confluent airspace opacity, pleural-based, may suggest a pulmonary infar ct. Smaller pleural-based triangular opacities along the dependent right lower lobe may reflect atele ctasis or smaller infarcts. Mild cardiomegaly. No evidence of right heart strain. No acute or significant aorta findings. No mass in the lung parenchyma. No pleural thickening or pleural effusion. No pneumothorax. No abnormal mediastinal or hilar masses or lymphadenopathy seen. No chest wall mass or abnormal axill iary lymphadenopathy. IMPRESSION: Launch burden of right pulmonary artery emboli, with smaller burden on the left. Most of the emboli are subocclusive, with the exception of occlusive emboli along its branches to the medial right basal lower lobe. Peripheral right middle lobe confluent pleural-based airspace opacity may suggest a pulmonary infarct . The findings were communicated to Marsha Hirsch on 04/13/2023 at 10:59 hours.
[2023-04-13] MEDS ORDERED: HYDROCODONE/APAP 10/325 TAB PO PRN ×2 (12:33→21:57)
[2023-04-13] MEDS ORDERED: ACETAMINOPHEN 325 MG TABLET PO PRN ×2 (12:33→21:52)
[2023-04-13] MEDS ORDERED: ONDANSETRON 4 MG/2 ML VIAL IV PRN ×2 (13:20→21:57)
[2023-04-13 13:58] VITALS: BMI 25.2
[2023-04-13 16:29] LABS: Magnesium 2.1 mg/dL (1.6-2.4); Phosphorus 3.7 mg/dL (2.5-4.9); Thyroid Stimulating Hormone 1.63 uIU/mL (0.358-3.740)
[2023-04-13 18:23] LABS: Specific Gravity 1.017 (1.005-1.030); Urine Bilirubin NEGATIVE (Negative); Urine Blood Negative (Negative); Urine Clarity Clear (Clear); Urine Color Colorless (Yellow); Urine Glucose NEGATIVE (Negative); Urine Protein NEGATIVE (Negative); Urine Urobilinogen Normal (Normal)
--- NOTE | 2023-04-13 18:33 | P.HP ---
Certification for Inpatient Patient admitted to: Inpatient With expected LOS: >2 Midnights Patient will require the following post-hospital care: None Practitioner: I am a practitioner with admitting privileges, knowledge of patient current condition, hospital course, and medical plan of care. Services: Services provided to patient in accordance with Admission requirements found in Title 42 Section 412.3 of the Code of Federal Regulations Patient History Date of Service: 04/13/23 Reason for admission: Chest pain. History of Present Illness: Patient is a 63-year-old male with a past medical history significant for hypertension, CAD, PE, CHF, Crohn's disease who presents with complains of chest pain located in the right chest wall that has been ongoing for the past 1 week. Patient rated pain as 10/10 in severity and described pain as sharp in quality. Patient reported associated signs and symptoms of shortness of breath, orthopnea and left fingers tingling. Patient denies any other signs and symptoms. Symptoms are aggravated or relieved by nothing. Patient decided to present to the hospital due to worsening symptoms. Allergies No Known Allergies Allergy (Verified 03/02/23 20:50) Home Medications: Aspirin [Aspirin EC 81 MG] 81 mg PO DAILY #30 tablet. 09/14/19 Atorvastatin Calcium [Lipitor] 40 mg PO BEDTIME #30 tab 09/14/19 Apixaban [Eliquis] 5 mg PO BID 30 Days #60 tablet 01/31/23 Furosemide 40 mg PO DAILY 30 Days #30 tab 03/03/23 Spironolactone [Aldactone] 25 mg PO DAILY 30 Days #30 tab 03/03/23 Metoprolol Succinate 50 mg PO DAILY 04/13/23 Sacubitril/Valsartan [Entresto 49 mg-51 mg Tablet] 1 tab PO BID 04/13/23 - Past Medical/Surgical History Has patient received pneumonia vaccine in the past: Yes Diabetic: No -: Crohn's -: HTN -: Pulmonary embolism -: History of COVID infection -: CHF -: Scope to bilat knees Meniscus/ACL -: Colostomy -: Stents coronary artery Psychosocial/ Personal History: Patient is retired, lives at home with his - Family History Mother -: Diabetes, Cancer Father -: Hypertension, GI disease, Diabetes Brother -: Diabetes, Stroke Sister -: Diabetes - Social History Smoking Status: Never smoker Alcohol use: Yes CD- Drugs: No Caffeine use: Yes Place of Residence: Home Review of Systems General: Unremarkable Eyes: Unremarkable ENT: Unremarkable Respiratory: Shortness of Breath Cardiovascular: Chest Pain, Orthopnea Gastrointestinal: Unremarkable Genitourinary: Unremarkable Musculoskeletal: Unremarkable Integumentary: Unremarkable Neurological: Other (Left fingers tingling) Lymphatics: Unremarkable Physical Examination - Vital Signs Temperature: 98.3 F Blood Pressure: 110/76 Pulse: 82 Respirations: 16 Pulse Ox (%): 94 - Physical Exam General: Alert, In no apparent distress, Oriented x3, Cooperative HEENT: Atraumatic, PERRLA, Mucous membr. moist/pink, EOMI, Sclerae nonicteric Neck: Supple, 2+ carotid pulse no bruit, No LAD, Without JVD or thyroid abnormality Respiratory: Clear to auscultation bilaterally, Normal air movement Cardiovascular: No edema, Regular rate/rhythm, Normal S1 S2 Capillary refill: <2 Seconds Gastrointestinal: Normal bowel sounds, Soft and benign, No tenderness, Other (Ostomy bag presents) Musculoskeletal: No clubbing, No swelling, No tenderness Integumentary: No rashes, No breakdown, No significant lesion, No warmth Neurological: Normal speech, Normal tone, Normal affect Lymphatics: No axilla or inguinal lymphadenopathy - Studies Laboratory Data (last 24 hrs) 04/13/23 04/13/23 04/13/23 09:10 09:10 09:10 WBC 7.00 Hgb 13.7 Hct 41.8 Plt Count 201 PT 12.7 H INR 1.15 Sodium 139 Potassium 3.9 BUN 17 Creatinine 1.40 H Glucose 121 H Assessment and Plan - Plan --Pulmonary embolism. Patient has a history of PE. CTA PE protocol indicates Launch burden of right pulmonary artery emboli, with smaller burden on the left. Most of the emboli are subocclusive, with the exception of occlusive emboli along its branches to the medial right basal lower lobe. Peripheral right middle lobe confluent pleural-based airspace opacity may suggest a pulmonary infarct. Infant Childcare Provider consulted.--Recommend continuing Eliquis. Will await further recommendation from student support services director. --NSTEMI. Will continue to trend troponin levels. Cardiology consulted. Telemetry to monitor for any significant arrhythmia. Continue Eliquis. Will await further recommendation from dive superintendent. --Acute on chronic systolic CHF exacerbation. Continue diuresis with Lasix. Daily weight and strict I/O. Cardiology on board. Continue home medications. Will await further recommendations from dive superintendent. --History of CAD. Continue aspirin, Eliquis and statin. --Crohn's disease with colostomy in place. Continue supportive care --Hypertension. Stable. Continue home medications. --Hyperlipidemia. Continue statin. --CKD 3A. Stable. Will continue to monitor renal functions. --DVT prophylaxis with Eliquis. Discharge Plan: Home Plan to discharge in: Greater than 2 days - Advance Directives Does patient have a Living Will: No Does patient have a Durable POA for Healthcare: No - Code Status/Comfort Care Code Status Assessed: Yes Physician Review: Patient Assessed, Agree with Above Assessment and Plan Critical Care: No
[2023-04-13] MEDS ORDERED: FUROSEMIDE 40 MG/4 ML VIAL IV SCH (19:00)
[2023-04-13] MEDS ORDERED: ENOXAPARIN 80 MG/0.8 ML SQ ONE ×2 (19:57→20:10)
[2023-04-13] MEDS ORDERED: APIXABAN 5 MG TABLET PO SCH (21:00)
[2023-04-13] MEDS ORDERED: ENOXAPARIN 80 MG/0.8 ML SQ SCH (21:00)
[2023-04-13] MEDS ORDERED: ATORVASTATIN 40 MG TAB PO SCH (21:00)
[2023-04-13] MEDS ORDERED: SACUBITRIL/VALSARTAN 49/51 MG TAB PO SCH (21:00)
[2023-04-13] MEDS: FUROSEMIDE 40 MG/4 ML VIAL IV SCH (22:51)
[2023-04-13] MEDS: SACUBITRIL/VALSARTAN 49/51 MG TAB PO SCH (22:52)
[2023-04-13] MEDS: ATORVASTATIN 40 MG TAB PO SCH (22:52)
--- NOTE | 2023-04-14 00:02 | CON ---
Date of Consultation: 04/13/2023 Reason For Consultation: Congestive heart failure exacerbation. History Of Present Illness: 63-year-old, well-known patient to me, has history of congestive heart f ailure, pulmonary embolism, hypertension, presented with chest pain, right-sided, severe 10/10, but m ore so, he is severely short of breath with significant orthopnea. The patient has been treated as a n outpatient and I was trying to titrate the metoprolol and the Entresto. He was doing fine, however , yesterday last night, he had pork chops for dinner, which were very salty and he became severely sh ort of breath today. Past Medical History: As outlined above in the HPI. Medications: Refer reconciliation sheet for detailed list. Allergies: NO KNOWN DRUG ALLERGIES. Family History: No premature coronary artery disease or cancer. Social History: Does not smoke or drink. Does not use any drugs. Review of Systems: All systems reviewed, they are negative except what is mentioned in HPI. Physical Examination: Vital Signs: Reviewed. Head and Neck: Pupils are equal, reactive to light. Intact eye movements. Positive JVD. No cervic al lymphadenopathy. Neck: Supple. Thyroid is not enlarged. Lungs: Crackles in both lung bases. No accessory muscle use or muscle retraction. Heart: Regular rate and rhythm. No extra sounds. Abdomen: Soft, nontender. Bowel sounds positive. No organomegaly. No masses or hernia. Extremities: No edema, clubbing, or cyanosis. Intact pulses. Skin: No rash noted. Neurologic: Alert, awake, oriented x3. No acute focal deficits appreciated. Lymph nodes: No cervical or axillary lymphadenopathy. Investigations: Troponin was 256, BUN 17, creatinine 1.40 and hemoglobin is 15.7. Assessment/recommendation: 1.Acute on chronic systolic heart failure exacerbation, known to have very low ejection fraction. A gree with Lasix 40 mg IV q.12 hours. Monitor BUN, creatinine, electrolytes. Strict low-salt diet wa s re-emphasized to the patient. He had a very salty meal last night. 2.Chest pain. It is atypical, but troponin is borderline elevated. This patient definitely had isc hemic workup in the recent past, but at this point, we will trend the troponin and if there is a subs tantial rise, I might elect to do a coronary angiogram on him. 3.History of pulmonary embolism. He is on Eliquis as an outpatient. To continue that as those pulm onary embolisms were unprovoked. He had a CTA that showed large burden of right pulmonary artery emb olus with occlusive emboli along the branches of the medial right basal lower lobe. As such, at this point, discontinue Eliquis and start him on Lovenox 1 mg/kg subcu q.12 hours and obtain an echocardi ogram on him tomorrow morning. His vital signs are stable. If condition changes, he might need a th rombectomy. Case was discussed with primary hospitalist. /SABINE Voice ID: [id number] Report ID: [id number]
[2023-04-14 04:47] LABS: Absolute Lymphocytes (CBC) 1.6 K/uL (0.7-4.9); Hematocrit 39.4 % (39.6-49.0); Lymphocytes % 23.6 % (15.3-44.8); MPV 8.3 fL (7.6-11.3); Platelets 198 thou/uL (152-406); RBC Red Blood Cell Count 4.38 M/uL (4.33-5.43)
[2023-04-14 05:14] LABS: Magnesium 2.1 mg/dL (1.6-2.4); Potassium 3.7 mEq/L (3.5-5.1)
[2023-04-14] MEDS ORDERED: TENECTEPLASE 50 MG/10 ML VIAL IV STA ×2 (08:19→08:32)
[2023-04-14] MEDS ORDERED: MORPHINE 2 MG/ML SYR IV PRN (08:23)
--- NOTE | 2023-04-14 08:27 | P.CNS ---
Date of Consult: 04/14/23 Reason for Consult: Pulmonary embolism Chief Complaint: Chest pain. History of Present Illness: Patient is 63 years of age admitted with acute onset of right-sided chest pain shortness of breath he was admitted from the emergency room with massive pulmonary embolism right ventricular strain elevated troponin and hypoxemia no prior history of thromboembolism apparently was not taking his Eliquis he was out of it for the past 3 weeks currently patient is very short of breath on mild exertion still having some chest pain Allergies No Known Allergies Allergy (Verified 03/02/23 20:50) Home Medications: Aspirin [Aspirin EC 81 MG] 81 mg PO DAILY #30 tablet. 09/14/19 Atorvastatin Calcium [Lipitor] 40 mg PO BEDTIME #30 tab 09/14/19 Apixaban [Eliquis] 5 mg PO BID 30 Days #60 tablet 01/31/23 Furosemide 40 mg PO DAILY 30 Days #30 tab 03/03/23 Spironolactone [Aldactone] 25 mg PO DAILY 30 Days #30 tab 03/03/23 Metoprolol Succinate 50 mg PO DAILY 04/13/23 Sacubitril/Valsartan [Entresto 49 mg-51 mg Tablet] 1 tab PO BID 04/13/23 - Past Medical/Surgical History Diabetic: No -: Crohn's -: HTN -: Pulmonary embolism -: History of COVID infection -: CHF -: Scope to bilat knees Meniscus/ACL -: Colostomy -: Stents coronary artery Psychosocial/ Personal History: Patient is retired, lives at home with his - Family History Mother Medical History: Diabetes, Cancer Father Medical History: Hypertension, GI disease, Diabetes Brother Medical History: Diabetes, Stroke Sister Medical History: Diabetes - Social History Smoking Status: Current every day smoker Alcohol use: Yes CD- Drugs: No Caffeine use: Yes Place of Residence: Home Review of Systems Respiratory: Shortness of Breath Cardiovascular: Chest Pain Physical Examination Temp Pulse Resp BP Pulse Ox 98.1 F 76 15 115/73 98 04/14/23 04:00 04/14/23 06:00 04/14/23 06:00 04/14/23 06:00 04/14/23 06:00 General: Alert, Oriented x3 HEENT: Atraumatic Neck: Supple Respiratory: Clear to auscultation bilaterally, Diminished, Friction rub Cardiovascular: Normal pulses, Regular rate/rhythm Laboratory Data (last 24 hrs) 04/13/23 04/13/23 04/13/23 09:10 09:10 09:10 WBC 7.00 Hgb 13.7 Hct 41.8 Plt Count 201 PT 12.7 H INR 1.15 Sodium 139 Potassium 3.9 BUN 17 Creatinine 1.40 H Glucose 121 H - Problems (1) Pulmonary embolism Current Visit: Yes Status: Acute Plan: Patient is 63 years of age admitted with chest pain shortness of breath he has massive pulmonary embolism requiring oxygen short of breath on mild exertion probably has a pulmonary infarct on the CT scan plan to give full dose of thrombolysis is no active contraindication to these and has not had any surgeries or history of stroke mild renal insufficiency labs reviewed renal function is abnormal treat with IV fluids mildly anemic patient got Lovenox yesterday he has been off Eliquis for the past 3 weeks also has severe congestive heart failure cussed with the patient regarding full dose TNK and discussed with him reviewed the risk for bleeding and he agrees to the full dose
[2023-04-14] MEDS ORDERED: ENOXAPARIN 80 MG/0.8 ML SQ SCH (09:00)
[2023-04-14] MEDS ORDERED: METOPROLOL XL 50 MG TAB PO SCH (09:00)
[2023-04-14] MEDS ORDERED: SPIRONOLACTONE 25 MG TABLET PO SCH (09:00)
[2023-04-14] MEDS ORDERED: ASPIRIN 81 MG CHEWABLE TABLET PO SCH (09:00)
[2023-04-14] MEDS ORDERED: HYDROMORPHONE HCL 2 MG/ML inj IV ONE (09:15)
[2023-04-14] MEDS: HYDROMORPHONE HCL 2 MG/ML inj IV ONE ×2 (09:21→09:22)
[2023-04-14] MEDS: METOPROLOL XL 50 MG TAB PO SCH (12:10)
[2023-04-14] MEDS: ASPIRIN 81 MG CHEWABLE TABLET PO SCH (12:11)
[2023-04-14] MEDS: SACUBITRIL/VALSARTAN 49/51 MG TAB PO SCH ×2 (12:11→20:29)
[2023-04-14] MEDS: FUROSEMIDE 40 MG/4 ML VIAL IV SCH ×2 (12:11→17:11)
[2023-04-14] MEDS: SPIRONOLACTONE 25 MG TABLET PO SCH (12:11)
--- NOTE | 2023-04-14 14:14 | EKG ---
Test Date: 2023-04-13 Test Time: 08:57:57 House Nurse: RANJANA MEASUREMENT RESULTS: Intervals: Rate: 91 UT: 178 QRSD: 94 QT: 374 QTc: 460 Otis: P: 61 UT: 178 QRS: 24 T: 90 INTERPRETIVE STATEMENTS: Normal sinus rhythm Left ventricular hypertrophy T wave abnormality, consider lateral ischemia Prolonged QT Abnormal ECG Compared to ECG 03/02/2023 14:58:14 Possible ischemia now present T-wave abnormality still present Electronically Signed On 04-14-23 14:11:24 CDT by Josef Bales
--- NOTE | 2023-04-14 14:39 | PN ---
Date of Progress Note: 04/14/2023 Subjective: Seen by bedside, doing clinically still the same. I discussed the case with the pulmono logist and decided to proceed with thrombolytics therapy due to having a massive pulmonary embolism i n the right pulmonary artery. Patient is maintaining soft blood pressure and having significant ches t pain with breathing. Review of Systems: Positive for chest pain. No shortness of breath. No nausea, vomiting, diarrhea. No orthopnea. No lower extremity edema. No history of urinary urgency. All other systems reviewed were negative. Physical Examination: Vital Signs: Reviewed. Head and Neck: Pupils are equal, reactive to light. Intact eye movements. No JVD. No cervical lym phadenopathy. Neck is supple. Thyroid is not enlarged. Lungs: Clear to auscultation bilaterally. No rhonchi, wheezing, or crackles. No accessory muscle u se. Heart: Regular rate and rhythm. No extra sounds. Abdomen: Soft, nontender. Bowel sounds positive. No organomegaly. No masses or hernia. No rigidi ty or rebound. Extremities: No edema, clubbing, or cyanosis. Intact pulses. Skin: No rashes. Neurologic: Alert, awake, oriented x3. No acute focal deficits appreciated. Investigations: BUN 21, creatinine 1.52, and his troponin peaked at 220. Assessment/recommendations: 1.Massive pulmonary embolism. Discussed with Pulmonary and decided for thrombolytics therapy today. He will be started on TNK infusion and afterwards to carry on the anticoagulation with Lovenox that was started yesterday. 2.Elevated troponin due to the massive pulmonary embolism and this is not cardiac. 3.Chronic systolic heart failure, appears to be euvolemic. Creatinine went up slightly, so I will stop the Lasix on him. 4.Hypertension. Pressure is controlled. Continue home medications. SR/MODL Voice ID: [id number] Report ID: [id number]
[2023-04-14 15:09] VITALS: O2SAT 96
[2023-04-14] MEDS ORDERED: ONDANSETRON 4 MG/2 ML VIAL IV PRN (16:26)
[2023-04-14] MEDS: ENOXAPARIN 80 MG/0.8 ML SQ SCH (17:11)
[2023-04-14] MEDS: ATORVASTATIN 40 MG TAB PO SCH (20:29)
[2023-04-15 04:57] LABS: Absolute Lymphocytes (CBC) 1.6 K/uL (0.7-4.9); Hematocrit 40.6 % (39.6-49.0); Lymphocytes % 15.4 % (15.3-44.8); MCV 90.3 fL (80-100); MPV 8.3 fL (7.6-11.3); Platelets 192 thou/uL (152-406); RBC Red Blood Cell Count 4.49 M/uL (4.33-5.43)
[2023-04-15 05:06] LABS: Magnesium 2.4 mg/dL (1.6-2.4); Potassium 4.2 mEq/L (3.5-5.1)
[2023-04-15] MEDS: ENOXAPARIN 80 MG/0.8 ML SQ SCH (05:48)
[2023-04-15] MEDS: ASPIRIN 81 MG CHEWABLE TABLET PO SCH (08:28)
[2023-04-15] MEDS: METOPROLOL XL 50 MG TAB PO SCH (08:29)
[2023-04-15] MEDS: FUROSEMIDE 40 MG/4 ML VIAL IV SCH (08:29)
[2023-04-15] MEDS: SACUBITRIL/VALSARTAN 49/51 MG TAB PO SCH (08:30)
[2023-04-15] MEDS: SPIRONOLACTONE 25 MG TABLET PO SCH (08:30)
--- NOTE | 2023-04-15 08:51 | ECHO ---
HEIGHT: 5 ft 10 in WEIGHT: 176 lb 3.2 oz DATE OF STUDY: 04/14/[address]: Josef Bales 2-DIMENSIONAL: YES M.MODE: YES DOPPLER: YES COLOR FLOW: YES TDS: PORTABLE: YES DEFINITY: BUBBLE STUDY: DIAGNOSIS: PULMONARY EMBOLUS CARDIAC HISTORY: CATHERIZATION: SURGERY: PROSTHETIC VALVE: PACEMAKER: MEASUREMENTS (cm) DIASTOLIC (NORMALS) SYSTOLIC (NORMALS) IVSd 1.0 (0.6-1.2) LA Diam 4.0 (1.9-4.0) LVEF 22% LVIDd 6.7 (3.5-5.7) LVIDs 6.0 (2.0-3.5) %FS 10% LVPWd 0.9 (0.6-1.2) Ao Diam 2.5 (2.0-3.7) 2 DIMENSIONAL ASSESSMENT: RIGHT ATRIUM: NORMAL LEFT ATRIUM: ENLARGED RIGHT VENTRICLE: NORMAL LEFT VENTRICLE: DILATED LEFT VENTRICLE TRICUSPID VALVE: NORMAL MITRAL VALVE: MILD MITRAL REGURGITATION PULMONIC VALVE: NORMAL AORTIC VALVE: MILD AORTIC INSUFFICIENCY PERICARDIAL EFFUSION: NONE AORTIC ROOT: NORMAL LEFT VENTRICULAR WALL MOTION: SEVERE GLOBAL HYPOKINESIS DOPPLER/COLOR FLOW: SEE BELOW COMMENTS: 1. SEVERELY DEPRESSED LEFT VENTRICULAR EJECTION FRACTION 25-30% 2. SEVERE GLOBAL HYPOKINESIS 3. NORMAL RIGHT VENTRICULAR SIZE AND FUNCTION 4. SEVERELY DILATED LEFT VENTRICLE 5. LEFT ATRIAL ENLARGEMENT 6. MILD MITRAL REGURGITATION 7. MILD AORTIC INSUFFICIENCY TECHNOLOGIST: DEEP CALDERÓN
[2023-04-15] MEDS ORDERED: APIXABAN 5 MG TABLET PO SCH (09:00)
[2023-04-15 12:22] VITALS: TEMP 97.6
--- NOTE | 2023-04-15 12:33 | P.PN ---
Date of Service: 04/14/23 Subjective Patient is clinically doing well. Patient clinical symptoms are much better. Anticipate discharge over the next 24 to 48 hours. Physical Examination - Vital Signs Reviewed - Physical Exam General: Alert, In no apparent distress, Oriented x3, Cooperative Respiratory: Clear to auscultation bilaterally, Normal air movement Cardiovascular: No edema, Regular rate/rhythm, Normal S1 S2 Gastrointestinal: Normal bowel sounds, Soft and benign, No tenderness, Other (Ostomy bag presents) Musculoskeletal: No clubbing, No swelling, No tenderness Integumentary: No rashes, No breakdown, No significant lesion, No warmth Neurological: Normal speech, Normal tone, Normal affect Assessment and Plan -Assessment/Plan --Pulmonary embolism. Patient has a history of PE. Status post tPA. Continue anticoagulation. --NSTEMI. Can follow-up with cardiology --Acute on chronic systolic CHF exacerbation. Status has stabilized. Heart failure compensated --History of CAD. Continue aspirin, Eliquis and statin. --Crohn's disease with colostomy in place. Continue supportive care --Hypertension. Stable. Continue home medications. --Hyperlipidemia. Continue statin. --CKD 3A. Stable. Will continue to monitor renal functions. --DVT prophylaxis with Eliquis. Discharge Plan: Home Plan to discharge in: Greater than 2 days - Advance Directives Does patient have a Living Will: No Does patient have a Durable POA for Healthcare: No - Code Status/Comfort Care Code Status Assessed: Yes Physician Review: Patient Assessed, Agree with Above Assessment and Plan Critical Care: No
--- NOTE | 2023-04-15 12:36 | P.DS ---
Discharge Date: 04/15/23 Disposition: ROUTINE DISCHARGE Discharge Condition: GOOD Reason for Admission: Chest pain. Consultations: Cardiology Pulmonary Brief History of Present Illness: Patient is a 63-year-old male with a past medical history significant for hypertension, CAD, PE, CHF, Crohn's disease who presents with complains of chest pain located in the right chest wall that has been ongoing for the past 1 week. Patient rated pain as 10/10 in severity and described pain as sharp in quality. Patient reported associated signs and symptoms of shortness of breath, orthopnea and left fingers tingling. Patient denies any other signs and symptoms. Symptoms are aggravated or relieved by nothing. Patient decided to present to the hospital due to worsening symptoms. Hospital Course: Patient has done well during hospitalization. We will continue with anticoagulation. Patient was given tPA and patient has done well. Patient has not been compliant with his Eliquis and he was advised that this is imperative for him to continue taking anticoagulation going forward. Patient will continue with outpatient follow-up with cardiology and pulmonary. His heart failure is compensated as well. Continue with diuretics at discharge. At this time patient is stable for discharge home. Vital Signs/Physical Exam: Temp Pulse Resp BP Pulse Ox 97.6 F 76 19 107/91 H 93 04/15/23 12:00 04/15/23 12:00 04/15/23 12:00 04/15/23 12:00 04/15/23 12:00 General: Alert, In no apparent distress, Oriented x3 Laboratory Data at Discharge: WBC 10.50 thou/uL (4.3-10.9) 04/15/23 04:24 Hgb 13.1 g/dL (13.6-17.9) L 04/15/23 04:24 Hct 40.6 % (39.6-49.0) 04/15/23 04:24 Plt Count 192 thou/uL (152-406) 04/15/23 04:24 PT 12.7 SECONDS (9.5-12.5) H 04/13/23 09:10 INR 1.15 04/13/23 09:10 APTT 35.4 SECONDS (24.3-36.9) 04/14/23 16:03 Sodium 136 mEq/L (136-145) 04/15/23 04:24 Potassium 4.2 mEq/L (3.5-5.1) D 08/11/23 04:24 BUN 31 mg/dL (7-18) H 04/15/23 04:24 Creatinine 1.84 mg/dL (0.70-1.30) H 04/15/23 04:24 Glucose 99 mg/dL (74-106) 04/15/23 04:24 Phosphorus 3.7 mg/dL (2.5-4.9) 04/13/23 15:52 Magnesium 2.4 mg/dL (1.6-2.4) 04/15/23 04:24 Home Medications: Aspirin [Aspirin EC 81 MG] 81 mg PO DAILY #30 tablet. 09/14/19 Atorvastatin Calcium [Lipitor] 40 mg PO BEDTIME #30 tab 09/14/19 Apixaban [Eliquis] 5 mg PO BID 30 Days #60 tablet 01/31/23 Furosemide 40 mg PO DAILY 30 Days #30 tab 03/03/23 Spironolactone [Aldactone*] 25 mg PO DAILY 30 Days #30 tab 03/03/23 Metoprolol Succinate 50 mg PO DAILY 04/13/23 Sacubitril/Valsartan [Entresto 49 mg-51 mg Tablet] 1 tab PO BID 04/13/23 Apixaban [Eliquis] 5 mg PO BID #70 tab 04/15/23 New Medications: Apixaban [Eliquis] 5 mg PO BID #70 tab Physician Discharge Instructions: PROBLEM: Pulmonary Embolism GOAL: Clear understanding of disease process INSTRUCTIONS: Diet: AHA Activity: Fall precautions DME DME: Date Ordered: Name of Company: [employer] Services Needed: Name of Company: Date or Referral: IMMUNIZATION Influenza Vaccine Indicated: Influenza Vaccine Given: Date Given: Pneumonia Vaccine Indicated: No Pneumonia Vaccine Given: Date Given: -DC IV and DC home -Follow-up with PCP in 1 to 2 weeks -Follow-up with Cardiology in 1 to 2 weeks -Follow-up with Pulmonary in 1 to 2 weeks -Please call Dr. Good at [phone] if any questions regarding hospital stay -Please call nursing station at [phone] if any nursing or medication questions -Return to the emergency room if symptoms worsen Diet: AHA Activity: Fall precautions Followup: OOT,OOT [Primary Care Provider] - Time spent managing pt's care (in minutes): 35
[2023-04-15 14:56] VITALS: BP 101/64
--- NOTE | 2023-04-16 10:48 | PN ---
Date of Progress Note: 04/15/2023 Subjective: Seen by bedside, status post thrombolytic therapy. No bleeding. Doing clinically very well. Started back on Eliquis and his symptoms of chest pain resolved. Review of Systems: No chest pain, shortness of breath. No orthopnea, cough. No nausea, vomiting, diarrhea. All other systems reviewed and they were negative. Physical Examination: Vital Signs: Reviewed. Head and Neck: Pupils are equal, reactive to light. Intact eye movements. No JVD. No cervical lym phadenopathy. Neck is supple. Thyroid is not enlarged. Lungs: Clear to auscultation bilaterally. No rhonchi, wheezing, or crackles. No accessory muscle u se. Heart: Regular rate and rhythm. No extra sounds. Abdomen: Soft, nontender. Bowel sounds positive. No organomegaly. No masses or hernia. No rigidi ty or rebound. Extremities: No edema, clubbing, cyanosis. Intact pulses. SKIN: No rash. Neurologic: Alert, awake, oriented x3. No acute focal deficits appreciated. Investigations: Labs are reviewed. Hemoglobin 13.1. BUN is 31, creatinine 1.84. Assessment/recommendation: 1.Massive pulmonary embolism. Status post thrombolytics, doing clinically well. Started on Eliquis , continue that. Patient was instructed to be careful in the future, not to run out of the medicine as he is prone to have significant deep vein thrombosis and pulmonary embolism. 2.Chronic systolic heart failure. Appears to be euvolemic. Keep holding the Lasix as the BUN and c reatinine slightly increasing in values. 3.Acute renal failure. Lasix was discontinued. Recommend monitoring until baseline creatinine is a chieved. SR/MODL Voice ID: [id number] Report ID: [id number]
--- NOTE | 2023-04-18 08:48 | P.PN ---
Subjective Date of Service: 04/15/23 Chief Complaint: Chest pain. Subjective: Improving (Patient is doing well has improved significantly denies any shortness of breath or chest pain see TNK initially had some upper respiratory problems which have not resolved) Review of Systems Unremarkable Physical Examination - Vital Signs Temperature: 97.6 F Blood Pressure: 101/64 Pulse: 71 Respirations: 20 Pulse Ox (%): 95 - Physical Exam General: Alert, Oriented x3 Neck: Supple Respiratory: Clear to auscultation bilaterally Gastrointestinal: Normal bowel sounds, Soft and benign Assessment And Plan - Current Problems (Diagnosis) (1) Pulmonary embolism Status: Acute Plan: Patient is 63 years of age admitted with massive pulmonary embolism hypoxemia this post TNK he has improved significantly start patient on Eliquis patient to resume his Eliquis 10 mg twice a day for a week then 5 mg twice a day for an indefinite. It is stable for discharge he does have chronic renal failure which is stable troponins are declining echocardiogram shows severe lead depressed left ventricular ejection fraction right there is no right ventricular dilatation Physician Review: Patient Assessed, Agree with Above Assessment and Plan
== END 2023-04-15 13:50 | disposition home or self-care (01) | DRG 280 ==
LOC: ER 08:53 → ERHOLD 12:32 → 2ND 13:21 → 3RD-ICU 20:27
PROVIDERS: ADMIT Hospitalist; ATTEND Hospitalist
DX: I13.0 Hypertensive heart and chronic kidney disease with heart failure and stage 1 through stage 4 chronic kidney disease, or unspecified chronic kidney disease (principal); I26.99 Other pulmonary embolism without acute cor pulmonale; I21.4 Non-ST elevation (NSTEMI) myocardial infarction; I50.23 Acute on chronic systolic (congestive) heart failure; K50.90 Crohn's disease, unspecified, without complications; N17.9 Acute kidney failure, unspecified; N18.31 Chronic kidney disease, stage 3a; E78.5 Hyperlipidemia, unspecified; I25.10 Atherosclerotic heart disease of native coronary artery without angina pectoris; F17.200 Nicotine dependence, unspecified, uncomplicated; R09.02 Hypoxemia; Z93.3 Colostomy status; Z79.01 Long term (current) use of anticoagulants; Z86.711 Personal history of pulmonary embolism; Z79.82 Long term (current) use of aspirin; Z86.16 Personal history of COVID-19; Z79.899 Other long term (current) drug therapy
CPT/HCPCS: 36415; 71045; 71275; 80048; 81003; 83735; 83880; 84100; 84439; 84443; 84484; 85025; 85610; 85730; 93005; 93306; 96374; 96375; 99285; J1170; J1940; J2270; J2405; J3101; Q9967

== ENCOUNTER → 2023-11-18 | Emergency (ER) | payer OTHER ==
--- OUTSIDE RECORDS SUMMARY | 2023-11-18 17:47 | XMS REPORT | Continuity of Care Document ---
Author Name Unknown Address [address] [facility] [address] [place] [address] [facility] thconnect Address [address] [facility] [address] [place] [address] Care Team Providers Care Parts Department Supervisor Name Role Phone EMRE NORWOOD Primary Care Physician Beth EMRE Zamarripa Attending Clinician Vince Norwood MD, Emre De La Vega Attending Clinician [phone] Doctor Unassigned, [place] Attending Clinician U JULIA Gan Attending Clinician Unavailable Lab, Ang - Db Attending Clinician Unavailable Payers Payer Name Policy Type Policy Number Effective Date Expirati on Date Source [facility] [id number] 2022 00:00:00 MEDICARE PART A \\T\\ B [id number] 2013 00:00:00 Problems Condition Name Condition Details Condition Category Status Onset Date Resolution Date Last Treatment Date Treating Clinician Comments Source Crohn's disease of colon with complicati on Crohn's disease of colon with complicati on Disease Active 2018-09 00:00: 00 [facility] Essential hypertensi on Essential hypertensi on Disease Active 2018-09 00:00: 00 [facility] Allergies, Adverse Reactions, Alerts Allergy Name Allergy Type Status Severity Reaction(s) Onset Date Inactive Date Treating Clinician Comments Source NO KNOWN ALLERGIE S Drug Class Active [facility] Social History Social Habit Start Date Stop Date Quantity Comments Source History of tobacco use Cigarette Smoker [facility] History SDOH Alcohol Std Drinks [facility] Gender identity [facility] SDOH Alcohol Binge [facility] History SDOH Alcohol Comment [facility] Alcohol intake 2023-06-14 00:00:00 2023-06-14 00:00:00 Lifetime non-drinker (finding) [facility] History of Social function 2023-02-09 00:00:00 2023-02-09 00:00:00 [facility] Exposure to SARS-CoV-2 (event) 2022-12-03 00:00:00 2022-12-13 15:14:00 Not sure [facility] Cigarettes smoked current (pack per day) - Reported 2022-11-09 00:00:00 2022-11-09 00:00:00 [facility] Tobacco use and exposure 2022-11-09 00:00:00 2022-11-09 00:00:00 Smokeless tobacco non-user [facility] History SDOH Alcohol Frequency 2019-08-13 00:00:00 2019-08-13 00:00:00 1 [facility] Sex Ass[birth year] At 1960 00:00:00 1960 00:00:00 [facility] Smoking Status Start Date Stop Date Source Smokes tobacco daily 2022-11-09 00:00:00 [facility] Medications Ordered Medication Name Filled Medication Name Start Date Stop Date Current Medication? Ordering Clinician Indication Dosage Frequency Signature (SIG) Comments Components Source sacubitriL- valsartan (ENTRESTO) 49-51 mg tablet 2022-09 00:00: 00 Yes [id number] 1{tbl} Take 1 tablet by mouth in the morning and 1 tablet in the evening. [facility] sacubitriL- valsartan (ENTRESTO) 49-51 mg tablet 2022-09 0 00:00: 00 Yes [id number] 1{tbl} Take 1 tablet by mouth in the morning and 1 tablet in the evening. [facility] furosemide 40 mg tablet 04-16 00:00: 00 Yes 40mg Take 1 tablet by mouth in the morning. [facility] spironolact one 25 mg tablet 04-16 00:00: 00 Yes 25mg Take 1 tablet by mouth in the morning. [facility] furosemide 40 mg tablet 2022-0 8 00:00: 00 Yes 40mg Take 1 tablet by mouth in the morning. [facility] spironolact one 25 mg tablet 04-16 00:00: 00 Yes 25mg Take 1 tablet by mouth in the morning. [facility] ENTRESTO 49-51 mg tablet 04-11 00:00: 00 06-14 00:00 :00 No 1{tbl} Take 1 tablet by mouth in the morning and 1 tablet in the evening. [facility] ENTRESTO 49-51 mg tablet 04-11 00:00: 00 06-14 00:00 :00 No 1{tbl} Take 1 tablet by mouth in the morning and 1 tablet in the evening. [facility] apixaban (ELIQUIS) 5 mg tablet 2022-02-09 00:00: 00 Yes [id number] 5mg Take 1 tablet by mouth in the morning and 1 tablet in the evening. Indication s: history of pulmonary embolism [facility] apixaban (ELIQUIS) 5 mg tablet 2022-0 02-09 00:00: 00 Yes [id number] 5mg Take 1 tablet by mouth in the morning and 1 tablet in the evening. Indication s: history of pulmonary embolism [facility] apixaban (ELIQUIS) 5 mg tablet 2022-0 02-09 00:00: 00 Yes [id number] 5mg Take 1 tablet by mouth in the morning and 1 tablet in the evening. Indication s: history of pulmonary embolism [facility] apixaban (ELIQUIS) 5 mg tablet 3-0 02-09 00:00: 00 Yes [id number] 5mg Take 1 tablet by mouth in the morning and 1 tablet in the evening. Indication s: history of pulmonary embolism [facility] apixaban (ELIQUIS) 5 mg tablet 3-0 02-09 00:00: 00 Yes [id number] 5mg Take 1 tablet by mouth in the morning and 1 tablet in the evening. Indication s: history of pulmonary embolism [facility] apixaban (ELIQUIS) 5 mg tablet 2022-0 02-09 00:00: 00 Yes [id number] 5mg Take 1 tablet by mouth in the morning and 1 tablet in the evening. Indication s: history of pulmonary embolism [facility] apixaban (ELIQUIS) 5 mg tablet 2022-0 02-09 00:00: 00 Yes [id number] 5mg Take 1 tablet by mouth in the morning and 1 tablet in the evening. Indication s: history of pulmonary embolism [facility] apixaban (ELIQUIS) 5 mg tablet 2022-02-09 00:00: 00 Yes [id number] 5mg Take 1 tablet by mouth in the morning and 1 tablet in the evening. Indication s: history of pulmonary embolism [facility] apixaban (ELIQUIS) 5 mg tablet 2022-0 02-09 00:00: 00 Yes [id number] 5mg Take 1 tablet by mouth in the morning and 1 tablet in the evening. Indication s: history of pulmonary embolism [facility] apixaban (ELIQUIS) 5 mg tablet 02-09 00:00: 00 Yes [id number] 5mg Take 1 tablet by mouth in the morning and 1 tablet in the evening. Indication s: history of pulmonary embolism [facility] apixaban (ELIQUIS) 5 mg tablet 02-09 00:00: 00 Yes [id number] 5mg Take 1 tablet by mouth in the morning and 1 tablet in the evening. Indication s: history of pulmonary embolism [facility] ELIQUIS 5 mg tablet 2022-0 01-31 00:00: 00 02-09 00:00 :00 No 5mg Take 1 tablet by mouth in the morning and 1 tablet in the evening. [facility] ELIQUIS 5 mg tablet 2022-0 29 00:00: 00 02-09 00:00 :00 No 5mg Take 1 tablet by mouth in the morning and 1 tablet in the evening. [facility] albuterol 90 mcg/actuati on inhaler 11-09 00:00: 00 Yes [id number] 2{puff} Inhale 2 Puffs every 6 (six) hours as needed for Wheezing or Shortness of Breath. [facility] lisinopriL 10 mg tablet 0 3 00:00: 00 Yes [id number] 10mg Take 1 tablet by mouth in the morning. [facility] albuterol 90 mcg/actuati on inhaler 0 3 00:00: 00 Yes [id number] 2{puff} Inhale 2 Puffs every 6 (six) hours as needed for Wheezing or Shortness of Breath. [facility] lisinopriL 10 mg tablet 0 3 00:00: 00 Yes [id number] 10mg Take 1 tablet by mouth in the morning. [facility] albuterol 90 mcg/actuati on inhaler 11-09 00:00: 00 Yes [id number] 2{puff} Inhale 2 Puffs every 6 (six) hours as needed for Wheezing or Shortness of Breath. [facility] lisinopriL 10 mg tablet 11-09 00:00: 00 Yes [id number] 10mg Take 1 tablet by mouth in the morning. [facility] albuterol 90 mcg/actuati on inhaler 11-09 00:00: 00 Yes [id number] 2{puff} Inhale 2 Puffs every 6 (six) hours as needed for Wheezing or Shortness of Breath. [facility] lisinopriL 10 mg tablet 0 11-09 00:00: 00 Yes [id number] 10mg Take 1 tablet by mouth in the morning. [facility] albuterol 90 mcg/actuati on inhaler 0 3 00:00: 00 Yes [id number] 2{puff} Inhale 2 Puffs every 6 (six) hours as needed for Wheezing or Shortness of Breath. [facility] lisinopriL 10 mg tablet 2022-0 3 00:00: 00 Yes [id number] 10mg Take 1 tablet by mouth in the morning. [facility] albuterol 90 mcg/actuati on inhaler 0 3 00:00: 00 Yes [id number] 2{puff} Inhale 2 Puffs every 6 (six) hours as needed for Wheezing or Shortness of Breath. [facility] lisinopriL 10 mg tablet 0 3 00:00: 00 Yes [id number] 10mg Take 1 tablet by mouth in the morning. [facility] albuterol 90 mcg/actuati on inhaler 0 11-09 00:00: 00 Yes [id number] 2{puff} Inhale 2 Puffs every 6 (six) hours as needed for Wheezing or Shortness of Breath. [facility] lisinopriL 10 mg tablet 0 11-09 00:00: 00 Yes [id number] 10mg Take 1 tablet by mouth in the morning. [facility] albuterol 90 mcg/actuati on inhaler 0 11-09 00:00: 00 Yes [id number] 2{puff} Inhale 2 Puffs every 6 (six) hours as needed for Wheezing or Shortness of Breath. [facility] lisinopriL 10 mg tablet 11-09 00:00: 00 Yes [id number] 10mg Take 1 tablet by mouth in the morning. [facility] albuterol 90 mcg/actuati on inhaler 0 11-09 00:00: 00 Yes [id number] 2{puff} Inhale 2 Puffs every 6 (six) hours as needed for Wheezing or Shortness of Breath. [facility] lisinopriL 10 mg tablet 0 11-09 00:00: 00 Yes [id number] 10mg Take 1 tablet by mouth in the morning. [facility] albuterol 90 mcg/actuati on inhaler 0 11-09 00:00: 00 Yes [id number] 2{puff} Inhale 2 Puffs every 6 (six) hours as needed for Wheezing or Shortness of Breath. [facility] lisinopriL 10 mg tablet 0 11-09 00:00: 00 Yes [id number] 10mg Take 1 tablet by mouth in the morning. [facility] albuterol 90 mcg/actuati on inhaler 2022-0 3 00:00: 00 Yes [id number] 2{puff} Inhale 2 Puffs every 6 (six) hours as needed for Wheezing or Shortness of Breath. [facility] lisinopriL 10 mg tablet 2022-0 3-07 00:00: 00 Yes [id number] 10mg Take 1 tablet by mouth in the morning. [facility] albuterol 90 mcg/actuati on inhaler 2022-0 3-07 00:00: 00 Yes [id number] 2{puff} Inhale 2 Puffs every 6 (six) hours as needed for Wheezing or Shortness of Breath. [facility] lisinopriL 10 mg tablet 2022-0 3-07 00:00: 00 Yes [id number] 10mg Take 1 tablet by mouth in the morning. [facility] albuterol 90 mcg/actuati on inhaler 2022-0 3- 00:00: 00 Yes [id number] 2{puff} Inhale 2 Puffs every 6 (six) hours as needed for Wheezing or Shortness of Breath. [facility] lisinopriL 10 mg tablet 2022-0 3-07 00:00: 00 Yes [id number] 10mg Take 1 tablet by mouth in the morning. [facility] albuterol 90 mcg/actuati on inhaler 2022-0 3- 00:00: 00 Yes [id number] 2{puff} Inhale 2 Puffs every 6 (six) hours as needed for Wheezing or Shortness of Breath. [facility] albuterol 90 mcg/actuati on inhaler 2022-0 3-07 00:00: 00 Yes [id number] 2{puff} Inhale 2 Puffs every 6 (six) hours as needed for Wheezing or Shortness of Breath. [facility] lisinopriL 10 mg tablet 2022-0 3-07 00:00: 00 06-14 00:00 :00 No [id number] 10mg Take 1 tablet by mouth in the morning. [facility] lisinopriL 10 mg tablet 3-0 3-07 00:00: 00 06-14 00:00 :00 No [id number] 10mg Take 1 tablet by mouth in the morning. [facility] lisinopriL 10 mg tablet 2021-0 7-13 00:00: 00 Yes [id number] 10mg Take 1 tablet by mouth in the morning. [facility] lisinopriL 10 mg tablet 2-0 7-13 00:00: 00 Yes [id number] 10mg Take 1 tablet by mouth in the morning. [facility] lisinopriL 10 mg tablet 2021-0 13 00:00: 00 Yes [id number] 10mg Take 1 tablet by mouth in the morning. [facility] lisinopriL 10 mg tablet 2-0 -13 00:00: 00 Yes [id number] 10mg Take 1 tablet by mouth in the morning. [facility] lisinopriL 10 mg tablet 2-0 03-17 00:00: 00 Yes [id number] 10mg Take 1 tablet by mouth in the morning. [facility] lisinopriL 10 mg tablet 2021-0 03-17 00:00: 00 Yes [id number] 10mg Take 1 tablet by mouth in the morning. [facility] lisinopriL 10 mg tablet 2021-0 03-17 00:00: 00 11-09 00:00 :00 No [id number] 10mg Take 1 tablet by mouth in the morning. [facility] lisinopriL 10 mg tablet 2021-0 03-17 00:00: 00 11-09 00:00 :00 No [id number] 10mg Take 1 tablet by mouth in the morning. [facility] Immunizations Ordered Immunization Name Filled Immunization Name Date Status Comments Source SARS-COV-2 COVID-19 PFIZER VACCINE 2020-11-22 00:00:00 Completed [facility] SARS-COV-2 COVID-19 PFIZER VACCINE 2020-11-22 00:00:00 Completed [facility] SARS-COV-2 COVID-19 PFIZER VACCINE 2020-11-22 00:00:00 Completed [facility] SARS-COV-2 COVID-19 PFIZER VACCINE 2020-11-22 00:00:00 Completed [facility] SARS-COV-2 COVID-19 PFIZER VACCINE 2020-11-22 00:00:00 Completed [facility] SARS-COV-2 COVID-19 PFIZER VACCINE 2020-11-22 00:00:00 Completed [facility] SARS-COV-2 COVID-19 PFIZER VACCINE 2020-11-22 00:00:00 Completed [facility] SARS-COV-2 COVID-19 PFIZER VACCINE 2020-11-22 00:00:00 Completed [facility] SARS-COV-2 COVID-19 PFIZER VACCINE 2020-11-22 00:00:00 Completed [facility] SARS-COV-2 COVID-19 PFIZER VACCINE 2020-11-22 00:00:00 Completed [facility] SARS-COV-2 COVID-19 PFIZER VACCINE 2020-11-22 00:00:00 Completed [facility] SARS-COV-2 COVID-19 PFIZER VACCINE 2020-11-22 00:00:00 Completed [facility] SARS-COV-2 COVID-19 PFIZER VACCINE 2020-11-22 00:00:00 Completed [facility] SARS-COV-2 COVID-19 PFIZER VACCINE 2020-11-22 00:00:00 Completed [facility] SARS-COV-2 COVID-19 PFIZER VACCINE 2020-11-22 00:00:00 Completed [facility] SARS-COV-2 COVID-19 PFIZER VACCINE 2020-11-22 00:00:00 Completed [facility] SARS-COV-2 COVID-19 PFIZER VACCINE 2020-11-22 00:00:00 Completed [facility] SARS-COV-2 COVID-19 PFIZER VACCINE 2020-11-22 00:00:00 Completed [facility] SARS-COV-2 COVID-19 PFIZER VACCINE 2020-11-22 00:00:00 Completed [facility] SARS-COV-2 COVID-19 PFIZER VACCINE 2020-11-01 00:00:00 Completed [facility] SARS-COV-2 COVID-19 PFIZER VACCINE 2020-11-01 00:00:00 Completed [facility] SARS-COV-2 COVID-19 PFIZER VACCINE 2020-11-01 00:00:00 Completed [facility] SARS-COV-2 COVID-19 PFIZER VACCINE 2020-11-01 00:00:00 Completed [facility] SARS-COV-2 COVID-19 PFIZER VACCINE 2020-11-01 00:00:00 Completed [facility] SARS-COV-2 COVID-19 PFIZER VACCINE 2020-11-01 00:00:00 Completed [facility] SARS-COV-2 COVID-19 PFIZER VACCINE 2020-11-01 00:00:00 Completed [facility] SARS-COV-2 COVID-19 PFIZER VACCINE 2020-11-01 00:00:00 Completed [facility] SARS-COV-2 COVID-19 PFIZER VACCINE 2020-11-01 00:00:00 Completed [facility] SARS-COV-2 COVID-19 PFIZER VACCINE 2020-11-01 00:00:00 Completed [facility] SARS-COV-2 COVID-19 PFIZER VACCINE 2020-11-01 00:00:00 Completed [facility] SARS-COV-2 COVID-19 PFIZER VACCINE 2020-11-01 00:00:00 Completed [facility] SARS-COV-2 COVID-19 PFIZER VACCINE 2020-11-01 00:00:00 Completed [facility] SARS-COV-2 COVID-19 PFIZER VACCINE 2020-11-01 00:00:00 Completed [facility] SARS-COV-2 COVID-19 PFIZER VACCINE 2020-11-01 00:00:00 Completed [facility] SARS-COV-2 COVID-19 PFIZER VACCINE 2020-11-01 00:00:00 Completed [facility] SARS-COV-2 COVID-19 PFIZER VACCINE 2020-11-01 00:00:00 Completed [facility] SARS-COV-2 COVID-19 PFIZER VACCINE 2020-11-01 00:00:00 Completed [facility] SARS-COV-2 COVID-19 PFIZER VACCINE 2020-11-01 00:00:00 Completed [facility] SARS-COV-2 COVID-19 PFIZER VACCINE Unknown Completed [facility] SARS-COV-2 COVID-19 PFIZER VACCINE Unknown Completed [facility] SARS-COV-2 COVID-19 PFIZER VACCINE Unknown Completed [facility] SARS-COV-2 COVID-19 PFIZER VACCINE Unknown Completed [facility] Vital Signs Vital Name Observation Time Observation Value Comments S ource Systolic blood pressure 2023-06-14 20:49:00 107 mm[Hg] [facility] Diastolic blood pressure 2023-06-14 20:49:00 72 mm[Hg] [facility] Heart rate 2023-06-14 20:49:00 77 /min [facility] Body height 2023-06-14 20:49:00 177.8 cm [facility] weight 2023-06-14 20:49:00 82.555 kg [facility] BMI 2023-06-14 20:49:00 26.11 kg/m2 [facility] Systolic blood pressure 2023-02-09 13:56:00 160 mm[Hg] [facility] Diastolic blood pressure 2023-02-09 13:56:00 109 mm[Hg] [facility] Heart rate 2023-02-09 13:55:00 95 /min Unive [facility] Body temperature 2023-02-09 13:55:00 36.89 [facility] Body height 2023-02-09 13:55:00 177.8 cm [facility] Body weight 2023-02-09 13:55:00 81.194 kg Univ [facility] BMI 2023-02-09 13:55:00 25.68 kg/m2 [facility] Oxygen saturation in Arterial blood by Pulse oximetry 2023-02-09 13:55:00 98 /min [facility] Systolic blood pressure 2022-12-13 20:28:00 141 mm[Hg] [facility] Diastolic blood pressure 2022-12-13 20:28:00 93 mm[Hg] [facility] Heart rate 2022-12-13 20:23:00 83 /min [facility] Body height 2022-12-13 20:23:00 177.8 cm [facility] Body weight 2022-12-13 20:23:00 81.194 kg [facility] BMI 2022-12-13 20:23:00 25.68 kg/m2 [facility] Systolic blood pressure 2022-11-09 22:05:00 159 mm[Hg] [facility] Diastolic blood pressure 2022-11-09 22:05:00 102 mm[Hg] [facility] Heart rate 2022-11-09 22:04:00 89 /min Un[facility] Body temperature 2022-11-09 22:04:00 37.11 K[facility] Body height 2022-11-09 22:04:00 177.8 cm [facility] Body weight 2022-11-09 22:04:00 81.647 kg [facility] BMI 2022-11-09 22:04:00 25.83 kg/m2 [facility] Oxygen saturation in Arterial blood by Pulse oximetry 2022-11-09 22:04:00 98 /min [facility] Systolic blood pressure 2022-04-06 19:39:00 154 mm[Hg] [facility] Diastolic blood pressure 2022-04-06 19:39:00 92 mm[Hg] [facility] Heart rate 2022-04-06 19:38:00 84 /min Unive [facility] Body height 2022-04-06 19:38:00 177.8 cm [facility] Body weight 2022-04-06 19:38:00 83.915 kg [facility] BMI 2022-04-06 19:38:00 26.54 kg/m2 [facility] Procedures Procedure Date / Time Performed Performing Clinician Source EXTERNAL PROVIDER RECORDS 2023-04-18 05:01:00 Doctor Unassigned, [place] [facility] EXTERNAL PROVIDER RECORDS 2023-03-10 05:01:00 Doctor Unassigned, [place] [facility] CONSENT/REFUSAL FOR DIAGNOSIS AND TREATMENT 2022-11-09 21:53:53 Doctor Unassigned, [place] [facility] DME/SUPPLY JUSTIFICATION 2022-08-11 06:01:00 Doc tor Unassigned, [place] [facility] Encounters Start Date/Time End Date/Time Encounter Type Admission Type Attending Clinicians Care Facility Care Department Encounter ID Source 2023-12-14 15:45:00 2023-12-14 15:45:00 Outpatient EMRE CRUZ [facility] [id number] [facility] 2023-06-14 16:00:00 2023-06-14 16:00:00 [facility] [id number] 350.1.13.10 [id number] [id number] [facility] 2023-06-14 16:00:00 2023-06-14 15:57:53 Outpatient R EMRE NORWOOD [facility] [id number] [facility] 2023-05-13 00:00:00 2023-05-13 00:00:00 [facility] 1..840.114 350.1.13.10 4.2.7.2.686 [id number] [facility] 2023-05-13 00:00:00 2023-05-13 00:00:00 Tele[facility] 1.840.114 350.1.13.10 4.2.7.2.686 [id number] [facility] 2023-04-18 00:00:00 2023-04-18 00:00:00 Orders Only Doctor Unassigned, [place] [facility] 1.84.114 350.1.13.10 4.2.7.2.686 [id number] [facility] 2023-03-16 00:00:00 2023-03-16 00:00:00 Telephone Emre Norwood [facility] 1..840.114 350.1.13.10 4.2.7.2.686 [id number] [facility] 2023-03-10 00:00:2023-03-10 00:00:00 Orders Only Doctor Unassigned, [place] [facility] 1.2840.114 350.1.13.10 4.2.7.2.686 [id number] [facility] 2023-02-16 00:00:00 2023-02-16 00:00:00 Telephone Emre [facility]wood [facility] 1.2840.114 350.1.13.10 4.2.7.2.686 [id number] [facility] 2023-02-16 00:00:00 2023-02-16 00:00:00 Telephone Emre Norwood [facility] [id number] 350.1.13.10 4.2.7.2.686 [id number] [facility] 2023-02-09 11:00:00 2023-02-09 11:30:00 [facility] 1.2840.114 350.1.13.10 4.2.7.2.686 [id number] [facility] 2023-02-09 11:00:00 2023-02-09 11:00:00 Outpatient EMRE CRUZ [facility] [id number] [facility] 2022-12-13 15:30:00 2022-12-13 15:45:00 [facility] [id number] 350.1.13.10 4.2.7.2.686 [id number] [facility] 2022-12-13 15:30:00 2022-12-13 15:30:00 Outpatient EMRE CRUZ [facility] [id number] [facility] 2022-11-09 15:45:00 2022-11-09 16:00:00 Office Visit [facility] [id number] 350.1.13.10 4.2.7.2.686 [id number] [facility] 2022-11-09 15:45:00 2022-11-09 15:45:00 Outpatient EMRE CRUZ [facility] [id number] [facility] [facility]-09 00:00:00 2022-11-09 00:00:00 Orders Only Doctor Unassigned, [place] [address].2.840.114 350.1.13.10 4.2.7.2.686 [id number] [id number] [facility] 2022-11-08 00:00:00 2022-11-08 00:00:00 Telephone Emre [place] MEDICAL OFFICE BUILDING 1.2.840.114 350.1.13.10 4.2.7.2.686 [id number] [facility] 2022-08-11 00:00:00 2022-08-11 00:00:00 Orders Only Doctor Unassigned, [place] [facility] 1.2.840.114 350.1.13.10 4.2.7.2.686 [id number] [facility] 2022-05-11 09:45:00 2022-05-11 09:45:00 Outpatient EMRE CRUZ [facility] [id number] [facility] 2022-04-26 16:30:00 2022-04-26 16:30:00 Outpatient EMRE CRUZ [facility] [id number] [facility] 2022-04-20 16:00:00 2022-04-20 16:00:00 Outpatient EMRE CRUZ [facility] [id number] [facility] 2022-04-06 15:00:00 2022-04-06 15:15:00 [employer] Inspector Visit Lab, Sorin Coughlin [facility] MEDICAL OFFICE BUILDING 1.2.840.114 350.1.13.10 4.2.7.2.686 [id number] [facility] 2022-04-06 15:00:00 2022-04-06 15:00:00 Outpatient Devin [facility] [id number] [facility] 2022-04-06 14:30:00 2022-04-06 15:00:00 Office Visit [facility] MED[facility] OFF[facility] BU[facility] 1..840.114 350.1.13.10 4.2.7.2.686 [id number] [facility] 2022-04-06 14:30:00 2022-04-06 14:30:00 Outpatient EMRE CRUZ [facility] [id number] [facility] 2022-03-17 00:00:00 2022-03-17 00:00:00 Mario [place]wood [facility] MEDICAL OFFICE BUILDING 1.2.840.114 350.1.13.10 4.2.7.2.686 [id number] [facility] 2022-02-24 11:00:00 2022-02-24 11:00:00 Outpatient Devin [facility] [id number] [facility] 2022-02-18 00:00:00 2022-02-18 00:00:00 Mario [facility]wood [facility] MEDICAL OFFICE BUILDING 1.2.840.114 350.1.13.10 4.2.7.2.686 [id number] [facility] 2022-02-12 00:00:00 2022-02-12 00:00:00 Refill [facility] MEDICAL OFFICE BUILDING 1.2.840.114 350.1.13.10 4.2.7.2.686 [id number] [facility] 2021-12-03 00:00:00 2021-12-03 00:00:00 Orders Only Doctor Unassigned, [place] [facility] 1.2.840.114 350.1.13.10 4.2.7.2.686 [id number] [facility] 2021-10-26 00:00:00 2021-10-26 00:00:00 Shannon Norwood [facility] MEDICAL OFFICE BUILDING 1.2.840.114 350.1.13.10 4.2.7.2.686 [id number] [facility] 2021-10-26 00:00:00 2021-10-26 00:00:00 Orders Only Doctor Unassigned, [place] [address].2.840.114 350.1.13.10 4.2.7.2.686 [id number] [facility] 2020-11-22 14:50:00 2020-11-22 14:50:00 Outpatient [facility] [id number] [facility] 2020-11-01 15:05:00 2020-11-01 15:05:00 Outpatient [facility] [id number] [facility] 2020-09-09 15:30:00 2020-09-09 15:30:00 Outpatient EMRE CRUZ [facility] [id number] [facility] Notes Date/Time Note Provider Source 2023-05-17 09:10:15 WegMxfOpMh1qv/cg/6fC q/zQXkZgxY 2VfG5AvG9BBFkJmi9Omba1LhoUa94r 41F68336-76-12W05:10:15Formatt ing of this note might be different from the original.Faxed referral 30781-0Fomlsxbwe encounter GivcTG8408-99-73U59:10:53Telep lauryn encounter NoteTXT1.2.840.576047.1.13.104 .2.7.2.596298|[id number] lable for patient mmqy86246-4LmfwSFCTKGVMJP[address]TXTX[address] 527097NAODFUFKUINYRXOVEYFLMY29 28-05-1209:10:531.2.840.31549 0.1.72.3.15|1.2.840.846229.1.1 3.104.2.7.2.727879_[id number] [facility] 2023-05-13 16:21:53 Iudi7sgWbkmgroa9wG13 ZRJ52y23Z9 qi7FTNUuehx3X04ogP1Eqt3TtTgjyh Zfrc3415-08-92H83:21:53Formatt ing of this note might be different from the original.Patients is calling in requesting a referral for patient to have a 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 Bales at [facility]. The referral has been approved. The clinic is needing the referral fax to clinic for stress testFax #[phone] 93604-1Jlwgagduz encounter YxaiRE2778-88-93E47:24:28Telep lauryn encounter NoteTXT1.2.840.376472.1.13.104 .2.7.2.592948|[id number] lable for patient dwre14893-8CmdaOW137720637Pwhk stopher S [address]TXTX[address] 946051WQNSWKXXNJVPPIJQVMIWGK44 28-05-086:24:281.2.840.60557 0.1.72.3.15|1.2.840.605032.1.1 3.104.2.7.2.727879_[id number] Thony Kendall [facility] 2023-05-13 13:09:09 arA7wL3+sa9qUxc1yzob rbg8do1SsY BDvVSg2otIROx8Qx25Sqra+HJEain+ ytNP2303-03-42X54:09:09Formatt ing of this note might be different from the original.Referral faxed to Dr. Bales at [phone] 59138-7Gauxdazlh encounter BfqhUL3421-65-42D14:09:23Telep lauryn encounter NoteTXT1.2.840.687042.1.13.104 .2.7.2.349721|[id number] [facility] [id number] raisa Dwyer [address] FieaDpvwmmjnxYcitjpzreRIWO4128 390993LRUUWIOMHPNGZFCIRSYFYC37 28-05-083:09:231.2.840.83079 0.1.72.3.15|1.2.840.704660.1.1 3.104.2.7.2.727879_[id number] Tricia Dwyer [facility] 2023-05-13 11:08:17 kf1etriUoybNeH0bQpjV ftrAszBfVz ZTUL9hJMnL7F0ftnb167QEzDd1HJke NlIv9568-43-12I55:08:17Formatt ing of this note is different from the original.Images from the original note were not included.Amairani is following up on below phone encounter. correct number not belowCall before 1 pm today with referral or pt will have to be rescheduled.RobeIrena Liam DUNBAR 03/16/23 3:34 PMNote Patient has upcoming appointment with cardiology Dr. Bales at [facility]. The referral has been approved. The clinic is needing the referral fax to clinic March 18Jasmin ortiz RN BB 03/18/23 9:51 AMNote Referral faxed to number provided below. 41819-1Dhcgdpmtb encounter JqiwNJ3980-33-16U71:10:16Telep lauryn encounter NoteTXT1.2.840.607318.1.13.104 .2.7.2.161779|[id number] [facility] yrab27736-5SobiTY04834697Pgxyn J Barn[address] YlcqFskoujmvfRaevbxwdqGBOJ0766 [id number]26 28-05-081:10:161.2.840.72902 0.1.72.3.15|1.2.840.102895.1.1 3.104.2.7.2.727879_[id number] Jennifer Nicole [facility]"
--- NOTE | 2023-11-18 19:34 | RAD REPORT ---
EXAM DESCRIPTION: CT - Abdomen Pelvis Wo Contrast - 11/18/2023 6:35 pm CLINICAL HISTORY: leaking around stoma COMPARISON: Abdomen Pelvis Wo Contrast dated 03/14/2022; CT ABD PELVIS W CONTRAST dated 03/11/2014; C T ABD PELVIS W CONTRAST dated 01/10/2014; CT ABD PELVIS W CONTRAST dated 04/03/2013 TECHNIQUE: Thin cut axial CT imaging of the abdomen and pelvis was performed without IV contrast. Mu ltiplanar reformats were generated and reviewed. All CT scans are performed using dose optimization technique as appropriate and may include automated exposure control or mA/KV adjustment according to patient size. FINDINGS: No suspicious findings in the lung bases. The liver, spleen, adrenal glands, and pancreas show no suspicious findings. Gallbladder and biliary tree are also without suspicious finding. Symmetric renal contour, without suspicious parenchymal findings within limits of noncontrast techniq ue. Likely stable fluid density cortical lesions on the right, including an exophytic dominant 5 cm l ower pole lesion, suggestive of cysts. No evidence of radiopaque calculi or hydroureteronephrosis. Sequelae of total colectomy. Right flank terminal ileostomy. Small fat containing parastomal hernia a nd small supraumbilical hernia containing fat are both stable in appearance. No abnormal fluid collec tions. No dilated bowel loops or bowel wall thickening. No free air, free fluid or inflammatory stran ding. No suspicious mass or bulky lymphadenopathy. The urinary bladder is without significant finding . Mild prostatomegaly. No suspicious bony findings. IMPRESSION: No acute intra-abdominal process. Right flank parastomal fat containing hernia is stable in appearance. Other stable findings including numerous right renal benign-appearing cysts.
--- NOTE | 2023-11-18 19:57 | ER ---
Nurse's Notes [facility] Name: Karson Giordano Age: 63 yrs Sex: Male : 1960 Arrival Date: 11/18/2023 Time: 17:43 Bed 6 Private MD: Diagnosis: Unspecified contact dermatitis, unspecified cause-irritatnt due to adhesive Presentation: 11/17 18:07 Chief complaint: Patient states: I have had some skin break down around my stoma. The kd3 stoma is 10 years old. I haven't had anything like this until recently. Coronavirus screen: Vaccine status: Patient reports receiving the 2nd dose of the covid vaccine. Ebola Screen: No symptoms or risks identified at this time. Initial Sepsis Screen: Does the patient meet any 2 criteria? No. Patient's initial sepsis screen is negative. Does the patient have a suspected source of infection? No. Patient's initial sepsis screen is negative. Risk Assessment: Do you want to hurt yourself or someone else? Patient reports no desire to harm self or others. Onset of symptoms was November 18, 2023. 18:07 Method Of Arrival: Ambulatory kd3 18:07 Acuity: AYESHA 4 kd3 Triage Assessment: 18:09 General: Appears in no apparent distress. Behavior is calm, cooperative. Pain: kd3 Complains of pain in right lower quadrant. GI: redness and skin breakdown around the stoma site at the right lower quadrant. Historical: - PMHx: 18:09 Crohn's Disease; HTN; PE; kd3 - PSHx: 18:09 Colostomy; Stented artery; kd3 - Immunization history:: Adult Immunizations up to date. - Social history:: Smoking status: Patient reports the use of cigarette tobacco products, smokes one-half pack cigarettes per day. Screenin:20 [facility] ED Fall Risk Assessment (Adult) History of falling in the last 3 months, kd3 including since admission No falls in past 3 months (0 pts) Confusion or Disorientation No (0 pts) Intoxicated or Sedated No (0 pts) Impaired Gait No (0 pts) Mobility Assist Device Used No (0 pt) Altered Elimination No (0 pt) Score/Fall Risk Level 0 - 2 = Low Risk Oriented to surroundings. Abuse screen: Denies threats or abuse. Denies injuries from another. Nutritional screening: No deficits noted. Tuberculosis screening: No symptoms or risk factors identified. Assessment: 18:19 General: Pt provided with fresh colostomy bag kit and skin barrier. Pt instructed on kd3 how to use the skin prep. Pt verbalizes understanding. . 18:20 GI: Bowel sounds present X 4 quads. Abd is soft and non tender X 4 quads. kd3 19:00 Reassessment: Patient appears in no apparent distress at this time. Patient and/or jb4 family updated on plan of care and expected duration. Pain level reassessed. Patient is alert, oriented x 3, equal unlabored respirations, skin warm/dry/pink. 20:09 Reassessment: Patient appears in no apparent distress at this time. Patient and/or jb4 family updated on plan of care and expected duration. Pain level reassessed. Patient is alert, oriented x 3, equal unlabored respirations, skin warm/dry/pink. Pt denies having questions after D/c was reviewed with pt by ER provider. Vital Signs: 18:07 BP 159 / 101; Pulse 66; Resp 17; Temp 98.5; Pulse Ox 98% on R/A; Weight 88.45 kg; kd3 Height 5 ft. 10 in. ; 19:30 BP 164 / 93; Pulse 57; Resp 16; Pulse Ox 99% on R/A; jb4 18:07 Body Mass Index 27.98 (88.45 kg, 177.8 cm) kd3 ED Course: 17:47 Patient arrived in ED. mg5 17:48 Yudith [facility]ordano [facility]-C [facility]. kb 17:48 Leroy Echeverria MD is Attending Physician. kb 18:07 Emelina Nelson, KATELYN is Primary Nurse. kd3 18:09 Triage completed. kd3 18:09 Arm band placed on right wrist. kd3 18:20 Patient has correct armband on for positive identification. kd3 18:37 CT Abd/Pelvis - Without Contrast In Process Unspecified. EDMS 19:30 Provided Education on: Discharge instructions.. jb4 19:30 No provider procedures requiring assistance completed. Patient did not have IV access jb4 during this emergency room visit. Administered Medications: No medications were administered Medication: 18:20 VIS not applicable for this client. kd3 Outcome: 19:56 Discharge ordered by . kb 20:11 Discharged to home ambulatory, jb4 20:11 Condition: stable 20:11 Discharge instructions given to patient, Instructed on discharge instructions, follow up and referral plans. Demonstrated understanding of instructions, follow-up care, 20:11 Patient left the ED. jb4 Signatures: Dispatcher [employer] Yudith Watson, PENAL OFFICER-C SUSAN-Praveen Mendoza RN RN jb4 Emelina Nelson RN RN kd3 Eileen Manzanares 5
--- NOTE | 2023-11-18 19:57 | EDPHYS ---
Physician Documentation [facility] Name: Karson Giordano Age: 63 yrs Sex: Male : 1960 Arrival Date: 11/18/2023 Time: 17:43 Bed 6 Private MD: ED Physician Leroy Echeverria HPI: 11/17 20:05 This 63 yrs old Black Male presents to ER via Ambulatory with complaints of Abdominal kb Pain, Abdominal Burn. 20:05 Patient is a 63-year-old male who presents with leaking around the stoma of his kb ileostomy that started today. Denies any abdominal pain. Reports skin around the stoma is burning and irritated due to changing out his ileostomy bags so frequently. Denies nausea, vomiting, diarrhea, fever. Historical: - PMHx: 18:09 Crohn's Disease; HTN; PE; kd3 - PSHx: 18:09 Colostomy; Stented artery; kd3 - Immunization history:: Adult Immunizations up to date. - Social history:: Smoking status: Patient reports the use of cigarette tobacco products, smokes one-half pack cigarettes per day. ROS: 20:05 Constitutional: As per HPI kb Exam: 20:05 Constitutional: This is a well developed, well nourished patient who is awake, alert, kb and in no acute distress. Head/Face: Normocephalic, atraumatic. ENT: Moist Mucous membranes Cardiovascular: Regular rate Respiratory: Respirations even and unlabored. No increased work of breathing. Talking in full sentences Skin: Warm, dry with normal turgor. Normal color. MS/ Extremity: Pulses equal, no cyanosis. Neurovascular intact. Full, normal range of motion. Neuro: Awake and alert, GCS 15, oriented to person, place, time, and situation. Moves all extremities. Normal gait. 20:05 Abdomen/GI: Inspection: Ileostomy with herniated stoma (patient reports this is normal for him), Bowel sounds: normal, Palpation: abdomen is soft and non-tender, in all quadrants, Vital Signs: 18:07 BP 159 / 101; Pulse 66; Resp 17; Temp 98.5; Pulse Ox 98% on R/A; Weight 88.45 kg; kd3 Height 5 ft. 10 in. ; 19:30 BP 164 / 93; Pulse 57; Resp 16; Pulse Ox 99% on R/A; jb4 18:07 Body Mass Index 27.98 (88.45 kg, 177.8 cm) kd3 MDM: 17:54 Patient medically screened. kb 20:06 Differential diagnosis: Irritant contact dermatitis, infection. Data reviewed: vital kb signs, nurses notes. 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 11/17 18:05 Order name: CT Abd/Pelvis - Without Contrast; Complete Time: 19:40 kb Administered Medications: No medications were administered Disposition: 20:44 Co-signature as Attending Physician, Leroy Echeverria MD I reviewed the patient's care rt provided by the Advanced Practice Provider and agree with the diagnosis and treatment plan. Disposition Summary: 11/18/23 19:56 Discharge Ordered Notes: Location: Home kb Condition: Stable kb Diagnosis - Unspecified contact dermatitis, unspecified cause - irritatnt due to adhesive kb Followup: kb - With: Emergency Department - When: As needed - Reason: Worsening of condition Followup: kb - With: Private Physician - When: 2 - 3 days - Reason: Recheck today's complaints, Continuance of care, Re-evaluation by your physician Discharge Instructions: - Discharge Summary Sheet kb - Contact Dermatitis kb Forms: - Medication Reconciliation Form kb - Thank You Letter kb - Antibiotic Education kb - Prescription Opioid Use kb - Patient Portal Instructions kb - Leadership Thank You Letter kb Signatures: Dispatcher [employer] Yudith Watson, SUSAN-C SUSAN-Emelina Chen, RN RN kd3 Leroy Echeverria MD MD rt
[2023-11-18 20:22] VITALS: BP 164/93; TEMP 98.5; O2SAT 99
== END ==
LOC: ER 17:43
DX: L24.89 Irritant contact dermatitis due to other agents (principal); Z93.3 Colostomy status
CPT/HCPCS: 74176; 99282

== ENCOUNTER 2024-05-01 22:36 | Inpatient (IN) | payer OTHER ==
--- OUTSIDE RECORDS SUMMARY | 2024-05-01 22:40 | XMS REPORT | Continuity of Care Document ---
Author Name Unknown Address [address] [facility] [address] [place] [address] [facility] Address [address] [facility] [address] [place] [address] Care Team Providers Care Neuropsychology Division Chief Name Role Phone Emre Sumner MD Primary Care Physician Emre Sumner MD Attending Clinician + [phone] EMRE SUMNER Attending Clinician Vince judd Doctor Unassigned, Elderon Attending Clinician U JULIA Gan Attending Clinician Unavailable Lab, Ang - Db Attending Clinician Unavailable Payers Payer Name Policy Type Policy Number Effective Date Expirati on Date Source MEDICARE PART A \T\ [id number] 2013 00:00:00 Problems Condition Name Condition Details Condition Category Status Onset Date Resolution Date Last Treatment Date Treating Clinician Comments Source Crohn's disease of colon with complicati on Crohn's disease of colon with complicati on Disease Active 2018-09 00:00: 00 [facility] Essential hypertensi on Essential hypertensi on Disease Active 2018-09 00:00: 00 [facility] Allergies, Adverse Reactions, Alerts Allergy Name Allergy Type Status Severity Reaction(s) Onset Date Inactive Date Treating Clinician Comments Source NO KNOWN ALLERGIE S Drug Class Active [facility] Social History Social Habit Start Date Stop Date Quantity Comments Source History of tobacco use Cigarette Smoker [facility] History SDOH Alcohol Std Drinks [facility] Gender identity [facility] Sexual orientation [facility] History SDOH Alcohol Binge [facility] History SDOH Alcohol Comment [facility] Tobacco use and exposure 2024-03-20 00:00:00 2024-03-20 00:00:00 Smokeless tobacco non-user [facility] History of Social function 2024-03-20 00:00:00 2024-03-20 00:00:00 [facility] Alcoholic beverage intake 2024-03-20 00:00:00 2024-03-20 00:00:00 Lifetime non-drinker (finding) [facility] Alcohol intake 2023-06-14 00:00:00 2023-06-14 00:00:00 Lifetime non-drinker (finding) [facility] Exposure to SARS-CoV-2 (event) 2022-12-03 00:00:00 2022-12-13 15:14:00 Not sure [facility] Cigarettes smoked current (pack per day) - Reported 2022-11-09 00:00:00 2022-11-09 00:00:00 [facility] History SDOH Alcohol Frequency 2019-08-13 00:00:00 2019-08-13 00:00:00 1 [facility] Sex assigned at 1960 00:00:00 1960 00:00:00 [facility] Smoking Status Start Date Stop Date Source Smokes tobacco daily 2024-03-20 00:00:00 [facility] Medications Ordered Medication Name Filled Medication Name Start Date Stop Date Current Medication? Ordering Clinician Indication Dosage Frequency Signature (SIG) Comments Components Source sacubitriL- valsartan (ENTRESTO) 49-51 mg tablet 2022-09 0 00:00: 00 Yes [id number] 1{tbl} Take 1 tablet by mouth in the morning and 1 tablet in the evening. [facility] furosemide 40 mg tablet 04-16 00:00: 00 Yes 40mg Take 1 tablet by mouth in the morning. [facility] spironolact one 25 mg tablet 04-16 00:00: 00 Yes 25mg Take 1 tablet by mouth in the morning. [facility] ENTRESTO 49-51 mg tablet 8-07 00:00: 00 06-14 00:00 :00 No 1{tbl} Take 1 tablet by mouth in the morning and 1 tablet in the evening. [facility] apixaban (ELIQUIS) 5 mg tablet 6 00:00: 00 Yes [id number] 5mg Take 1 tablet by mouth in the morning and 1 tablet in the evening. Indication s: history of pulmonary embolism [facility] ELIQUIS 5 mg tablet 529 00:00: 00 02-09 00:00 :00 No 5mg Take 1 tablet by mouth in the morning and 1 tablet in the evening. [facility] albuterol 90 mcg/actuati on inhaler 11-09 00:00: 00 Yes [id number] 2{puff} Inhale 2 Puffs every 6 (six) hours as needed for Wheezing or Shortness of Breath. [facility] lisinopriL 10 mg tablet 11-09 00:00: 00 06-14 00:00 :00 No [id number] 10mg Take 1 tablet by mouth in the morning. [facility] lisinopriL 10 mg tablet 7-13 00:00: 00 11-09 00:00 :00 No [id number] 10mg Take 1 tablet by mouth in the morning. [facility] Immunizations Ordered Immunization Name Filled Immunization Name Date Status Comments Source SARS-COV-2 COVID-19 PFIZER VACCINE 2020-11-22 00:00:00 Completed [facility] SARS-COV-2 COVID-19 PFIZER VACCINE 2020-11-22 00:00:00 Completed [facility] SARS-COV-2 COVID-19 PFIZER VACCINE 2020-11-22 00:00:00 Completed [facility] SARS-COV-2 COVID-19 PFIZER VACCINE 2020-11-22 00:00:00 Completed [facility] SARS-COV-2 COVID-19 PFIZER VACCINE 2020-11-22 00:00:00 Completed [facility] SARS-COV-2 COVID-19 PFIZER VACCINE 2020-11-22 00:00:00 Completed [facility] SARS-COV-2 COVID-19 PFIZER VACCINE 2020-11-22 00:00:00 Completed [facility] SARS-COV-2 COVID-19 PFIZER VACCINE 2020-11-22 00:00:00 Completed [facility] SARS-COV-2 COVID-19 PFIZER VACCINE 2020-11-22 00:00:00 Completed [facility] SARS-COV-2 COVID-19 PFIZER VACCINE 2020-11-22 00:00:00 Completed [facility] SARS-COV-2 COVID-19 PFIZER VACCINE 2020-11-22 00:00:00 Completed [facility] SARS-COV-2 COVID-19 PFIZER VACCINE 2020-11-22 00:00:00 Completed [facility] SARS-COV-2 COVID-19 PFIZER VACCINE 2020-11-22 00:00:00 Completed [facility] SARS-COV-2 COVID-19 PFIZER VACCINE 2020-11-22 00:00:00 Completed [facility] SARS-COV-2 COVID-19 PFIZER VACCINE 2020-11-22 00:00:00 Completed [facility] SARS-COV-2 COVID-19 PFIZER VACCINE 2020-11-22 00:00:00 Completed [facility] SARS-COV-2 COVID-19 PFIZER VACCINE 2020-11-22 00:00:00 Completed [facility] SARS-COV-2 COVID-19 PFIZER VACCINE 2020-11-22 00:00:00 Completed [facility] SARS-COV-2 COVID-19 PFIZER VACCINE 2020-11-22 00:00:00 Completed [facility] SARS-COV-2 COVID-19 PFIZER VACCINE 2020-11-01 00:00:00 Completed [facility] SARS-COV-2 COVID-19 PFIZER VACCINE 2020-11-01 00:00:00 Completed [facility] SARS-COV-2 COVID-19 PFIZER VACCINE 2020-11-01 00:00:00 Completed [facility] SARS-COV-2 COVID-19 PFIZER VACCINE 2020-11-01 00:00:00 Completed [facility] SARS-COV-2 COVID-19 PFIZER VACCINE 2020-11-01 00:00:00 Completed [facility] SARS-COV-2 COVID-19 PFIZER VACCINE 2020-11-01 00:00:00 Completed [facility] SARS-COV-2 COVID-19 PFIZER VACCINE 2020-11-01 00:00:00 Completed [facility] SARS-COV-2 COVID-19 PFIZER VACCINE 2020-11-01 00:00:00 Completed [facility] SARS-COV-2 COVID-19 PFIZER VACCINE 2020-11-01 00:00:00 Completed [facility] SARS-COV-2 COVID-19 PFIZER VACCINE 2020-11-01 00:00:00 Completed [facility] SARS-COV-2 COVID-19 PFIZER VACCINE 2020-11-01 00:00:00 Completed [facility] SARS-COV-2 COVID-19 PFIZER VACCINE 2020-11-01 00:00:00 Completed [facility] SARS-COV-2 COVID-19 PFIZER VACCINE 2020-11-01 00:00:00 Completed [facility] SARS-COV-2 COVID-19 PFIZER VACCINE 2020-11-01 00:00:00 Completed [facility] SARS-COV-2 COVID-19 PFIZER VACCINE 2020-11-01 00:00:00 Completed [facility] SARS-COV-2 COVID-19 PFIZER VACCINE 2020-11-01 00:00:00 Completed [facility] SARS-COV-2 COVID-19 PFIZER VACCINE 2020-11-01 00:00:00 Completed [facility] SARS-COV-2 COVID-19 PFIZER VACCINE 2020-11-01 00:00:00 Completed [facility] SARS-COV-2 COVID-19 PFIZER VACCINE 2020-11-01 00:00:00 Completed [facility] SARS-COV-2 COVID-19 PFIZER VACCINE Unknown Completed [facility] SARS-COV-2 COVID-19 PFIZER VACCINE Unknown Completed [facility] SARS-COV-2 COVID-19 PFIZER VACCINE Unknown Completed [facility] SARS-COV-2 COVID-19 PFIZER VACCINE Unknown Completed [facility] SARS-COV-2 COVID-19 PFIZER VACCINE Unknown Completed [facility] SARS-COV-2 COVID-19 PFIZER VACCINE Unknown Completed [facility] SARS-COV-2 COVID-19 PFIZER VACCINE Unknown Completed [facility] SARS-COV-2 COVID-19 PFIZER VACCINE Unknown Completed [facility] SARS-COV-2 COVID-19 PFIZER VACCINE Unknown Completed [facility] SARS-COV-2 COVID-19 PFIZER VACCINE Unknown Completed [facility] Vital Signs Vital Name Observation Time Observation Value Comments S ource Systolic blood pressure 2024-03-20 19:06:00 138 mm[Hg] [facility] Diastolic blood pressure 2024-03-20 19:06:00 86 mm[Hg] [facility] Heart rate 2024-03-20 19:06:00 76 /min [facility] Body height 2024-03-20 19:06:00 177.8 cm [facility] Body weight 2024-03-20 19:06:00 86.183 kg [facility] BMI 2024-03-20 19:06:00 27.26 kg/m2 [facility] Systolic blood pressure 2023-06-14 20:49:00 107 mm[Hg] [facility] Diastolic blood pressure 2023-06-14 20:49:00 72 mm[Hg] [facility] Heart rate 2023-06-14 20:49:00 77 /min [facility] Body height 2023-06-14 20:49:00 177.8 cm [facility] Body weight 2023-06-14 20:49:00 82.555 kg [facility] BMI 2023-06-14 20:49:00 26.11 kg/m2 [facility] Systolic blood pressure 2023-02-09 13:56:00 160 mm[Hg] [facility] Diastolic blood pressure 2023-02-09 13:56:00 109 mm[Hg] [facility] Heart rate 2023-02-09 13:55:00 95 /min [facility] Body temperature 2023-02-09 13:55:00 36.89 Kassi [facility] Body height 2023-02-09 13:55:00 177.8 cm [facility] Body weight 2023-02-09 13:55:00 81.194 kg [facility] BMI 2023-02-09 13:55:00 25.68 kg/m2 [facility] Oxygen saturation in Arterial blood by Pulse oximetry 2023-02-09 13:55:00 98 /min [facility] Systolic blood pressure 2022-12-13 20:28:00 141 mm[Hg] [facility] Diastolic blood pressure 2022-12-13 20:28:00 93 mm[Hg] [facility] Heart rate 2022-12-13 20:23:00 83 /min [facility] Body height 2022-12-13 20:23:00 177.8 cm [facility] Body weight 2022-12-13 20:23:00 81.194 kg [facility] BMI 2022-12-13 20:23:00 25.68 kg/m2 [facility] Systolic blood pressure 2022-11-09 22:05:00 159 mm[Hg] [facility] Diastolic blood pressure 2022-11-09 22:05:00 102 mm[Hg] [facility] Heart rate 2022-11-09 22:04:00 89 /min [facility] Body temperature 2022-11-09 22:04:00 37.11 Kassi [facility] Body height 2022-11-09 22:04:00 177.8 cm [facility] Body weight 2022-11-09 22:04:00 81.647 kg [facility] BMI 2022-11-09 22:04:00 25.83 kg/m2 [facility] Oxygen saturation in Arterial blood by Pulse oximetry 2022-11-09 22:04:00 98 /min [facility] Systolic blood pressure 2022-04-06 19:39:00 154 mm[Hg] [facility] Diastolic blood pressure 2022-04-06 19:39:00 92 mm[Hg] [facility] Heart rate 2022-04-06 19:38:00 84 /min [facility] Body height 2022-04-06 19:38:00 177.8 cm [facility] Body weight 2022-04-06 19:38:00 83.915 kg [facility] BMI 2022-04-06 19:38:00 26.54 kg/m2 [facility] Procedures Procedure Date / Time Performed Performing Clinician Source EXTERNAL PROVIDER RECORDS 2023-04-18 05:01:00 Doctor Unassigned, Elderon [facility] EXTERNAL PROVIDER RECORDS 2023-03-10 05:01:00 Doctor Unassigned, Elderon [facility] CONSENT/REFUSAL FOR DIAGNOSIS AND TREATMENT 2022-11-09 21:53:53 Doctor Unassigned, Elderon [facility] DME/SUPPLY JUSTIFICATION 2022-08-11 06:01:00 Doc tor Unassigned, Elderon [facility] Encounters Start Date/Time End Date/Time Encounter Type Admission Type Attending [facility] Care Facility Care Department Encounter ID Source 2024-03-21 00:00:00 2024-03-23 14:02:39 Telephone Emre Sumner [facility] 1.2.840.114 350.1.13.10 4.2.7.2.686 [id number] [facility] 2024-03-23 00:00:00 2024-03-23 12:48:34 Letter (Out) [facility] 1.2.840.114 350.1.13.10 4.2.7.2.686 [id number] [facility] 2024-03-20 14:15:00 2024-03-20 14:20:15 Outpatient R EMRE SUMNER [facility] [id number] [facility] 2024-03-20 14:15:00 2024-03-20 14:20:15 Office Visit Emre Sumner [facility] 1.2.840.114 350.1.13.10 4.2.7.2.686 [id number] [facility] 2023-12-14 15:45:00 2023-12-14 15:45:00 Outpatient R DORETHAJOSEPHKELVIN EMRE [facility] [id number] [facility] 2023-06-14 16:00:00 2023-06-14 16:00:00 Office Visit Emre Sumner [facility] 1.2840.114 350.1.13.10 4.2.7.2.686 [id number] [facility] 2023-06-14 16:00:00 2023-06-14 15:57:53 Outpatient R DORETHAJOSEPHKELVINEMRE [facility] [id number] [facility] 2023-05-13 00:00:00 2023-05-13 00:00:00 Telephone Emre Sumner [facility] 1.84.114 350.1.13.10 4.2.7.2.686 [id number] [facility] 2023-05-13 00:00:00 2023-05-13 00:00:00 [facility] 1.84.114 350.1.13.10 4.2.7.2.686 [id number] [facility] 2023-04-18 00:00:00 2023-04-18 00:00:00 Orders Only Doctor Unassigned, Elderon [facility] 1.0.114 350.1.13.10 4.2.7.2.686 [id number] [facility] 2023-03-16 00:00:00 2023-03-16 00:00:00 Telephone [facility] 1.84.114 350.1.13.10 4.2.7.2.686 [id number] [facility] 2023-03-10 00:00:00 2023-03-10 00:00:00 Orders Only Doctor Unassigned, Elderon [facility] 1.2.840.114 350.1.13.10 4.2.7.2.686 [id number] [facility] 2023-02-16 00:00:00 2023-02-16 00:00:00 Telephone Cuco [facility] 1..840.114 350.1.13.10 4.2.7.2.686 [id number] [facility] 2023-02-16 00:00:00 2023-02-16 00:00:00 Telephone Dorethajosephkelvin [facility] 1..840.114 350.1.13.10 4.2.7.2.686 [id number] [facility] 2023-02-09 11:00:00 2023-02-09 11:30:00 Office Visit DorethajosephkelvinEmre [facility] 1.2.840.114 350.1.13.10 4.2.7.2.686 [id number] [facility] 2023-02-09 11:00:00 2023-02-09 11:00:00 Outpatient R EMRE SUMNER [facility] [id number] [facility] 2022-12-13 15:30:00 2022-12-13 15:45:00 Office Visit Cuco [facility] 1.2.840.114 350.1.13.10 4.2.7.2.686 [id number] [facility] 2022-12-13 15:30:00 2022-12-13 15:30:00 Outpatient R EMRE SUMNER [facility] [id number] [facility] 2022-11-09 15:45:00 2022-11-09 16:00:00 Office Visit Emre Sumner [facility] 1.2.840.114 350.1.13.10 4.2.7.2.686 [id number] [facility] 2022-11-09 15:45:00 2022-11-09 15:45:00 Outpatient EMRE CRUZ [facility] [id number] [facility] 2022-11-09 00:00:00 2022-11-09 00:00:00 Orders Only Doctor Unassigned, Elderon [facility] 1.2.840.114 350.1.13.10 4.2.7.2.686 [id number] [facility] 2022-11-08 00:00:00 2022-11-08 00:00:00 Telephone Cuco [facility] 1.2.840.114 350.1.13.10 4.2.7.2.686 [id number] [facility] 2022-08-11 00:00:00 2022-08-11 00:00:00 Orders Only Doctor Unassigned, Elderon [facility] 1.2.840.114 350.1.13.10 4.2.7.2.686 [id number] [facility] 2022-05-11 09:45:00 2022-05-11 09:45:00 Outpatient EMRE CRUZ [facility] [id number] [facility] 2022-04-26 16:30:00 2022-04-26 16:30:00 Outpatient EMRE CRUZ [facility] [id number] [facility] 2022-04-20 16:00:00 2022-04-20 16:00:00 Outpatient EMRE CRUZ [facility] [id number] [facility] 2022-04-06 15:00:00 2022-04-06 15:15:00 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 Lab, Sorin Coughlin Emre Sumner [facility] 1.2.840.114 350.1.13.10 4.2.7.2.686 [id number] [facility] 2022-04-06 15:00:00 2022-04-06 15:00:00 Outpatient Devin EMRE SUMNER [facility] [id number] [facility] 2022-04-06 14:30:00 2022-04-06 15:00:00 Office Visit Cuco [facility] 1.2.840.114 350.1.13.10 4.2.7.2.686 [id number] [facility] 2022-04-06 14:30:00 2022-04-06 14:30:00 Outpatient Devin EMRE SUMNER [facility] [id number] [facility] 2022-03-17 00:00:00 2022-03-17 00:00:00 Mario Sunmer [facility] 1.2.840.114 350.1.13.10 4.2.7.2.686 [id number] [facility] 2022-02-24 11:00:00 2022-02-24 11:00:00 Outpatient Devin EMRE SUMNER [facility] [id number] [facility] 2022-02-18 00:00:00 2022-02-18 00:00:00 Refana Sumner [facility] 1.2.840.114 350.1.13.10 4.2.7.2.686 [id number] [facility] 2022-02-12 00:00:00 2022-02-12 00:00:00 Refill Cuco [facility] 1.2.840.114 350.1.13.10 4.2.7.2.686 [id number] [facility] 2021-12-03 00:00:00 2021-12-03 00:00:00 Orders Only Doctor Unassigned, Elderon [facility] 1.2.840.114 350.1.13.10 4.2.7.2.686 [id number] [facility] 2021-10-26 00:00:00 2021-10-26 00:00:00 Shannon Hernandezkelvin [facility] 1.2.840.114 350.1.13.10 4.2.7.2.686 [id number] [facility] 2021-10-26 00:00:00 2021-10-26 00:00:00 Orders Only Doctor Unassigned, Elderon [facility] 1.2.840.114 350.1.13.10 4.2.7.2.686 [id number] [facility] 2020-11-22 14:50:00 2020-11-22 14:50:00 Outpatient [facility] [id number] [facility] 2020-11-01 15:05:00 2020-11-01 15:05:00 Outpatient [facility] [id number] [facility] 2020-09-09 15:30:00 2020-09-09 15:30:00 Outpatient EMRE CRUZ [facility] [id number] [facility] Notes Date/Time Note Provider Source 2024-03-23 13:58:17 LVM to assist, there is an authorized referral to cardio if that is the one pt is needing. Demos, referral & notes were faxed already Lori Amato [facility] 2024-03-21 16:36:39 Referral was placed today during the office visit Can we work on referral please [facility] 2024-03-21 16:28:27 Karson Giordano is a 64 year old male of patient calling and asking for an insurance authorized referral to be placed if possible, per clinic pt was referred to they need a [employer] ins referral. Please advise [phone] (home) Rose Garcia [facility] 2023-05-17 09:10:15 Formatting of this n ote might be different from the original. Faxed referral [facility] 2023-05-13 16:21:53 Formatting of this n ote might be different from the original. 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 The referral has been approved. The clinic is needing the referral fax to clinic for stress test Thony Kendall [facility] 2023-05-13 13:09:09 Formatting of this n ote might be different from the original. Referral faxed to Dr. Bales at [phone] Tricia Dwyer LVN [facility] 2023-05-13 11:08:17 Formatting of this n ote is different from the original. Images from the original note were not included. Amairani is following up on below phone encounter. correct number not below Call before 1 pm today with referral or pt will have to be rescheduled. Rboe Irenaangel DUNBAR 03/16/23 3:34 PM Note Patient has upcoming appointment with cardiology Dr. Bales at [facility]. The referral has been approved. The clinic is needing the referral fax to clinic March 18, 2023 Jasmin Lunsford RN BB 03/18/23 9:51 AM Note Referral faxed to number provided below. Jennifer Nicole [facility]
[2024-05-01] MEDS ORDERED: ASPIRIN 81 MG CHEWABLE TABLET ONE (22:50)
[2024-05-01 22:59] LABS: PT Prothrombin Time 12.3 SECONDS (9.4-12.5); Protime INR 1.1
[2024-05-01] MEDS ORDERED: ONDANSETRON 4 MG/2 ML VIAL ONE (23:02)
[2024-05-01] MEDS ORDERED: FAMOTIDINE 20 MG/2 ML VIAL IV ONE (23:03)
[2024-05-01] MEDS ORDERED: MORPHINE 4 MG/ML SYR ONE (23:03)
[2024-05-01 23:13] LABS: Absolute Basophils 0.1 K/uL (0-0.5); Absolute Eosinophils 0.1 K/uL (0-0.5); Absolute Lymphocytes (CBC) 1.9 K/uL (0.7-4.9); Absolute Monocytes 0.8 K/uL (0.1-1.3); Absolute Neutrophil 4.4 K/uL (1.8-8.0); Basophils % 1.2 % (0-1.3); Eosinophils % 1.1 % (0-4.4); Hematocrit 38.5 % (39.6-49.0); Lymphocytes % 26.9 % (15.3-44.8); MCHC 33.8 g/dL (32.0-36.0); MCV 91.8 fL (80-100); MPV 8.2 fL (7.6-11.3); Monocytes % 10.4 % (3.3-12.3); Neutrophils % 60.4 % (41.7-73.7); Platelets 253 thou/uL (152-406); Red Cell Distribution Width 15.5 % (12.1-15.2)
[2024-05-01 23:19] LABS: Anion Gap 8.3 mEq/L (5.0-15.0); Potassium 3.3 mEq/L (3.5-5.1)
[2024-05-01 23:22] LABS: Troponin High Sensitivity 92.9 pg/mL (<58.9)
--- NOTE | 2024-05-01 23:50 | ER ---
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 pt reports not taking his kc6 HTN meds today. Coronavirus screen: At this time, the client does not indicate any symptoms associated with coronavirus-19. Ebola Screen: No symptoms or risks identified at this time. Initial Sepsis Screen: Does the patient meet any 2 criteria? No. Patient's initial sepsis screen is negative. Does the patient have a suspected source of infection? No. Patient's initial sepsis screen is negative. Risk Assessment: Do you want to hurt yourself or someone else? Patient reports no desire to harm self or others. Onset of symptoms was May 01, 2024. 22:42 Method Of Arrival: Wheelchair kc 22:42 Acuity: AYESHA 2 kc6 Triage Assessment: 22:43 General: Appears in no apparent distress. uncomfortable, well groomed, well developed, kc6 Behavior is cooperative. Pain: Complains of pain in chest. Neuro: Level of Consciousness is awake, alert, obeys commands, Oriented to person, place, time, situation, Appropriate for age. Cardiovascular: Reports chest pain, Capillary refill < 3 seconds. Respiratory: Airway is patent Trachea midline Respiratory effort is even, unlabored, Respiratory pattern is regular, symmetrical. Derm: No signs and/or symptoms reported regarding the dermatologic system. Skin is intact, is healthy with good turgor, Skin is pink, warm \T\ dry. Historical: - Allergies: 22:43 No Known Allergies; kc6 - PMHx: 22:43 Crohn's Disease; HTN; PE; Myocardial infarction; kc6 22:45 Atrial fibrillation; kc6 - PSHx: 22:43 Colostomy; Stented artery; kc6 - Immunization history:: Adult Immunizations up to date. - Infectious Disease History:: Denies. - Social history:: Smoking status: Patient reports the use of cigarette tobacco products, denies chronic smoking, but will smoke occasionally. Screenin:50 [facility] ED Fall Risk Assessment (Adult) History of falling in the last 3 months, vc1 including since admission No falls in past 3 months (0 pts) Confusion or Disorientation No (0 pts) Intoxicated or Sedated Yes (3 pts) Impaired Gait No (0 pts) Mobility Assist Device Used No (0 pt) Altered Elimination No (0 pt) Score/Fall Risk Level 0 - 2 = Low Risk Oriented to surroundings, Maintained a safe environment, Educated pt \T\ family on fall prevention, incl call for assistance when getting out of bed. Abuse screen: Denies threats or abuse. Nutritional screening: No deficits noted. Tuberculosis screening: No symptoms or risk factors identified. Assessment: 22:42 General: Appears uncomfortable, Behavior is anxious, restless. Pain: Complains of pain ha1 in chest Pain radiates to left arm Pain currently is 10 out of 10 on a pain scale. Quality of pain is described as heavy, pressure, sharp, squeezing, Pain began suddenly, 30 min ago. Is continuous. Neuro: Level of Consciousness is awake, alert, obeys commands, Oriented to person, place, time, situation. Cardiovascular: Reports chest pain, shortness of breath, Heart tones present Capillary refill < 3 seconds Patient's skin is warm and dry. Pulses are all present. Rhythm is irregular. Respiratory: Reports shortness of breath at rest Airway is patent Respiratory effort is even, unlabored, Respiratory pattern is regular, symmetrical, Breath sounds are clear bilaterally. GI: Abdomen is round non-distended, Colostomy site is clean and dry. Ostomy appliance. 23:30 Reassessment: Patient and/or family updated on plan of care and expected duration. Pain ha1 level reassessed. Patient is alert, oriented x 3, equal unlabored respirations, skin warm/dry/pink. notified care provider Patient states symptoms have not improved. 05/02 00:51 Reassessment: Patient and/or family updated on plan of care and expected duration. Pain ha1 level reassessed. Patient is alert, oriented x 3, equal unlabored respirations, skin warm/dry/pink. pain 5/10 Patient states feeling better. Patient states symptoms have improved. 01:30 Reassessment: Patient and/or family updated on plan of care and expected duration. Pain ha1 level reassessed. Patient is alert, oriented x 3, equal unlabored respirations, skin warm/dry/pink. pain 2/10 Patient states feeling better. Patient states symptoms have improved. Vital Signs: 05/01 22:42 BP 178 / 100; Pulse 99; Resp 29 S; Pulse Ox 99% on R/A; Weight 87.09 kg (R); Height 5 kc6 ft. 8 in. (R); Pain 10/10; 23:00 BP 177 / 108; Pulse 87; Resp 17 S; Pulse Ox 98% on R/A; ha1 23:30 BP 159 / 96; Pulse 75; Resp 17 S; Pulse Ox 100% on R/A; ha1 05/02 00:15 BP 141 / 91; Pulse 68; Resp 17; Pulse Ox 98% on R/A; ha1 00:52 BP 171 / 95; Pulse 71; Resp 17 S; Pulse Ox 95% on R/A; ha1 01:45 BP 143 / 92; Pulse 75; Resp 17 S; Pulse Ox 99% on R/A; ha1 05/01 22:42 Body Mass Index 29.19 (87.09 kg, 172.72 cm) [facility] 05/01 22:42 Pain Scale: Adult [facility] ED Course: 05/01 22:38 Patient arrived in ED. ra3 22:43 Triage completed. 6 22:43 Arm band placed on. EKG completed in triage. Results shown to MD. [facility] 22:44 Yudith [facility]ordano [facility]-C [facility] kb 22:44 Mo Luciano MD is Attending Physician. kb 22:45 Inserted saline lock: 20 gauge in right wrist, using aseptic technique. Blood ha1 collected. Flushed with 10 mL NS. 22:46 Alpa Yadav, KATELYN is Primary Nurse. ha1 22:53 Patient has correct armband on for positive identification. Placed in gown. Bed in low vc1 position. Call light in reach. 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 Pulse ox on. NIBP on. 22:56 XRAY Chest (1 view) In Process Unspecified. EDMS 23:30 Door closed. Noise minimized. Warm blanket given. Pillow given. ha1 23:49 Donald Woodall MD is Hospitalizing Provider. kb 05/02 00:00 Provided Education on: heparin administration and elevated troponin levels . ha1 01:45 No provider procedures requiring assistance completed. ha1 01:45 Patient admitted, IV remains in place. Patient maintains SpO2 saturation greater than ha1 95% on room air. Administered Medications: 05/01 22:55 Drug: Aspirin PO Chewable Tablet 324 mg PO once; 81 mg tablets x 4 Route: PO; ha1 23:20 Follow up: Response: No adverse reaction ha1 23:06 Drug: Famotidine IVP 20 mg IVP once; dilute with 10 mL 0.9% NaCl; give over 2 minutes ha1 Route: IVP; Site: right wrist; 23:30 Follow up: Response: No adverse reaction; Marked relief of symptoms ha1 23:08 Drug: Ondansetron IVP 4 mg IVP once; over 2 minutes Route: IVP; Site: right wrist; ha1 23:25 Follow up: Response: No adverse reaction ha1 23:10 Drug: morphine IVP or IV 4 mg IVP once over 4 mins Route: IVP; Infused Over: 4 mins; ha1 Site: right wrist; 23:30 Follow up: Response: No adverse reaction; Pain is unchanged, physician notified; RASS: ha1 Restless (+1) 05/02 00:25 Drug: Nitroglycerin Sublingual 0.4 mg Sublingual once Route: Sublingual; ha1 00:50 Follow up: Response: No adverse reaction; Pain is decreased ha1 00:30 Drug: morphine IVP or IV 4 mg IVP once over 4 mins Route: IVP; Infused Over: 4 mins; ha1 Site: right wrist; 00:50 Follow up: Response: No adverse reaction; Pain is decreased; RASS: Alert and Calm (0) ha1 00:40 Drug: Heparin (NV-Bolus No thrombolytic) - HEParin IVP 60 units/kg IVP once; Max 5000 ha1 units {Co-Signature: vc1 (Sarha Egan RN).} Route: IVP; Site: right wrist; 01:00 Follow up: Response: No adverse reaction ha1 00:42 Drug: Heparin (NV Drip) 12 units/kg/[place] - ([place] [address] units, D5W IV 500 ml) IV at ha1 calculated rate Per protocol; Max initial rate 1000 units/hr {Co-Signature: vc1 (Sarah Egan RN).} Route: IV; Rate: calculated rate; Site: right wrist; 01:30 Follow up: Response: No adverse reaction; IV Status: Infusion continued upon admission ha1 Medication: 05/01 22:53 VIS not applicable for this client. vc1 Outcome: 23:49 Decision to Hospitalize by Provider. yuliana 05/02 01:44 Admitted to Med/surg accompanied by tech, via stretcher, room 232, ha1 Condition: stable Instructed on the need for admit, Demonstrated understanding of instructions, 01:45 Patient left the ED. 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 ha1 ha1
--- NOTE | 2024-05-01 23:50 | EDPHYS ---
Physician Documentation [facility] Name: Karson Giordano Age: 64 yrs Sex: Male : 1960 Arrival Date: 05/01/2024 Time: 22:36 Bed 4 Private MD: ED Physician Mo Luciano HPI: 05/01 23:37 This 64 yrs old Black Male presents to ER via Wheelchair with complaints of Chest Pain. 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 Denies nausea, vomiting. States the pain is substernal and radiates to left side of chest. . Historical: - Allergies: 22:43 No Known Allergies; kc6 - PMHx: 22:43 Crohn's Disease; HTN; PE; Myocardial infarction; kc6 22:45 Atrial fibrillation; kc6 - PSHx: 22:43 Colostomy; Stented artery; kc6 - Immunization history:: Adult Immunizations up to date. - Infectious Disease History:: Denies. - Social history:: Smoking status: Patient reports the use of cigarette tobacco products, denies chronic smoking, but will smoke occasionally. ROS: 23:37 Constitutional: As per HPI kb Exam: 23:37 Constitutional: This is a well developed, well nourished patient who is awake, alert, kb and in no acute distress. Head/Face: Normocephalic, atraumatic. ENT: Moist Mucous membranes Cardiovascular: Regular rate Respiratory: Respirations even and unlabored. No increased work of breathing. Talking in full sentences Abdomen/GI: Soft, non-tender. No distention Skin: Warm, dry with normal turgor. Normal color. MS/ Extremity: Pulses equal, no cyanosis. Neurovascular intact. Full, normal range of motion. Neuro: Awake and alert, GCS 15, oriented to person, place, time, and situation. Moves all extremities. Normal gait. 23:41 ECG was reviewed by the Attending Physician. kb Vital Signs: 22:42 BP 178 / 100; Pulse 99; Resp 29 S; Pulse Ox 99% on R/A; Weight 87.09 kg (R); Height 5 kc6 ft. 8 in. (R); Pain 10/10; 23:00 BP 177 / 108; Pulse 87; Resp 17 S; Pulse Ox 98% on R/A; ha1 23:30 BP 159 / 96; Pulse 75; Resp 17 S; Pulse Ox 100% on R/A; ha1 05/02 00:15 BP 141 / 91; Pulse 68; Resp 17; Pulse Ox 98% on R/A; ha1 00:52 BP 171 / 95; Pulse 71; Resp 17 S; Pulse Ox 95% on R/A; ha1 01:45 BP 143 / 92; Pulse 75; Resp 17 S; Pulse Ox 99% on R/A; ha1 05/01 22:42 Body Mass Index 29.19 (87.09 kg, 172.72 cm) [facility] 05/01 22:42 Pain Scale: Adult [facility] MDM: 05/01 22:44 Patient medically screened. kb 23:38 Differential diagnosis: arrhythmia, acute CA, PE. Data reviewed: vital signs, nurses kb notes. Consideration of Admission/Observation Patient was admitted/placed on observation. Escalation of care including admission/observation considered. Management of patient was discussed with the following: Personal Computer Specialist: Dr Acharya accepts pt for consult, wants pt put on heparin drip. Counseling: I had a detailed discussion with the patient and/or guardian regarding the historical points, exam findings, and any diagnostic results supporting the discharge/admit diagnosis, lab results, radiology results, the need for further work-up and treatment in the hospital. 23:50 Management of patient was discussed with the following: Hospitalist: Dr Talisha bridges accepts pt for admission. Wants a dose of nitro given. 05/01 22:45 Order name: Basic Metabolic Panel 05/01 22:45 Order name: CBC with Diff; Complete Time: 23:19 05/01 22:45 Order name: NT PRO-BNP 05/01 22:45 Order name: PT-INR 05/01 22:45 Order name: Troponin HS 05/02 00:16 Order name: D-Dimer [facility] 05/02 00:16 Order name: Magnesium [facility]NY 05/02 00:16 Order name: Thyroid Stimulating Hormone [facility]NY 05/02 00:16 Order name: CBC with Automated Diff EDMS 05/02 00:16 Order name: CBC with Automated Diff [facility]NY 05/02 00:16 Order name: Comprehensive Metabolic Panel [facility] 05/02 00:16 Order name: Comprehensive Metabolic Panel [facility] 05/02 00:16 Order name: Lipid Profile [facility]NY 05/02 00:16 Order name: Lipid Profile [facility] 05/02 00:16 Order name: Troponin High Sensitivity [facility] 05/02 00:16 Order name: Troponin High Sensitivity [facility]NY 05/02 00:16 Order name: Troponin High Sensitivity [facility] 05/02 00:16 Order name: Troponin High Sensitivity [facility] 05/02 00:19 Order name: Ptt, Activated ha1 05/02 00:34 Order name: PTT, Activated Partial Thromb EDNY 05/02 00:34 Order name: D-Dimer [facility] 05/01 22:45 Order name: XRAY Chest (1 view) kb 05/02 00:16 Order name: Chest For Pe Angio EDNY 05/02 00:16 Order name: CONS Physician Consult EDNY 05/01 22:45 Order name: Cardiac monitoring; Complete Time: 22:45 kb 05/01 22:45 Order name: EKG - Nurse/Tech; Complete Time: 22:45 kb 05/01 22:45 Order name: IV Saline Lock; Complete Time: 22:46 kb 05/01 22:45 Order name: Labs collected and sent; Complete Time: 22:46 kb 05/01 22:45 Order name: O2 Per Protocol; Complete Time: 22:45 kb 05/01 22:45 Order name: O2 Sat Monitoring; Complete Time: 22:45 kb EC:41 Rate is 99 beats/min. Rhythm is regular. QRS [place] is Normal. MD interval is normal at kb 190 msec. QRS interval is normal at 102 msec. QT interval is normal at 469 msec. Administered Medications: 22:55 Drug: Aspirin PO Chewable Tablet 324 mg PO once; 81 mg tablets x 4 Route: PO; ha1 23:20 Follow up: Response: No adverse reaction ha1 23:06 Drug: Famotidine IVP 20 mg IVP once; dilute with 10 mL 0.9% NaCl; give over 2 minutes ha1 Route: IVP; Site: right wrist; 23:30 Follow up: Response: No adverse reaction; Marked relief of symptoms ha1 23:08 Drug: Ondansetron IVP 4 mg IVP once; over 2 minutes Route: IVP; Site: right wrist; ha1 23:25 Follow up: Response: No adverse reaction ha1 23:10 Drug: morphine IVP or IV 4 mg IVP once over 4 mins Route: IVP; Infused Over: 4 mins; ha1 Site: right wrist; 23:30 Follow up: Response: No adverse reaction; Pain is unchanged, physician notified; RASS: ha1 Restless (+1) 05/02 00:25 Drug: Nitroglycerin Sublingual 0.4 mg Sublingual once Route: Sublingual; ha1 00:50 Follow up: Response: No adverse reaction; Pain is decreased ha1 00:30 Drug: morphine IVP or IV 4 mg IVP once over 4 mins Route: IVP; Infused Over: 4 mins; ha1 Site: right wrist; 00:50 Follow up: Response: No adverse reaction; Pain is decreased; RASS: Alert and Calm (0) ha1 00:40 Drug: Heparin (CA-Bolus No thrombolytic) - HEParin IVP 60 units/kg IVP once; Max 5000 ha1 units {Co-Signature: 1 (Sarah Egan RN).} Route: IVP; Site: right wrist; 01:00 Follow up: Response: No adverse reaction ha1 00:42 Drug: Heparin ([place] Drip) 12 units/kg/[place] - ([place] [address] units, D5W IV 500 ml) IV at ha1 calculated rate Per protocol; Max initial rate 1000 units/hr {Co-Signature: vc1 (Sarah Egan RN).} Route: IV; Rate: calculated rate; Site: right wrist; 01:30 Follow up: Response: No adverse reaction; IV Status: Infusion continued upon admission ha1 Disposition Summary: 05/01/24 23:49 Hospitalization Ordered Notes: Hospitalization Status: Inpatient Admission kb Provider: Donald Woodall Location: Telemetry/MedSurg (Inpatient) kb Condition: Stable kb Problem: new kb Symptoms: are unchanged kb Bed/Room Type: Standard Room Assignment: 232(05/02/24 00:32) ty Diagnosis - NSTEMI kb Forms: - Medication Reconciliation Form kb - SBAR form kb - Leadership Thank You Letter kb Addendum: 05/09/2024 04:55 Co-signature as Attending Physician, Mo Luciano MD I agree with the assessment and c morrell plan of care. Signatures: Dispatcher [employer] Yudith Watson FNP-C DOOR CAPTAIN-Ckb Mo Luciano MD MD cha Ayala, Heidy, RN RN ha1 Capri Richard RN RN kc6 Adria Francois Vanessa RN vc1 Corrections: (The following items were deleted from the chart) 05/01 22:45 22:45 BASIC METABOLIC PANEL+C.LAB.BRZ ordered. EDMS EDMS 22:45 22:45 CBC+H.LAB.BRZ ordered. EDMS EDMS 22:45 22:45 PROBNP+C.LAB.BRZ ordered. EDMS EDMS 22:45 22:45 PROTIME (+INR)+COAG.LAB.BRZ ordered. EDMS EDMS 22:45 22:45 Troponin High Sensitivity+C.LAB.BRZ ordered. EDMS EDMS 22:45 22:45 Chest Single View+RAD.RAD.BRZ ordered. EDMS EDMS 23:50 23:38 Management of patient was discussed with the following: Personal Computer Specialist: Dr Patrizia bridges accepts pt for consult. kb 05/02 00:32 05/01 23:49 kb ty
--- NOTE | 2024-05-02 00:03 | P.HP ---
Certification for Inpatient Patient admitted to: Observation With expected LOS: <2 Midnights Patient will require the following post-hospital care: None Practitioner: I am a practitioner with admitting privileges, knowledge of patient current condition, hospital course, and medical plan of care. Services: Services provided to patient in accordance with Admission requirements found in Title 42 Section 412.3 of the Code of Federal Regulations Patient History Date of Service: 05/02/24 Reason for admission: Chest pain History of Present Illness: 64-year-old male with past medical history of hypertension, CAD, systolic CHF with last echo showing EF of less than 25%, history of PE last in setting of noncompliant with Eliquis, history of A-fib on Eliquis, Crohn's disease status post colostomy who presented to the hospital today because of chest pain as well as shortness of breath with started 1 hour prior to presentation. Chest pain was a left-sided nonradiating. Pain persisted until arrival in the ED. patient admits to being noncompliant with the Eliquis. He states he misses some doses intermittently. On arrival to ED patient was given morphine with some relief in pain but was still mild. Patient denies any shortness of breath now. Vital signs stable EKG shows ST segment depression in the anterolateral leads. Troponin mildly elevated at 92, proBNP elevated at 3629. BMP showed creatinine of 1.3 otherwise unremarkable except for potassium of 3.3. CBC was unremarkable. Cardiology on- call has been consulted and recommended heparin drip for possible non-STEMI. Allergies No Known Allergies Allergy (Verified 03/02/23 20:50) Home Medications: Aspirin [Aspirin EC 81 MG] 81 mg PO DAILY #30 tablet. 09/14/19 Atorvastatin Calcium [Lipitor] 40 mg PO BEDTIME #30 tab 09/14/19 Apixaban [Eliquis] 5 mg PO BID 30 Days #60 tablet 01/31/23 Furosemide 40 mg PO DAILY 30 Days #30 tab 03/03/23 Spironolactone [Aldactone*] 25 mg PO DAILY 30 Days #30 tab 03/03/23 Metoprolol Succinate 50 mg PO DAILY 04/13/23 Sacubitril/Valsartan [Entresto 49 mg-51 mg Tablet] 1 tab PO BID 04/13/23 Apixaban [Eliquis] 5 mg PO BID #70 tab 04/15/23 Furosemide 40 mg PO BID #60 tab 04/15/23 Spironolactone [Aldactone*] 25 mg PO BID #60 tab 04/15/23 - Past Medical/Surgical History Diabetic: No -: Crohn's -: HTN -: Pulmonary embolism -: History of COVID infection -: CHF -: Scope to bilat knees Meniscus/ACL -: Colostomy -: Stents coronary artery Psychosocial/ Personal History: Patient is retired, lives at home with his - Family History Mother -: Diabetes, Cancer Father -: Hypertension, GI disease, Diabetes Brother -: Diabetes, Stroke Sister -: Diabetes - Social History Smoking therapy provided: Yes Patient receptive to therapy: Yes Alcohol use: Yes CD- Drugs: No Caffeine use: Yes Place of Residence: Home Review of Systems 10-point ROS is otherwise unremarkable Respiratory: Shortness of Breath Cardiovascular: Chest Pain Physical Examination - Physical Exam General: Alert, In no apparent distress, Oriented x3 HEENT: Atraumatic, Normocephalic, PERRLA Neck: Supple, 2+ carotid pulse no bruit, JVD not distended Respiratory: Clear to auscultation bilaterally, Normal air movement Cardiovascular: No edema, Normal S1 S2 Capillary refill: <2 Seconds Gastrointestinal: Normal bowel sounds, Soft and benign, Non-distended, No ascites, No tenderness, Other (colostomy +) Musculoskeletal: No clubbing, No swelling Integumentary: No rashes, No breakdown Neurological: Normal gait, Normal speech, Normal strength at 5/5 x4 extr, Cranial nerves 3-12 intact - Studies Laboratory Data (last 24 hrs) 05/01/24 05/01/24 05/01/24 22:45 22:45 22:45 WBC 7.20 Hgb 13.0 L Hct 38.5 L Plt Count 253 PT 12.3 INR 1.10 Sodium 139 Potassium 3.3 L BUN 18 Creatinine 1.34 H Glucose 127 H Assessment and Plan - Problems (Diagnosis) (1) DELMI (acute kidney injury) Onset Date: 10/07/17 Current Visit: No Status: Acute (2) Atrial fibrillation Current Visit: No Status: Acute (3) CHF (congestive heart failure) Current Visit: No Status: Acute Qualifiers: Heart failure type: systolic Heart failure chronicity: acute on chronic Qualified Code(s): I50.23 - Acute on chronic systolic (congestive) heart failure (4) Chest pain Onset Date: 07/09/14 Current Visit: No Status: Acute (5) Crohns disease Onset Date: 07/09/14 Current Visit: No Status: Acute (6) Elevated troponin Onset Date: 10/07/17 Current Visit: No Status: Acute - Plan Impression Atypical chest pain likely due to non-STEMI, rule out recurrent PE History of PE Hypertension CAD Systolic CHF History of atrial fibrillation on Eliquis Eliquis nonadherence History of Crohn's disease CKD stage III Plan Atypical chest painlikely due to non-STEMI but given history of PE as well as Eliquis noncompliance, obtain D-dimer if elevated, will obtain CT CTA PE protocol will try to avoid CT if possible since CKD status Heparin drip Cardiology consult Resume statin/metoprolol/Entresto Add Nitropatch Serial set of troponin Hold Eliquis for now for possible cardiac cath if needed Replace potassium Resume diuretics DVT prophylaxison heparin Full code - Advance Directives Does patient have a Living Will: No Does patient have a Durable POA for Healthcare: No
[2024-05-02] MEDS ORDERED: ALBUTEROL 2.5 MG/3 ML NEB SOL NEB PRN (00:06)
[2024-05-02] MEDS: NITROGLYCERIN 0.2 MG/HR (5 MG) PATCH TD SCH (00:15)
[2024-05-02 00:34] LABS: D-Dimer 1.749 FEUug/mL (0-0.500); PTT, Activated Partial Thromb 28.8 SECONDS (24.3-36.9)
[2024-05-02] MEDS ORDERED: HEPARIN 5000 UNIT/ML 1 ML VIAL ONE ×2 (00:35→10:44)
[2024-05-02] MEDS ORDERED: NITROGLYCERIN 0.4 MG/TAB SL ONE (00:35)
[2024-05-02] MEDS ORDERED: MORPHINE 4 MG/ML SYR ONE (00:36)
[2024-05-02] MEDS ORDERED: HEPARIN/D5W 25,000 UNIT/500 ML BAG IV ONE (00:36)
[2024-05-02] MEDS ORDERED: HEPARIN/D5W 25,000 UNIT/500 ML BAG IV PRN (02:02)
[2024-05-02 02:14] LABS: Magnesium 1.9 mg/dL (1.6-2.4); Thyroid Stimulating Hormone 2.08 uIU/mL (0.358-3.740)
[2024-05-02 02:20] VITALS: BMI 27.5
[2024-05-02] MEDS ORDERED: HYDRALAZINE HCL 20 MG/ML VIAL ONE (02:49)
[2024-05-02] MEDS ORDERED: POTASSIUM CL SA 10 MEQ TAB PO ONE (02:50)
[2024-05-02] MEDS: POTASSIUM CL SA 10 MEQ TAB PO ONE (02:59)
[2024-05-02] MEDS: HYDRALAZINE HCL 20 MG/ML VIAL IV PRN (02:59)
[2024-05-02] MEDS: MORPHINE 2 MG/ML SYR IV PRN (07:22)
--- NOTE | 2024-05-02 08:52 | P.CNS ---
Date of Consult: 05/02/24 Chief Complaint: Chest pain History of Present Illness: Patient with PMH of combined heart failure, presented with chest pain that started yesterday, pressure in nature, no radiation, no aggravating or relieving factors, denies SOB, no palpitations, no syncope. Allergies No Known Allergies Allergy (Verified 03/02/23 20:50) Home medications list reviewed: Yes Home Medications: Aspirin [Aspirin EC 81 MG] 81 mg PO DAILY #30 tablet. 09/14/19 Atorvastatin Calcium [Lipitor] 40 mg PO BEDTIME #30 tab 09/14/19 Apixaban [Eliquis] 5 mg PO BID 30 Days #60 tablet 01/31/23 Furosemide 40 mg PO DAILY 30 Days #30 tab 03/03/23 Spironolactone [Aldactone*] 25 mg PO DAILY 30 Days #30 tab 03/03/23 Metoprolol Succinate 50 mg PO DAILY 04/13/23 Sacubitril/Valsartan [Entresto 49 mg-51 mg Tablet] 1 tab PO BID 04/13/23 Apixaban [Eliquis] 5 mg PO BID #70 tab 04/15/23 Furosemide 40 mg PO BID #60 tab 04/15/23 Spironolactone [Aldactone*] 25 mg PO BID #60 tab 04/15/23 - Past Medical/Surgical History Diabetic: No -: Crohn's -: HTN -: Pulmonary embolism -: History of COVID infection -: CHF -: Scope to bilat knees Meniscus/ACL -: Colostomy -: Stents coronary artery Psychosocial/ Personal History: Patient is retired, lives at home with his - Family History Mother Medical History: Diabetes, Cancer Father Medical History: Hypertension, GI disease, Diabetes Brother Medical History: Diabetes, Stroke Sister Medical History: Diabetes - Social History Smoking Status: Current some day smoker Alcohol use: Yes CD- Drugs: No Caffeine use: Yes Place of Residence: Home Review of Systems 10-point ROS is otherwise unremarkable Physical Examination Temp Pulse Resp BP Pulse Ox 97.0 F 79 16 132/77 94 05/02/24 08:00 05/02/24 08:00 05/02/24 08:00 05/02/24 08:00 05/02/24 08:00 General: Alert, In no apparent distress HEENT: Atraumatic, PERRLA, Mucous membr. moist/pink, EOMI, Sclerae nonicteric Neck: Supple, 2+ carotid pulse no bruit, No LAD, Without JVD or thyroid abnormality Respiratory: Clear to auscultation bilaterally, Normal air movement Cardiovascular: Regular rate/rhythm, Normal S1 S2 Gastrointestinal: Normal bowel sounds, No tenderness Musculoskeletal: No tenderness Integumentary: No rashes Neurological: Normal gait, Normal speech, Normal tone, Normal affect Lymphatics: No axilla or inguinal lymphadenopathy Laboratory Data (last 24 hrs) 05/01/24 05/01/24 05/01/24 22:45 22:45 22:45 WBC 7.20 Hgb 13.0 L Hct 38.5 L Plt Count 253 PT 12.3 INR 1.10 APTT 28.8 Sodium 139 Potassium 3.3 L BUN 18 Creatinine 1.34 H Glucose 127 H Magnesium 1.9 - Problems (1) NSTEMI (non-ST elevated myocardial infarction) Current Visit: Yes Status: Acute Plan: Heparin drip ASA 81 mg daily for life. Lipitor 40 mg daily NPO for coronary angiogram. repeat echo (2) Atrial fibrillation Current Visit: No Status: Acute Plan: continue toprol XL Continue to hold Eliquis. (3) CHF (congestive heart failure) Current Visit: No Status: Acute Plan: continue toprol XL Lasix and spirnolactone Qualifiers: Heart failure type: systolic Heart failure chronicity: acute on chronic Qualified Code(s): I50.23 - Acute on chronic systolic (congestive) heart failure
--- NOTE | 2024-05-02 09:36 | RAD REPORT ---
EXAM DESCRIPTION: CT - Chest For Pe Angio - 05/02/2024 9:14 am CLINICAL HISTORY: Chest pain COMPARISON: April 2023 TECHNIQUE: Dynamically enhanced axial 3 mm thick images of the chest were obtained during administra tion of 100 mL Isovue 370 IV contrast. Coronal and oblique reconstruction images were generated and r eviewed. Exam utilizes a protocol for optimal evaluation of pulmonary arterial tree. Maximum intensity projections 3D imaging was utilized All CT scans are performed using dose optimization technique as appropriate and may include automated exposure control or mA/KV adjustment according to patient size. FINDINGS: No acute pulmonary embolus seen. Small amounts of chronic thrombus right lower lobe pulmon loren artery A thoracic aortic aneurysm is not noted. Small left pleural effusion. A pericardial effusion is not seen. A lung consolidation is not present. IMPRESSION: Negative for acute pulmonary embolus
[2024-05-02] MEDS: FUROSEMIDE 40 MG TABLET PO SCH (09:59)
[2024-05-02] MEDS: ASPIRIN EC 81 MG TAB PO SCH (09:59)
[2024-05-02] MEDS: METOPROLOL XL 50 MG TAB PO SCH (09:59)
[2024-05-02] MEDS: SPIRONOLACTONE 25 MG TABLET PO SCH (09:59)
[2024-05-02] MEDS: SACUBITRIL/VALSARTAN 49/51 MG TAB PO SCH (09:59)
[2024-05-02] MEDS ORDERED: HEPA 1000U/500MLS 2,000 UNIT/1,000 ML BAG IV ONE (10:42)
[2024-05-02] MEDS ORDERED: NITROGLYCERIN/D5W 50 MG/250 ML BTL IV ONE (10:42)
[2024-05-02] MEDS ORDERED: ATROPINE SULF 1 MG/10 ML SYR IV ONE (10:43)
[2024-05-02] MEDS ORDERED: MIDAZOLAM HCL 2 MG/2 ML INJ ONE (10:43)
[2024-05-02] MEDS ORDERED: LIDOCAINE 1% 20 ML MDV ONE (10:43)
[2024-05-02] MEDS ORDERED: HEPARIN 10,000 UNIT/10 ML VIAL IV ONE (10:43)
[2024-05-02] MEDS ORDERED: TICAGRELOR 90 MG TABLET PO ONE (10:44)
[2024-05-02] MEDS ORDERED: CLOPIDOGREL 75 MG TABLET ONE (10:44)
[2024-05-02] MEDS ORDERED: FENTANYL CITR 100 MCG/2 ML ONE ×2 (10:44→13:02)
[2024-05-02] MEDS ORDERED: ASPIRIN 325 MG TAB ONE (10:45)
[2024-05-02] MEDS ORDERED: NA CHLORIDE 0.9% 500 ML ONE (11:20)
--- NOTE | 2024-05-02 11:42 | RAD REPORT ---
EXAM DESCRIPTION: RAD - Chest Single View - 05/01/2024 10:54 pm CLINICAL HISTORY: Chest pain. COMPARISON: None. TECHNIQUE: XR CHEST 1 VIEW 05/01/2024 10:45 PM CDT FINDINGS: The heart is enlarged. Lungs are clear without consolidation, atelectasis, mass or edema. There is no pleural effusion. There is no pneumothorax. There are no acute osseous findings. IMPRESSION: Clear lungs. Electronically signed by: Alejandro Cantrell MD 05/01/2024 11:34 PM CDT RP Due to temporary technical issues with the PACS/Fluency reporting system, reports are being signed by the in house radiologist without review as a courtesy to ensure prompt reporting. The interpreting r adiologist is fully responsible for the content of the report.
--- NOTE | 2024-05-02 15:20 | P.PN ---
Date of Service: 05/02/24 Subjective: Still having chest pain this morning Going for coronary angiogram ROS: 10 point ROS as noted above, otherwise negative Physical exam GEN: Alert, oriented, NAD HEENT: Normal conjunctiva, sclera anicteric CV: Regular rate and rhythm, no edema Pulm: Nonlabored respirations on room air ABD: Soft, nontender, nondistended MSK: No joint tenderness Integumentary: No rashes Neuro: Normal speech, normal affect Vitals reviewed Problem List NSTEMI-history of CAD History of PE Chronic systolic congestive heart failure History of atrial fibrillation on Eliquis Hypertension History of Crohn's disease CKD stage III Plan NSTEMI-history of CAD Troponin trending up plan for coronary angiogram today with cardiology Continue heparin drip History of PE CT PE protocol ordered-negative for PE Continue anticoagulation Chronic systolic congestive heart failure Continue home medications Does not appear grossly overloaded at this time History of atrial fibrillation on Eliquis Hypertension Continue home medications when verified History of Crohn's disease CKD stage III Now with recent contrast exposure, monitor chemistry closely Time Spent Managing Pts Care (In Minutes): 35
[2024-05-02 15:43] VITALS: O2SAT 99
--- NOTE | 2024-05-02 17:48 | P.PN ---
Subjective Date of Service: 05/02/24 Chief Complaint: Chest pain Subjective: No new changes, No C/O voiced, Tolerating diet, Ambulating, Improving Review of Systems 10-point ROS is otherwise unremarkable Physical Examination - Vital Signs Temperature: 97.4 F Blood Pressure: 133/88 Pulse: 62 Respirations: 14 Pulse Ox (%): 96 - Physical Exam General: Alert, In no apparent distress HEENT: Atraumatic, PERRLA, EOMI Neck: Supple, JVD not distended Respiratory: Clear to auscultation bilaterally, Normal air movement Cardiovascular: Regular rate/rhythm, Normal S1 S2 Gastrointestinal: Normal bowel sounds, No tenderness Musculoskeletal: No tenderness Integumentary: No rashes Neurological: Normal speech, Normal tone, Normal affect Lymphatics: No axilla or inguinal lymphadenopathy - Studies Laboratory Data (last 24 hrs) 05/01/24 05/01/24 05/01/24 22:45 22:45 22:45 WBC 7.20 Hgb 13.0 L Hct 38.5 L Plt Count 253 PT 12.3 INR 1.10 APTT 28.8 Sodium 139 Potassium 3.3 L BUN 18 Creatinine 1.34 H Glucose 127 H Magnesium 1.9 Medications List Reviewed: Yes Assessment And Plan - Current Problems (Diagnosis) (1) NSTEMI (non-ST elevated myocardial infarction) Current Visit: Yes Status: Acute Plan: Coronary angiogram done today, PCI of RCA done with Synergy 4.0x24 mm CANDIE. patient will need staged PCI of LAD in 4-6 weeks ASA 81 mg daily for 4 weeks. Brilinta 90 mg po tonight then Plavix 300x1 in am then continue Plavix 75 mg daily for 12 months Lipitor 40 mg daily (2) Atrial fibrillation Current Visit: No Status: Acute Plan: continue toprol XL restart Eliquis 5 mg po BID tonight. (3) CHF (congestive heart failure) Current Visit: No Status: Acute Plan: continue toprol XL Lasix and spirnolactone Qualifiers: Heart failure type: systolic Heart failure chronicity: acute on chronic Qualified Code(s): I50.23 - Acute on chronic systolic (congestive) heart failure
[2024-05-02] MEDS: ONDANSETRON 4 MG/2 ML VIAL IV PRN (18:24)
[2024-05-02] MEDS: NA CHLORIDE 0.9% 1,000 ML IV SCH (18:24)
[2024-05-02] MEDS: TICAGRELOR 90 MG TABLET PO SCH (22:04)
[2024-05-02] MEDS: ATORVASTATIN 40 MG TAB PO SCH (22:04)
[2024-05-02] MEDS: APIXABAN 5 MG TABLET PO SCH (22:05)
[2024-05-03] MEDS: ACETAMINOPHEN 500 MG TAB PO PRN (01:53)
[2024-05-03 06:00] LABS: Absolute Lymphocytes (CBC) 1.1 K/uL (0.7-4.9); Absolute Monocytes 1.1 K/uL (0.1-1.3); Absolute Neutrophil 6.2 K/uL (1.8-8.0); Basophils % 0.4 % (0-1.3); Eosinophils % 0.6 % (0-4.4); Hemoglobin 14.4 g/dL (13.6-17.9); Lymphocytes % 12.9 % (15.3-44.8); MCH 30.5 pg (27.0-35.0); MCHC 33.4 g/dL (32.0-36.0); MCV 91.3 fL (80-100); MPV 8.1 fL (7.6-11.3); Monocytes % 12.9 % (3.3-12.3); Neutrophils % 73.2 % (41.7-73.7); Platelets 282 thou/uL (152-406); RBC Red Blood Cell Count 4.71 M/uL (4.33-5.43); Red Cell Distribution Width 15.5 % (12.1-15.2)
[2024-05-03 06:16] LABS: Albumin 3.7 g/dL (3.4-5.0); Albumin/Globulin Ratio 0.8 (1.1-1.8); Anion Gap 11.2 mEq/L (5.0-15.0); Bilirubin Total 0.6 mg/dL (0.2-1.0); Globulin 4.7 g/dL (2.3-3.5); Potassium 3.2 mEq/L (3.5-5.1); Protein, Total 8.4 g/dL (6.4-8.2)
[2024-05-03] MEDS: CLOPIDOGREL 75 MG TABLET PO ONE (08:11)
[2024-05-03 08:50] VITALS: BP 122/72; TEMP 98.3
--- NOTE | 2024-05-03 09:26 | P.DS ---
Admission Date: 05/02/24 Discharge Date: 05/03/24 Disposition: ROUTINE DISCHARGE Discharge Condition: GOOD Reason for Admission: Chest pain Consultations: CardiologyDr. Acharya Procedures: [facility] 05/02 with stent to proximal RCA, stenosis of LAD will need staged cath 4 to 6 weeks Brief History of Present Illness: 64-year-old male with past medical history of hypertension, CAD, systolic CHF with last echo showing EF of less than 25%, history of PE last in setting of noncompliant with Eliquis, history of A-fib on Eliquis, Crohn's disease status post colostomy who presented to the hospital today because of chest pain as well as shortness of breath with started 1 hour prior to presentation. Chest pain was a left-sided nonradiating. Pain persisted until arrival in the ED. patient admits to being noncompliant with the Eliquis. He states he misses some doses intermittently. On arrival to ED patient was given morphine with some relief in pain but was still mild. Patient denies any shortness of breath now. Vital signs stable EKG shows ST segment depression in the anterolateral leads. Troponin mildly elevated at 92, proBNP elevated at 3629. BMP showed creatinine of 1.3 otherwise unremarkable except for potassium of 3.3. CBC was unremarkable. Cardiology on- call has been consulted and recommended heparin drip for possible non-STEMI. Hospital Course: Problem List NSTEMI/ACS-status post stent to proximal RCA History of PE Chronic systolic congestive heart failure History of atrial fibrillation on Eliquis Hypertension History of Crohn's disease CKD stage III Patient was admitted to the hospital for NSTEMI, he underwent coronary angiogram on 05/02 with stent to the proximal RCA. He does have stenosis in his LAD which will require staged cath in 4 to 6 weeks with cardiology. He has a history of pulmonary embolism, CT PE protocol was performed and negative for PE. Patient doing well overnight since heart cath, no further episodes of chest pain. Stable for discharge and outpatient follow-up with cardiology. You will need to take Eliquis 5 mg by mouth twice daily, Plavix 75 mg daily and baby aspirin 81 mg daily for the next 1 month. After 1 month you will stop taking aspirin 81 mg daily and continue taking Eliquis and Plavix until otherwise instructed by cardiology. Your other home medications will remain unchanged. Please follow-up with your primary care doctor in 1 to 2 weeks Please also follow-up with cardiology in one 1 week as previously scheduled on May 08. It is extremely important you are compliant with these medications to prevent issues with the stent that you have in place now Physical exam GEN: Alert, oriented, NAD HEENT: Normal conjunctiva, sclera anicteric CV: Regular rate and rhythm, no edema Pulm: Nonlabored respirations on room air ABD: Soft, nontender, nondistended MSK: No joint tenderness Integumentary: No rashes Neuro: Normal speech, normal affect Vital Signs/Physical Exam: Temp Pulse Resp BP Pulse Ox 98.3 F 88 17 122/72 98 05/03/24 08:00 05/03/24 08:00 05/03/24 08:00 05/03/24 08:00 05/03/24 08:00 Laboratory Data at Discharge: WBC 8.40 thou/uL (4.3-10.9) 05/03/24 05:32 Hgb 14.4 g/dL (13.6-17.9) 05/03/24 05:32 Hct 43.0 % (39.6-49.0) 05/03/24 05:32 Plt Count 282 thou/uL (152-406) 05/03/24 05:32 PT 12.3 SECONDS (9.4-12.5) 05/01/24 22:45 INR 1.10 05/01/24 22:45 APTT 58.5 SECONDS (24.3-36.9) H 05/02/24 09:46 Sodium 135 mEq/L (136-145) L 05/03/24 05:32 Potassium 3.2 mEq/L (3.5-5.1) L 05/03/24 05:32 BUN 13 mg/dL (7-18) 05/03/24 05:32 Creatinine 1.30 mg/dL (0.70-1.30) 05/03/24 05:32 Glucose 125 mg/dL (74-106) H 05/03/24 05:32 Magnesium Cancelled 05/02/24 00:11 Total Bilirubin 0.6 mg/dL (0.2-1.0) 05/03/24 05:32 AST 83 U/L (15-37) H 05/03/24 05:32 ALT 30 U/L (16-61) 05/03/24 05:32 Alkaline Phosphatase 67 U/L (45-117) 05/03/24 05:32 Triglycerides 115 mg/dL (<150) 05/03/24 05:32 Cholesterol 209 mg/dL (<200) H 05/03/24 05:32 HDL Cholesterol 46 mg/dL (40-60) 05/03/24 05:32 Cholesterol/HDL Ratio 4.54 05/03/24 05:32 Home Medications: Aspirin [Aspirin EC 81 MG] 81 mg PO DAILY #30 tablet. 09/14/19 Atorvastatin Calcium [Lipitor] 40 mg PO BEDTIME #30 tab 09/14/19 Furosemide 40 mg PO DAILY 30 Days #30 tab 03/03/23 Spironolactone [Aldactone*] 25 mg PO DAILY 30 Days #30 tab 03/03/23 Metoprolol Succinate 50 mg PO DAILY 04/13/23 Sacubitril/Valsartan [Entresto 49 mg-51 mg Tablet] 1 tab PO BID 04/13/23 Spironolactone [Aldactone*] 25 mg PO BID #60 tab 04/15/23 Apixaban [Eliquis] 5 mg PO BID #60 tablet 05/03/24 Clopidogrel Bisulfate [Plavix] 75 mg PO DAILY #30 tab 05/03/24 New Medications: Apixaban [Eliquis] 5 mg PO BID #60 tablet Clopidogrel Bisulfate [Plavix] 75 mg PO DAILY #30 tab Physician Discharge Instructions: Patient was admitted to the hospital for NSTEMI, he underwent coronary angiogram on 05/02 with stent to the proximal RCA. He does have stenosis in his LAD which will require staged cath in 4 to 6 weeks with cardiology. He has a history of pulmonary embolism, CT PE protocol was performed and negative for PE. Patient doing well overnight since heart cath, no further episodes of chest pain. Stable for discharge and outpatient follow-up with cardiology. You will need to take Eliquis 5 mg by mouth twice daily, Plavix 75 mg daily and baby aspirin 81 mg daily for the next 1 month. After 1 month you will stop taking aspirin 81 mg daily and continue taking Eliquis and Plavix until otherwise instructed by cardiology. Your other home medications will remain unchanged. Please follow-up with your primary care doctor in 1 to 2 weeks Please also follow-up with cardiology in one 1 week as previously scheduled on May 08. It is extremely important you are compliant with these medications to prevent issues with the stent that you have in place now Diet: AHA Activity: Ad luís Followup: Ronald Acharya MD [ACTIVE - CAN ADMIT] - 1-2 Weeks Praveen Norwood MD [Primary Care Provider] - 1-2 Weeks Time spent managing pt's care (in minutes): 37
--- NOTE | 2024-05-03 12:55 | EKG ---
Test Date: 2024-05-01 Test Time: 22:40:28 Pen Tender: TENNILLE MEASUREMENT RESULTS: Intervals: Rate: 97 NM: 190 QRSD: 102 QT: 370 QTc: 469 [place]: P: -6 NM: 190 QRS: 23 T: 180 INTERPRETIVE STATEMENTS: * Pediatric ECG analysis * Sinus bradycardia with 1st degree AV block Left ventricular hypertrophy with repolarization abnormality Borderline Prolonged QT, may be secondary to QRS abnormality Compared to ECG 04/13/2023 08:57:57 First degree AV block now present Early repolarization now present Sinus rhythm no longer present T-wave abnormality no longer present Possible ischemia no longer present Electronically Signed On 05-03-24 12:54:26 CDT by Ronald Acharya
--- NOTE | 2024-05-03 21:00 | OP ---
Date of Procedure: 05/02/2024 Surgeon: Ronald Acharya Procedures Performed: 1.Left heart catheterization. 2.Selective coronary angiogram. 3.PCI of the RCA with Synergy 4.0 x 24 mm drug-eluting stents. Indication For Procedure: [id number] TN. Complications: None. Estimated Blood Loss: Less than 50 cc. Sedation Time: 40 minutes with 1 of Versed and 25 of fentanyl. Access: Right radial, closed by TR band. Description Of Procedure: After risks, and benefits, and alternatives were explained to the patient, patient agreed to proceed with procedure and signed informed consent. The patient was brought back to the veterinary laboratory technician, prepped and draped in a sterile fashion. Time-out was performed. Sedation was admi nistered. Next, the [place] 4.0 catheter was advanced over a J-wire to the LV cavity. LVEDP was obtai sy. Pullback did not show any gradient. Same catheter was used for selective angiogram of the left and right coronary systems. That catheter was later exchanged for a JR4 guide to the RCA. Heparin was administered. ACT was therapeutic. Runthrough wire was passed across the lesion and the lesion was pre-dilated with NC 3.0 mm balloon. Next, Synergy 4.0 x 24 mm drug-eluting stent was placed to c lose the lesion that was postdilated with an NC 4.5 mm balloon. Final angiogram shows KIMBERLY-3 flow. Catheter was removed and over a J-wire, sheath was removed. TR band was applied, and the patient was moved back to recovery in stable condition. Findings: 1.Left main normal. 2.LAD; mid 70% to 80% disease and mild luminal irregularities. 3.Left circ; mild luminal irregularities. 4.RCA; proximal, 80% hazy, status post PCI, mid 30% disease and distal mild luminal regularities. 5.LVEDP is 14 mmHg. Assessment And Plan: 1.Significant proximal RCA disease, status post PCI with Synergy 4.0 x 24 mm drug-eluting stent. 2.Significant mid LAD disease, staged PCI to be done in 4-6 weeks. Plan will be: 1.To continue aspirin 81 mg daily for life. 2.Brilinta 180 x1 was given in the veterinary laboratory technician, continue Brilinta 90 mg p.o. b.i.d. for 12 months. 3.Continue aggressive medical treatment for CAD. RAUL/SABINE Voice ID: [id number] Report ID: [id number]
--- NOTE | 2024-05-04 14:46 | EKG ---
Test Date: 2024-05-02 Test Time: 12:57:45 Political Anthropologist: ALEX MEASUREMENT RESULTS: Intervals: Rate: 68 VA: 176 QRSD: 100 QT: 424 QTc: 450 [place]: P: 38 VA: 176 QRS: 24 T: 230 INTERPRETIVE STATEMENTS: Normal sinus rhythm T wave abnormality, consider inferolateral ischemia Abnormal ECG Compared to ECG 05/01/2024 22:40:28 T-wave abnormality now present Possible ischemia now present Sinus bradycardia no longer present First degree AV block no longer present Left ventricular hypertrophy no longer present Early repolarization no longer present Electronically Signed On 05-04-24 14:41:53 CDT by Ronald Acharya
== END 2024-05-03 10:05 | disposition home or self-care (01) | DRG 321 ==
LOC: ER 22:36 → ERHOLD 05-02 00:06 → 2ND 05-02 00:57
PROVIDERS: ADMIT Internal Medicine; ATTEND Hospitalist
PROC: 027034Z Dilation of Coronary Artery, One Artery with Drug-eluting Intraluminal Device, Percutaneous Approach (ICD-10-PCS; principal; 2024-05-02)
PROC: 4A023N7 Measurement of Cardiac Sampling and Pressure, Left Heart, Percutaneous Approach (ICD-10-PCS; 2024-05-02)
PROC: B2111ZZ Fluoroscopy of Multiple Coronary Arteries using Low Osmolar Contrast (ICD-10-PCS; 2024-05-02)
DX: I21.4 Non-ST elevation (NSTEMI) myocardial infarction (principal); I50.23 Acute on chronic systolic (congestive) heart failure; I13.0 Hypertensive heart and chronic kidney disease with heart failure and stage 1 through stage 4 chronic kidney disease, or unspecified chronic kidney disease; N17.9 Acute kidney failure, unspecified; K50.90 Crohn's disease, unspecified, without complications; N18.30 Chronic kidney disease, stage 3 unspecified; I48.91 Unspecified atrial fibrillation; I25.2 Old myocardial infarction; I25.10 Atherosclerotic heart disease of native coronary artery without angina pectoris; F17.210 Nicotine dependence, cigarettes, uncomplicated; Z93.3 Colostomy status; Z86.16 Personal history of COVID-19; Z79.82 Long term (current) use of aspirin; Z79.01 Long term (current) use of anticoagulants; Z86.711 Personal history of pulmonary embolism; Z79.899 Other long term (current) drug therapy; Z91.148 Patient's other noncompliance with medication regimen for other reason
CPT/HCPCS: 36415; 71045; 71275; 76937; 80048; 80053; 80061; 83735; 83880; 84443; 84484; 85025; 85347; 85379; 85610; 85730; 93005; 93458; 96365; 96375; 99152; 99153; 99285; C1725; C1893; C9600; J0360; J0461; J1644; J2001; J2250; J2270; J2405; J3010; J7030; J7040; Q9967

== ENCOUNTER 2024-06-04 11:20 | Day surgery (SDC) | payer OTHER ==
[2024-05-31 11:31] LABS: Absolute Basophils 0.1 K/uL (0-0.5); Absolute Eosinophils 0.3 K/uL (0-0.5); Absolute Lymphocytes (CBC) 1.2 K/uL (0.7-4.9); Absolute Monocytes 0.7 K/uL (0.1-1.3); Absolute Neutrophil 3.5 K/uL (1.8-8.0); Basophils % 1.3 % (0-1.3); Eosinophils % 4.8 % (0-4.4); Hematocrit 37.4 % (39.6-49.0); Hemoglobin 12.2 g/dL (13.6-17.9); Lymphocytes % 20.9 % (15.3-44.8); MCH 30.2 pg (27.0-35.0); MCHC 32.5 g/dL (32.0-36.0); MCV 92.8 fL (80-100); MPV 8.3 fL (7.6-11.3); Monocytes % 11.6 % (3.3-12.3); Neutrophils % 61.4 % (41.7-73.7); Platelets 242 thou/uL (152-406); RBC Red Blood Cell Count 4.03 M/uL (4.33-5.43); Red Cell Distribution Width 15.3 % (12.1-15.2)
[2024-05-31 11:35] LABS: PT Prothrombin Time 15.3 SECONDS (9.4-12.5); PTT, Activated Partial Thromb 31.2 SECONDS (24.3-36.9); Protime INR 1.38
[2024-05-31 11:43] LABS: Anion Gap 9.4 mEq/L (5.0-15.0); Potassium 3.4 mEq/L (3.5-5.1)
--- NOTE | 2024-06-01 15:29 | EKG ---
Test Date: 2024-05-31 Test Time: 10:53:01 [place] Mixer Operator: LEIDY MEASUREMENT RESULTS: Intervals: Rate: 75 MA: 196 QRSD: 108 QT: 416 QTc: 464 [place]: P: 69 MA: 196 QRS: 87 T: 268 INTERPRETIVE STATEMENTS: Normal sinus rhythm Left ventricular hypertrophy with repolarization abnormality Abnormal ECG Compared to ECG 05/02/2024 12:57:45 Left ventricular hypertrophy now present Early repolarization now present T-wave abnormality no longer present Possible ischemia no longer present Electronically Signed On 06-01-24 15:27:18 CDT by Ronald Acharya
[2024-06-04] MEDS ORDERED: NA CHLORIDE 0.9% 500 ML ONE (11:33)
[2024-06-04 12:06] VITALS: TEMP 97.7
[2024-06-04] MEDS ORDERED: LIDOCAINE 1% 20 ML MDV ONE (12:26)
[2024-06-04] MEDS ORDERED: HEPA 1000U/500MLS 2,000 UNIT/1,000 ML BAG IV ONE (12:26)
[2024-06-04] MEDS ORDERED: HEPARIN 10,000 UNIT/10 ML VIAL IV ONE (12:26)
[2024-06-04] MEDS ORDERED: VERAPAMIL HCL 10 MG/4 ML VIAL IV ONE (12:27)
[2024-06-04] MEDS ORDERED: ATROPINE SULF 1 MG/10 ML SYR IV ONE (12:27)
[2024-06-04] MEDS ORDERED: CLOPIDOGREL 75 MG TABLET ONE (12:27)
[2024-06-04] MEDS ORDERED: HEPARIN 5000 UNIT/ML 1 ML VIAL ONE (12:27)
[2024-06-04] MEDS ORDERED: MIDAZOLAM HCL 2 MG/2 ML INJ ONE (12:27)
[2024-06-04] MEDS ORDERED: ASPIRIN 325 MG TAB ONE (12:28)
[2024-06-04] MEDS ORDERED: TICAGRELOR 90 MG TABLET PO ONE (12:28)
[2024-06-04] MEDS ORDERED: FENTANYL CITR 100 MCG/2 ML ONE (12:28)
[2024-06-04 16:25] VITALS: BP 137/81; O2SAT 95
--- NOTE | 2024-06-04 22:21 | OP ---
Date of Procedure: 06/04/2024 Surgeon: JASON RAMIREZ Procedures Performed: 1.Selective coronary angiogram. 2.Left heart catheterization. 3.Percutaneous coronary intervention of severe mid left anterior descending stenosis. I used 3.0 x 32 mm Synergy drug-eluting stent. Indication: Chest pain with no coronary artery disease of the LAD. Access: Right radial artery 6-Nepalese, closed with TR band. Complications: None. Bleeding: Less than 50 mL. Anesthesia: Total sedation time is 45 minutes, used fentanyl and Versed. Description Of Procedure: After risks, benefits, and alternatives were explained, patient agreed to the procedure and signed informed consent. [facility] prepped and draped in usual sterile fashion. Then, I accessed right radial artery using pedi atric micropuncture kit, placed 6-Nepalese slender sheath. Took 5-Nepalese Mallie 4 catheter into the aor tic root over a J-wire, engaged left main, took standard views and then the RCA, took standard views and then the catheter was pushed over the wire into the LV, measured the LVEDP and pullback did not r ecord any gradient. Then gave systemic heparin to assure AC level above 250 throughout the procedure . Exchanged for a 6-Nepalese EBU guide 3.5, and engaged the left main and took a Runthrough wire into the LAD placed distally and using a 3.0 balloon lesion was pre-dilated successfully and then I placed a 3.0 x 32 mm Synergy drug-eluting stent excellent expansion. Final angiogram was satisfactory. Wi re was removed and final angiogram showed no complications. I then removed the guide and the sheath and placed TR band with good hemostasis. Findings: 1.Left main is normal. 2.LAD: Proximal segment is normal. Mid segment, there is a long diffuse 70% to 80% stenosis, statu s post successful PCI. The diagonal branch 1 is very small and it is jailed already, has about 90% s tenosis, but very small artery. Rest of LAD is normal. 3.Left circumflex is normal. 4.RCA: There is proximal 30% stenosis and then widely patent stent. Rest of the RCA is normal. 5.LVEDP is elevated at 20 mmHg. Conclusions: Severe mid LAD stenosis, status post successful PCI as above. Recommendation: Aspirin, Plavix, high-dose statin. SR/MODL Voice ID: [id number] Report ID: [id number]
== END 2024-06-04 16:20 | disposition home or self-care (01) ==
LOC: CCL 11:20
PROVIDERS: ATTEND Internal Medicine
DX: I25.110 Atherosclerotic heart disease of native coronary artery with unstable angina pectoris (principal); I11.0 Hypertensive heart disease with heart failure; I50.22 Chronic systolic (congestive) heart failure; E78.2 Mixed hyperlipidemia; I26.99 Other pulmonary embolism without acute cor pulmonale; Z95.5 Presence of coronary angioplasty implant and graft; Z87.891 Personal history of nicotine dependence; Z79.01 Long term (current) use of anticoagulants; Z79.02 Long term (current) use of antithrombotics/antiplatelets; Z79.82 Long term (current) use of aspirin
CPT/HCPCS: 93005; 85025; 80048; 36415; 85610; 85347; 85730; 93458; 76937; C1893; Q9967 ×2; C1725; C9600; J1644; J2001; J2250; J3010; J7040; 99152; 99153; J0461

== ENCOUNTER 2024-08-28 13:10 | Emergency (ER) | payer OTHER ==
--- OUTSIDE RECORDS SUMMARY | 2024-08-28 13:14 | XMS REPORT | Continuity of Care Document ---
Author Name Unknown Address [address] [facility] [address] [place] [address] [facility] thconnect Address [address] [place] [address] Care Team Providers Care Medical Case Manager Name Role Phone Emre Norwood MD Primary Care Physician Cuco NICHOLAS, Emer De La Vega Attending Clinician + [phone] EMRE NORWOOD Attending Clinician Vince Norwood MD, Emre De La Vega Attending Clinician + [phone] Doctor Unassigned, [facility] Attending Clinician U JULIA Gan Attending Clinician Unavailable Sorin Keene Attending Clinician Unavailable Payers Payer Name Policy Type Policy Number Effective Date Expirati on Date Source MEDICARE PART A \T\ [id number] 2013 00:00:00 Problems Condition Name Condition Details Condition Category Status Onset Date Resolution Date Last Treatment Date Treating Clinician Comments Source Crohn's disease of colon with complicati on Crohn's disease of colon with complicati on Disease Active 2018-09 00:00: 00 [facility] Essential hypertensi on Essential hypertensi on Disease Active 2018-09 00:00: 00 [facility] Allergies, Adverse Reactions, Alerts Allergy Name Allergy Type Status Severity Reaction(s) Onset Date Inactive Date Treating Clinician Comments Source NO KNOWN ALLERGIE S Drug Class Active [facility] Social History Social Habit Start Date Stop Date Quantity Comments Source History of tobacco use Cigarette Smoker [facility] History SDOH Alcohol Std Drinks [facility] SDOH Alcohol Binge [facility] History SDOH Alcohol Comment [facility] Tobacco use and exposure 2024-03-20 00:00:00 2024-03-20 00:00:00 Smokeless tobacco non-user [facility] History of Social function 2024-03-20 00:00:00 2024-03-20 00:00:00 [facility] Alcoholic beverage intake 2024-03-20 00:00:00 2024-03-20 00:00:00 Lifetime non-drinker (finding) [facility] Alcohol intake 2023-06-14 00:00:00 2023-06-14 00:00:00 Lifetime non-drinker (finding) [facility] Exposure to SARS-CoV-2 (event) 2022-12-03 00:00:00 2022-12-13 15:14:[address] [facility] Cigarettes smoked current (pack per day) - Reported 2022-11-09 00:00:00 2022-11-09 00:00:00 [facility] History SDOH Alcohol Frequency 2019-08-13 00:00:00 2019-08-13 00:00:[address] [facility] Sex assigned at 1960 00:00:00 1960 00:00:00 [facility] Smoking Status Start Date Stop Date Source Smokes tobacco daily 2024-03-20 00:00:00 [facility] Medications Ordered Medication Name Filled Medication Name Start Date Stop Date Current Medication? Ordering Clinician Indication Dosage Frequency Signature (SIG) Comments Components Source sacubitriL- valsartan (ENTRESTO) 49-51 mg tablet 2022-09 0 00:00: 00 Yes [id number] 1{tbl} Take 1 tablet by mouth in the morning and 1 tablet in the evening. [facility] furosemide 40 mg tablet 04-16 00:00: 00 Yes 40mg Take 1 tablet by mouth in the morning. [facility] spironolact one 25 mg tablet 04-16 00:00: 00 Yes 25mg Take 1 tablet by mouth in the morning. [facility] ENTRESTO 49-51 mg tablet 8-07 00:00: 00 06-14 00:00 :00 No 1{tbl} Take 1 tablet by mouth in the morning and 1 tablet in the evening. [facility] apixaban (ELIQUIS) 5 mg tablet 6-07 00:00: 00 Yes [id number] 5mg Take 1 tablet by mouth in the morning and 1 tablet in the evening. Indication s: history of pulmonary embolism [facility] ELIQUIS 5 mg tablet 5-29 00:00: 00 02-09 00:00 :00 No 5mg Take 1 tablet by mouth in the morning and 1 tablet in the evening. [facility] albuterol 90 mcg/actuati on inhaler 307 00:00: 00 Yes [id number] 2{puff} Inhale 2 Puffs every 6 (six) hours as needed for Wheezing or Shortness of Breath. [facility] lisinopriL 10 mg tablet 3-07 00:00: 00 06-14 00:00 :00 No [id number] 10mg Take 1 tablet by mouth in the morning. [facility] lisinopriL 10 mg tablet 7-13 00:00: 00 11-09 00:00 :00 No [id number] 10mg Take 1 tablet by mouth in the morning. [facility] Immunizations Ordered Immunization Name Filled Immunization Name Date Status Comments Source SARS-COV-2 COVID-19 PFIZER VACCINE 2020-11-22 00:00:[address] [facility] SARS-COV-2 COVID-19 PFIZER VACCINE 2020-11-22 00:00:[address] [facility] SARS-COV-2 COVID-19 PFIZER VACCINE 2020-11-22 00:00:[address] [facility] SARS-COV-2 COVID-19 PFIZER VACCINE 2020-11-22 00:00:[address] [facility] SARS-COV-2 COVID-19 PFIZER VACCINE 2020-11-22 00:00:[address] [facility] SARS-COV-2 COVID-19 PFIZER VACCINE 2020-11-22 00:00:[address] [facility] SARS-COV-2 COVID-19 PFIZER VACCINE 2020-11-22 00:00:[address] [facility] SARS-COV-2 COVID-19 PFIZER VACCINE 2020-11-22 00:00:[address] [facility] SARS-COV-2 COVID-19 PFIZER VACCINE 2020-11-22 00:00:[address] [facility] SARS-COV-2 COVID-19 PFIZER VACCINE 2020-11-22 00:00:[address] [facility] SARS-COV-2 COVID-19 PFIZER VACCINE 2020-11-22 00:00:[address] [facility] SARS-COV-2 COVID-19 PFIZER VACCINE 2020-11-22 00:00:[address] [facility] SARS-COV-2 COVID-19 PFIZER VACCINE 2020-11-22 00:00:[address] [facility] SARS-COV-2 COVID-19 PFIZER VACCINE 2020-11-22 00:00:[address] [facility] SARS-COV-2 COVID-19 PFIZER VACCINE 2020-11-22 00:00:[address] [facility] SARS-COV-2 COVID-19 PFIZER VACCINE 2020-11-22 00:00:[address] [facility] SARS-COV-2 COVID-19 PFIZER VACCINE 2020-11-01 00:00:[address] [facility] SARS-COV-2 COVID-19 PFIZER VACCINE 2020-11-01 00:00:[address] [facility] SARS-COV-2 COVID-19 PFIZER VACCINE 2020-11-01 00:00:[address] [facility] SARS-COV-2 COVID-19 PFIZER VACCINE 2020-11-01 00:00:[address] [facility] SARS-COV-2 COVID-19 PFIZER VACCINE 2020-11-01 00:00:[address] [facility] SARS-COV-2 COVID-19 PFIZER VACCINE 2020-11-01 00:00:[address] [facility] SARS-COV-2 COVID-19 PFIZER VACCINE 2020-11-01 00:00:[address] [facility] SARS-COV-2 COVID-19 PFIZER VACCINE 2020-11-01 00:00:[address] [facility] SARS-COV-2 COVID-19 PFIZER VACCINE 2020-11-01 00:00:[address] [facility] SARS-COV-2 COVID-19 PFIZER VACCINE 2020-11-01 00:00:[address] [facility] SARS-COV-2 COVID-19 PFIZER VACCINE 2020-11-01 00:00:[address] [facility] SARS-COV-2 COVID-19 PFIZER VACCINE 2020-11-01 00:00:[address] [facility] SARS-COV-2 COVID-19 PFIZER VACCINE 2020-11-01 00:00:[address] [facility] SARS-COV-2 COVID-19 PFIZER VACCINE 2020-11-01 00:00:[address] [facility] SARS-COV-2 COVID-19 PFIZER VACCINE 2020-11-01 00:00:[address] [facility] SARS-COV-2 COVID-19 PFIZER VACCINE 2020-11-01 00:00:[address] [facility] SARS-COV-2 COVID-19 PFIZER VACCINE Unknown Completed [facility] SARS-COV-2 COVID-19 P[address]ZER VACCINE Unknown Completed [facility] SARS-COV-2 COVID-19 PFIZER VACCINE Unknown Completed [facility] SARS-COV-2 COVID-19 P[address]ZER VACCINE Unknown Completed [facility] SARS-COV-2 COVID-19 PFIZER VACCINE Unknown Completed [facility] Vital Signs Vital Name Observation Time Observation Value Comments S ource Systolic blood pressure 2024-03-20 19:06:00 138 mm[Hg] [facility]an o [facility] Diastolic blood pressure 2024-03-20 19:06:00 86 mm[Hg] [facility] o [facility] Heart rate 2024-03-20 19:06:00 76 /min [facility] Body height 2024-03-20 19:06:00 177.8 cm [facility] Body weight 2024-03-20 19:06:00 86.183 kg [facility] BMI 2024-03-20 19:06:00 27.26 kg/m2 [facility] Systolic blood pressure 2023-06-14 20:49:00 107 mm[Hg] [facility] Diastolic blood pressure 2023-06-14 20:49:00 72 mm[Hg] [facility] Heart rate 2023-06-14 20:49:00 77 /min [facility] Body height 2023-06-14 20:49:00 177.8 cm [facility] Body weight 2023-06-14 20:49:00 82.555 kg [facility] BMI 2023-06-14 20:49:00 26.11 kg/m2 [facility] Systolic blood pressure 2023-02-09 13:56:00 160 mm[Hg] [facility] Diastolic blood pressure 2023-02-09 13:56:00 109 mm[Hg] [facility] Heart rate 2023-02-09 13:55:00 95 /min Unive [facility] Body temperature 2023-02-09 13:55:[address] [facility] Body height 2023-02-09 13:55:00 177.8 cm [facility] Body weight 2023-02-09 13:55:00 81.194 kg [facility] BMI 2023-02-09 13:55:00 25.68 kg/m2 Univ [facility] Oxygen saturation in Arterial blood by Pulse oximetry 2023-02-09 13:55:00 98 /min [facility] Systolic blood pressure 2022-12-13 20:28:00 141 mm[Hg] [facility] Diastolic blood pressure 2022-12-13 20:28:00 93 mm[Hg] [facility] Heart rate 2022-12-13 20:23:00 83 /min [facility] Body height 2022-12-13 20:23:00 177.8 cm [facility] Body weight 2022-12-13 20:23:00 81.194 kg [facility] BMI 2022-12-13 20:23:00 25.68 kg/m2 [facility] Systolic blood pressure 2022-11-09 22:05:00 159 mm[Hg] [facility] Diastolic blood pressure 2022-11-09 22:05:00 102 mm[Hg] [facility] Heart rate 2022-11-09 22:04:00 89 /min Unive [facility] Body temperature 2022-11-09 22:04:[address] [facility] Body height 2022-11-09 22:04:00 177.8 cm [facility] Body weight 2022-11-09 22:04:00 81.647 kg [facility] BMI 2022-11-09 22:04:00 25.83 kg/m2 [facility] Oxygen saturation in Arterial blood by Pulse oximetry 2022-11-09 22:04:00 98 /min [facility] Systolic blood pressure 2022-04-06 19:39:00 154 mm[Hg] [facility] Diastolic blood pressure 2022-04-06 19:39:00 92 mm[Hg] [facility] Heart rate 2022-04-06 19:38:00 84 /min [facility] Body height 2022-04-06 19:38:00 177.8 cm [facility] Body weight 2022-04-06 19:38:00 83.915 kg [facility] BMI 2022-04-06 19:38:00 26.54 kg/m2 [facility] Procedures Procedure Date / Time Performed Performing Clinician Source EXTERNAL PROVIDER RECORDS 2023-04-18 05:01:00 Doctor Unassigned, Sentinel [facility] EXTERNAL PROVIDER RECORDS 2023-03-10 05:01:00 Doctor Unassigned, Sentinel [facility] CONSENT/REFUSAL FOR DIAGNOSIS AND TREATMENT 2022-11-09 21:53:53 Doctor Unassigned, Sentinel [facility] DME/SUPPLY JUSTIFICATION 2022-08-11 06:01:00 Doc tor Unassigned, Sentinel [facility] Encounters Start Date/Time End Date/Time Encounter Type Admission Type Attending [facility] Care Facility Care Department Encounter ID Source 2024-06-04 00:00:00 2024-06-06 15:19:46 Telephone Emre Norwood [facility] 1.2.840.114 350.1.13.10 4.2.7.2.686 [id number] [facility] 2024-05-23 16:00:00 2024-05-23 16:00:00 Outpatient R EMRE NORWOOD [facility] [id number] [facility] 2024-05-03 00:00:00 2024-05-03 12:13:49 Telephone Emre Norwood [facility] 1.2.840.114 350.1.13.10 4.2.7.2.686 [id number] [facility] 2024-03-21 00:00:00 2024-03-23 14:02:39 Telephone [facility] Norwood [facility] 1.2.840.114 350.1.13.10 4.2.7.2.686 [id number] [facility] 2024-03-23 00:00:00 2024-03-23 12:48:34 Letter (Out) [facility] 1.2.840.114 350.1.13.10 4.2.7.2.686 [id number] [facility] 2024-03-20 14:15:00 2024-03-20 14:20:15 Outpatient R EMRE NORWOOD [facility] [id number] [facility] 2024-03-20 14:15:00 2024-03-20 14:20:15 Office Visit Emre Norwood [facility] 1.2.840.114 350.1.13.10 4.2.7.2.686 [id number] [facility] 2023-12-14 15:45:00 2023-12-14 15:45:00 Outpatient R EMRE NORWOOD [facility] [id number] [facility] 2023-06-14 16:00:00 2023-06-14 16:00:00 Office Visit Emre Norwood [facility] 1.2.840.114 350.1.13.10 4.2.7.2.686 [id number] [facility] 2023-06-14 16:00:00 2023-06-14 15:57:53 Outpatient R EMRE NORWOOD [facility] [id number] [facility] 2023-05-13 00:00:00 2023-05-13 00:00:00 Telephone Emre Norwood [facility] 1.2840.114 350.1.13.10 4.2.7.2.686 [id number] [facility] 2023-05-13 00:00:00 2023-05-13 00:00:00 Telephone Emre Norwood [facility] 1.2840.114 350.1.13.10 4.2.7.2.686 [id number] [facility] 2023-04-18 00:00:00 2023-04-18 00:00:00 Orders Only Doctor Unassigned, [facility] 1.2840.114 350.1.13.10 4.2.7.2.686 [id number] [facility] 2023-03-16 00:00:00 2023-03-16 00:00:00 Telephone Emre Norwood [facility] 1.2.840.114 350.1.13.10 4.2.7.2.686 [id number] [facility] 2023-03-10 00:00:00 2023-03-10 00:00:00 Orders Only Doctor Unassigned, Sent[facility] 1.2.840.114 350.1.13.10 4.2.7.2.686 [id number] [facility] 2023-02-16 00:00:00 2023-02-16 00:00:00 Telephone Dorethasagegabe Emre [facility] 1.2.840.114 350.1.13.10 4.2.7.2.686 [id number] [facility] 2023-02-16 00:00:00 2023-02-16 00:00:00 Telephone Emre Norwood [facility] 1..840.114 350.1.13.10 4.2.7.2.686 [id number] [facility] 2023-02-09 11:00:00 2023-02-09 11:30:00 Office Visit Emre Norwood [facility] 1.2.840.114 350.1.13.10 4.2.7.2.686 [id number] [facility] 2023-02-09 11:00:00 2023-02-09 11:00:00 Outpatient EMRE CRUZ [facility] [id number] [facility] 2022-12-13 15:30:00 2022-12-13 15:45:00 Office Visit Emre Norwood [facility] 1.2.840.114 350.1.13.10 4.2.7.2.686 [id number] [facility] 2022-12-13 15:30:00 2022-12-13 15:30:00 Outpatient EMRE CRUZ [facility] [id number] [facility] 2022-11-09 15:45:00 2022-11-09 16:00:00 Office Visit Emre Norwood [facility] 1.2.840.114 350.1.13.10 4.2.7.2.686 [id number] [facility] 2022-11-09 15:45:00 2022-11-09 15:45:00 Outpatient R EMRE NORWOOD [facility] [id number] [facility] 2022-11-09 00:00:00 2022-11-09 00:00:00 Orders Only Doctor Unassigned, Sent[facility] 1.2.840.114 350.1.13.10 4.2.7.2.686 [id number] [facility] 2022-11-08 00:00:00 2022-11-08 00:00:00 Telephone Emre Norwood [facility] 1.2.840.114 350.1.13.10 4.2.7.2.686 [id number] [facility] 2022-08-11 00:00:00 2022-08-11 00:00:00 Orders Only Doctor Unassigned, [facility] 1.2.840.114 350.1.13.10 4.2.7.2.686 [id number] [facility] 2022-05-11 09:45:00 2022-05-11 09:45:00 Outpatient EMRE CRUZ [facility] [id number] [facility] 2022-04-26 16:30:00 2022-04-26 16:30:00 Outpatient EMRE CRUZ [facility] [id number] [facility] 2022-04-20 16:00:00 2022-04-20 16:00:00 Outpatient EMRE CRUZ [facility] [id number] [facility] 2022-04-06 15:00:00 2022-04-06 15:15:00 Portal Administrator Visit Lab, Sorni Coughlin Emre Norwood [facility] 1.2.840.114 350.1.13.10 4.2.7.2.686 [id number] [facility] 2022-04-06 15:00:00 2022-04-06 15:00:00 Outpatient EMRE CRUZ [facility] [id number] [facility] 2022-04-06 14:30:00 2022-04-06 15:00:00 Office Visit Emre Norwood [facility] 1..840.114 350.1.13.10 4.2.7.2.686 [id number] [facility] 2022-04-06 14:30:00 2022-04-06 14:30:00 Outpatient EMRE CRUZ [facility] [id number] [facility] 2022-03-17 00:00:00 2022-03-17 00:00:00 Mario Norwood [facility] 1.2.840.114 350.1.13.10 4.2.7.2.686 [id number] [facility] 2022-02-24 11:00:00 2022-02-24 11:00:00 Outpatient R EMRE NORWOOD [facility] [id number] [facility] 2022-02-18 00:00:00 2022-02-18 00:00:00 Mario Norwood [facility] 1.2.840.114 350.1.13.10 4.2.7.2.686 [id number] [facility] 2022-02-12 00:00:00 2022-02-12 00:00:00 Refill Cuco [facility] 1.2.840.114 350.1.13.10 4.2.7.2.686 [id number] [facility] 2021-12-03 00:00:00 2021-12-03 00:00:00 Orders Only Doctor Unassigned, [facility] 1.2.840.114 350.1.13.10 4.2.7.2.686 [id number] [facility] 2021-10-26 00:00:00 2021-10-26 00:00:00 Shannon Cuco [facility] 1.2.840.114 350.1.13.10 4.2.7.2.686 [id number] [facility] 2021-10-26 00:00:00 2021-10-26 00:00:00 Orders Only Doctor Unassigned, [place] [id number] 350.1.13.10 4.2.7.2.686 [id number] [facility] 2020-11-22 14:50:00 2020-11-22 14:50:00 Outpatient [facility] [id number] [facility] 2020-11-01 15:05:00 2020-11-01 15:05:00 Outpatient [facility] [id number] [facility] 2020-09-09 15:30:00 2020-09-09 15:30:00 Outpatient EMRE CRUZ [facility] [id number] [facility]
--- NOTE | 2024-08-28 13:37 | RAD REPORT ---
EXAM: CT brain without contrast HISTORY: Aphasia COMPARISON: None TECHNIQUE: Multiple contiguous axial images were obtained and a CT of the brain without contrast. Sagittal and coronal reformats were performed. Automated exposure control, adjustment of the mA and/or kV according to patient size, and/or itera tive reconstruction. Unless otherwise specified, incidental findings do not require dedicated imaging follow-u FINDINGS: An intracranial bleed is not seen Ventricles are normal caliber No extra-axial fluid collection noted Small low-density area right cerebellum has the appearance of an old infarction. No fluid within the visualized sinuses or mastoids noted. IMPRESSION: No acute intracranial abnormality noted. If the patient's symptoms persist MRI of the brain would be recommended. from the emergency room was notified at 1:32 PM August 28, 2024
--- NOTE | 2024-08-28 13:55 | RAD REPORT ---
EXAMINATION: CTA HEAD CLINICAL INDICATION: Aphasia TECHNIQUE: Axial CT images were obtained through the head after 100 cc Isovue-370 intravenous contras t utilizing angiographic protocol with 3D post-processing (maximum intensity projection images, volume rendered images and/or shaded surface rendered images). One or more of the following dose red uction techniques were used: Automated exposure control, adjustment of the mA and/or kV according to patient size, and/or iterative reconstruction. Unless otherwise specified, incidental findings do not require dedicated imaging follow-up. 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 Areas of narrowing left M1 segment left middle cere bral artery. origin left posterior cerebral artery. Mild stenosis left posterior cerebral artery. Right post erior cerebral artery unremarkable. Anterior cerebral arteries unremarkable. Mild stenosis right middle cerebral artery. 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
--- NOTE | 2024-08-28 13:56 | RAD REPORT ---
EXAMINATION: Neck Angio CLINICAL INDICATION: Aphasia TECHNIQUE: Axial CT images were obtained from the aortic arch to the skull base after intravenous adm inistration of 100 cc Isovue-370 utilizing angiographic protocol. Multiplanar reformats, as well as 3D post-processing (maximum intensity projection images, volume rendered images and/or shaded surface rendered images) were generated and reviewed. One or more of the following dose reduction techniques were used: Automated exposure control, adjustment of the mA and/or kV according to patient size, and/or iterative reconstruction. Unless otherwise specified, incidental findings do not require dedicated imaging follow-up. COMPARISON: No prior exam. FINDINGS: The visualized aortic arch and great vessels do not demonstrate a significant abnormality The proximal right vertebral artery is unopacified. The mid and distal right vertebral artery unremar kable. Left vertebral artery unremarkable. Mild calcified plaque right carotid bulb. Marked plaque distal right internal carotid artery. Marked calcified plaque distal left internal carotid artery. No significant abnormality external carotid arteries. Methods for NASCET criteria: Mild stenosis, 0% to 49%; Moderate stenosis 50% to 69%; Severe stenosis, 70% to 99% IMPRESSION: Proximal right vertebral artery is unopacified. This could be acute or chronic Severe stenosis distal internal carotid arteries bilaterally
--- NOTE | 2024-08-28 14:13 | RAD REPORT ---
Procedure: Chest Single View HISTORY: Cough COMPARISON: April 2024 FINDINGS: The lungs appear clear of acute infiltrate. No significant pleural effusion noted. The heart is moderately enlarged. . IMPRESSION: No acute abnormality is displayed.
[2024-08-28 14:18] LABS: Absolute Basophils 0.1 K/uL (0-0.5); Absolute Eosinophils 0.1 K/uL (0-0.5); Absolute Lymphocytes (CBC) 1.4 K/uL (0.7-4.9); Absolute Monocytes 0.6 K/uL (0.1-1.3); Basophils % 0.9 % (0-1.3); Eosinophils % 1.3 % (0-4.4); Hematocrit 38.5 % (39.6-49.0); Hemoglobin 12.5 g/dL (13.6-17.9); Lymphocytes % 23.2 % (15.3-44.8); MCH 30.5 pg (27.0-35.0); MCHC 32.5 g/dL (32.0-36.0); MCV 93.9 fL (80-100); MPV 8.8 fL (7.6-11.3); Neutrophils % 65.6 % (41.7-73.7); Nucleated Red Blood Cells % 0.1 % (0-0); Platelets 247 thou/uL (152-406); Red Cell Distribution Width 15.5 % (12.1-15.2)
--- NOTE | 2024-08-28 14:18 | EDPHYS ---
Physician Documentation [facility] Name: Karson Giordano Age: 64 yrs Sex: Male : 1960 Arrival Date: 08/28/2024 Time: 13:10 Bed 27 Private MD: ED Physician Reid Turcios HPI: 08/28 13:14 This 64 yrs old Black Male presents to ER via Unassigned with complaints of S/S of ec2 Possible Stroke. 13:14 Patient arrives today with sudden onset altered mental status. Shortly prior to ec2 arrival, patient was noted to have reported chest pain and shortness of breath however EMS reports he was profoundly aphasic when they arrived. Family at scene report patient is a normally functioning individual. Historical: - Allergies: 14:34 No Known Allergies; jl7 - Home Meds: 14:34 Eliquis oral [Active]; lisinopril Oral [Active]; jl7 - PMHx: 14:34 Atrial fibrillation; Crohn's Disease; HTN; Myocardial infarction; PE; jl7 - PSHx: 14:34 Colostomy; Stented artery; jl7 - Immunization history:: Adult Immunizations unknown. - Infectious Disease History:: Denies. - Social history:: Smoking status: Patient reports the use of cigarette tobacco products, smokes one pack cigarettes per day. ROS: 13:15 Constitutional: as per hpi ec2 Exam: 13:15 Constitutional: GEN: NAD Head: atraumatic Eyes: EOMI Ears: External ears are ec2 normal. CV: regular rate LUNGS: no respiratory distress ABD: non-distended SKIN: no evidence of rashes MSK: no evidence of trauma. Neuro: Moves all extremities apparently equally, marked aphasia with word finding difficulties noted. 13:33 Radiologist reports: negative ec2 Vital Signs: 13:10 BP 170 / 100; Pulse 80; Resp 15; Pulse Ox 96% ; jl7 14:00 BP 155 / 116; Pulse 80; Resp 15; Pulse Ox 97% ; Weight 88.45 kg; Height 5 ft. 9 in. ; jl7 14:10 Temp 97.6; jl7 14:15 BP 168 / 96; Pulse 79; Resp 15; Pulse Ox 97% ; jl7 14:23 BP 170 / 100; Pulse 99; Resp 16; Pulse Ox 99% ; ec2 14:30 BP 171 / 103; Pulse 90; Resp 15; Pulse Ox 97% ; jl7 14:45 BP 150 / 100; Pulse 79; Resp 15; Pulse Ox 100% ; jl7 15:00 BP 138 / 100; Pulse 81; Resp 15; Pulse Ox 98% ; jl7 14:00 Body Mass Index 28.80 (88.45 kg, 175.26 cm) jl7 NIH Stroke Scale Scores: 13:10 NIHSS Score: 2 jl7 13:23 NIHSS Score: 2 ec2 MDM: 13:12 Medical Screening Exam initiated ec2 13:15 Data reviewed: vital signs, nurses notes. ED course: Patient arrives today with word ec2 finding difficulties onset just prior to arrival. Examination shows markedly aphasic individual who otherwise appears to move all extremities equally however is not great at following the command. Will obtain stroke workup.. 13:19 ED course: Patient with history of atrial fibrillation as well as PE, unclear if on ec2 anticoagulant.. 13:19 ED course: Attempted to reach phone number on file however is not active.. ec2 13:40 ED course: now at bedside, patient is on Eliquis for his atrial fibrillation as ec2 well as PE and stents. Patient is subsequently not a candidate for thrombolytics.. 13:41 TNKase (Tenecteplase) Screening: Indications: Definite evidence of stroke, ischemic, ec2 embolic, or hypertensive: Yes. Treatment will start within 4.5 hours onset of symptoms: Yes. No evidence of intracranial hemorrhage or CT of head and no evidence of peripheral hemorrhage or recent CVA: Yes. Contraindications: Is the patient on Aspirin, Heparin, or Warfarin: Yes. 13:42 ED course: also reports no drug use. No recent infectious symptoms, otherwise ec2 normal state of health for the patient.. 14:17 ED course: CT angio of the head shows concern for occlusion of the M2 segment of the ec2 left middle cerebral artery. Will transfer for neuro IR. 14:23 ED course: Blood sugar 161 fingerstick.. ec2 14:45 ED course: Metabolic profile shows renal dysfunction with a creatinine of 1.48. CBC ec2 shows slight anemia. Coag profile shows INR 1.14. Troponin within normal ranges. Discussed case with neurosurgery as well as ER physician at [facility] who agrees with the patient for transfer. Will fly for emergent care. Family agreeable w/ plan of care. 14:49 ED course: EKG independently reviewed and interpreted by me, shows normal sinus rhythm, ec2 rate of 82, no acute ST segment elevations, normals are nonactionable. Patient appropriate for transfer.. 15:05 ED course: [facility] indicates they are not able to fly due to include met whether ec2 downtown, will send via ground. 08/28 13:12 Order name: Basic Metabolic Panel; Complete Time: 14:44 ec2 08/28 13:12 Order name: CBC with Diff; Complete Time: 14:44 ec2 08/28 13:12 Order name: High Sensitivity Troponin; Complete Time: 14:44 ec2 08/28 13:12 Order name: Protime (+inr); Complete Time: 14:44 ec2 08/28 13:12 Order name: Ptt, Activated; Complete Time: 14:44 ec2 08/28 13:14 Order name: Ethanol; Complete Time: 14:44 ec2 08/28 13:12 Order name: CT Head Angio; Complete Time: 14:15 ec2 08/28 13:12 Order name: CT Neck Angio; Complete Time: 14:15 ec2 08/28 13:12 Order name: CT Stroke Brain w/o Contrast; Complete Time: 14:15 ec2 08/28 13:12 Order name: Stroke CXR 1 View; Complete Time: 14:15 ec2 08/28 13:12 Order name: Accucheck; Complete Time: 14:49 ec2 08/28 13:12 Order name: Cardiac monitoring; Complete Time: 14:37 ec2 08/28 13:12 Order name: EKG - Nurse/Tech; Complete Time: 14:49 ec2 08/28 13:12 Order name: IV Saline Lock; Complete Time: 14:38 ec2 08/28 13:12 Order name: Labs collected and sent; Complete Time: 14:49 ec2 08/28 13:12 Order name: NPO; Complete Time: 14:38 ec2 08/28 13:12 Order name: O2 Per Protocol; Complete Time: 14:38 ec2 08/28 13:12 Order name: O2 Sat Monitoring; Complete Time: 14:38 ec2 08/28 13:12 Order name: Stroke Swallow Screen; Complete Time: 14:38 ec2 Administered Medications: No medications were administered Disposition Summary: 08/28/24 14:18 Transfer Ordered Notes: Transfer Location: Other Acute Care Facility ec2 Reason: Higher level of care ec2 Condition: Fair ec2 Problem: new ec2 Symptoms: are unchanged ec2 Accepting Physician: transferring doc(08/28/24 15:50) jl7 Diagnosis - Left MCA M2 Occlusion ec2 Forms: - Medication Reconciliation Form ec2 - SBAR form ec2 Critical care time excluding procedures: 14:17 Critical care time: Bedside Care: 30 minutes, Consultation: 5 minutes. Total time: 35 ec2 minutes NIH Stroke Scale - NIH Stroke Score Date: 08/28/2024 Time: 13:10 Total Score = 2 10. Dysarthria (speech clarity - read or repeat words) - 0(Normal) 11. Extinction and Inattention (visual/tactile/auditory/spatial/personal) - 0(No abnormality) 1a. Level of Consciousness (LOC) - 0(Alert) 1b. Level of Consciousness (LOC) (Month \T\ Age) - 0(Both) 1c. LOC Commands (Open \T\ Closes Eyes/Bulb Weeder) - 0(Both) 2. Best Gaze (Lateral Gaze Paresis) - 0(Normal) 3. Visual Field Loss - 0(No visual loss) 4. Facial Palsy - 0(Normal) 5a. Left Arm: Motor (10-second hold) - 0(No drift) 5b. Right Arm: Motor (10-second hold) - 0(No drift) 6a. Left Leg: Motor (5-second hold - always test supine) - 0(No drift) 6b. Right Leg: Motor (5-second hold - always test supine) - 0(No drift) 7. Limb Ataxia (finger/nose \T\ heel/emmanuel - test with eyes open) - 0(Absent) 8. Sensory Loss (pinprick arms/legs/face) - 0(Normal) 9. Best Language: Aphasia (description/naming/reading) - 2(Severe aphasia) Initials: jl7 NIH Stroke Scale - NIH Stroke Score Date: 08/28/2024 Time: 13:23 Total Score = 2 10. Dysarthria (speech clarity - read or repeat words) - 0(Normal) 11. Extinction and Inattention (visual/tactile/auditory/spatial/personal) - 0(No abnormality) 1a. Level of Consciousness (LOC) - 0(Alert) 1b. Level of Consciousness (LOC) (Month \T\ Age) 1c. LOC Commands (Open \T\ Closes Eyes/Bulb Weeder) - 0(Both) 2. Best Gaze (Lateral Gaze Paresis) - 0(Normal) 3. Visual Field Loss - 0(No visual loss) 4. Facial Palsy - 0(Normal) 5a. Left Arm: Motor (10-second hold) - 0(No drift) 5b. Right Arm: Motor (10-second hold) - 0(No drift) 6a. Left Leg: Motor (5-second hold - always test supine) - 0(No drift) 6b. Right Leg: Motor (5-second hold - always test supine) - 0(No drift) 7. Limb Ataxia (finger/nose \T\ heel/emmanuel - test with eyes open) - 0(Absent) 8. Sensory Loss (pinprick arms/legs/face) - 0(Normal) 9. Best Language: Aphasia (description/naming/reading) - 2(Severe aphasia) Initials: ec2 Signatures: Dispatcher [employer] EDMS Ping Taylor, RN RN jl7 Reid Turcios MD MD ec2 Corrections: (The following items were deleted from the chart) 13:13 13:13 Neck Angio+CT.RAD.BRZ ordered. EDMS EDMS 13:13 13:13 CT-STROKE BRAIN W/O CONTRAST+CT.RAD.BRZ ordered. EDMS EDMS 13:13 13:13 Chest Single View+RAD.RAD.BRZ ordered. EDMS EDMS 13:15 13:15 URINE DRUG SCREEN+UC.LAB.BRZ ordered. EDMS EDMS 13:15 13:15 ETHANOL+C.LAB.BRZ ordered. EDMS EDMS 15:50 14:18 transferring doc ec2 jl7
[2024-08-28 14:36] LABS: Anion Gap 6.7 mEq/L (5.0-15.0); PT Prothrombin Time 12.7 SECONDS (9.4-12.5); PTT, Activated Partial Thromb 29.8 SECONDS (24.3-36.9); Potassium 3.7 mEq/L (3.5-5.1); Protime INR 1.14; Troponin High Sensitivity 49.9 pg/mL (<58.9)
--- NOTE | 2024-08-28 15:50 | ER ---
Nurse's Notes [facility] Name: Karson Giordano Age: 64 yrs Sex: Male : 1960 Arrival Date: 08/28/2024 Time: 13:10 Bed 27 Private MD: Diagnosis: Left MCA M2 Occlusion Presentation: 08/28 13:10 Chief complaint: EMS states: Toned out for SOB \T\ CP, pt AMS with aphasia. Coronavirus jl7 screen: At this time, the client does not indicate any symptoms associated with coronavirus-19. Ebola Screen: No symptoms or risks identified at this time. An acute neurological deficit is present. The patients blood glucose was checked before arriving to the hospital and was found to be normal. Initial Sepsis Screen: Does the patient meet any 2 criteria? No. Patient's initial sepsis screen is negative. Does the patient have a suspected source of infection? No. Patient's initial sepsis screen is negative. Risk Assessment: Do you want to hurt yourself or someone else? Patient reports no desire to harm self or others. Onset of symptoms was August 28, 2024 at 13:00. Care prior to arrival: IV initiated. 20 GA, in the left antecubital area, Glucose check: 141. 13:10 Method Of Arrival: EMS: [facility] 13:10 Acuity: AYESHA 2 jl7 Triage Assessment: 13:10 The onset of the patients symptoms was August 28, 2024 at 13:00. General: Appears in jl7 no apparent distress. uncomfortable, Behavior is calm, cooperative. Pain: Denies pain. Neuro: Level of Consciousness is awake, alert, obeys commands, Oriented to person, situation, Reports aphasia. Stroke Activation: Symptom onset < 3 hours Physician: ED Attending; Name: Karolina; Notified At: 13:10; Arrived At: 13:10 Physician: Mid-Level Provider; Name: ; Notified At: 13:10; Arrived At: Physician: [not used]; Name: ; Notified At: ; Arrived At: Physician: [not used]; Name: ; Notified At: ; Arrived At: Physician: [not used]; Name: ; Notified At: ; Arrived At: Historical: - Allergies: 14:34 No Known Allergies; jl7 - Home Meds: 14:34 Eliquis oral [Active]; lisinopril Oral [Active]; [facility] - PMHx: 14:34 Atrial fibrillation; Crohn's Disease; HTN; Myocardial infarction; PE; [facility] - PSHx: 14:34 Colostomy; Stented artery; [facility] - Immunization history:: Adult Immunizations unknown. - Infectious Disease History:: Denies. - Social history:: Smoking status: Patient reports the use of cigarette tobacco products, smokes one pack cigarettes per day. Screenin:[facility] ED Fall Risk Assessment (Adult) History of falling in the last 3 months, [facility] including since admission No falls in past 3 months (0 pts) Confusion or Disorientation Yes (5 pts) Intoxicated or Sedated No (0 pts) Impaired Gait Yes (1 pt) Mobility Assist Device Used No (0 pt) Altered Elimination No (0 pt) Score/Fall Risk Level 3 or more points = High Risk Oriented to surroundings, Maintained a safe environment, Utilized family, sitter, or virtual fuel injection servicer as indicated. Abuse screen: Denies threats or abuse. Denies injuries from another. Nutritional screening: No deficits noted. Tuberculosis screening: No symptoms or risk factors identified. Assessment: 13:10 VAN Scoring: Arm Drift: Patients demonstrates NO arm weakness. Patient is VAN Negative. [address] Swallow Protocol Exclusion Criteria: NPO for medical/surgical reason by provider order Yes Brief Cognitive Screen Oral Mechanism Examination 3 oz Water Swallow Challenge: Result: MD Notified: Reid Turcios MD. TNKase (Tenecteplase) Screening: Contraindications: Is the patient on Aspirin, Heparin, or Warfarin:. 15:01 Reassessment: Transfer delay due to [facility] unable to fly due to weather near [address] Vital Signs: 13:10 BP 170 / 100; Pulse 80; Resp 15; Pulse Ox 96% ; jl7 14:00 BP 155 / 116; Pulse 80; Resp 15; Pulse Ox 97% ; Weight 88.45 kg; Height 5 ft. 9 in. ; jl7 14:10 Temp 97.6; 14:15 BP 168 / 96; Pulse 79; Resp 15; Pulse Ox 97% ; jl7 14:23 BP 170 / 100; Pulse 99; Resp 16; Pulse Ox 99% ; ec2 14:30 BP 171 / 103; Pulse 90; Resp 15; Pulse Ox 97% ; jl7 14:45 BP 150 / 100; Pulse 79; Resp 15; Pulse Ox 100% ; jl7 15:00 BP 138 / 100; Pulse 81; Resp 15; Pulse Ox 98% ; jl7 14:00 Body Mass Index 28.80 (88.45 kg, 175.26 cm) jl7 NIH Stroke Scale Scores: 13:10 NIHSS Score: 2 jl7 13:23 NIHSS Score: 2 ec2 ED Course: 13:10 Arm band placed on right wrist. Patient Pt remained on EMS stretcher [id number]. jl7 13:12 Patient arrived in ED. ec2 13:12 Reid Turcios MD is Attending Physician. ec2 13:33 CT Head Angio In Process Unspecified. EDMS 13:33 CT Neck Angio In Process Unspecified. EDMS 13:33 CT Stroke Brain w/o Contrast In Process Unspecified. EDMS 13:57 Stroke CXR 1 View In Process Unspecified. EDMS 14:00 Patient has correct armband on for positive identification. Placed in gown. Bed in low jl7 position. Call light in reach. Side rails up X2. Provided Education on: transfer. bread distributor on. Pulse ox on. NIBP on. 14:00 Initial lab(s) drawn, sent to lab. Inserted saline lock: 22 gauge in right antecubital jl7 area, using aseptic technique. Blood collected. Flushed with 10 mL NS. 14:00 EKG done, by ED staff, reviewed by Reid Turcios MD. jl7 14:19 Ping Taylor, RN is Primary Nurse. jl7 14:34 Triage completed. jl7 15:49 No provider procedures requiring assistance completed. Patient transferred, IV remains jl7 in place. intact, No redness/swelling at site. Administered Medications: No medications were administered Medication: 15:49 VIS not applicable for this client. jl7 Outcome: 14:18 ER care complete, transfer ordered by . ec2 15:49 Transferred by ground EMS to [facility], Transfer form completed. jl7 15:49 Condition: stable 15:49 Discharge instructions given to patient, family, Instructed on the need for transfer, Demonstrated understanding of instructions, 15:50 Patient left the ED. jl7 NIH Stroke Scale - NIH Stroke Score Date: 08/28/2024 Time: 13:10 Total Score = 2 10. Dysarthria (speech clarity - read or repeat words) - 0(Normal) 11. Extinction and Inattention (visual/tactile/auditory/spatial/personal) - 0(No abnormality) 1a. Level of Consciousness (LOC) - 0(Alert) 1b. Level of Consciousness (LOC) (Month \T\ Age) - 0(Both) 1c. LOC Commands (Open \T\ Closes Eyes/Tool Checker) - 0(Both) 2. Best Gaze (Lateral Gaze Paresis) - 0(Normal) 3. Visual Field Loss - 0(No visual loss) 4. Facial Palsy - 0(Normal) 5a. Left Arm: Motor (10-second hold) - 0(No drift) 5b. Right Arm: Motor (10-second hold) - 0(No drift) 6a. Left Leg: Motor (5-second hold - always test supine) - 0(No drift) 6b. Right Leg: Motor (5-second hold - always test supine) - 0(No drift) 7. Limb Ataxia (finger/nose \T\ heel/emmanuel - test with eyes open) - 0(Absent) 8. Sensory Loss (pinprick arms/legs/face) - 0(Normal) 9. Best Language: Aphasia (description/naming/reading) - 2(Severe aphasia) Initials: jl7 NIH Stroke Scale - NIH Stroke Score Date: 08/28/2024 Time: 13:23 Total Score = 2 10. Dysarthria (speech clarity - read or repeat words) - 0(Normal) 11. Extinction and Inattention (visual/tactile/auditory/spatial/personal) - 0(No abnormality) 1a. Level of Consciousness (LOC) - 0(Alert) 1b. Level of Consciousness (LOC) (Month \T\ Age) 1c. LOC Commands (Open \T\ Closes Eyes/Tool Checker) - 0(Both) 2. Best Gaze (Lateral Gaze Paresis) - 0(Normal) 3. Visual Field Loss - 0(No visual loss) 4. Facial Palsy - 0(Normal) 5a. Left Arm: Motor (10-second hold) - 0(No drift) 5b. Right Arm: Motor (10-second hold) - 0(No drift) 6a. Left Leg: Motor (5-second hold - always test supine) - 0(No drift) 6b. Right Leg: Motor (5-second hold - always test supine) - 0(No drift) 7. Limb Ataxia (finger/nose \T\ heel/emmanuel - test with eyes open) - 0(Absent) 8. Sensory Loss (pinprick arms/legs/face) - 0(Normal) 9. Best Language: Aphasia (description/naming/reading) - 2(Severe aphasia) Initials: ec2 Signatures: Dispatcher [employer] Ping Ragland RN RN jl7 Reid Turcios MD MD ec2 Corrections: (The following items were deleted from the chart) 15:11 14:17 BP 168 / 96; Pulse 79bpm; Resp 15bpm; Pulse Ox 97%; zhou jlJudd
[2024-08-28 16:42] VITALS: TEMP 97.6
[2024-08-28 16:48] VITALS: BP 138/100; O2SAT 98
--- NOTE | 2024-08-31 13:43 | EKG ---
Test Date: 2024-08-28 Test Time: 14:46:17 Logistics Director: ARUNA MEASUREMENT RESULTS: Intervals: Rate: 82 CO: 172 QRSD: 104 QT: 396 QTc: 462 [place]: P: 60 CO: 172 QRS: 50 T: 158 INTERPRETIVE STATEMENTS: Normal sinus rhythm Left ventricular hypertrophy with repolarization abnormality Abnormal ECG Compared to ECG 05/31/2024 10:53:01 No significant changes Electronically Signed On 08-31-24 13:37:50 KETTLE WORKER by Josef Bales
== END 2024-08-28 15:50 ==
LOC: ER 13:10
DX: I66.02 Occlusion and stenosis of left middle cerebral artery (principal); I10 Essential (primary) hypertension; I48.91 Unspecified atrial fibrillation; I25.2 Old myocardial infarction; K50.90 Crohn's disease, unspecified, without complications; F17.210 Nicotine dependence, cigarettes, uncomplicated; Z86.711 Personal history of pulmonary embolism
CPT/HCPCS: 93005; 85025; 80048; 36415; 85610; 82565; 85730; 84484; 70496; 70498; 70450; 71045; 99285; 82077; Q9967